=== PATIENT | male | born 1940 | race Caucasian/White ===

== ENCOUNTER → 2016-05-14 | Outpatient (CLI) | payer BC ==
[~2016-05-14] MED LIST: ASPI81TA28 PO; BUTACAP10 PO; CALC-393 PO; CHOL1000 PO; CINN500T PO; DICL-201 PO; FERROUS SULFATE PO; FOLI1TAB7 PO; HYDR25TA5 PO; LISI-461 PO; LISI-787 PO; LORA10CA10 PO; LSN/10125 PO; METF-384 PO; METH2.5T PO; MULTTAB58 PO; OXYC-57 PO; PRED-301 PO; SIMV10TA5 PO; VITAMIN B12 PO
== END | disposition home or self-care (01) ==
LOC: C.PATHSPEC 18:11
DX: K14.8 Other diseases of tongue (principal)

== ENCOUNTER → 2016-05-31 | Outpatient (CLI) | payer BC ==
[2016-05-31 13:30] LABS: COMPLETE YES; HEMATOCRIT 35.7 % (42-52); IG% 0.3 %; LYMPH % 6.8 %; LYMPH ABS # 0.77 K/uL (1.2-3.4); MEAN CORPUSCULAR HGB CONC 34.7 g/dl (32-36); MEAN PLATELET VOLUME 9.9 fL (7.4-10.4); MONO % 5.3 %; NEUT % 87.6 %; PLATELET COUNT 285 K/uL (130-400); RED BLOOD COUNT 3.88 M/uL (4.7-6.1); WHITE BLOOD COUNT 11.35 K/uL (4.8-10.8)
[2016-05-31 13:39] LABS: ALT/SGPT 38 U/L (12-78); AST/SGOT 21 U/L (15-37); BLOOD UREA NITROGEN 26 mg/dl (7-18); BUN/CREATININE RATIO 17.4 (10-20); CALCIUM 9.5 mg/dl (8.5-10.1); CARBON DIOXIDE 26 mmol/L (21-32); CHLORIDE 102 mmol/L (98-107); GLUCOSE 118 mg/dl (70-99); POTASSIUM 4.2 mmol/L (3.5-5.1); SODIUM 137 mmol/L (136-145)
[2016-05-31 13:44] LABS: CHOLESTEROL 99 mg/dl (0-200); CHOLESTEROL/HDL RATIO 1.2; HDL CHOLESTEROL 80 mg/dl; LDL CHOLESTEROL CALCULATED 9 mg/dl; TRIGLYCERIDES 52 mg/dl (0-150); VERY LOW DENSITY LIPOPROT CALC 10 mg/dl
[2016-05-31 13:56] LABS: ESTIMATED AVERAGE GLUCOSE 105 mg/dl; HA1C FLAG Normal (Normal)
[2016-05-31 18:32] LABS: RATIO 16.4 mcg/mg (0-30.0)
== END | disposition home or self-care (01) ==
LOC: C.LABMFLN 08:06
PROVIDERS: ATTEND Family Medicine
DX: E11.9 Type 2 diabetes mellitus without complications (principal); C61 Malignant neoplasm of prostate; M06.9 Rheumatoid arthritis, unspecified; D63.8 Anemia in other chronic diseases classified elsewhere

== ENCOUNTER → 2016-06-17 | Outpatient (CLI) | payer BC ==
[2016-06-17 13:46] LABS: BASO % 0.2 %; BASO ABS # 0.01 K/uL (0-0.2); COMPLETE YES; EOS % 1.1 %; HEMATOCRIT 34.4 % (42-52); IG% 0.2 %; LYMPH % 12.2 %; LYMPH ABS # 0.67 K/uL (1.2-3.4); MEAN CELL VOLUME 93.7 fL (80-100); MEAN CORPUSCULAR HEMOGLOBIN 31.6 pg (25-34); MEAN CORPUSCULAR HGB CONC 33.7 g/dl (32-36); MEAN PLATELET VOLUME 9.4 fL (7.4-10.4); MONO % 9.5 %; NEUT % 76.8 %; PLATELET COUNT 134 K/uL (130-400); RED BLOOD COUNT 3.67 M/uL (4.7-6.1); WHITE BLOOD COUNT 5.49 K/uL (4.8-10.8)
[2016-06-17 14:04] LABS: BLOOD UREA NITROGEN 17 mg/dl (7-18); BUN/CREATININE RATIO 14.1 (10-20); CALCIUM 9.5 mg/dl (8.5-10.1); CARBON DIOXIDE 25 mmol/L (21-32); CHLORIDE 100 mmol/L (98-107); GLUCOSE 115 mg/dl (70-99); POTASSIUM 4.2 mmol/L (3.5-5.1); SODIUM 136 mmol/L (136-145)
== END | disposition home or self-care (01) ==
LOC: C.LABMFLN 10:37
PROVIDERS: ATTEND Family Medicine
DX: I10 Essential (primary) hypertension (principal); D63.8 Anemia in other chronic diseases classified elsewhere

== ENCOUNTER → 2016-07-15 | Day surgery (SDC) | payer BC ==
[2016-07-12 13:10] VITALS: BMI 24.0
--- NOTE | 2016-07-12 13:36 | PAT Medication Instructions ---
Service Date Jul 12, 2016. Current Home Medication List Aspirin (Aspirin Ec), 81 MG PO QAM Fpmkmtqdeb-Yrysmbncfpouu-Jbvjl (Esgic 325/50/40MG), 1 CAP PO PRN Calcium Carbonate (Calcium), 1 TAB PO QPM Cholecalciferol (Vitamin D3), 2 TABS PO QPM Cinnamon (Cinnamon), 1 TAB PO QPM Folic Acid (Folvite), 1 MG PO QAM Lisinopril (Zestril), 10 MG PO QAM Loratadine (Loratadine), 10 MG PO PRN Metformin Hcl (Glucophage), 1,000 MG PO BID Methotrexate (Methotrexate), 20 MG PO WEEK Multiple Vitamin (Multivitamin), 1 TAB PO QAM Simvastatin (Zocor), 10 MG PO QPM [Vitamin B12], 1 TAB PO QPM Medication Instructions For Your Scheduled Surgery - Stopped as of today (07/12/16): Aspirin (Aspirin Ec), 81 MG PO QAM Cinnamon (Cinnamon), 1 TAB PO QPM - Instructions to be given by surgeon: Methotrexate (Methotrexate), 20 MG PO WEEK - Hold the following medications 48 hours prior to surgery: Metformin Hcl (Glucophage), 1,000 MG PO BID may take 07/13/16 AM but not after that - Hold the following medications the morning of surgery: Fvjnktoyxt-Pgkewuwsormtq-Ggigd (Esgic 325/50/40MG), 1 CAP PO PRN Folic Acid (Folvite), 1 MG PO QAM Lisinopril (Zestril), 10 MG PO QAM Loratadine (Loratadine), 10 MG PO PRN Multiple Vitamin (Multivitamin), 1 TAB PO QAM - Take the following medications as scheduled the night before surgery: Calcium Carbonate (Calcium), 1 TAB PO QPM Cholecalciferol (Vitamin D3), 2 TABS PO QPM Simvastatin (Zocor), 10 MG PO QPM [Vitamin B12], 1 TAB PO QPM Nothing to eat or drink after midnight If you have any questions please call us at [phone] or [phone] or [phone]
--- NOTE | 2016-07-12 14:35 | DIAGNOSTIC IMAGING REPORT ---
CHEST PREADMISSION(PA/LAT) CLINICAL HISTORY: PAT preoperative evaluation COMPARISON STUDY: 08/16/2013 FINDINGS: The bones soft tissues and hemidiaphragms are normal. The cardiomediastinal silhouette is normal. The lungs are clear. The pulmonary vasculature is normal. IMPRESSION: Negative chest. Electronically signed by: Nash Watters M.D. 07/12/2016 2:33 PM Dictated Date/Time: 07/12/2016 2:32 PM
[2016-07-12 14:49] LABS: URINE APPEARANCE CLEAR (CLEAR); URINE BILIRUBIN NEG (NEG); URINE COLOR YELLOW; URINE NITRITE NEG (NEG); URINE SPECIFIC GRAVITY 1.017 (1.000-1.030); UROBILINOGEN NEG (NEG)
[2016-07-12 14:58] LABS: MANUAL MICROSCOPIC REQUIRED? NO; REVIEW REQ? NO
[~2016-07-15] VITALS: Ht 180.3 cm; Wt 78.1 kg
[~2016-07-15] MED LIST changes: +ATROPINE SULFATE 0.1 MG/ML 5ML SYR IV PRN; +CEFAZOLIN 2000 MG/60 ML D5W IV SCH; +CEFAZOLIN SOD 1 GM VIAL ONE; +DEXAMETHASONE SOD INJ 4 MG/ML VIAL ONE; -DICL-201 PO; +FENTANYL CITRATE INJ 50 MCG/1 ML 2 ML VIAL ONE; -FERROUS SULFATE PO; -HYDR25TA5 PO; +HYDROmorphone INJ 1 MG/ML SYR IV PRN; +LACTATED RINGER'S 1000ML 1,000 ML IV SCH; +LIDOCAINE HCL 1% 20 ML VIAL ONE; +LIDOCAINE HCL 2% 2 ML VIAL (20MG/ML) ONE; -LSN/10125 PO; +MIDAZOLAM HCL 1 MG/ML 2ML VIAL ONE; +ONDANSETRON INJ 2 MG/ML 2 ML VIAL ONE; +OXYCODONE/ACETAMINOPHEN 5-325 TAB PO PRN; +PROPOFOL IV EMULSION 10 MG/ML 20 ML VIAL IV ONE
[2016-07-15 07:52] VITALS: BP 168/88; PULSE 99; TEMP 37.1; O2SAT 100; Ht 180.3 cm; Wt 78.1 kg
--- NOTE | 2016-07-15 08:12 | History & Physical Bridge Note ---
H&P Re-Evaluation Bridge Note: I have examined the patient, reviewed the History & Physical and in the interval since the performance of the History & Physical I have noted the following changes of clinical significance: No changes noted
--- NOTE | 2016-07-15 10:35 | [facility] Post Operative Brief Note ---
Immediate Operative Summary Operative Date Jul 15, 2016. 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 Eyad Carlos Derrick Operator Surgeon(s) None Estimated Blood Loss 10cc Specimens A: left testicle Drains none Anesthesia general Complication(s) None Disposition Recovery Room / PACU
--- NOTE | 2016-07-15 10:37 | Discharge Instructions ---
Discharge Instructions Date of Service Jul 15, 2016. Visit Reason for Visit: Testicular Discharge Discharge Diagnosis / Problem: left testes mass Discharge Goals Goal(s): Therapeutic intervention Activity Recommendations Activity Limitations: as noted below Lifting Limitations: no more than 10 pounds Exercise/Sports Limitations: until after follow-up appointment May Resume Sexual Activity: after follow-up appointment Shower/Bathe: tomorrow Anesthesia . Post Anesthesia Instructions: If you have had General Anesthesia or IV Sedation: * Do not drive today. * Resume driving when surgeon permits. * Do not make important decisions or sign legal documents today. * Call surgeon for: 1. Temperature elevations greater than 101 degrees F. 2. Uncontrollable pain. 3. Excessive bleeding. 4. Persistent nausea and vomiting. 5. Medication intolerance (nausea, vomiting or rash). * For nausea and vomiting use only clear liquids such as: tea, soda, bouillon until nausea subsides, then gradually increase diet as tolerated. * If you have any concerns or questions, call your surgeon's office. If physician is unavailable and it is an emergency, call 911 or go to the nearest emergency room. . Diet Recommendations Recommended Home Diet: resume previous diet Procedures Procedures Performed: Left Radical Orchiectomy Pending Studies Studies pending at discharge: no Medical Emergencies . Who to Call and When: Medical Emergencies: If at any time you feel your situation is an emergency, please call 911 immediately. . Non-Emergent Contact Non-Emergency issues call your: Urologist . . "Provider Documentation" section prepared by Eyad Carlos. [place] Drug Monitoring Program Search Results: patient reviewed within database
--- NOTE | 2016-07-15 11:09 | Anesthesiology Progress Note ---
Anesthesia Post Op Note Date & Time Jul 15, 2016 at 11:09 Vital Signs Pain Intensity: 0 Vital Signs Past 12 Hours Date Time Temp Pulse Resp B/P Pulse Ox O2 Delivery O2 Flow Rate FiO2 07/15/16 10:59 36.8 90 21 154/90 97 Room Air 07/15/16 10:49 93 14 07/15/16 10:49 93 14 97 07/15/16 10:45 158/93 07/15/16 10:44 95 15 07/15/16 10:44 94 15 100 07/15/16 10:41 168/100 07/15/16 10:39 97 17 07/15/16 10:39 98 17 100 07/15/16 10:35 165/88 07/15/16 10:34 97 18 155/96 100 07/15/16 10:34 36.0 97 15 155/96 100 Mask 10 07/15/16 10:34 100 18 07/15/16 07:52 37.1 99 20 168/88 100 Room Air Notes Mental Status: alert / awake / arousable, participated in evaluation Pt Amnestic to Procedure: Yes Nausea / Vomiting: adequately controlled Pain: adequately controlled Airway Patency, RR, SpO2: stable & adequate BP & HR: stable & adequate Hydration State: stable & adequate Anesthetic Complications: no major complications apparent
[2016-07-15 11:20] VITALS: BP 160/86; PULSE 93; TEMP 36.6; O2SAT 98
[2016-07-15 11:50] VITALS: BP 168/80; PULSE 96; O2SAT 99
[2016-07-15 12:20] VITALS: BP 161/84; PULSE 92; TEMP 36.6; O2SAT 99
[2016-07-15 13:28] LABS: AFP TUMOR MARKER SERUM 5.2 NG/ML (<6.1)
--- NOTE | 2016-07-15 15:30 | OPERATIVE REPORT ---
DATE OF OPERATION: 07/15/2016 PREOPERATIVE DIAGNOSIS: Left testicular mass. POSTOPERATIVE DIAGNOSIS: Same. PROCEDURE: Radical left orchiectomy. FINDINGS: The patient had a mass in the left testicle also a lot of scarring in the left inguinal region secondary to a prior hernia repair. SURGEON: Dr. Carlos. ANESTHESIA: General. DRAINS: None. COMPLICATIONS: None. SPECIMENS: Left testicle and spermatic cord. INDICATIONS: The patient is a 76-year-old white male who is being followed for prostate cancer. 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 The patient is being brought in now for radical orchiectomy. PROCEDURE: After the induction of an adequate general anesthetic and appropriate time-out, the patient's lower abdomen, genitalia, scrotum were prepped with Betadine and draped in a sterile fashion. Next, an incision was made in the left lower quadrant approximately 2 cm above the pubic symphysis, being carried down through skin and subcutaneous tissues down Scarp's fascia which was opened sharply and then using blunt dissection, the external oblique fascia was identified. This was very scarred in from his prior hernia repair. Very difficult to find the external ring, but it was eventually identified, the fascia was then opened, the cord was isolated and wrapped with a Leopold drain. The testicle was then pushed up from the scrotum up into the abdominal incision and the gubernaculum was transected using electrocautery. The cord was then isolated in several packets, transected and ligated with 0 silk and then 0 silk suture links as was the vas itself. After completing this and handing off as the specimen, the wound was irrigated with antibiotic irrigation. Any bleeding points were electrocoagulated. The wound was closed in the following fashion: The fascia was reapproximated with a running 2-0 Vicryl, subcutaneous layers were closed with a 3-0 Vicryl and the skin was closed with skin clips. The wound was then washed and dried and dry sterile dressing was then applied. All needle, sponge and instrument counts were correct at the end of the case. The patient tolerated the procedure well and went to the recovery room in stable condition. I attest to the content of the Intraoperative Record and any orders documented therein. Any exceptio ns are noted below.
== END | disposition home or self-care (01) ==
LOC: C.ACU 07:04
PROVIDERS: ATTEND Urology
DX: N50.9 Disorder of male genital organs, unspecified (principal); I71.4 Abdominal aortic aneurysm, without rupture; I10 Essential (primary) hypertension; E11.9 Type 2 diabetes mellitus without complications; L70.0 Acne vulgaris; M19.90 Unspecified osteoarthritis, unspecified site; I65.21 Occlusion and stenosis of right carotid artery; Z85.46 Personal history of malignant neoplasm of prostate; M06.9 Rheumatoid arthritis, unspecified; Z90.89 Acquired absence of other organs; Z82.3 Family history of stroke; Z80.3 Family history of malignant neoplasm of breast; Z83.3 Family history of diabetes mellitus; Z87.891 Personal history of nicotine dependence; Z91.048 Other nonmedicinal substance allergy status; Z88.8 Allergy status to other drugs, medicaments and biological substances; E78.00 Pure hypercholesterolemia, unspecified

== ENCOUNTER → 2016-08-21 | Outpatient (CLI) | payer BC ==
[~2016-08-21] MED LIST changes: -ATROPINE SULFATE 0.1 MG/ML 5ML SYR IV PRN; -BUTACAP10 PO; -CEFAZOLIN 2000 MG/60 ML D5W IV SCH; -CEFAZOLIN SOD 1 GM VIAL ONE; -DEXAMETHASONE SOD INJ 4 MG/ML VIAL ONE; -FENTANYL CITRATE INJ 50 MCG/1 ML 2 ML VIAL ONE; -HYDROmorphone INJ 1 MG/ML SYR IV PRN; -LACTATED RINGER'S 1000ML 1,000 ML IV SCH; -LIDOCAINE HCL 1% 20 ML VIAL ONE; -LIDOCAINE HCL 2% 2 ML VIAL (20MG/ML) ONE; -LISI-461 PO; -MIDAZOLAM HCL 1 MG/ML 2ML VIAL ONE; -ONDANSETRON INJ 2 MG/ML 2 ML VIAL ONE; -OXYCODONE/ACETAMINOPHEN 5-325 TAB PO PRN; -PROPOFOL IV EMULSION 10 MG/ML 20 ML VIAL IV ONE; -VITAMIN B12 PO
== END | disposition home or self-care (01) ==
LOC: C.LABMFLN 12:00
PROVIDERS: ATTEND Urology
DX: C61 Malignant neoplasm of prostate (principal)

== ENCOUNTER → 2016-10-17 | Outpatient (CLI) | payer BC ==
[2016-10-17 18:33] LABS: ALT/SGPT 58 U/L (12-78); AST/SGOT 49 U/L (15-37); BLOOD UREA NITROGEN 23 mg/dl (7-18); BUN/CREATININE RATIO 17.5 (10-20); CALCIUM 9.3 mg/dl (8.5-10.1); CARBON DIOXIDE 27 mmol/L (21-32); CHLORIDE 104 mmol/L (98-107); GLUCOSE 80 mg/dl (70-99); POTASSIUM 4.2 mmol/L (3.5-5.1); SODIUM 141 mmol/L (136-145)
[2016-10-17 18:38] LABS: ALB/GLOB RATIO 1.4 (0.9-2); ALKALINE PHOSPHATASE 90 U/L (45-117); CHOLESTEROL 119 mg/dl (0-200); CHOLESTEROL/HDL RATIO 1.3; HDL CHOLESTEROL 91 mg/dl; LDL CHOLESTEROL CALCULATED 13 mg/dl; PROSTATE SPECIFIC ANTIGEN 0.105 ng/ml (0.000-4.000); TRIGLYCERIDES 77 mg/dl (0-150); VERY LOW DENSITY LIPOPROT CALC 15 mg/dl
[2016-10-17 18:54] LABS: ESTIMATED AVERAGE GLUCOSE 108 mg/dl; HA1C FLAG Normal (Normal)
== END | disposition home or self-care (01) ==
LOC: C.LABMFLN 12:42
PROVIDERS: ATTEND Family Medicine
DX: M06.9 Rheumatoid arthritis, unspecified (principal); I10 Essential (primary) hypertension; E11.9 Type 2 diabetes mellitus without complications; R97.20 Elevated prostate specific antigen [PSA]

== ENCOUNTER → 2016-11-18 | Outpatient (CLI) | payer BC ==
[2016-11-18 17:54] LABS: BASO % 0.2 %; BASO ABS # 0.01 K/uL (0-0.2); COMPLETE YES; EOS % 8.1 %; HEMATOCRIT 28.4 % (42-52); LYMPH % 5.4 %; LYMPH ABS # 0.32 K/uL (1.2-3.4); MEAN CELL VOLUME 91.6 fL (80-100); MEAN CORPUSCULAR HEMOGLOBIN 31.9 pg (25-34); MEAN CORPUSCULAR HGB CONC 34.9 g/dl (32-36); MEAN PLATELET VOLUME 8.6 fL (7.4-10.4); MONO % 10.5 %; NEUT % 74.8 %; PLATELET COUNT 184 K/uL (130-400); WHITE BLOOD COUNT 5.93 K/uL (4.8-10.8)
[2016-11-18 18:34] LABS: BLOOD UREA NITROGEN 38 mg/dl (7-18); BUN/CREATININE RATIO 25.5 (10-20); CALCIUM 8.9 mg/dl (8.5-10.1); CARBON DIOXIDE 24 mmol/L (21-32); CHLORIDE 102 mmol/L (98-107); GLUCOSE 111 mg/dl (70-99); POTASSIUM 3.2 mmol/L (3.5-5.1); SODIUM 134 mmol/L (136-145)
== END | disposition home or self-care (01) ==
LOC: C.LABMFLN 15:08
PROVIDERS: ATTEND Family Medicine
DX: R19.7 Diarrhea, unspecified (principal); E86.0 Dehydration

== ENCOUNTER → 2016-11-25 | Outpatient (CLI) | payer BC ==
[2016-11-25 18:02] LABS: BLOOD UREA NITROGEN 25 mg/dl (7-18); BUN/CREATININE RATIO 20.5 (10-20); CALCIUM 8.9 mg/dl (8.5-10.1); CARBON DIOXIDE 26 mmol/L (21-32); CHLORIDE 103 mmol/L (98-107); GLUCOSE 126 mg/dl (70-99); POTASSIUM 3.5 mmol/L (3.5-5.1); SODIUM 135 mmol/L (136-145)
[2016-11-25 18:03] LABS: TOTAL IRON BINDING CAPACITY 258 mcg/dl (250-450)
[2016-11-25 18:14] LABS: HEMATOCRIT 27.3 % (42-52)
--- NOTE | 2016-12-04 12:05 | CODING QUERY MEDICAL NECESSITY ---
SUPPORTING DIAGNOSIS NEEDED A supporting diagnosis is required for the test/procedure performed on this patient in order for us to be reimbursed by the patient's insurance. Please provide a supporting diagnosis for the following test/procedure listed below next to the test name along with your signature. *If there is no additional diagnosis for this patient that would support the following test/procedure please document that below next to the test/procedure. Test(s)/Procedure(s) that require a supporting diagnosis: * VITAMIN B12 DIAGNOSIS: * FOLIC ACID DIAGNOSIS: Provider Signature: Date: Thank you Amarilys Rosenberg [employer] Information Management Once completed, please kindly fax back to [phone] For questions please call [phone]
== END | disposition home or self-care (01) ==
LOC: C.LABMFLN 13:07
PROVIDERS: ATTEND Family Medicine
DX: D64.9 Anemia, unspecified (principal); E87.6 Hypokalemia; E86.0 Dehydration

== ENCOUNTER → 2016-12-04 | Outpatient (CLI) | payer BC ==
[2016-12-04 17:51] LABS: URINE APPEARANCE CLEAR (CLEAR); URINE BILIRUBIN NEG (NEG); URINE COLOR DK YELLOW; URINE NITRITE NEG (NEG); URINE PH 6.5 (4.5-7.5); URINE SPECIFIC GRAVITY 1.021 (1.000-1.030); UROBILINOGEN NEG (NEG)
[2016-12-04 17:57] LABS: MANUAL MICROSCOPIC REQUIRED? NO; REVIEW REQ? NO
== END | disposition home or self-care (01) ==
LOC: C.LABMFLN 15:11
PROVIDERS: ATTEND Family Medicine
DX: R35.0 Frequency of micturition (principal)

== ENCOUNTER → 2016-12-16 | Outpatient (CLI) | payer BC ==
[2016-12-16 18:05] LABS: BLOOD UREA NITROGEN 14 mg/dl (7-18); BUN/CREATININE RATIO 12.6 (10-20); CALCIUM 8.4 mg/dl (8.5-10.1); CARBON DIOXIDE 28 mmol/L (21-32); CHLORIDE 107 mmol/L (98-107); GLUCOSE 133 mg/dl (70-99); POTASSIUM 3.6 mmol/L (3.5-5.1); SODIUM 141 mmol/L (136-145)
[2016-12-16 18:07] LABS: ALT/SGPT 62 U/L (12-78); AST/SGOT 35 U/L (15-37)
[2016-12-16 18:10] LABS: ALKALINE PHOSPHATASE 119 U/L (45-117)
[2016-12-16 18:25] LABS: BASO % 0.3 %; BASO ABS # 0.01 K/uL (0-0.2); EOS % 3.3 %; HEMATOCRIT 26.6 % (42-52); IG% 4.9 %; LYMPH % 9.5 %; LYMPH ABS # 0.37 K/uL (1.2-3.4); MEAN CELL VOLUME 98.9 fL (80-100); MEAN CORPUSCULAR HEMOGLOBIN 31.2 pg (25-34); MEAN CORPUSCULAR HGB CONC 31.6 g/dl (32-36); MONO % 8.4 %; NEUT % 73.6 %; PLATELET COUNT 135 K/uL (130-400); RED BLOOD COUNT 2.69 M/uL (4.7-6.1); WHITE BLOOD COUNT 3.91 K/uL (4.8-10.8)
[2016-12-16 19:39] LABS: ANISOCYTOSIS PRESENT; COMPLETE YES
== END | disposition home or self-care (01) ==
LOC: C.LABMFLN 12:25
PROVIDERS: ATTEND Internal Medicine
DX: Z79.899 Other long term (current) drug therapy (principal)

== ENCOUNTER → 2016-12-30 | Outpatient (CLI) | payer BC ==
[2016-12-30 18:14] LABS: HEMATOCRIT 29.3 % (42-52)
--- NOTE | 2017-01-06 16:06 | CODING QUERY NO DIAGNOSIS ---
: 1940 TREATMENT RENDERED WITHOUT A DIAGNOSIS To promote full compliance with coding requirements relating to patient care, physician participation is requested in all cases of commercial hvac technician uncertainty. Please assist us with providing a diagnosis/symptom for the test(s) below: The diagnosis included on your order D63.8 cannot be used as an only diagnosis as it is a manifestation code. Please provide the chronic disease associated with the D63.8 (anemia of chronic disease). The testing rendered was completed on 01/02/17 and included: HEMOGLOBIN & HEMATOCRIT Please provide the chronic disease associated with the (anemia of chronic disease D63.8) included on your order. D63.8 is considered a manifestation code and cannot be coded as only diagnosis. DIAGNOSIS: Provider Signature: Date: Thank you Charlotte Bowman [employer] Information [employer] Once completed, please kindly fax back to [phone] For questions please call [phone]
== END | disposition home or self-care (01) ==
LOC: C.LABMFLN 12:26
PROVIDERS: ATTEND Family Medicine
DX: D64.9 Anemia, unspecified (principal)

== ENCOUNTER → 2017-01-20 | Outpatient (CLI) | payer BC ==
[~2017-01-20] MED LIST changes: -OXYC-57 PO
[2017-01-20 13:56] LABS: BASO % 0.6 %; BASO ABS # 0.03 K/uL (0-0.2); COMPLETE YES; EOS % 1.7 %; HEMATOCRIT 32.9 % (42-52); IG% 0.8 %; LYMPH % 19.6 %; LYMPH ABS # 1.01 K/uL (1.2-3.4); MEAN CELL VOLUME 96.8 fL (80-100); MEAN CORPUSCULAR HEMOGLOBIN 32.4 pg (25-34); MEAN CORPUSCULAR HGB CONC 33.4 g/dl (32-36); MEAN PLATELET VOLUME 10.1 fL (7.4-10.4); MONO % 10.3 %; PLATELET COUNT 147 K/uL (130-400); WHITE BLOOD COUNT 5.16 K/uL (4.8-10.8)
[2017-01-21 14:58] LABS: ALBUMIN 3.7 G/DL (3.8-4.8); GAMMA GLOBULIN 0.8 G/DL (0.8-1.7); TOTAL PROTEIN 6.3 G/DL (6.2-8.3)
== END ==
LOC: C.LABMFLN 10:53
PROVIDERS: ATTEND Internal Medicine
DX: D72.810 Lymphocytopenia (principal); D64.9 Anemia, unspecified

== ENCOUNTER → 2017-02-17 | Outpatient (CLI) | payer BC ==
[2017-02-17 18:06] LABS: BASO % 0.2 %; BASO ABS # 0.01 K/uL (0-0.2); COMPLETE YES; EOS % 2.7 %; HEMATOCRIT 36.6 % (42-52); IG% 0.6 %; LYMPH % 19.3 %; LYMPH ABS # 1.22 K/uL (1.2-3.4); MEAN CELL VOLUME 95.1 fL (80-100); MEAN CORPUSCULAR HEMOGLOBIN 30.9 pg (25-34); MEAN CORPUSCULAR HGB CONC 32.5 g/dl (32-36); MEAN PLATELET VOLUME 9.4 fL (7.4-10.4); NEUT % 65.2 %; PLATELET COUNT 136 K/uL (130-400); RED BLOOD COUNT 3.85 M/uL (4.7-6.1); WHITE BLOOD COUNT 6.33 K/uL (4.8-10.8)
[2017-02-17 18:18] LABS: ALT/SGPT 31 U/L (12-78); AST/SGOT 19 U/L (15-37); BLOOD UREA NITROGEN 27 mg/dl (7-18); BUN/CREATININE RATIO 22.1 (10-20); CALCIUM 8.9 mg/dl (8.5-10.1); CARBON DIOXIDE 26 mmol/L (21-32); CHLORIDE 106 mmol/L (98-107); GLUCOSE 92 mg/dl (70-99); POTASSIUM 3.8 mmol/L (3.5-5.1); SODIUM 141 mmol/L (136-145)
[2017-02-17 18:24] LABS: ALB/GLOB RATIO 1.2 (0.9-2); ALKALINE PHOSPHATASE 107 U/L (45-117); CHOLESTEROL 162 mg/dl (0-200); CHOLESTEROL/HDL RATIO 1.3; HDL CHOLESTEROL 121 mg/dl; LDL CHOLESTEROL CALCULATED 24 mg/dl; TOTAL IRON BINDING CAPACITY 314 mcg/dl (250-450); TRIGLYCERIDES 85 mg/dl (0-150); VERY LOW DENSITY LIPOPROT CALC 17 mg/dl
[2017-02-18 05:32] LABS: ESTIMATED AVERAGE GLUCOSE 94 mg/dl; HA1C FLAG Normal (Normal)
== END | disposition home or self-care (01) ==
LOC: C.LABMFLN 11:13
PROVIDERS: ATTEND Family Medicine
DX: I10 Essential (primary) hypertension (principal); E11.9 Type 2 diabetes mellitus without complications; D63.8 Anemia in other chronic diseases classified elsewhere

== ENCOUNTER → 2017-04-08 | Outpatient (CLI) | payer BC ==
[~2017-04-08] MED LIST changes: -FOLI1TAB7 PO; +FOLI1TAB8 PO
== END | disposition home or self-care (01) ==
LOC: C.LABMFLN 13:00
PROVIDERS: ATTEND Urology
DX: C61 Malignant neoplasm of prostate (principal)

== ENCOUNTER → 2017-04-23 | Outpatient (CLI) | payer BC ==
[2017-04-23 12:24] LABS: BASO % 0.3 %; BASO ABS # 0.02 K/uL (0-0.2); EOS % 1.9 %; EOS ABS # 0.11 K/uL (0-0.5); HEMATOCRIT 35.4 % (42-52); HEMOGLOBIN 11.6 g/dL (14.0-18.0); IG# 0.01 K/uL (0.00-0.02); LYMPH % 8.4 %; MEAN CELL VOLUME 92.9 fL (80-100); MEAN CORPUSCULAR HEMOGLOBIN 30.4 pg (25-34); MEAN CORPUSCULAR HGB CONC 32.8 g/dl (32-36); MEAN PLATELET VOLUME 9.8 fL (7.4-10.4); MONO ABS # 0.59 K/uL (0.11-0.59); NEUT % 79.2 %; NEUT ABS # 4.69 K/uL (1.4-6.5); PLATELET COUNT 185 K/uL (130-400); RED CELL DISTRIBUTION WIDTH CV 15.4 % (11.5-14.5); RED CELL DISTRIBUTION WIDTH SD 51.8 fL (36.4-46.3); WHITE BLOOD COUNT 5.92 K/uL (4.8-10.8)
[2017-04-23 13:07] LABS: ALBUMIN 3.7 gm/dl (3.4-5.0); ALT/SGPT 35 U/L (12-78); BLOOD UREA NITROGEN 23 mg/dl (7-18); CALCIUM 9.6 mg/dl (8.5-10.1); CARBON DIOXIDE 25 mmol/L (21-32); CREATININE 1.21 mg/dl (0.60-1.40); GLUCOSE 112 mg/dl (70-99); POTASSIUM 4.1 mmol/L (3.5-5.1); SODIUM 137 mmol/L (136-145)
[2017-04-23 13:10] LABS: ALKALINE PHOSPHATASE 118 U/L (45-117); AST/SGOT 30 U/L (15-37); TOTAL PROTEIN 7.1 gm/dl (6.4-8.2)
== END | disposition home or self-care (01) ==
LOC: C.LABMFLN 09:48
PROVIDERS: ATTEND Family Medicine
DX: M06.9 Rheumatoid arthritis, unspecified (principal); M79.1 Myalgia

== ENCOUNTER → 2017-05-26 | Outpatient (CLI) | payer BC ==
[2017-05-26 17:58] LABS: BASO % 0.2 %; BASO ABS # 0.01 K/uL (0-0.2); EOS % 2.8 %; EOS ABS # 0.18 K/uL (0-0.5); HEMATOCRIT 32.7 % (42-52); HEMOGLOBIN 10.7 g/dL (14.0-18.0); IG# 0.06 K/uL (0.00-0.02); LYMPH % 16.4 %; LYMPH ABS # 1.04 K/uL (1.2-3.4); MEAN CELL VOLUME 97.9 fL (80-100); MEAN CORPUSCULAR HGB CONC 32.7 g/dl (32-36); MEAN PLATELET VOLUME 9.8 fL (7.4-10.4); MONO % 13.2 %; MONO ABS # 0.84 K/uL (0.11-0.59); NEUT % 66.5 %; NEUT ABS # 4.21 K/uL (1.4-6.5); PLATELET COUNT 154 K/uL (130-400); RED CELL DISTRIBUTION WIDTH CV 16.2 % (11.5-14.5); WHITE BLOOD COUNT 6.34 K/uL (4.8-10.8)
== END | disposition home or self-care (01) ==
LOC: C.LABMFLN 11:32
PROVIDERS: ATTEND Internal Medicine
DX: M05.79 Rheumatoid arthritis with rheumatoid factor of multiple sites without organ or systems involvement (principal); Z79.899 Other long term (current) drug therapy

== ENCOUNTER → 2017-07-01 | Outpatient (CLI) | payer BC ==
[2017-07-01 18:10] LABS: BASO % 0.2 %; BASO ABS # 0.01 K/uL (0-0.2); EOS % 8.1 %; HEMATOCRIT 34.5 % (42-52); HEMOGLOBIN 11.1 g/dL (14.0-18.0); IG# 0.03 K/uL (0.00-0.02); LYMPH % 13.6 %; LYMPH ABS # 0.67 K/uL (1.2-3.4); MEAN CORPUSCULAR HEMOGLOBIN 31.5 pg (25-34); MEAN CORPUSCULAR HGB CONC 32.2 g/dl (32-36); MEAN PLATELET VOLUME 9.9 fL (7.4-10.4); MONO % 9.5 %; MONO ABS # 0.47 K/uL (0.11-0.59); NEUT ABS # 3.36 K/uL (1.4-6.5); PLATELET COUNT 134 K/uL (130-400); RED CELL DISTRIBUTION WIDTH CV 15.7 % (11.5-14.5); RED CELL DISTRIBUTION WIDTH SD 55.2 fL (36.4-46.3); WHITE BLOOD COUNT 4.94 K/uL (4.8-10.8)
[2017-07-01 18:29] LABS: ALBUMIN 3.3 gm/dl (3.4-5.0); ALT/SGPT 87 U/L (12-78); AST/SGOT 57 U/L (15-37); BLOOD UREA NITROGEN 21 mg/dl (7-18); CALCIUM 9.5 mg/dl (8.5-10.1); CARBON DIOXIDE 26 mmol/L (21-32); CREATININE 1.32 mg/dl (0.60-1.40); GLUCOSE 124 mg/dl (70-99); SODIUM 139 mmol/L (136-145)
[2017-07-01 18:33] LABS: ALKALINE PHOSPHATASE 106 U/L (45-117); CHOLESTEROL 111 mg/dl (0-200); LDL CHOLESTEROL CALCULATED 27 mg/dl; TOTAL PROTEIN 6.5 gm/dl (6.4-8.2); TRANSFERRIN 253 mg/dl (200-360)
[2017-07-02 06:33] LABS: HEMOGLOBIN A1C 5.4 % (4.5-5.6)
== END | disposition home or self-care (01) ==
LOC: C.LABMFLN 11:02
PROVIDERS: ATTEND Family Medicine
DX: I10 Essential (primary) hypertension (principal); E11.9 Type 2 diabetes mellitus without complications

== ENCOUNTER 2023-05-26 10:59 | Observation (INO) ==
--- NOTE | 2023-04-29 09:20 | PAT Medication Instructions ---
Medication Instructions Date of Service April 29, 2023 Home Medications Medication Instructions Recorded linaclotide 145 mcg capsule 145 mcg PO DAILY PRN constipation 09/30/18 #90 caps nystatin-triamcinolone 100,000 1 appln topical BID #60 grams 09/30/18 unit/g-0.1 % topical cream mupirocin 2 % topical ointment 1 appln topical BID #30 grams 10/01/18 ipratropium bromide 21 mcg (0.03 See Rx Instructions .Route 03/26/21 %) nasal spray .COMPLEX #90 mL simvastatin 20 mg tablet 20 mg PO QPM #90 tabs 11/13/22 montelukast 10 mg tablet 10 mg PO QPM #90 tabs 01/14/23 ghwzoddtfo-ogrgunzppcjmn-vbzeosnq 1 tab PO Q6H PRN pain #30 tabs 01/31/23 50 mg-325 mg-40 mg tablet tramadol 50 mg tablet 50 mg PO Q6H PRN pain #50 tabs 01/31/23 tocilizumab 162 mg/0.9 mL 162 mg (0.9 mL) subcut Q7D #3.6 mL 02/05/23 subcutaneous pen injector (Actemra ACTPen) diltiazem HCl 120 mg capsule,24 120 mg PO QAM #90 caps 04/14/23 hr,extended release mirtazapine 30 mg tablet 30 mg PO HS insomnia mood #90 tabs 04/15/23 calcium carbonate 600 mg calcium (1,500 mg) tablet (Calcium) 600 mg PO QAM hydrocortisone 2.5 % topical cream 1 appln topical .COMPLEX linaclotide 145 mcg capsule 145 mcg PO DAILY PRN dnxfvovwvxis-odghuedd-jcpbhj tablet 1 tab PO QAM nystatin-triamcinolone 100,000 unit/g-0.1 % topical cream 1 appln topical BID mupirocin 2 % topical ointment 1 appln topical BID ipratropium bromide 21 mcg (0.03 %) nasal spray See Rx Instructions .Route .COMPLEX simvastatin 20 mg tablet 20 mg PO QPM montelukast 10 mg tablet 10 mg PO QPM gdfvatonxo-zunjrcugwwjcf-qxpppikq 50 mg-325 mg-40 mg tablet 1 tab PO Q6H PRN tramadol 50 mg tablet 50 mg PO Q6H PRN tocilizumab 162 mg/0.9 mL subcutaneous pen injector (Actemra ACTPen) 162 mg (0.9 mL) subcut Q7D diltiazem HCl 120 mg capsule,24 hr,extended release 120 mg PO QAM mirtazapine 30 mg tablet 30 mg PO HS cinnamon bark 500 mg capsule 500 mg PO QAM escitalopram oxalate 5 mg tablet 5 mg PO QAM fesoterodine 8 mg tablet,extended release 24 hr (Toviaz) 8 mg PO QPM folic acid 1 mg tablet 1 mg PO QAM lisinopril 20 mg tablet 20 mg PO QAM mirabegron 50 mg tablet,extended release 24 hr (Myrbetriq) 50 mg PO QPM multivitamin 1 tab PO QAM omeprazole 40 mg capsule,delayed release 40 mg PO QAM prednisone 5 mg tablet 5 mg PO QAM Continue as directed ipratropium bromide 21 mcg (0.03 %) nasal spray See Rx Instructions .Route .COMPLEX ASK your surgeon for instructions pfgvpiptii-rlcerbanrupnj-bziypfvh 50 mg-325 mg-40 mg tablet 1 tab PO Q6H PRN ASK your prescriber and surgeon tocilizumab 162 mg/0.9 mL subcutaneous pen injector (Actemra ACTPen) 162 mg (0.9 mL) subcut Q7D STOP taking 2 weeks before surgery (or as soon as possible if surgery is within 2 weeks) cinnamon bark 500 mg capsule 500 mg PO QAM STOP taking 24 hours before surgery hydrocortisone 2.5 % topical cream 1 appln topical .COMPLEX nystatin-triamcinolone 100,000 unit/g-0.1 % topical cream 1 appln topical BID mupirocin 2 % topical ointment 1 appln topical BID DO NOT take the morning of surgery calcium carbonate 600 mg calcium (1,500 mg) tablet (Calcium) 600 mg PO QAM linaclotide 145 mcg capsule 145 mcg PO DAILY PRN amwjecvjppow-lrdztaql-pmizrr tablet 1 tab PO QAM folic acid 1 mg tablet 1 mg PO QAM lisinopril 20 mg tablet 20 mg PO QAM multivitamin 1 tab PO QAM Take morning of surgery With a small sip of water, OTHERWISE NOTHING TO EAT OR DRINK AFTER MIDNIGHT: tramadol 50 mg tablet 50 mg PO Q6H PRN(if needed) diltiazem HCl 120 mg capsule,24 hr,extended release 120 mg PO QAM escitalopram oxalate 5 mg tablet 5 mg PO QAM omeprazole 40 mg capsule,delayed release 40 mg PO QAM prednisone 5 mg tablet 5 mg PO QAM Take evening before surgery simvastatin 20 mg tablet 20 mg PO QPM montelukast 10 mg tablet 10 mg PO QPM mirtazapine 30 mg tablet 30 mg PO HS fesoterodine 8 mg tablet,extended release 24 hr (Toviaz) 8 mg PO QPM mirabegron 50 mg tablet,extended release 24 hr (Myrbetriq) 50 mg PO QPM tramadol 50 mg tablet 50 mg PO Q6H PRN(if needed) Other Notes If you have any questions please call us at [phone] or [phone] or [phone] or [phone]
--- NOTE | 2023-05-02 10:48 | Anesthesiology Consultation ---
Date of Service May 02, 2023 Assessment & Plan (1) Encounter for pre-operative examination: - Check BSG AM DOS - Infectious disease screening: Per assessment on 05/02/23: No known infectious disease contacts or current infectious disease symptoms. No noted recent Covid positive test result. - Outpatient joint assessment: Pt currently scheduled for inpatient pathway. If surgeon requests review for outpatient joint pathway, patient is not recommended candidate for outpatient joint program from anesthesia standpoint. - Hyperkalemia: Elevated potassium at 5.3 on preop labs 05/02/23. Workload message sent to PCP. PCP responded with instructions for staff to provide to patient regarding hyperkalemia 05/04/23, "Please call patient. Potassium has been elevated on preop labs. However, multiple other potassium levels have been normal. Please make sure he is not taking any potassium supplements or salt substitutes. Drink plenty of water. Recheck BMP this week." Awaiting recheck BMP and surgeon-ordered PCP preop evaluation ([facility], appt 2/). Chart Review Chart Review: Patient seen in Pre Admission Testing Teaching & Discussion Pre-Anesthesia Teaching/Discussion Notes: Instructed NPO after midnight before surgery,except medications with 15 cc of water. Medication instructions provided according to the PAT guidelines. History Surgery Operation Date: 05/26/23 09:45 Proposed Procedures p Right Total Knee Arthroplasty(Right) - Luis Hernandez MD Height/Weight Height: 5 ft 11.5 in Weight: 100.8 kg Allergies Allergy/AdvReac Type Severity Reaction Status Date / Time adhesive Allergy Mild Redness Verified 04/29/23 09:59 lovastatin Allergy Unknown Unknown Verified 04/29/23 09:59 pseudoephedrine AdvReac Intermediate "[place] high" Verified 04/29/23 09:59 Medications Home Medications Medication Instructions Recorded Confirmed Last Taken calcium carbonate 600 mg calcium 600 mg PO QAM 09/25/18 04/28/23 Unknown (1,500 mg) tablet (Calcium) hydrocortisone 2.5 % topical cream 1 appln topical .COMPLEX 09/30/18 04/28/23 Unknown linaclotide 145 mcg capsule 145 mcg PO DAILY PRN constipation 09/30/18 04/28/23 Unknown #90 caps riqceiqklrdf-ctzurjvc-yadvxv tablet 1 tab PO QAM 09/30/18 04/28/23 Unknown nystatin-triamcinolone 100,000 1 appln topical BID #60 grams 09/30/18 04/28/23 Unknown unit/g-0.1 % topical cream mupirocin 2 % topical ointment 1 appln topical BID #30 grams 10/01/18 04/28/23 Unknown ipratropium bromide 21 mcg (0.03 See Rx Instructions .Route 03/26/21 04/28/23 Unknown %) nasal spray .COMPLEX #90 mL simvastatin 20 mg tablet 20 mg PO QPM #90 tabs 11/13/22 04/28/23 Unknown montelukast 10 mg tablet 10 mg PO QPM #90 tabs 01/14/23 04/28/23 Unknown baigkhljsq-euhnmtraxyyil-ahbxgtos 1 tab PO Q6H PRN pain #30 tabs 01/31/23 04/28/23 Unknown 50 mg-325 mg-40 mg tablet tramadol 50 mg tablet 50 mg PO Q6H PRN pain #50 tabs 01/31/23 04/28/23 Unknown tocilizumab 162 mg/0.9 mL 162 mg (0.9 mL) subcut Q7D #3.6 mL 02/05/23 04/28/23 Unknown subcutaneous pen injector (Actemra ACTPen) diltiazem HCl 120 mg capsule,24 120 mg PO QAM #90 caps 04/14/23 04/28/23 Unknown hr,extended release mirtazapine 30 mg tablet 30 mg PO HS insomnia mood #90 tabs 04/15/23 04/28/23 Unknown cinnamon bark 500 mg capsule 500 mg PO QAM 04/28/23 04/28/23 Unknown escitalopram oxalate 5 mg tablet 5 mg PO QAM 04/28/23 04/28/23 Unknown fesoterodine 8 mg tablet,extended 8 mg PO QPM 04/28/23 04/28/23 Unknown release 24 hr (Toviaz) folic acid 1 mg tablet 1 mg PO QAM 04/28/23 04/28/23 Unknown lisinopril 20 mg tablet 20 mg PO QAM 04/28/23 04/28/23 Unknown mirabegron 50 mg tablet,extended 50 mg PO QPM 04/28/23 04/28/23 Unknown release 24 hr (Myrbetriq) multivitamin 1 tab PO QAM 04/28/23 04/28/23 Unknown omeprazole 40 mg capsule,delayed 40 mg PO QAM 04/28/23 04/28/23 Unknown release prednisone 5 mg tablet 5 mg PO QAM 04/28/23 04/28/23 Unknown Past Medical History Medical History (Updated 05/04/23 @ 15:00 by Ramiro Hernandez MD) Abdominal aneurysm Aortoiliac ultrasound 06/2021: 3.7cm infrarenal AAA (stable) 2 year surviellance recommended by vascular (Dr. Pride) Actinic keratoses Anemia Chronic Carotid stenosis, right Under surveillance by vascular, imaging every 2 years Carotid duplex 06/2021: Known MARGARITA occlusion, 60-69% LICA stenosis ("possibly overestimated due to contralateral ICA occlusion), no change compared to 05/2019 per report Diabetes mellitus, type 2 Diet controlled H/O prostate cancer Dx 2006 S/p protatectomy Hearing deficit Hypercholesteremia Hyperkalemia Hypertension Osteoarthritis, knee Rheumatoid arthritis Spinal stenosis of lumbar region "Moderate" at L4-L5 Spondylolisthesis at L4-L5 level Exercise / Class Metabolic Activity III < 4 Walking/Shop/Light housework Past Family History Family History Father No problems noted. Mother No problems noted. Other No family history of adverse response to anesthesia Past Surgical History Surgical History H/O hernia repair H/O prostatectomy History of colonoscopy History of tonsillectomy and adenoidectomy History of tooth extraction Hx of vasectomy Past Anesthesia History No Hx of Anesthesia Complications and No Family Hx of Anesthesia Complications History of PONV No Hx of PONV and No Hx of Motion Sickness Social History Smoking Status: Former smoker Do You Dip or Chew Tobacco: No Smoking End Date: Quit 2006 Hx Alcohol Use: No Hx Substance Use: No substance use type: does not use Review of Systems Patient denies chest pain, shortness of breath, fever, chills, cough, wheezing, palpitations. Physical Exam Vital Signs VITALS BP 126/81 P 91 TEMP 98.1 SP02 95%RA RESP 20 PHYSICAL Decreased cervical extension range of motion. Full TMJ range of motion. TMD 3 finger breaths Mallampati Score 4 (small oral opening) Dentition: upper/lower dentures Lungs: coarse breath sounds Cardiac: regular rate and rhythm, no murmurs noted Spine: normal Carotid arteries: negative bruit Extremities: no LE edema Lab Results Anesthesia Preop Results Results Anesthesia Widget: WBC 4.46 K/ul (4.8-10.8) L 05/02/23 Hgb 12.6 g/dl (14.0-18.0) L 05/02/23 Hct 38.2 % (42.0-52.0) L 05/02/23 Plt 125 K/uL (130-400) L 05/02/23 Na 135 mmol/L (136-145) L 05/02/23 K 5.3 mmol/L (3.5-5.1) H 05/02/23 Cl 101 mmol/L (98-107) 05/02/23 CO2 27 mmol/L (21-32) 05/02/23 BUN 22 mg/dl (6-23) 05/02/23 Creat 1.42 mg/dl (0.6-1.4) H 05/02/23 Glucose Level 229 mg/dl (70-99(Fasting)) H 05/02/23 PT 11.2 Seconds (9.0-12.0) 05/02/23 PTT 26 Seconds (21-31) 05/02/23 INR 1.0 (0.9-1.1) 05/02/23 Urine Color Yellow 05/02/23 Urine Appearance Clear (Clear) 05/02/23 Urine pH 5.5 (4.5-7.5) 05/02/23 Urine Specific [place] 1.010 (1.000-1.030) 05/02/23 Urine Protein Negative (Negative) 05/02/23 Urine Glucose (UA) Negative (Negative) 05/02/23 Urine Ketones Negative (Negative) 05/02/23 Urine Blood Negative (Negative) 05/02/23 Urine Nitrite Negative (Negative) 05/02/23 Urine Bilirubin Negative (Negative) 05/02/23 Urine Urobilinogen Negative (Negative) 05/02/23 Urine Leukocyte Esterase Negative (Negative) 05/02/23 Blood Type O Positive 05/02/23 Antibody Screen NEGATIVE 05/02/23 Testing Laboratory Results *Surgeon's office made aware of elevated glucose/most recent A1C findings* HGBA1C 01/31/23: 6.9% Electrocardiogram Date: 05/02/23 SR with occasional PVCs at 95bpm. NS STA. Chest X-Ray Date: 05/02/23 FINDINGS: The patient is mildly rotated. Asymmetric right hilar prominence on the PA view is likely projectional. Pulmonary vascular congestion with mild chronic interstitial coarsening. No pneumothorax, pleural effusion or overt pulmonary edema. Degenerative changes of the shoulders and spine. IMPRESSION: Cardiomegaly without acute process. Asymmetric right hilar prominence, likely projectional. Cervical Spine X-ray Date: 05/02/23 FINDINGS: No fractures or subluxations are identified. Degenerative changes are noted in the cervical spine. The alignment is anatomic. Prevertebral soft tissues are within normal limits. IMPRESSION: Degenerative changes without evidence of acute abnormality. Other Testing Carotid duplex Date: 06/15/2021 Known occlusion MARGARITA. 60-69% LICA; possibly overestimated due to contralateral ICA occlusion. Normal, antegrade flow in the bilateral vertebral arteries. Normal flow in the bilateral subclavian arteries. Impression: Complex, calcified plaque in the bulb and left ICA. No change compared to 05/27/2019 per report.
--- NOTE | 2023-05-20 09:44 | History & Physical Report ---
Date of Service May 20, 2023 Assessment & Plan (1) Primary osteoarthritis of right knee: Plan: Treatment options discussed with the patient. He has failed conservative measures and would like to proceed with surgery. Risks, benefits and alternatives to surgery including but not limited to infection, DVT, pain, stiffness, need for revision surgery, damage to blood vessels, damage to nerves, PE, , were discussed with the patient and they wish to proceed. Plan on right total knee arthroplasty scheduled for 05/26/23 at [facility] with Dr. Hernandez. Plan on aspirin 81 mg twice daily for 1 mo post op for DVT prophylaxis. All questions answered. Patient will f/u post op. History of Present Illness Chief Complaint: Right knee pain Primary Care Provider: Ramiro Hernandez MD 82yo male with PMHx significant for carotid stenosis, DM2, prostate Ca, RA, AAA, HTN who presents with ongoing right knee pain. Pain is interfering with his daily activity. He has failed conservative measures and would like to proceed with surgical management. Patient denies headaches, sweats, fevers, chills, double vision, blurred vision, cough, sore throat, dysphagia, chest pain, sob, wheezing, n/v/d/c, numbness, tingling, fatigue, urinary symptoms, mood disorders. ROS positive for right knee pain and stiffness. Allergies Allergy/AdvReac Type Severity Reaction Status Date / Time adhesive Allergy Mild Redness Verified 05/09/23 12:47 lovastatin Allergy Unknown Unknown Verified 05/09/23 12:47 pseudoephedrine AdvReac Intermediate "[place] high" Verified 05/09/23 12:47 Home Medications Medication Instructions Recorded Confirmed Type calcium carbonate 600 mg calcium 600 mg PO QAM 09/25/18 05/09/23 History (1,500 mg) tablet (Calcium) hydrocortisone 2.5 % topical cream 1 appln topical .COMPLEX 09/30/18 05/09/23 History linaclotide 145 mcg capsule 145 mcg PO DAILY PRN constipation 09/30/18 05/09/23 Rx #90 caps zsxvnlapexwl-dciqrevp-yksebp tablet 1 tab PO QAM 09/30/18 05/09/23 History nystatin-triamcinolone 100,000 1 appln topical BID #60 grams 09/30/18 05/09/23 Rx unit/g-0.1 % topical cream mupirocin 2 % topical ointment 1 appln topical BID #30 grams 10/01/18 05/09/23 Rx ipratropium bromide 21 mcg (0.03 See Rx Instructions .Route 03/26/21 05/09/23 Rx %) nasal spray .COMPLEX #90 mL simvastatin 20 mg tablet 20 mg PO QPM #90 tabs 11/13/22 05/09/23 Rx montelukast 10 mg tablet 10 mg PO QPM #90 tabs 01/14/23 05/09/23 Rx jqvrscfsfv-llehwbdtcacdq-raorpiah 1 tab PO Q6H PRN pain #30 tabs 01/31/23 05/09/23 Rx 50 mg-325 mg-40 mg tablet tramadol 50 mg tablet 50 mg PO Q6H PRN pain #50 tabs 01/31/23 05/09/23 Rx tocilizumab 162 mg/0.9 mL 162 mg (0.9 mL) subcut Q7D #3.6 mL 02/05/23 05/09/23 Rx subcutaneous pen injector (Actemra ACTPen) diltiazem HCl 120 mg capsule,24 120 mg PO QAM #90 caps 04/14/23 05/09/23 Rx hr,extended release mirtazapine 30 mg tablet 30 mg PO HS insomnia mood #90 tabs 04/15/23 05/09/23 Rx cinnamon bark 500 mg capsule 500 mg PO QAM 04/28/23 05/09/23 History escitalopram oxalate 5 mg tablet 5 mg PO QAM 04/28/23 05/09/23 History fesoterodine 8 mg tablet,extended 8 mg PO QPM 04/28/23 05/09/23 History release 24 hr (Toviaz) folic acid 1 mg tablet 1 mg PO QAM 04/28/23 05/09/23 History lisinopril 20 mg tablet 20 mg PO QAM 04/28/23 05/09/23 History mirabegron 50 mg tablet,extended 50 mg PO QPM 04/28/23 05/09/23 History release 24 hr (Myrbetriq) multivitamin 1 tab PO QAM 04/28/23 05/09/23 History omeprazole 40 mg capsule,delayed 40 mg PO QAM 04/28/23 05/09/23 History release prednisone 5 mg tablet 5 mg PO QAM 04/28/23 05/09/23 History Past Med/Surg History Medical History Hyperkalemia Diabetes mellitus, type 2 Hearing deficit Carotid stenosis, right Abdominal aneurysm Osteoarthritis, knee Actinic keratoses Spondylolisthesis at L4-L5 level Spinal stenosis of lumbar region Rheumatoid arthritis H/O prostate cancer Hypercholesteremia Hypertension Anemia Surgical History History of colonoscopy Hx of vasectomy History of tooth extraction History of tonsillectomy and adenoidectomy H/O hernia repair H/O prostatectomy Family History Father No problems noted. Mother No problems noted. Other No family history of adverse response to anesthesia Social History Smoking Status: Former smoker Tobacco Type: Cigarettes Smoking End Date: Quit 2006; Second Hand Exposure: No; Do You Dip or Chew Tobacco: No; Hx Alcohol Use: No Hx Substance Use: No Preferred Language: Greek Communication Ability: Impaired Communication Ability Comment: [facility] Early Years Teacher Required: No Beliefs That Will Affect Care: Cheondoism Cheondoism Beliefs: Hinduism marital status: Current Living Situation: Family Current Living Situation Comment: with son/Ramiro current occupational status: retired Feels Safe at Home: Yes Safety Concerns: Feels Safe At This Time Seatbelt Use: always Assistive Devices: Denture - Upper, Denture - Lower, Glasses, Hearing Aid - Bilateral, Walker and Wheelchair Review of Systems All systems reviewed & are unremarkable except as noted in HPI & below Physical Exam Constitutional: well developed and well nourished; no acute distress Eyes: PERRL, conjunctivae normal, anicteric sclerae ENMT: external ear and nose normal, oropharynx normal Neck: trachea midline, no thyromegaly Respiratory: normal respiratory effort, lungs clear to auscultation Cardiovascular: RRR, no murmur, no edema Musculoskeletal: Right knee: Valgus alignment. Large effusion. Mild crepitation. Positive valgus stress, stable to varus stress. ROM 20-110 degrees. + Extensor lag. Skin: no rashes, warm and dry Neurologic: patellar DTR's 2+ bilat, sensation intact Psychiatric: A+Ox3, euthymic affect Results & Data Diagnostic Findings 4 views right knee including AP, PA flexion, lateral, patella x-rays reviewed and shows severe lateral compartment DJD with complete loss of joint space and a valgus aligned knee. Severe patellofemoral arthritis as well.
[~2023-05-26 10:59] MED LIST changes: -ASPI81TA28 PO; +BUPIVACAINE 0.5 % 5 MG/1 ML PF 10ML VIAL ONE; -CALC-393 PO; -CHOL1000 PO; -CINN500T PO; +EPINEPHrine INJ 1 MG/ML AMP ONE; -FOLI1TAB8 PO; -LISI-787 PO; -LORA10CA10 PO; -METF-384 PO; -METH2.5T PO; -MULTTAB58 PO; -PRED-301 PO; +ROPIVACAINE 0.5% 5 MG/ML 30 ML VIAL ONE; -SIMV10TA5 PO
--- NOTE | 2023-05-26 11:11 | History & Physical Bridge Note ---
Date of Service May 26, 2023 History & Physical Bridge Note I have examined the patient, reviewed the History & Physical and in the interval since the performance of the History & Physical I have noted the following changes of clinical significance: no changes noted
[2023-05-26] MEDS: LR 500ML BOLUS, THEN 15ML/HR IV SCH (12:05)
[2023-05-26] MEDS: METOCLOPRAMIDE HCL 10 MG TABLET PO SCH (12:06)
[2023-05-26] MEDS: ACETAMINOPHEN 500 MG TAB PO SCH ×2 (12:06→23:03)
[2023-05-26] MEDS: FAMOTIDINE 20 MG TAB PO SCH (12:06)
[2023-05-26] MEDS: GABAPENTIN 300 MG CAP PO SCH (12:06)
[2023-05-26] MEDS: CeleBREX 200 MG CAP PO SCH (12:06)
[2023-05-26] MEDS: dexAMETHasone**PF** 10 MG/ML VIAL IV SCH (12:07)
[2023-05-26] MEDS ORDERED: ATROPINE SULFATE 0.1 MG/ML 10ML SYR IV PRN (12:32)
[2023-05-26] MEDS ORDERED: ePHEDrine sulfate 50 MG/ML AMP IV PRN (12:32)
[2023-05-26] MEDS ORDERED: fentaNYL citrate PF 100 MCG/2 ML VIAL IV PRN (12:32)
[2023-05-26] MEDS ORDERED: PROMETHAZINE HCL 6.25 MG in SODIUM CHLORIDE 0.9% 50 ML IV PRN (12:32)
[2023-05-26] MEDS ORDERED: HYDROmorphone INJ 1 MG/ML SYRINGE IV PRN (12:32)
[2023-05-26] MEDS ORDERED: NALOXONE HCL 0.4 MG/1 ML VIAL/CARP IV PRN ×2 (12:32→19:54)
[2023-05-26] MEDS ORDERED: ONDANSETRON INJ 2 MG/ML 2 ML VIAL IV PRN ×2 (12:32→19:54)
[2023-05-26] MEDS ORDERED: FLUMAZENIL 0.1 MG/1 ML 10 ML VIAL IV PRN (12:32)
[2023-05-26] MEDS ORDERED: MIDAZOLAM HCL 1 MG/ML 2ML VIAL ONE (12:59)
[2023-05-26] MEDS ORDERED: fentaNYL citrate PF 100 MCG/2 ML VIAL ONE (13:00)
[2023-05-26] MEDS: TRANEXAMIC ACID 1,000 MG **IV Pre-op IV SCH (13:10)
[2023-05-26] MEDS: ceFAZolin 2000MG 2,000 MG/15 ML SYR IV SCH ×2 (13:35→23:01)
[2023-05-26] MEDS ORDERED: PROPOFOL IV EMULSION 10 MG/ML 20 ML VIAL IV ONE (14:07)
[2023-05-26] MEDS ORDERED: HYDROmorphone INJ 2 MG/ML SYR/VIAL ONE (14:08)
[2023-05-26] MEDS ORDERED: LABETALOL HCL IV 5 MG/ML 20ML IV ONE (14:12)
[2023-05-26] MEDS: ORTHO JOINT ANESTHETIC ONE (14:19)
[2023-05-26] MEDS ORDERED: PHENYLEPHRINE 100MCG/ML 10ML SYR IV ONE (14:39)
[2023-05-26] MEDS: ROPIV 0.5% 246mg, Ketorolac 30mg, EPINEPHrine 0.5mg in NSS INFIL SCH (15:16)
[2023-05-26] MEDS: TRANEXAMIC ACID 1,000 MG **IV Intra-op IV SCH (15:23)
[2023-05-26] MEDS ORDERED: PHENYLEPHRINE HCL 10 MG/ML VIAL ONE (15:27)
--- NOTE | 2023-05-26 15:46 | Operative Report ---
Post Operative Report Pre & Post Diagnosis Operation Date: 05/26/23 13:35 Pre-Op Diagnosis: Primary osteoarthritis of right knee,synovitis, flexion contracture Post-Op Diagnosis: Primary osteoarthritis of right knee, chronic synovitis, flexion contracture I identified the patient and participated in the time-out.: Yes Procedure Operation Date: 05/26/23 13:35 Actual Procedures p Right Total Knee Arthroplasty(Right), lateral release, electrocautery synovectomy- Luis Hernandez MD Surgeon Luis Hernandez MD Operational Risk Consultant Slade SUERO Estimated Blood Loss 10 Findings Consistent with Post-Op Diagnosis Specimens Bone cuts and synovium Drains 2 Hemovac Anesthesia Type General Regional Complications none Disposition Disposition: Recovery Room Indications 82-year-old male with progressive severe osteoarthritis in his right knee. Patient has a flexion contracture in his knee and walks with a walker. Radiographs demonstrate valgus knee otyy-ad-hvzk in the lateral compartment and patellofemoral joints with lateral alignment of the patella. Gapping of the medial compartment consistent with stretching of the MCL Description of Procedure Patient taken to the operating room the size under general and regional block anesthesia. Anesthesia attempted spinal block but was unsuccessful. Patient was placed supine on the operating table. A pneumatic tourniquet was placed about the right upper thigh. The right lower extremity was prepped and draped in sterile fashion. Knee exam demonstrated 25 to 30 degree flexion contracture with further flexion to 125 degrees. Positive Sheree exam 2+ medial collateral ligament laxity with MCL laxity with valgus stress. There was a large knee effusion. The leg was elevated exsanguinated with an Esmarch bandage and pneumatic tourniquet was raised to 325 millimeters of mercury. Skin incised sharply in longitudinal fashion. Subcutaneous flaps elevated. Incision was made through the medial retinaculum extending up in the mid third of the quadriceps tendon and down to the medial tibial tubercle. Intra-articular findings demonstrated tricompartmental osteoarthritis with ygtk-iq-cbcq and bone loss in the lateral compartment mainly flexion surface of the tibial plateau but also on femoral condyle. Has leif-wg-uiou in the patellofemoral joint. The synovium had a shiny white appearance to it consistent with chronic synovitis with chronically thickened synovial tissue. ACL was torn and there was notch stenosis. The [employer] persona total knee arthroplasty system was used. To expose the knee the infrapatellar fat pad was resected. The meniscal remnants and posterior cruciate ligament were resected. The anterior fat pad over the femur in the area of the location of the anterior flange of the femoral component was resected. The lateral synovial bands were released. An electrocautery synovectomy was performed in the suprapatellar pouch and in the gutters removing this chronically thickened pathological synovial tissue. Notch osteophytes were resected with curved osteotome. The femur was exposed. An intramedullary drill hole was made into the canal. A guide cooper was placed. Distal femoral cutting guide was adjusted to resect a 6 degree valgus cut with +2 additional millimeters of distal femur resected from the standard distal resection. The knee was extended and a subperiosteal peel lateral release was performed around the patella. Patella width was measured and width was reproduced using a freehand cut technique and a 35 symmetrical patella component. The 3 drill holes were made and the excess lateral facet was beveled off to prevent any impingement. Attention was taken back to the femur which was exposed with retractors and the femoral sizing guide was pinned in position. The drill holes were placed in 3 of external rotation to match the epicondylar axis. The femur sized for a 9 posterior stabilized component. The 4-in-1 cutting block was placed and then the anterior posterior and chamfer cuts are made. The tibia was then subluxed. The external tibial cutting guide was adjusted to make a perpendicular cut to the long axis of the tibia below the most deficient lateral bone loss side. Cut was adjusted for slope. A lamina interior block wirer was used and the flexion extension gaps were balanced. Lateral capsular releases including posterior lateral and IT band release off the tibia releases were required. All posterior osteophytes removed. All meniscal remnants were resected. The tibia exposed and the trial tibial component size G was externally rotated in line with the tibial tubercle and pinned in position. The drill and punch for stem was used. The femoral trial was inserted. Notch cutting devices were used and the collet was placed. Trial tibial inserts were placed and size 14 CPS gave balanced ligaments through flexion and extension. Patella tracking was assessed. The patella tracked centrally but had some lateral tilt so I did a limited lateral release leaving the synovium intact. The trial components were then removed and the orthomix anesthetic cocktail was injected per protocol. The knee was then copiously irrigated with pulsatile lavage saline solution. Final components were then cemented with Refobacin cement. Xperience irrigation placed over metal compoments prior to polyethylene insertion. Final components were [employer] persona 9 standard posterior stabilized femoral component, G right tibial stem with a 14 x 30 mm cemented stem with a 14 mm CPS tibial polyethylene and a 35 mm symmetrical cemented patella. After the cement cured further pulsatile lavage irrigation was then performed with Xperience and 2 Hemovac drains were brought out laterally. The quadriceps tendon and medial retinaculum were closed with figure of 8 #1 Vicryl sutures. The knee was taken through full range of motion and the repair was secure. Knee range of motion was 0 through 130 degrees. The subcutaneous tissues were closed with 2-0 Vicryl sutures. Skin was closed with tommy. Standard sterile dressing was applied. The patient tolerated the procedure well. Slade SUERO was my physician under water assistant who participated as tutoring assistant and was involved in all aspects of the procedure including patient positioning prepping and draping,leg positioning ,soft tissue retraction and instrument management and participated in the closing and will participate in postoperative care of the patient. The patient tolerated the procedure well. I attest to the content of the Intraoperative Record and any orders documented therein. Any exceptions are noted below.
--- NOTE | 2023-05-26 16:45 | XRay Report ---
RIGHT KNEE 2 VIEWS History: Right total knee arthroplasty. Degenerative arthritis. Postop. FINDINGS: The patient is status post a right total knee arthroplasty. The hardware is intact. No frac ture or dislocation. Skin tommy and surgical drains are in place. IMPRESSION: Right total knee arthroplasty. No evidence for hardware complication. ACT 112: Negative or not required by law. Electronically signed by: Jared Lord M.D. 05/26/2023 4:44 PM
[2023-05-26 18:10] LABS: Hematocrit (blood only) 33.3 % (42.0-52.0); Hemoglobin 10.8 g/dl (14.0-18.0)
--- NOTE | 2023-05-26 18:27 | Anesthesiology Progress Note ---
Date of Service May 26, 2023 Anesthesia Post Procedure Vital Signs Vital Signs: Temp Pulse Resp BP Pulse Ox O2 Del Method O2 Flow Rate 05/26/23 18:10 98 H 15 117/80 97 Nasal Cannula 3 05/26/23 18:00 96 H 20 104/75 96 Nasal Cannula 3 05/26/23 17:50 96 H 14 122/71 96 Nasal Cannula 3 05/26/23 17:40 94 H 12 117/73 94 Nasal Cannula 3 05/26/23 17:30 95 H 12 111/74 95 Nasal Cannula 3 05/26/23 17:20 93 H 18 112/67 95 Nasal Cannula 3 05/26/23 17:10 36.5 C 95 H 20 103/80 95 Nasal Cannula 3 05/26/23 17:00 93 H 12 121/71 94 Nasal Cannula 4 05/26/23 16:50 91 H 14 109/80 92 Nasal Cannula 4 05/26/23 16:40 93 H 14 110/79 94 Nasal Cannula 4 05/26/23 16:30 90 14 113/66 97 Oxymask 4 05/26/23 16:20 91 H 16 125/94 96 Oxymask 4 05/26/23 16:13 36 C L 91 H 16 150/94 H 94 Oxymask 6 05/26/23 11:44 Room Air 05/26/23 11:19 36.5 C 99 H 20 163/98 H 99 Room Air Transfer of Care Handoff Completed per policy Notes Mental Status: alert / awake / arousable and participated in evaluation Patient Amnestic to Procedure: Yes Nausea / Vomiting: adequately controlled Pain: adequately controlled Airway Patency, RR, SpO2: stable & adequate BP & HR: stable & adequate Hydration State: stable & adequate Anesthetic Complications: no major complications apparent and Pt Satisfied with anesthetic care
--- OUTSIDE RECORDS SUMMARY | 2023-05-26 18:39 | External Medical Summary | Summary of Care ---
Author Name Unknown Organization [facility] Address [address] [facility] [place] [address] Phone [phone] Care Team Providers Care Ruby On Rails Web Developer Name Role Phone Ramiro Hernandez MD Primary Care Provider [phone] Reason for Visit * Reason Comments eRx-Medication Refill Encounter Details Date Type Department Care Team (Late st Contact Info) Description 05/13/2023 Refill Urology Zack Pantoja [address] [place] [id number] Christopher Edwards MD [address] [place] [id number] Allergies Active Allergy Reactions Criticality Noted Date Comments Adhesive Tape Rash 01/31/2012 Lovastatin Unknown 01/31/2012 Pseudoephedrine Medium 04/27/2021 [place] high Terfenadine Unknown 03/18/2014 documented as of this encounter (statuses as of 05/13/2023) Medications Medication Sig Dispensed Refills Start Date End Date Status SENIOR MULTIVITAMIN PLUS PO TABS one tablet daily 0 Active CALCIUM 600 MG PO TABS one tablet daily 0 Active CINNAMON 500 MG PO CAPS one tablet daily 0 Active simvastatin (ZOCOR) 20 MG Tablet Take 1 Tablet by mouth every night at bedtime. 1 tab daily 1 5 Active Mirtazapine (REMERON) 30 MG Tablet 1 tab at bedtime 5 8 Active omeprazole (PRILOSEC) 40 MG CPDR Take 1 Cap by mouth daily. 30 Cap 0 8 Active Ipratropium [place] 0.03 % nasal spray Administer 1 [place] into nostril as needed. 0 Active Hydrocortisone 2.5 % Rectal Cream as needed. 0 Active traMADol (ULTRAM) 50 MG Tablet Take 1 Tablet by mouth. 1 tablet 4 times daily as needed 0 Active lisinopril (PRINIVIL) 20 MG Tablet Take 1 Tablet by mouth in the morning. 11 8 Active mupirocin calcium (BACTROBAN) 2 % ointment As needed 5 8 Active nystatin-triamcin olone (MYCOLOG) 916145-5.1 UNIT/GM-% cream As needed 2 8 Active Kvhggnesmx-MFFY-T affeine 50-325-40 MG per capsule As needed 1 9 Active folic acid 1 MG Tablet Take 1 Tablet by mouth in the morning. 0 0 Active montelukast (SINGULAIR) 10 MG Tablet Take 1 Tablet by mouth every evening. 0 0 Active linaCLOtide 145 MCG Oral Capsule Take 1 Capsule by mouth daily before breakfast. 0 Active Escitalopram Oxalate 5 MG Oral Tablet (Lexapro) 0 1 Active Actemra 162 MG/0.9ML Subcutaneous Solution Prefilled Syringe (Tocilizumab) INJECT 162 MG (1 SYRINGE) UNDER THE SKIN WEEKLY 3.6 mL 3 3 Active Additional Information Patient taking differently:[id number], Reported on 12/13/2022 Actemra ACTPen 162 MG/0.9ML Subcutaneous Solution Auto-injector (Tocilizumab) Inject 162 mg (1 pen) subcutaneously every 7 days 3.6 mL 3 3 Active Fesoterodine Fumarate ER 8 MG Oral Tablet Extended Release 24 Hour (Toviaz) TAKE 1 TABLET BY MOUTH IN THE MORNING 90 Tablet 3 4 Active Myrbetriq 50 MG Oral Tablet Extended Release 24 Hour TAKE 1 TABLET BY MOUTH IN THE MORNING 90 Tablet 3 4 Active Myrbetriq 50 MG Oral Tablet Extended Release 24 Hour Take 1 Tablet by mouth in the morning. 1 tab daily . 90 Tablet 3 3 05/13/19 24 Discontinued documented as of this encounter (statuses as of 05/13/2023) Active Problems Problem Noted Date Diagnosed Date AAA (abdominal aortic aneurysm) 07/24/2016 Overview: 3.8 cm Rheumatoid arthritis of [facility] without rheumatoid factor 10/02/2015 Generalized osteoarthritis 09/27/2014 HTN, goal below 140/90 12/30/2013 Hyperlipidemia 12/30/2013 Diabetes mellitus 12/30/2013 Symptomatic anemia 12/30/2013 documented as of this encounter (statuses as of 05/13/2023) Resolved Problems Problem Noted Date Diagnosed Date Resolved Date Pancytopenia 12/03/2017 10/15/2018 Long-term use of immunosuppressant medication 06/25/19 15 10/15/2018 Seronegative rheumatoid arthritis 12/30/2013 10/02/2015 Overview: RF-/CCP- Elevated inflammatory markers, joint swelling, and erosions on imaging 12/19 documented as of this encounter (statuses as of 05/13/2023) Immunizations Name Administration Dates Next Due COVID-19 mRNA, LNP-s, No Pre serve, 2-Dose Series (RenéSim) 03/27/2021,08/18/2020,07/21/2020 Pneumococcal Polysaccharide PPV23 (Pneumovax) 01/19/2014 Seasonal Influenza, Quadriva lent, No Preserve, IM 12/07/2015,01/26/2015 Seasonal Influenza, Split, I IV3, With Preserve, Inj 12/22/2013 TDAP (age 10 and older)(Boostrix) 09/24/2018 Zoster Vaccine Recombinant (Shingrix) 07/30/2018 ,07/30/2018 documented as of this encounter Social History Tobacco Use Types Packs/Day Years Used Date Smoking Tobacco: Former Cigarettes 33 Q uit: 01/29/2007 Smokeless Tobacco: Never Comments:quit January 2007 Alcohol Use Standard Drinks/Week Comments No 0 (1 standard drink = 0.6 oz pur e alcohol) Sex and Gender Information Value Date Recorded Sex Assigned at Not on file Gender Identity Not on file Sexual Orientation Not on file Job Start Date Occupation Industry Not on file Not on file Not on file documented as of this encounter Functional Status Functional Status Response Date of Assess ment Are you deaf or do you have serious difficulty h earing? No 12/03/2017 Are you blind or do you have serious difficulty seeing, even when wearing glasses? No 12/03/2017 Do you have serious difficul ty walking or climbing stairs? (5 years old or older) Yes 12/03/2017 Do you have difficulty dress ing or bathing? (5 years old or older) No 12/03/2017 Because of a physical, menta l, or emotional condition, do you have difficulty doing errands alone such as visiting a doctor s office or shopping? (15 years old or older) No 12/04/19 18 Cognitive Status Response Date of Assessm ent Because of a physical, menta l, or emotional condition, do you have serious difficulty concentrating, remembering, or making decisions? (5 years old or older) No 12/03/2017 documented as of this encounter Miscellaneous Notes * Telephone Encounter - Christopher Edwards MD - 05/13/2023 4:43 PM ESTSigned Prescriptions: Disp Refills Myrbetriq 50 MG Oral Tablet Extended Relea*90 Tab*3 Sig: TAKE 1 TABLET BY MOUTH IN THE MORNINGAuthorizing Provider: CHRISTOPHER EDWARDS * Telephone Encounter - Lorena France COA - 05/13/2023 12:36 PM ESTPending Prescriptions: Disp Refills Myrbetriq 50 MG Oral Tablet Extended Relea*90 Tab*3 Sig: TAKE 1TABLET BY MOUTH IN THE MORNING documented in this encounter Plan of Treatment Upcoming Encounters Date Type Department Care Team (Late st Contact Info) Description 08/15/2023 1:20 PM EDT Office Visit Podiatry, [facility] [address] [place] [address] Evi Nogueira, ESTELITA [address] [place] [id number] 11/07/2023 11:45 AM EDT Office Visit Urology Zack Pantoja [address] [place] [address] Christopher Edwards MD [address] [place] [address] Health Maintenance Due Date Last Done Comments Depression Screening 1952 Albumin/Creatinine Ratio 07/03/1959 Diabetic Eye Exam 07/03/1959 Diabetic Foot Exam 07/03/1959 Hepatitis B (1 of 3 - Risk 3-dose series) 2001 AAA Monitoring 12/04/2018 12/04/2017, 07/11/2016 HbA1c 07/26/2022 01/25/2022, 11/2020, 12/15/2019, Additional history exists COVID-19 Vaccine ( season) 2022 01/25/2022, 07/30/2021, 03/27/2021, Additional history exists Influenza Vaccine (FLU shot) (#1) 2022 12/22/2019, 01/19/2019, 12/07/2015, Additional history exists GFR 01/25/2023 01/25/2022, 0 12/2020, 04/14/2020, Additional history exists DTaP,Tdap,and Td Vaccines (2 - Td or Tdap) 09/24/2028 09/24/2018 Zoster Vaccines Completed 07/30/2018, 07/07, 07/23/2017 Pneumococcal Vaccine: 65+ Years Completed 07/26/2022, 01/19/2014, 01/11/2014 GARDASIL-HPV IMMUNIZATION SERIES Aged Out No longer eligible based on patient's age to complete this topic MENINGOCOCCAL (MENACTRA/MENVEO) Aged Out No longer eligible based on patient's age to complete this topic documented as of this encounter Medical Devices Not on filedocumented as of this encounter Advance Directives Latest Code Status on File Code Status Date Activated Date Inactivated Comments No Code 12/03/2017 3:54 PM 12/06/2017 5:33 PM This o rder reflects the patients wishes and were consensually agreed upon. Question Answer Comments Discussion of Advance Directives occurred with: Patient Does the patient have Health Care Power of Help Desk Representative? Yes, not currently available Code Status History Code Status Date Activated Date Inactivated Comments Full Code 12/03/2017 2:40 PM 12/03/2017 3:54 PM This order reflects the patients wishes and were consensually agreed upon. Care Teams Ruby On Rails Web Developer Relationship Specialty Start Date End Date Ramiro Hernandez MD [address] [facility] [place] [id number] PCP - General Family Medicine 01/14/14 documented as of this encounter
--- OUTSIDE RECORDS SUMMARY | 2023-05-26 18:39 | External Medical Summary | Summary of Care ---
Author Name Unknown Organization [facility] Address [address] [facility] [place] [address] Phone [phone] Care Team Providers Care Care Attendant Name Role Phone Ramiro Hernandez MD Primary Care Provider [phone] Reason for Visit * Reason Comments eRx-Medication Refill Encounter Details Date Type Department Care Team (Late st Contact Info) Description 05/13/2023 Refill Urology Zack Pantoja [address] [place] [address] [place] [address] Christopher Edwards MD [address] [place] [address] Allergies Active Allergy Reactions Criticality Noted Date Comments Adhesive Tape Rash 01/31/2012 Lovastatin Unknown 01/31/2012 Pseudoephedrine Medium 04/27/2021 [place] high Terfenadine Unknown 03/18/2014 documented as of [...] daily. 30 Cap 0 8 Active Ipratropium [place] 0.03 % nasal spray Administer 1 [place] into nostril as needed. 0 Active Hydrocortisone [...] needed 5 8 Active nystatin-triamcin olone (MYCOLOG) 025293-5.1 UNIT/GM-% cream As needed 2 8 Active Jvcrgrhakl-HYEC-K affeine 50-325-40 MG per capsule As needed [...] MG Oral Tablet (Lexapro) 0 1 Active Myrbetriq 50 MG Oral Tablet Extended Release 24 Hour Take 1 Tablet by mouth in the morning. 1 tab daily . 90 Tablet 3 3 Active Actemra 162 MG/0.9ML Subcutaneous Solution Prefilled Syringe (Tocilizumab) INJECT 162 MG (1 SYRINGE) UNDER THE SKIN WEEKLY 3.6 mL 3 3 Active Additional Information Patient taking differently:[id number], Reported on 12/13/2022 Actemra ACTPen 162 MG/0.9ML Subcutaneous Solution Auto-injector (Tocilizumab) Inject 162 mg (1 pen) subcutaneously every 7 days 3.6 mL 3 3 Active Fesoterodine Fumarate ER 8 MG Oral Tablet Extended Release 24 Hour (Toviaz) TAKE 1 TABLET BY MOUTH IN THE MORNING 90 Tablet 3 4 Active Fesoterodine Fumarate ER 8 MG Oral Tablet Extended Release 24 Hour (Toviaz) Take 1 Tablet by mouth in the morning. 90 Tablet 3 3 05/13/19 24 Discontinued documented as of this encounter (statuses as of 05/13/2023) Active Problems Problem Noted Date Diagnosed Date AAA (abdominal aortic aneurysm) 07/24/2016 Overview: 3.8 cm Rheumatoid arthritis of [facility] without rheumatoid factor 10/02/2015 Generalized osteoarthritis [...] mRNA, LNP-s, No Pre serve, 2-Dose Series ([employer]iva Dengi) 03/27/2021,08/18/2020,07/21/2020 Pneumococcal Polysaccharide PPV23 (Pneumovax) 01/19/2014 Seasonal [...] Encounter - Christopher Edwards MD - 05/13/2023 11:05 AM EST Signed Prescriptions: Disp Refills Fesoterodine Fumarate ER 8 MG Oral Tablet *90 Tab*3 Sig: TAKE 1 TABLET BY MOUTH IN THE MORNING Authorizing Provider: CHRISTOPHER EDWARDS * Telephone Encounter - Lorena France COA - 05/13/2023 7:25 AM ESTPending Prescriptions: Disp Refills Fesoterodine Fumarate ER 8 MG Oral Tablet *90 Tab*3 Sig: Take 1Tablet by mouth in the morning. documented in this encounter Plan of Treatment Upcoming Encounters Date Type Department Care Team (Late st Contact Info) Description 08/11/2023 2:30 PM EDT Office Visit Dermatology, [place] [address] [place] [address] June Garcia PA-C [address] [place] [address] 08/15/2023 1:20 PM EDT Office Visit Podiatry, [facility] [address] [facility] [place] [address] Evi Nogueira, ESTELITA [address] [place] [address] 11/07/2023 11:45 AM EDT Office Visit Urology [place] [address] [place] [address] [place] [address] Christopher Edwards MD [address] [place] [address] Health Maintenance Due Date Last Done Comments Depression Screening 1952 Albumin/Creatinine Ratio 07/03/1959 Diabetic Eye Exam 07/03/1959 Diabetic Foot Exam 07/03/1959 Hepatitis B (1 of 3 - Risk 3-dose series) 2001 AAA Monitoring 12/04/2018 12/04/2017, 07/11/2016 HbA1c 07/26/2022 01/25/2022, 010 11/2020, 12/15/2019, Additional history exists COVID-19 Vaccine (2022- season) 2022 01/25/2022, 07/30/2021, 03/27/2021, Additional history exists Influenza Vaccine (FLU shot) (#1) 2022 12/22/2019, 01/19/2019, 12/07/2015, Additional history exists GFR 01/25/2023 01/25/2022, 04/0 12/2020, 04/14/2020, Additional history exists DTaP,Tdap,and Td [...] the patient have Health Care Power of Chief Engineer Production? Yes, not currently available Code Status History Code Status Date Activated Date Inactivated Comments Full Code 12/03/2017 2:40 PM 12/03/2017 3:54 PM This order reflects the patients wishes and were consensually agreed upon. Care Teams Care Attendant Relationship Specialty Start Date End Date Ramiro Hernandez MD [address] [facility] [place] [address] PCP - General Family Medicine 01/14/14 documented as of this encounter
--- OUTSIDE RECORDS SUMMARY | 2023-05-26 18:39 | External Medical Summary | Summary of Care ---
Author Name Unknown Organization [facility] Address [address] [facility] [address] Phone [phone] Care Team Providers Care Senior Program Planner Name Role Phone Ramiro Hernandez MD Primary Care Provider [phone] Encounter Details Date Type Department Care Team ([facility] st Contact Info) Description 05/13/2023 Specialty Pharmacy [facility], [address] [address] Medication, [place] [facility] Refill, [address] [address] Allergies Active Allergy Reactions Criticality Noted Date Comments Adhesive Tape Rash 01/31/2012 Lovastatin Unknown 01/31/2012 Pseudoephedrine Medium 04/27/2021 [place] high Terfenadine Unknown 03/18/2014 documented as of [...] night at bedtime. 1 tab daily 1 03/21/2015 Active Mirtazapine (REMERON) 30 MG Tablet 1 tab at bedtime 5 04/23/2017 Active omeprazole (PRILOSEC) 40 MG CPDR Take 1 Cap by mouth daily. 30 Cap 0 12/07/2017 Active Ipratropium [place] 0.03 % nasal spray Administer 1 [place] into nostril as needed. 0 Active Hydrocortisone 2.5 % Rectal Cream as needed. 0 Active traMADol (ULTRAM) 50 MG Tablet Take 1 Tablet by mouth. 1 tablet 4 times daily as needed 0 Active lisinopril (PRINIVIL) 20 MG Tablet Take 1 Tablet by mouth in the morning. 11 02/19/2018 Active mupirocin calcium (BACTROBAN) 2 % ointment As needed 5 03/06/2018 Active nystatin-triamcino lone (MYCOLOG) 555163-7.1 UNIT/GM-% cream As needed 2 01/21/2018 Active Glbngmofbe-VBHJ-Te ffeine 50-325-40 MG per capsule As needed 1 07/30/2018 Active folic acid 1 MG Tablet Take 1 Tablet by mouth in the morning. 0 08/09/2019 Active montelukast (SINGULAIR) 10 MG Tablet Take 1 Tablet by mouth every evening. 0 08/15/2019 Active linaCLOtide 145 MCG Oral Capsule Take 1 Capsule by mouth daily before breakfast. 0 Active Escitalopram Oxalate 5 MG Oral Tablet (Lexapro) 0 01/19/2021 Active Myrbetriq 50 MG Oral Tablet Extended Release 24 Hour Take 1 Tablet by mouth in the morning. 1 tab daily . 90 Tablet 3 05/21/2022 Active Actemra 162 MG/0.9ML Subcutaneous Solution Prefilled Syringe (Tocilizumab) INJECT 162 MG (1 SYRINGE) UNDER THE SKIN WEEKLY 3.6 mL 3 07/31/2022 Active Additional Information Patient taking differently:GvycrzvbnkfbI5JFTQU, Reported on 12/13/2022 Actemra ACTPen 162 MG/0.9ML Subcutaneous Solution Auto-injector (Tocilizumab) Inject 162 mg (1 pen) subcutaneously every 7 days 3.6 mL 3 02/05/2023 Active Fesoterodine Fumarate ER 8 MG Oral Tablet Extended Release 24 Hour (Toviaz) TAKE 1 TABLET BY MOUTH IN THE MORNING 90 Tablet 3 05/13/2023 Active documented as of this encounter (statuses as of 05/13/2023) Active Problems Problem Noted Date Diagnosed Date AAA (abdominal aortic aneurysm) 07/24/2016 Overview: 3.8 cm Rheumatoid arthritis of mult iple sites without rheumatoid factor 10/02/2015 Generalized osteoarthritis [...] mRNA, LNP-s, No Pre serve, 2-Dose Series ([employer]) 03/27/2021,08/18/2020,07/21/2020 Pneumococcal Polysaccharide PPV23 (Pneumovax) 01/19/2014 Seasonal [...] No 12/03/2017 documented as of this encounter Progress Notes * Amarilys Choudhury CPhT - 05/13/2023 2:10 PM EST Prescribed medication: Medication: Actemra Shipment date: 05/15 Delivery method: Specialty Mail Location Medication Delivered too? [address] [place] [address] [place] [phone] Amarilys Choudhury CPhT [facility] 05/13/2023,2:10 PM documented in this encounter Plan of Treatment Upcoming Encounters Date Type Department Care Team (Late st Contact Info) Description 08/11/2023 2:30 PM EDT Office Visit Dermatology, [place]anto[place] [address] [place] [address] June Garcia PA-C [address] [place] [address] 08/15/2023 1:20 PM EDT Office Visit Podiatry, [address] [place] [address] Evi Nogueira DPM [address] [place] [address] 11/07/2023 11:45 AM EDT Office Visit Urology Zack Pantoja [address] [place] [address] Christopher Edwards MD [address] [place] [address] Health Maintenance Due Date Last Done Comments [...] 12/07/2015, Additional history exists GFR 01/25/2023 01/25/2022, 12/2020, 04/14/2020, Additional history exists DTaP,Tdap,and Td [...] the patient have Health Care Power of Casino Dealer? Yes, not currently available Code Status History Code Status Date Activated Date Inactivated Comments Full Code 12/03/2017 2:40 PM 12/03/2017 3:54 PM This order reflects the patients wishes and were consensually agreed upon. Care Teams Senior Program Planner Relationship Specialty Start Date End Date Ramiro Hernandez MD [address] [facility] [place] [address] PCP - General Family Medicine 01/14/14 documented as of this encounter
[2023-05-26] MEDS ORDERED: METOCLOPRAMIDE HCL INJ 5 MG/ML 2 ML VIAL IV PRN (19:54)
[2023-05-26] MEDS ORDERED: MAGNESIUM HYDROXIDE SUSP 30 ML UDC PO PRN (19:54)
[2023-05-26] MEDS ORDERED: LINACLOTIDE 145 MCG CAPSULE PO PRN (19:54)
[2023-05-26] MEDS ORDERED: bisacodyL 10 MG SUPP PR PRN (19:54)
[2023-05-26] MEDS ORDERED: HYDROmorphone INJ 0.5 MG/0.5 ML SYR IV PRN (19:54)
[2023-05-26] MEDS ORDERED: CARBOHYDRATES FOR HYPOGLYCEMIA PO PRN (20:31)
[2023-05-26] MEDS ORDERED: GLUCOSE 40% GEL 15 GM TUBE PO PRN (20:31)
[2023-05-26] MEDS ORDERED: GLUCOSE 10 TAB/TUBE PO PRN (20:31)
[2023-05-26] MEDS ORDERED: GLUCAGON FOR INJ 1 MG VIAL SQ PRN (20:31)
[2023-05-26] MEDS ORDERED: DEXTROSE 50% 50 ML SYRINGE IV PRN (20:31)
--- NOTE | 2023-05-26 20:33 | Hospitalist Consultation ---
Date of Consultation May 26, 2023 Assessment & Plan (1) Status post total right knee replacement: -Tolerated surgery well on 05/26. -Was able to stand slightly on his right leg today. -Continue following recommendations of Ortho. -Continue Ancef. -As needed pain meds ordered. (2) Rheumatoid arthritis: -Takes Actemra, but has been holding for the past 2 weeks due to increased risk of infection. -Should continue holding for 2 to 3 weeks after surgery and to follow-up with orthopedics about restarting. -Patient also is taking a low-dose prednisone. Will monitor for symptoms of adrenal insufficiency postoperatively. (3) Hypertension: -Continue home medications. (4) Type 2 diabetes mellitus: -Not on any medications currently. -SSI in place during admission. (5) Hypercholesteremia: -Continue home medications. Supervising Physician Co-Signing Physician Notes Attending addendum: I have physically seen this patient, have supervised the medical residents activities, and agree with the H&P unless as otherwise noted. Assessment and Plan: Status post right TKA- Seen postoperatively is medically stable Pain management per orthopedic surgery Rheumatoid arthritis- Holding Actemra, to be restarted at the discretion of surgery Continue low-dose prednisone, if signs of purulence patient stable placed on hydrocortisone IV Hypertension continue diltiazem CD100 20 mg every morning with hold parameters Remaining orders and notations as noted [facility] hospitalist service will follow along during hospital stay History of Present Illness Reason for Consultation: Postop management Attending Physician: Luis Hernandez MD History of Present Illness 82yo male with PMHx significant for carotid stenosis, DM2, prostate Ca, RA, AAA, HTN who status post Right Total Knee Arthroplasty done on 05/26/2023. Patient tolerated surgery nicely. Currently lying in bed and eating without any nausea or vomiting. Also states that his pain is well-controlled. Denies any chest pain, palpitations, shortness of breath, abdominal pain. States that he was able to get up with help previously and put some weight on his right leg. Allergies Allergy/AdvReac Type Severity Reaction Status Date / Time adhesive Allergy Mild Redness Verified 05/26/23 11:25 lovastatin Allergy Unknown Unknown Verified 05/26/23 11:25 pseudoephedrine AdvReac Intermediate "[place] high" Verified 05/26/23 11:25 Home Medications Medication Instructions Recorded Confirmed Type calcium carbonate 600 mg calcium 600 mg PO QAM 09/25/18 05/26/23 History (1,500 mg) tablet (Calcium) hydrocortisone 2.5 % topical cream 1 appln topical .COMPLEX 09/30/18 05/26/23 History linaclotide 145 mcg capsule 145 mcg PO DAILY PRN constipation 09/30/18 05/26/23 Rx #90 caps usdnqbdmbezq-lycssjnt-reioqr tablet 1 tab PO QAM 09/30/18 05/26/23 History nystatin-triamcinolone 100,000 1 appln topical BID #60 grams 09/30/18 05/26/23 Rx unit/g-0.1 % topical cream mupirocin 2 % topical ointment 1 appln topical BID #30 grams 10/01/18 05/26/23 Rx ipratropium bromide 21 mcg (0.03 See Rx Instructions .Route 03/26/21 05/26/23 Rx %) nasal spray .COMPLEX #90 mL simvastatin 20 mg tablet 20 mg PO QPM #90 tabs 11/13/22 05/26/23 Rx montelukast 10 mg tablet 10 mg PO QPM #90 tabs 01/14/23 05/26/23 Rx mifuapdpzx-npsoesbzqcxbj-afrmvjwj 1 tab PO Q6H PRN pain #30 tabs 01/31/23 05/26/23 Rx 50 mg-325 mg-40 mg tablet tramadol 50 mg tablet 50 mg PO Q6H PRN pain #50 tabs 01/31/23 05/26/23 Rx tocilizumab 162 mg/0.9 mL 162 mg (0.9 mL) subcut Q7D #3.6 mL 02/05/23 05/26/23 Rx subcutaneous pen injector (Actemra ACTPen) diltiazem HCl 120 mg capsule,24 120 mg PO QAM #90 caps 04/14/23 05/26/23 Rx hr,extended release mirtazapine 30 mg tablet 30 mg PO HS insomnia mood #90 tabs 04/15/23 05/26/23 Rx cinnamon bark 500 mg capsule 500 mg PO QAM 04/28/23 05/26/23 History escitalopram oxalate 5 mg tablet 5 mg PO QAM 04/28/23 05/26/23 History fesoterodine 8 mg tablet,extended 8 mg PO QPM 04/28/23 05/26/23 History release 24 hr (Toviaz) folic acid 1 mg tablet 1 mg PO QAM 04/28/23 05/26/23 History mirabegron 50 mg tablet,extended 50 mg PO QPM 04/28/23 05/26/23 History release 24 hr (Myrbetriq) multivitamin 1 tab PO QAM 04/28/23 05/26/23 History omeprazole 40 mg capsule,delayed 40 mg PO QAM 04/28/23 05/26/23 History release prednisone 5 mg tablet 5 mg PO QAM 04/28/23 05/26/23 History lisinopril 20 mg tablet 20 mg PO QAM #90 tabs 05/23/23 05/26/23 Rx acetaminophen 500 mg tablet 1,000 mg (2 x 500 mg) PO Q8 #60 05/27/23 Rx (Tylenol Extra Strength) tabs aspirin 81 mg tablet,delayed 81 mg PO BID #60 tabs 05/27/23 Rx release cefadroxil 500 mg capsule 500 mg PO BID #28 caps 05/27/23 Rx oxycodone 5 mg tablet 5 - 10 mg (1 - 2 x 5 mg) PO 05/27/23 Rx .Q4h-6h PRN pain #30 tabs Patient History Medical History Hyperkalemia Diabetes mellitus, type 2 Hearing deficit Carotid stenosis, right Abdominal aneurysm Osteoarthritis, knee Actinic keratoses Spondylolisthesis at L4-L5 level Spinal stenosis of lumbar region Rheumatoid arthritis H/O prostate cancer Hypercholesteremia Hypertension Anemia Surgical History History of colonoscopy Hx of vasectomy History of tooth extraction History of tonsillectomy and adenoidectomy H/O hernia repair H/O prostatectomy Family History Father No problems noted. Mother No problems noted. Other No family history of adverse response to anesthesia Social History Smoking Status: Former smoker Tobacco Type: Cigarettes Smoking End Date: Quit 2006; Second Hand Exposure: No; Do You Dip or Chew Tobacco: No; Hx Alcohol Use: No Hx Substance Use: No Preferred Language: Italian Communication Ability: Effective Communication Ability Comment: [facility] [employer] Supervisor Required: No Beliefs That Will Affect Care: Scientologist Scientologist Beliefs: Idalia marital status: Current Living Situation: Family Current Living Situation Comment: with son/Ramiro current occupational status: retired Feels Safe at Home: Yes Safety Concerns: Feels Safe At This Time Seatbelt Use: always Assistive Devices: Cane and Walker Review of Systems Review of Systems: All systems reviewed & are unremarkable except as noted in Subjective Physical Exam Physical Exam: Constitutional: well-appearing, no acute distress HEENT: NCAT, no conjunctival injection CV: regular rhythm, no murmur appreciated, extremities well-perfused, no LE edema Resp: CTABL, no wheezes/rales/rhonchi appreciated, no increased work of b reathing GI: soft, nondistended, nontender, BS normoactive MSK: Right leg wrapped, drain in place Skin: warm, dry, no rash appreciated Neuro: alert, oriented, no focal neurologic deficit appreciated Results & Data Results & Data Vital Signs (Past 12 Hours) Vital Signs Temp Pulse Resp BP Pulse Ox O2 Del Method O2 Flow Rate 05/26/23 19:10 95 H 12 114/72 94 Nasal Cannula 3 05/26/23 18:55 97 H 16 117/70 92 Nasal Cannula 3 05/26/23 18:40 95 H 15 121/81 97 Nasal Cannula 3 05/26/23 18:25 96 H 16 125/84 96 Nasal Cannula 3 05/26/23 18:10 98 H 15 117/80 97 Nasal Cannula 3 05/26/23 18:00 96 H 20 104/75 96 Nasal Cannula 3 05/26/23 17:50 96 H 14 122/71 96 Nasal Cannula 3 05/26/23 17:40 94 H 12 117/73 94 Nasal Cannula 3 05/26/23 17:30 95 H 12 111/74 95 Nasal Cannula 3 05/26/23 17:20 93 H 18 112/67 95 Nasal Cannula 3 05/26/23 17:10 36.5 C 95 H 20 103/80 95 Nasal Cannula 3 05/26/23 17:00 93 H 12 121/71 94 Nasal Cannula 4 05/26/23 16:50 91 H 14 109/80 92 Nasal Cannula 4 05/26/23 16:40 93 H 14 110/79 94 Nasal Cannula 4 05/26/23 16:30 90 14 113/66 97 Oxymask 4 05/26/23 16:20 91 H 16 125/94 96 Oxymask 4 05/26/23 16:13 36 C L 91 H 16 150/94 H 94 Oxymask 6 05/26/23 11:44 Room Air 05/26/23 11:19 36.5 C 99 H 20 163/98 H 99 Room Air
[2023-05-26] MEDS ORDERED: HYDROCORTISONE 2.5% CR 30 GM TUBE EXT PRN (21:00)
[2023-05-26] MEDS ORDERED: IPRATROPIUM BROMIDE NASAL SPRAY 0.06% 15ML NAE PRN (21:00)
[2023-05-26] MEDS: SIMVASTATIN 20 MG TAB PO SCH (23:02)
[2023-05-26] MEDS: SENNA 8.6 MG TAB PO SCH (23:03)
[2023-05-26] MEDS: ASPIRIN 81 MG ECTAB PO SCH (23:03)
[2023-05-26] MEDS: MONTELUKAST SODIUM 10 MG TABLET PO SCH (23:04)
[2023-05-26] MEDS: VIBEGRON 75 MG TAB PO SCH (23:04)
[2023-05-26] MEDS: DOCUSATE SODIUM 100 MG CAP PO SCH (23:04)
[2023-05-26] MEDS: MIRTAZAPINE TAB 15 MG TAB PO SCH (23:04)
[2023-05-26] MEDS: SODIUM CHLORIDE 0.9% 1,000 ML IV SCH (23:13)
[2023-05-26] MEDS: INSULIN ASPART PER UNIT CHARGE SC SCH (23:26)
[2023-05-27] MEDS: LR 60ML/HR IV SCH (03:36)
[2023-05-27] MEDS ORDERED: Nursing to Pharmacy Communication SCH (04:30)
--- NOTE | 2023-05-27 07:43 | Orthopedic Progress Note ---
Date of Service May 27, 2023 Assessment & Plan (1) Status post total right knee replacement: Plan: Postop day #1 right total knee arthroplasty -PT/OT -Pain management as written -DVT prophylaxis: SCDs, teds, aspirin 81 mg twice daily -A.m. labs are pending. Hemoglobin last night was 10.8 from 12.5 preop, 8 this am acute blood loss anemia due to surgical loss versus dilutional. Patient is asymptomatic. Mild increase in creatinine to 1.6 from 1.4 preop. -Discharge planning: Plan to discharge home with outpatient physical therapy when stable. Admission and Anticipated Discharge Date Admission Date: May 26, 2023 Subjective Patient is postop day 1 right total knee arthroplasty. He is doing well this morning. Pain is controlled. No other complaints. Denies chest pain, shortness of breath, nausea/vomiting/diarrhea, aches or dizziness. Review of Systems Review of Systems: All systems reviewed & are unremarkable except as noted in Subjective Physical Exam Physical Exam: Right knee: Dressings clean, dry, intact. Toes are mobile with good dorsiflexion. No calf tenderness. Able to do a straight leg raise. Distal neurovascular status and sensation is grossly intact. Hemovac on suction only 25 cc last shift. Results & Data Vital Signs (Past 12 Hours) Vital Signs Temp Pulse Resp BP Pulse Ox O2 Del Method O2 Flow Rate 05/27/23 07:31 36.3 C L 102 H 18 117/73 95 Room Air 05/27/23 05:30 95 Room Air 05/27/23 03:41 36.5 C 91 H 18 106/66 98 Nasal Cannula 2 05/26/23 23:50 36.4 C L 100 H 18 120/72 98 Nasal Cannula 2 05/26/23 21:55 36.6 C 95 H 18 121/79 99 Nasal Cannula 2 05/26/23 21:36 36.8 C 95 H 18 107/69 97 Nasal Cannula 2 05/26/23 20:20 36.6 C 102 H 20 134/78 97 Nasal Cannula 2 05/26/23 19:50 Nasal Cannula 2 05/26/23 19:50 36.7 C 109 H 20 146/70 H 96 Nasal Cannula 2
[2023-05-27 08:21] LABS: BUN Creatinine Ratio 19.1 (10-20); Calcium 7.9 mg/dl (8.6-10.3); Creatinine Clr Calc Pharmacy 42.5 ml/min; Est GFR (African American) 45.5 ml/min; Est GFR (Non-African American) 39.2 ml/min; Potassium 4.3 mmol/L (3.5-5.1)
[2023-05-27 08:25] LABS: Hematocrit (blood only) 23.9 % (42.0-52.0); Mean Corpuscular Hemoglobin 32.9 pg (25.0-34.0); Mean Corpuscular Hgb Conc 33.5 g/dL (32.0-36.0); Mean Corpuscular Volume 98.4 fL (80.0-100.0); Platelet Count 96 K/uL (130-400); Platelet Estimate Decreased (Normal); RDW Coefficient of Variation 13.3 % (11.5-14.5); RDW Standard Deviation 47.9 fL (36.4-46.3); Red Blood Count 2.43 M/uL (4.70-6.10); White Blood Count 9.03 K/ul (4.8-10.8)
[2023-05-27] MEDS: lisinopril 20 MG TAB PO SCH (08:27)
[2023-05-27] MEDS: CALCIUM CARBONATE 1250MG TAB PO SCH (08:27)
[2023-05-27] MEDS: MULTIVITAMIN TAB PO SCH (08:27)
[2023-05-27] MEDS: predniSONE 5 MG TAB PO SCH (08:27)
[2023-05-27] MEDS: ESCITALOPRAM OXALATE 10 MG TAB PO SCH (08:28)
[2023-05-27] MEDS: FOLIC ACID 1 MG TAB PO SCH (08:28)
[2023-05-27] MEDS: CEROVITE ADV FORMULA TAB PO SCH (08:29)
[2023-05-27] MEDS: PANTOprazole 40 MG TAB PO SCH (08:29)
[2023-05-27] MEDS: dilTIAZem HCL 120 MG CAPCR PO SCH (08:29)
[2023-05-27] MEDS: oxyCODONE HCL IR 5 MG TAB (IMMEDIATE RELEASE) PO PRN (08:55)
--- NOTE | 2023-05-27 08:55 | Hospitalist Progress Note ---
Date of Service May 27, 2023 Assessment & Plan (1) Status post total right knee replacement: (2) Rheumatoid arthritis: (3) Benign essential hypertension: (4) Type 2 diabetes mellitus: (5) Hypercholesteremia: Plan s/p Right Total Knee Arthroplasty(Right), lateral release, electrocautery synovectomy- Luis Hernandez MD Ancef per primary in perioperative period WBC wnl on repeat Hgb 10.8--> 8.0 - acute blood loss anemia from surgery as well as some dilutional aspect from IVF - EBL 10cc, hemovac output reported at 650cc Pain control/bowel regimen/PT/OT per primary service DVT proph: SCDs, adiel madden. A81mg BID Did have some lightheaded/fatigue this AM, borderline BP w/ patient on baseline steroids prednisone 5mg daily for his underlying RA and did attempt to hold his lisinopril but was already provided --> Prednisone 5mg additional PO provided for this morning and will have AM lisinopril placed on hold. Discussed monitoring BP this afternoon and if needed can provide additional steroids if needed Monitor hemovac output/CBC in AM, but can consider repeating h/h sooner if any symptoms given drop (was in the 12s p.rior to surgery, 10.8 last evening post op and was continued on IVF) . Rheumatoid arthritis: Takes Actemra, but has been holding for the past 2 weeks due to increased risk of infection. -Should continue holding for 2 to 3 weeks after surgery and to follow-up with orthopedics about restarting. Patient also is taking a low-dose prednisone. Ordered additional 5mg dose prednisone for total 10mg for today (got 10mg IV decadron w/ surgery). BP 117/73 and will monitor for need for additonal dosin g/prednisone vs hydrocortisone IV if needed Hypertension: -Continue diltiazem 120mg daily, lisinopril 20mg placed lisinopril on hold for this morning but was already given . Stress dose steroids as above and monitor but continue to hold lisinopril for AM Type 2 diabetes mellitus: -Not on any medications currently. -SSI in place during admission and BSGs acceptable and will montior Hypercholesteremia: Continue home medications. Continued inpatient stay. Hospitalist service will follow along in AM. Please call with any questions/concerns. Admission and Anticipated Discharge Date Admission Date: May 26, 2023 Supervising Physician Co-Signing Physician Notes The patient was not seen by me. The chart was reviewed. Case discussed with NIMO Yoder. Agree with assessment and plan Subjective Evaluated this morning, resting in bed. Feels like he's a little whiped out today from surgery and working with therapy this morning. Discussed borderline BP and extra dose of steroids -- RN has to administer NOW. He believes he will be staying another night and working with therapy to see how he's doing in the morning. Eating/drinking, doing well. Moved his bowels this morning. No fever/chills, chest pain, shortness of breath. Will discuss w/ ortho about keeping overnight. Will monitor BP and extra prednisone/hydrocortisone this evening if needed. Questions/concerns addressed at this time. Review of Systems Review of Systems: All systems reviewed & are unremarkable except as noted in HPI & below Physical Exam Physical Exam: Constitutional: 82yo obese male laying in bed, NAD, general pallor/fatigued appearing HEENT: head atraumatic, normocephalic, mmm, trachea midline, HARD OF HEARING, hearing aide intact Resp: even/unlabored, no w/c/r, slightly diminished in the bases, on room air CV: RRR, rates 90/low 100s, no significant m/r/g, trace LE edema, calves nontender GI: +BS, soft/NT, slight distension MSK/Neuro: dressing/kobi wrap to RLL c/d/i, hemovac w/ bloody drainage present, toes mobile, pulses palpable Psych: AOx3, cooperative with exam Results & Data Results & Data Vital Signs (Past 12 Hours) Vital Signs Temp Pulse Resp BP Pulse Ox O2 Del Method O2 Flow Rate 05/27/23 07:31 36.3 C L 102 H 18 117/73 95 Room Air 05/27/23 05:30 95 Room Air 05/27/23 03:41 36.5 C 91 H 18 106/66 98 Nasal Cannula 2 05/26/23 23:50 36.4 C L 100 H 18 120/72 98 Nasal Cannula 2 05/26/23 21:55 36.6 C 95 H 18 121/79 99 Nasal Cannula 2 05/26/23 21:36 36.8 C 95 H 18 107/69 97 Nasal Cannula 2 Laboratory Results 05/27/23 05/27/23 05/27/23 Range/Units 11:29 07:24 06:50 WBC 9.03 (4.8-10.8) K/ul RBC 2.43 L (4.70-6.10) M/uL Hgb 8.0 L (14.0-18.0) g/dl Hct 23.9 L (42.0-52.0) % MCV 98.4 (80.0-100.0) fL MCH 32.9 (25.0-34.0) pg MCHC 33.5 (32.0-36.0) g/dL RDW Std Deviation 47.9 H (36.4-46.3) fL RDW Coeff of Raudel 13.3 (11.5-14.5) % Plt Count 96 L (130-400) K/uL MPV 11.0 (9.4-12.4) fL Platelet Estimate Decreased L (Normal) Sodium 134 L (136-145) mmol/L Potassium 4.3 (3.5-5.1) mmol/L Chloride 103 (98-107) mmol/L Carbon Dioxide 24 (21-32) mmol/L Anion Gap 7 (3-11) BUN 31 H (6-23) mg/dl Creatinine 1.62 H (0.6-1.4) mg/dl Est Cr Clr Drug Dosing 42.5 ml/min Est GFR ( Amer) 45.5 ml/min Est GFR (Non-Af Amer) 39.2 ml/min BUN/Creatinine Ratio 19.1 (10-20) Glucose 166 H (70-99(Fasting)) mg/dl POC Glucose 196 H 166 H (70-99) mg/dl Calcium 7.9 L (8.6-10.3) mg/dl 05/26/23 05/26/23 05/26/23 Range/Units 20:02 17:48 16:18 WBC (4.8-10.8) K/ul RBC (4.70-6.10) M/uL Hgb 10.8 L (14.0-18.0) g/dl Hct 33.3 L (42.0-52.0) % MCV (80.0-100.0) fL MCH (25.0-34.0) pg MCHC (32.0-36.0) g/dL RDW Std Deviation (36.4-46.3) fL RDW Coeff of Raudel (11.5-14.5) % Plt Count (130-400) K/uL MPV (9.4-12.4) fL Platelet Estimate (Normal) Sodium (136-145) mmol/L Potassium (3.5-5.1) mmol/L Chloride (98-107) mmol/L Carbon Dioxide (21-32) mmol/L Anion Gap (3-11) BUN (6-23) mg/dl Creatinine (0.6-1.4) mg/dl Est Cr Clr Drug Dosing ml/min Est GFR ( Amer) ml/min Est GFR (Non-Af Amer) ml/min BUN/Creatinine Ratio (10-20) Glucose (70-99(Fasting)) mg/dl POC Glucose 288 H 219 H (70-99) mg/dl Calcium (8.6-10.3) mg/dl Diagnostic Findings Knee X-Ray 05/26/23 14:05 RIGHT KNEE 2 VIEWS History: Right total knee arthroplasty. Degenerative arthritis. Postop. FINDINGS: The patient is status post a right total knee arthroplasty. The hardware is intact. No fracture or dislocation. Skin tommy and surgical drains are in place. IMPRESSION: Right total knee arthroplasty. No evidence for hardware complication. ACT 112: Negative or not required by law. Electronically signed by: Jared Lord M.D. 05/26/2023 4:44 PM PG Care Time/CCT Total # of Minutes Spent Total Time Spent with Patient: Total time spent is greater than 50% in coordination of care (as documented) at patient's floor/unit and/or counseling patient: Coding Level of Care Code 74096 SUB INP/OBS CARE 3/50MIN Diagnoses Status post total right knee replacement Z96.651 Rheumatoid arthritis M06.9 Benign essential hypertension I10 Type 2 diabetes mellitus E11.9 Hypercholesteremia E78.00
[2023-05-27] MEDS ORDERED: NON-FORMULARY MEDICATION (Multivitamin tablet) PO SCH (09:00)
[2023-05-27] MEDS: predniSONE 5 MG TAB PO ONE (10:36)
--- NOTE | 2023-05-27 20:39 | Billing Data ---
Date of Service May 27, 2023 Coding Level of Care Code 67111 IN/OBS CONSULT LVL 3,45M
[2023-05-27] MEDS: OXYBUTYNIN CHLORIDE XL 5 MG TABCR PO SCH (21:58)
--- NOTE | 2023-05-28 07:06 | Orthopedic Progress Note ---
Date of Service May 28, 2023 Assessment & Plan (1) Status post total right knee replacement: Plan: Postop day #2 right total knee arthroplasty -PT/OT -Pain management as written -DVT prophylaxis: SCDs, teds, aspirin 81 mg twice daily -A.m. labs are pending. Hemoglobin yesterday was 8 from 12.5 preop, 8 this am acute blood loss anemia due to surgical loss versus dilutional. Patient is asymptomatic. Mild increase in creatinine to 1.6 from 1.4 preop. -Discharge planning: Plan to discharge home with home health when stable pending PT evals and if okay with medicine pending labs. Admission and Anticipated Discharge Date Admission Date: May 26, 2023 Subjective Patient resting in bed. Pain is controlled. No other complaints. Denies chest pain, sob, dizziness, DEWITT, n/v/d. Hoping for d/c home today. Review of Systems Review of Systems: All systems reviewed & are unremarkable except as noted in Subjective Physical Exam Physical Exam: Right knee: Dressings clean, dry, intact. Mild bloody drainage from hemovac dressing, incision is c/d/i. Toes are mobile with good dorsiflexion. No calf tenderness. Able to do a straight leg raise. Distal neurovascular status and sensation is grossly intact. Results & Data Vital Signs (Past 12 Hours) Vital Signs Temp Pulse Resp BP Pulse Ox O2 Del Method 05/27/23 21:00 Room Air 05/27/23 19:55 36.5 C 107 H 16 115/70 95 Room Air
[2023-05-28 08:06] LABS: Hematocrit (blood only) 23.9 % (42.0-52.0); Hemoglobin 7.7 g/dl (14.0-18.0); Mean Corpuscular Hemoglobin 32.1 pg (25.0-34.0); Mean Corpuscular Hgb Conc 32.2 g/dL (32.0-36.0); Mean Corpuscular Volume 99.6 fL (80.0-100.0); Mean Platelet Volume 10.2 fL (9.4-12.4); Platelet Count 88 K/uL (130-400); RDW Coefficient of Variation 13.7 % (11.5-14.5); White Blood Count 5.53 K/ul (4.8-10.8)
[2023-05-28 08:31] LABS: BUN Creatinine Ratio 21.7 (10-20); Calcium 8.4 mg/dl (8.6-10.3); Creatinine Clr Calc Pharmacy 43.8 ml/min; Est GFR (African American) 47.2 ml/min; Est GFR (Non-African American) 40.7 ml/min; Potassium 4.7 mmol/L (3.5-5.1)
--- NOTE | 2023-05-28 08:40 | Hospitalist Progress Note ---
Date of Service May 28, 2023 Assessment & Plan (1) Status post total right knee replacement: (2) Rheumatoid arthritis: (3) Benign essential hypertension: (4) Type 2 diabetes mellitus: (5) Hypercholesteremia: Plan s/p Right Total Knee Arthroplasty(Right), lateral release, electrocautery synovectomy- Luis Hernandez MD Ancef per primary in perioperative period WBC wnl on repeat Hgb 10.8--> 8.0 - acute blood loss anemia from surgery as well as some dilutional aspect from IVF - EBL 10cc, hemovac output reported at 650cc. some bleeding from hemovac dislodged overnight but asymptomatic 05/28 with hgb 7.7 (suspected due to blood from dislodged hemovac given nursing reported bedding was completely saturated overnight BP stable 145/84 and no CP/SOB/hypoxia and wanting to go home --> DIscussed w/ supervising provider and recs for PO iron BID w/ aggressive bowel regimen. Consideration for repeat labs this upcoming week with PCP Pain control/bowel regimen/PT/OT per primary service DVT proph: YOLISs, adiel madden. A81mg BID Rheumatoid arthritis: Takes Actemra, but has been holding for the past 2 weeks due to increased risk of infection. Should continue holding for 2 to 3 weeks after surgery and to follow-up with orthopedics about restarting. Patient also is taking a low-dose prednisone, 5mg daily -- given additional 5mg on 05/27 w/ borderline BP and continued usual 5mg daily thereafter. BP 145/84 Hypertension: Continued diltiazem 120mg daily, lisinopril 20mg placed lisinopril on hold 05/27 given borderline BP but was given, Cr slight elevation. Cr improved on repeat and can resume lisinopril tomorrow at dc given BP controlled in setting of pain/surgery Type 2 diabetes mellitus: -Not on any medications currently. -SSI in place during admission and BSGs acceptable and will montior Hypercholesteremia: Continue home medications. Planning for discharge per primary. Patient wanting to go home. TO see how he does w/ therapy this morning but asymptomatic from hgb and suspected drop from drain as discussed. PO iron at dc recommeded (confirmed on dc summary). Ok for dc from medicine standpoint. Patient to return if any issues. Hospitalist service will sign off at this time Please call with any questions/concerns. Admission and Anticipated Discharge Date Admission Date: May 26, 2023 Supervising Physician Co-Signing Physician Notes The patient was not seen by me. The chart was reviewed. Case discussed with NIMO Yoder. Agree with assessment and plan Subjective Eval this morning, had hemovac dislodged overnight, ok per primary to remove/continue dressing changes. Hgb 7.7 however output had slowed except for the bleeding from the site which is now controlled. He is sitting up in bed, appears well and reports feeling great. Pain controlled. He is wanting to go home. No CP/SOB/lightheadedness/dizziness. Planning to see how he does with therapy, can consider labs this upcoming week w/ PCP. Encouraged bowel regimen at [place]. Physical Exam 2 Physical Exam: Constitutional: 82yo obese male laying in bed, NAD, appears MUCH improved and wanting to go home HEENT: head atraumatic, normocephalic, mmm, trachea midline, HARD OF HEARING, hearing aide intact Resp: even/unlabored, no w/c/r, slightly diminished in the bases, on room air CV: RRR, rates 90/low 100s, no significant m/r/g, trace LE edema, calves nontender GI: +BS, +distension but NONTENDER MSK/Neuro: dressing/kobi wrap to RLL c/d/i, hemovac since removed overnight, toes mobile, pulses palpable strength equal b/l LE dorsiflexion/plantarflexion, compartments soft, calves nontender Psych: AOx3, cooperative with exam Results & Data Results & Data Vital Signs (Past 12 Hours) Vital Signs Temp Pulse Resp BP Pulse Ox O2 Del Method 05/28/23 07:43 36.7 C 101 H 20 145/84 H 95 Room Air 05/27/23 21:00 Room Air Laboratory Results 05/28/23 06:50 05/28/23 06:50 PG Care Time/CCT Total # of Minutes Spent Total Time Spent with Patient: Total time spent is greater than 50% in coordination of care (as documented) at patient's floor/unit and/or counseling patient: Coding Level of Care Code 91000 SUB INP/OBS CARE 3/50MIN Diagnoses Status post total right knee replacement Z96.651 Rheumatoid arthritis M06.9 Benign essential hypertension I10 Type 2 diabetes mellitus E11.9 Hypercholesteremia E78.00
--- NOTE | 2023-05-28 17:09 | Discharge Summary ---
Date of Service May 28, 2023 Admission HPI Per Admitting Provider 82yo male with PMHx significant for carotid stenosis, DM2, prostate Ca, RA, AAA, HTN who presents with ongoing right knee pain. Pain is interfering with his daily activity. He has failed conservative measures and would like to proceed with surgical management. Patient denies headaches, sweats, fevers, chills, double vision, blurred vision, cough, sore throat, dysphagia, chest pain, sob, wheezing, n/v/d/c, numbness, tingling, fatigue, urinary symptoms, mood disorders. ROS positive for right knee pain and stiffness. Admission Exam Per Admitting Provider Constitutional: well developed and well nourished; no acute distress Eyes: PERRL, conjunctivae normal, anicteric sclerae ENMT: external ear and nose normal, oropharynx normal Neck: trachea midline, no thyromegaly Respiratory: normal respiratory effort, lungs clear to auscultation Cardiovascular: RRR, no murmur, no edema Musculoskeletal: Right knee: Valgus alignment. Large effusion. Mild crepitation. Positive valgus stress, stable to varus stress. ROM 20-110 degrees. + Extensor lag. Skin: no rashes, warm and dry Neurologic: patellar DTR's 2+ bilat, sensation intact Psychiatric: A+Ox3, euthymic affect Principal Diagnosis Right knee osteoarthritis Discharge Exam Right knee: Dressings clean, dry, intact. Mild bloody drainage from hemovac dressing, incision is c/d/i. Toes are mobile with good dorsiflexion. No calf tenderness. Able to do a straight leg raise. Distal neurovascular status and sensation is grossly intact. Discharge Data Allergies Allergy/AdvReac Type Severity Reaction Status Date / Time adhesive Allergy Mild Redness Verified 05/26/23 11:25 lovastatin Allergy Unknown Unknown Verified 05/26/23 11:25 pseudoephedrine AdvReac Intermediate "[place]" Verified 05/26/23 11:25 Consultations 05/21/23 15:45 Consult Hospitalist Routine Procedures Performed Operation Date: 05/26/23 13:35 Actual Procedures p Right Total Knee Arthroplasty(Right) - Luis Hernandez MD Ordered Studies 05/26/23 05:00 US - OR guided needle placemen Routine Hospital Course (1) Status post total right knee replacement: Postop day #2 right total knee arthroplasty -PT/OT -Pain management as written -DVT prophylaxis: SCDs, teds, aspirin 81 mg twice daily -A.m. labs are pending. Hemoglobin yesterday was 8 from 12.5 preop, 8 this am acute blood loss anemia due to surgical loss versus dilutional. Patient is asymptomatic. Mild increase in creatinine to 1.6 from 1.4 preop. -Discharge planning: Plan to discharge home with home health when stable pending PT evals and if okay with medicine pending labs. Postop day #1 right total knee arthroplasty -PT/OT -Pain management as written -DVT prophylaxis: SCDs, teds, aspirin 81 mg twice daily -A.m. labs are pending. Hemoglobin last night was 10.8 from 12.5 preop, 8 this am acute blood loss anemia due to surgical loss versus dilutional. Patient is asymptomatic. Mild increase in creatinine to 1.6 from 1.4 preop. -Discharge planning: Plan to discharge home with outpatient physical therapy when stable. Lab Results 05/26/23 05/26/23 05/26/23 Range/Units 11:21 16:18 17:48 WBC (4.8-10.8) K/ul RBC (4.70-6.10) M/uL Hgb 10.8 L (14.0-18.0) g/dl Hct 33.3 L (42.0-52.0) % MCV (80.0-100.0) fL MCH (25.0-34.0) pg MCHC (32.0-36.0) g/dL RDW Std Deviation (36.4-46.3) fL RDW Coeff of Raudel (11.5-14.5) % Plt Count (130-400) K/uL MPV (9.4-12.4) fL Platelet Estimate (Normal) Sodium (136-145) mmol/L Potassium (3.5-5.1) mmol/L Chloride (98-107) mmol/L Carbon Dioxide (21-32) mmol/L Anion Gap (3-11) BUN (6-23) mg/dl Creatinine (0.6-1.4) mg/dl Est Cr Clr Drug Dosing ml/min Est GFR ( Amer) ml/min Est GFR (Non-Af Amer) ml/min BUN/Creatinine Ratio (10-20) Glucose (70-99(Fasting)) mg/dl POC Glucose 219 H 219 H (70-99) mg/dl Calcium (8.6-10.3) mg/dl Magnesium (1.7-2.4) mg/dl 05/26/23 05/27/23 05/27/23 Range/Units 20:02 06:50 07:24 WBC 9.03 (4.8-10.8) K/ul RBC 2.43 L (4.70-6.10) M/uL Hgb 8.0 L (14.0-18.0) g/dl Hct 23.9 L (42.0-52.0) % MCV 98.4 (80.0-100.0) fL MCH 32.9 (25.0-34.0) pg MCHC 33.5 (32.0-36.0) g/dL RDW Std Deviation 47.9 H (36.4-46.3) fL RDW Coeff of Raudel 13.3 (11.5-14.5) % Plt Count 96 L (130-400) K/uL MPV 11.0 (9.4-12.4) fL Platelet Estimate Decreased L (Normal) Sodium 134 L (136-145) mmol/L Potassium 4.3 (3.5-5.1) mmol/L Chloride 103 (98-107) mmol/L Carbon Dioxide 24 (21-32) mmol/L Anion Gap 7 (3-11) BUN 31 H (6-23) mg/dl Creatinine 1.62 H (0.6-1.4) mg/dl Est Cr Clr Drug Dosing 42.5 ml/min Est GFR ( Amer) 45.5 ml/min Est GFR (Non-Af Amer) 39.2 ml/min BUN/Creatinine Ratio 19.1 (10-20) Glucose 166 H (70-99(Fasting)) mg/dl POC Glucose 288 H 166 H (70-99) mg/dl Calcium 7.9 L (8.6-10.3) mg/dl Magnesium (1.7-2.4) mg/dl 05/27/23 05/27/23 05/27/23 Range/Units 11:29 16:21 20:25 WBC (4.8-10.8) K/ul RBC (4.70-6.10) M/uL Hgb (14.0-18.0) g/dl Hct (42.0-52.0) % MCV (80.0-100.0) fL MCH (25.0-34.0) pg MCHC (32.0-36.0) g/dL RDW Std Deviation (36.4-46.3) fL RDW Coeff of Raudel (11.5-14.5) % Plt Count (130-400) K/uL MPV (9.4-12.4) fL Platelet Estimate (Normal) Sodium (136-145) mmol/L Potassium (3.5-5.1) mmol/L Chloride (98-107) mmol/L Carbon Dioxide (21-32) mmol/L Anion Gap (3-11) BUN (6-23) mg/dl Creatinine (0.6-1.4) mg/dl Est Cr Clr Drug Dosing ml/min Est GFR ( Amer) ml/min Est GFR (Non-Af Amer) ml/min BUN/Creatinine Ratio (10-20) Glucose (70-99(Fasting)) mg/dl POC Glucose 196 H 198 H 160 H (70-99) mg/dl Calcium (8.6-10.3) mg/dl Magnesium (1.7-2.4) mg/dl 05/28/23 05/28/23 05/28/23 Range/Units 06:50 07:45 11:32 WBC 5.53 (4.8-10.8) K/ul RBC 2.40 L (4.70-6.10) M/uL Hgb 7.7 L (14.0-18.0) g/dl Hct 23.9 L (42.0-52.0) % MCV 99.6 (80.0-100.0) fL MCH 32.1 (25.0-34.0) pg MCHC 32.2 (32.0-36.0) g/dL RDW Std Deviation 50.0 H (36.4-46.3) fL RDW Coeff of Raudel 13.7 (11.5-14.5) % Plt Count 88 L (130-400) K/uL MPV 10.2 (9.4-12.4) fL Platelet Estimate (Normal) Sodium 134 L (136-145) mmol/L Potassium 4.7 (3.5-5.1) mmol/L Chloride 102 (98-107) mmol/L Carbon Dioxide 26 (21-32) mmol/L Anion Gap 6 (3-11) BUN 34 H (6-23) mg/dl Creatinine 1.57 H (0.6-1.4) mg/dl Est Cr Clr Drug Dosing 43.8 ml/min Est GFR ( Amer) 47.2 ml/min Est GFR (Non-Af Amer) 40.7 ml/min BUN/Creatinine Ratio 21.7 H (10-20) Glucose 159 H (70-99(Fasting)) mg/dl POC Glucose 175 H 197 H (70-99) mg/dl Calcium 8.4 L (8.6-10.3) mg/dl Magnesium 2.0 (1.7-2.4) mg/dl Total Time Total Time Spent Total Time Spent (In Minutes): 20 Discharge Plan Discharge Items Patient Disposition: Home - Home Health Services Reason For Visit: POST OP Discharge Diagnosis: Right knee osteoarthritis Activity: Per Instructions section Non-emergency contact: Surgeon Call non-emergency contact if: you have any medication questions, your pain is concerning for you, you have a fever, your temperature is above 101, your wound has increased redness and your wound has increased drainage Follow-up/Referrals: Ramiro Hernandez MD [Primary Care Provider] - Diet: Regular Addtl Attending Provider Instructions: ACTIVITY RECOMMENDATIONS: SELF CARE INSTRUCTIONS AFTER TOTAL KNEE REPLACEMENT A. You may need to continue a physical therapy program after discharge from the hospital. There are several options available to you. Your doctor will assist you in selecting the best one for you. 1. An out-patient facility 2 to 3 times a week for therapy or home therapy. 2. Continue working on all exercises taught to you in the hospital. Your goals should be to increase bending of your knee to 90 degrees and beyond and to fully straighten your knee. B. You may progress at your own pace from walking with a walker or crutches to a cane; then to no assistive devices. C. Make walking a part of your daily routine. Be up as much as comfortable with rest periods throughout the day. Rest with leg elevation is very important. Use the ice wrap frequently for the first 3-4 weeks. D. There are no restrictions on activities. You may ride in a car, shop, participate in staff weapons officer and all social activities. E. Wear the long elastic stockings (MUNIR hose) 20 hours a day for 2 weeks after surgery. They can be removed several times a day for laundering and for a bath. F. You may shower, no tub baths until cleared by your doctor. SPECIAL CARE INSTRUCTIONS: VERY IMPORTANT TO READ AND REVIEW A. There are a few signs you need to watch for after you are home. Call [facility] [place] [facility] if you notice any of the followin. Increased severe knee pain. Some pain is expected especially when you exercise. 2. Increased swelling in your leg or knee; pain or swelling of the calf muscle in either lower leg. 3. Any fluid drainage from the incision. 4. Shortness of breath or chest pain. B. Please call [facility] at if you have any concerns or questions about your operation or recovery. The doctor or his nurse will return your call promptly. C. You must take antibiotics before dental work, bladder, bowel or other surgery. Your doctor will provide you with a permanent care to carry describing this precaution. IMPORTANT: * REMEMBER TO TAKE ASPIRIN, 81 MG, TWICE DAILY FOR 4 WEEKS UNLESS OTHERWISE DIRECTED. THIS IS YOUR BLOOD THINNER. * HIGH RISK PATIENTS MAY BE PRESCRIBED A STRONGER BLOOD THINNER. THIS WILL BE PROVIDED AT DISCHARGE. * CALL IF INCREASED PAIN, REDNESS, DRAINAGE OR FEVER GREATER THAT 101. * WEAR MUNIR HOSE 20 HOURS PER DAY FOR 2 WEEKS. Corby wrap can be removed after 48 hours. He should perform daily dry dressing changes. You may shower after 72 hours. Incision can get indirectly wet in the shower, do not saturate or submerge. IF INCISION IS LEAKING THROUGH DRESSING, CALL THE OFFICE . FOLLOW UP VISIT: If appointment is not already scheduled: Please call [facility] to make a follow-up appointment for 2 weeks after your surgery at . Addtl Salesforce Consultant Provider Instructions: You should continue oral iron twice daily but STRONGLY encourage continued bowel regimen while on iron supplementation as this can cause constipation. Please note this can also cause stools to be darker in color. If any shortness of breath, chest pain, lightheadedness/dizziness, please return to the ER. Stand-Alone Forms: My [facility], Smoking Cessation Medications and DC Order Prescriptions: New aspirin 81 mg Tablet,Delayed Release (Dr/Ec) 81 mg PO BID Qty: 60 0RF acetaminophen [Tylenol Extra Strength] 500 mg Tablet 1,000 mg PO Q8 Qty: 60 0RF oxycodone 5 mg Tablet 5 - 10 mg PO .Q4h-6h MDD 6 PRN (Reason: pain) Qty: 30 0RF Rx Instructions: Ongoing therapy, Dr. Hernandez supervising cefadroxil 500 mg capsule 500 mg PO BID Qty: 28 0RF ferrous gluconate 225 mg (27 mg iron) tablet 225 mg PO BID Qty: 60 0RF sennosides [Senokot] 8.6 mg Tablet 17.2 mg PO HS Qty: 20 0RF docusate sodium 100 mg Capsule 100 mg PO BID Qty: 60 0RF Continued calcium carbonate [Calcium 600] 600 mg calcium (1,500 mg) tablet 600 mg PO QAM ipratropium bromide 21 mcg (0.03 %) spray,non-aerosol See Rx Instructions .ROUTE .COMPLEX Qty: 90 3RF Dose Instruction: 2 SPRAY INTO EACH NOSTRIL TWICE DAILY NEEDED FOR ALLERGY SYMPTOMS Rx Instructions: 2 SPRAY INTO EACH NOSTRIL TWICE DAILY NEEDED FOR ALLERGY SYMPTOMS simvastatin 20 mg tablet 20 mg PO QPM Qty: 90 3RF montelukast 10 mg tablet 10 mg PO QPM Qty: 90 3RF Actemra ACTPen 162 mg/0.9 mL pen injector 162 mg subcut Q7D Qty: 3.6 3RF Patient Comments: fridays diltiazem HCl 120 mg capsule,extended release 24 hr 120 mg PO QAM Qty: 90 3RF mirtazapine 30 mg tablet 30 mg PO HS Qty: 90 3RF lisinopril 20 mg tablet 20 mg PO QAM Qty: 90 3RF hydrocortisone 2.5 % cream 1 appln topical .COMPLEX Patient Comments: 1 applic topical apply 2-3 times daily as needed for hemorrhoidal irritation; Rx Instructions: 1 applic topical apply 2-3 times daily as needed for hemorrhoidal irritation; sjgnmbtysxdk-yhejmktu-rvzckl tablet 1 tab PO QAM linaclotide 145 mcg capsule 145 mcg PO DAILY PRN (Reason: constipation) Qty: 90 3RF nystatin-triamcinolone 100,000-0.1 unit/g-% cream 1 appln TOP BID Qty: 60 3RF mupirocin 2 % ointment 1 appln TOP BID Qty: 30 2RF Rx Instructions: pt does not need immediately. sdxpotvmkc-zdhzlaujzosqz-ibet 50-325-40 mg tablet 1 tab PO Q6H PRN (Reason: pain) Qty: 30 2RF multivitamin tablet 1 tab PO QAM prednisone 5 mg tablet 5 mg PO QAM omeprazole 40 mg capsule,delayed release(DR/EC) 40 mg PO QAM folic acid 1 mg tablet 1 mg PO QAM escitalopram oxalate 5 mg tablet 5 mg PO QAM cinnamon bark 500 mg capsule 500 mg PO QAM fesoterodine [Toviaz] 8 mg tablet extended release 24 hr 8 mg PO QPM Myrbetriq 50 mg tablet extended release 24 hr 50 mg PO QPM Discontinued tramadol 50 mg tablet 50 mg PO Q6H PRN (Reason: pain) Qty: 50 0RF Krames/Other Patient Handouts: DVT Post Op Prevention, Total Knee Replacement, Tips After Knee Surgery Admission Data Admit Date/Time: 05/26/23 14:05 Attending Provider: Luis Hernandez Admit Provider: Luis Hernandez Primary Care Provider: Ramiro Hernandez Other Providers: Virgilio Wakefield; Steven,Home Health Other Interventions: Discharge Summary Assessment (RN) Last Done: 05/28/23 12:17
== END 2023-05-28 15:52 | disposition home health service (06) ==
LOC: PACUINP 10:59 → ASU 10:59 → 3N 19:52
DX: Z88.8 Allergy status to other drugs, medicaments and biological substances; E78.5 Hyperlipidemia, unspecified; Z87.891 Personal history of nicotine dependence; D62 Acute posthemorrhagic anemia; E66.9 Obesity, unspecified; I25.10 Atherosclerotic heart disease of native coronary artery without angina pectoris; E11.51 Type 2 diabetes mellitus with diabetic peripheral angiopathy without gangrene; I10 Essential (primary) hypertension; Z68.29 Body mass index [BMI] 29.0-29.9, adult; I71.40 Abdominal aortic aneurysm, without rupture, unspecified; M06.9 Rheumatoid arthritis, unspecified; M48.061 Spinal stenosis, lumbar region without neurogenic claudication; E78.00 Pure hypercholesterolemia, unspecified; M17.11 Unilateral primary osteoarthritis, right knee; Z79.899 Other long term (current) drug therapy

== ENCOUNTER 2023-06-24 13:31 | Inpatient (IN) ==
[2023-06-24] MEDS ORDERED: ONDANSETRON INJ 2 MG/ML 2 ML VIAL IV PRN (13:42)
[2023-06-24] MEDS ORDERED: DEXTROSE 50% 50 ML SYRINGE IV PRN (13:48)
[2023-06-24] MEDS ORDERED: GLUCAGON FOR INJ 1 MG VIAL SQ PRN (13:48)
[2023-06-24] MEDS ORDERED: GLUCOSE 40% GEL 15 GM TUBE PO PRN (13:48)
[2023-06-24] MEDS ORDERED: CARBOHYDRATES FOR HYPOGLYCEMIA PO PRN (13:48)
[2023-06-24] MEDS ORDERED: GLUCOSE 10 TAB/TUBE PO PRN (13:48)
--- NOTE | 2023-06-24 14:22 | History & Physical Report ---
Date of Service June 24, 2023 Assessment & Plan (1) Wound dehiscence: Plan: Patient has developed a wound dehiscence about 1 mo post right total knee arthroplasty. Patient admitted to hospital, start IV antibiotics. Plan for wound exploration and washout. Risks, benefits and alternatives to surgery including but not limited to infection, DVT, pain, stiffness, need for revision surgery, damage to blood vessels, damage to nerves, PE, , were discussed with the patient and they wish to proceed. Plan for right knee wound irrigation and debridement, possible retinacular repair and poly exchange if extends to knee joint. Plan on surgery tomorrow, 06/25/[address] Hernandez. Preop labs have been ordered. NPO after midnight. (2) Status post total right knee replacement: Admission and Anticipated Discharge Date Admission Date: June 24, 2023 History of Present Illness Chief Complaint: Right knee wound dehiscence Primary Care Provider: Ramiro Hernandez MD 82yo male with PMHx significant for RA, prostate Ca, AAA, HTN, DM2, recent right total knee arthroplasty who presents with wound dehiscence. Patient underwent right total knee arthroplasty about 1 mo ago. Post operatively, his course was complicated by edema and fracture blistering lateral aspect of his leg. This was improving. Patient had his stable removed 18d post op without complication. He had a follow up appointment today. This morning he noticed some bleeding central portion of his incision standing from a seated position. He was evaluated in the office and found to have dehiscence of his wound. He was admitted to hospital for planned irrigation and debridement tomorrow. Patient denies headaches, sweats, fevers, chills, double vision, blurred vision, cough, sore throat, dysphagia, chest pain, sob, wheezing, n/v/d/c, numbness, tingling, fatigue, urinary symptoms, mood disorders. ROS positive for right knee pain and stiffness, diddiculty hearing. Allergies Allergy/AdvReac Type Severity Reaction Status Date / Time adhesive Allergy Mild Redness Verified 05/26/23 11:25 lovastatin Allergy Unknown Unknown Verified 05/26/23 11:25 pseudoephedrine AdvReac Intermediate "[place] high" Verified 05/26/23 11:25 Home Medications Medication Instructions Recorded Confirmed Type calcium carbonate 600 mg calcium 600 mg PO QAM 09/25/18 05/26/23 History (1,500 mg) tablet (Calcium) hydrocortisone 2.5 % topical cream 1 appln topical .COMPLEX 09/30/18 05/26/23 History linaclotide 145 mcg capsule 145 mcg PO DAILY PRN constipation 09/30/18 05/26/23 Rx #90 caps lffovnyywcan-vlqqsoke-ypbumw tablet 1 tab PO QAM 09/30/18 05/26/23 History nystatin-triamcinolone 100,000 1 appln topical BID #60 grams 09/30/18 05/26/23 Rx unit/g-0.1 % topical cream mupirocin 2 % topical ointment 1 appln topical BID #30 grams 10/01/18 05/26/23 Rx ipratropium bromide 21 mcg (0.03 See Rx Instructions .Route 03/26/21 05/26/23 Rx %) nasal spray .COMPLEX #90 mL simvastatin 20 mg tablet 20 mg PO QPM #90 tabs 11/13/22 05/26/23 Rx montelukast 10 mg tablet 10 mg PO QPM #90 tabs 01/14/23 05/26/23 Rx tbzpfeidph-fignrkdloixcc-uofcmibq 1 tab PO Q6H PRN pain #30 tabs 01/31/23 05/26/23 Rx 50 mg-325 mg-40 mg tablet diltiazem HCl 120 mg capsule,24 120 mg PO QAM #90 caps 04/14/23 05/26/23 Rx hr,extended release mirtazapine 30 mg tablet 30 mg PO HS insomnia mood #90 tabs 04/15/23 05/26/23 Rx cinnamon bark 500 mg capsule 500 mg PO QAM 04/28/23 05/26/23 History escitalopram oxalate 5 mg tablet 5 mg PO QAM 04/28/23 05/26/23 History fesoterodine 8 mg tablet,extended 8 mg PO QPM 04/28/23 05/26/23 History release 24 hr (Toviaz) folic acid 1 mg tablet 1 mg PO QAM 04/28/23 05/26/23 History mirabegron 50 mg tablet,extended 50 mg PO QPM 04/28/23 05/26/23 History release 24 hr (Myrbetriq) multivitamin 1 tab PO QAM 04/28/23 05/26/23 History omeprazole 40 mg capsule,delayed 40 mg PO QAM 04/28/23 05/26/23 History release prednisone 5 mg tablet 5 mg PO QAM 04/28/23 05/26/23 History lisinopril 20 mg tablet 20 mg PO QAM #90 tabs 05/23/23 05/26/23 Rx acetaminophen 500 mg tablet 1,000 mg (2 x 500 mg) PO Q8 #60 05/27/23 Rx (Tylenol Extra Strength) tabs aspirin 81 mg tablet,delayed 81 mg PO BID #60 tabs 05/27/23 Rx release cefadroxil 500 mg capsule 500 mg PO BID #28 caps 05/27/23 Rx oxycodone 5 mg tablet 5 - 10 mg (1 - 2 x 5 mg) PO 05/27/23 Rx .Q4h-6h PRN pain #30 tabs docusate sodium 100 mg capsule 100 mg PO BID #60 caps 05/28/23 Rx ferrous gluconate 225 mg (27 mg 225 mg PO BID #60 tabs 05/28/23 Rx iron) tablet sennosides 8.6 mg tablet (Senokot) 17.2 mg (2 x 8.6 mg) PO HS #20 tabs 05/28/23 Rx tocilizumab 162 mg/0.9 mL 162 mg (0.9 mL) subcut Q7D #3.6 mL 06/09/23 Rx subcutaneous pen injector (Actemra ACTPen) Past Med/Surg History Medical History Hyperkalemia Diabetes mellitus, type 2 Hearing deficit Carotid stenosis, right Abdominal aneurysm Osteoarthritis, knee Actinic keratoses Spondylolisthesis at L4-L5 level Spinal stenosis of lumbar region Rheumatoid arthritis H/O prostate cancer Hypercholesteremia Hypertension Anemia Surgical History History of colonoscopy Hx of vasectomy History of tooth extraction History of tonsillectomy and adenoidectomy H/O hernia repair H/O prostatectomy Family History Father No problems noted. Mother No problems noted. 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 Machine Operator Required: No Beliefs That Will Affect Care: Confucianism Confucianism Beliefs: [place] marital status: Current Living Situation: Family Current Living Situation Comment: with son/Ramiro current occupational status: retired Feels Safe at Home: Yes Seatbelt Use: always Assistive Devices: Cane and Walker Review of Systems All systems reviewed & are unremarkable except as noted in HPI & below Physical Exam Constitutional: well developed and well nourished; no acute distress Patient is hard of hearing Eyes: PERRL, conjunctivae normal, anicteric sclerae ENMT: external ear and nose normal, oropharynx normal Neck: trachea midline, no thyromegaly Respiratory: normal respiratory effort, lungs clear to auscultation Cardiovascular: RRR, no murmur, no edema Musculoskeletal: Right knee: Mid incision wound dehiscence. Moderate amount of swelling. ROM 0-90 degrees. Able to perform SLR with mild to moderate extensor lag. Stable to valgus and varus stress. Skin: no rashes, warm and dry Neurologic: patellar DTR's 2+ bilat, sensation intact Psychiatric: A+Ox3, euthymic affect Code Status & VTE Plan VTE Prophylaxis Plan VTE Prophylaxis will be ordered: Yes
--- NOTE | 2023-06-24 14:48 | History & Physical Report ---
Date of Service June 24, 2023 Assessment & Plan (1) Wound dehiscence: Plan: Assessment: 1. Right total knee arthroplasty wound dehiscence he is postop approximately 3 to 4 weeks. Orthopedics contacted us for direct admission and they will be consulted and plan for surgery tomorrow. Keep the patient n.p.o. after midnight. Ancef per orthopedics recommendations. 2. Diabetes mellitus type 2 yoc-apmoqdb-yhbnwoqgm. Sliding scales been ordered. 3. Rheumatoid arthritis with chronic prednisone use. 2 doses of stress dose steroids were ordered for him beginning tomorrow morning for surgery. 4. Profound hearing loss. 5. Remote history of prostate cancer. 6. Hypertension continue home medications when reconciled. 7. Hyperlipidemia continue home medications when ordered. 8. CKD stage II. 9. Anemia probably of chronic disease compounded by anemia of blood loss postoperative over the last 2 weeks labs are pending. 10. Osteoarthritis. Plan: As discussed above. Please refer to orders for further planning. Best to be called with the stat labs. We need to make further recommendations on medications pending laboratory studies specifically creatinine clearance we will do so upon results. Admission and Anticipated Discharge Date Admission Date: June 24, 2023 History of Present Illness Chief Complaint: Dehiscence of right total knee arthroplasty incision. Primary Care Provider: Ramiro Hernandez MD 82-year-old male had a right total knee arthroplasty on May 26 of this year had a wound dehiscence over the last 24 hours. Saw orthopedics in the office today. Orthopedics contacted as asked admit the patient for surgery tomorrow. The patient will be kept n.p.o. after midnight. Per orthopedics request no culture of the wound itself will be done as there does not appear to be any discharge per orthopedics and in addition per orthopedics will place the patient on Ancef for antibiotic choice. Patient denies any pain he states over the last 24 hours he noticed that the wound opened up and saw his Ortho surgeon today was directed to the ER. He denies any trauma to the region. Allergies Allergy/AdvReac Type Severity Reaction Status Date / Time adhesive Allergy Mild Redness Verified 05/26/23 11:25 lovastatin Allergy Unknown Unknown Verified 05/26/23 11:25 pseudoephedrine AdvReac Intermediate "[place] high" Verified 05/26/23 11:25 Home Medications Medication Instructions Recorded Confirmed Type calcium carbonate 600 mg calcium 600 mg PO QAM 09/25/18 05/26/23 History (1,500 mg) tablet (Calcium) hydrocortisone 2.5 % topical cream 1 appln topical .COMPLEX 09/30/18 05/26/23 History linaclotide 145 mcg capsule 145 mcg PO DAILY PRN constipation 09/30/18 05/26/23 Rx #90 caps zsyioowfdstz-blrbfhkf-uibxhy tablet 1 tab PO QAM 09/30/18 05/26/23 History nystatin-triamcinolone 100,000 1 appln topical BID #60 grams 09/30/18 05/26/23 Rx unit/g-0.1 % topical cream mupirocin 2 % topical ointment 1 appln topical BID #30 grams 10/01/18 05/26/23 Rx ipratropium bromide 21 mcg (0.03 See Rx Instructions .Route 03/26/21 05/26/23 Rx %) nasal spray .COMPLEX #90 mL simvastatin 20 mg tablet 20 mg PO QPM #90 tabs 11/13/22 05/26/23 Rx montelukast 10 mg tablet 10 mg PO QPM #90 tabs 01/14/23 05/26/23 Rx hjartsitbi-zrwqlnkdhaijz-otnkrtxv 1 tab PO Q6H PRN pain #30 tabs 01/31/23 05/26/23 Rx 50 mg-325 mg-40 mg tablet diltiazem HCl 120 mg capsule,24 120 mg PO QAM #90 caps 04/14/23 05/26/23 Rx hr,extended release mirtazapine 30 mg tablet 30 mg PO HS insomnia mood #90 tabs 04/15/23 05/26/23 Rx cinnamon bark 500 mg capsule 500 mg PO QAM 04/28/23 05/26/23 History escitalopram oxalate 5 mg tablet 5 mg PO QAM 04/28/23 05/26/23 History fesoterodine 8 mg tablet,extended 8 mg PO QPM 04/28/23 05/26/23 History release 24 hr (Toviaz) folic acid 1 mg tablet 1 mg PO QAM 04/28/23 05/26/23 History mirabegron 50 mg tablet,extended 50 mg PO QPM 04/28/23 05/26/23 History release 24 hr (Myrbetriq) multivitamin 1 tab PO QAM 04/28/23 05/26/23 History omeprazole 40 mg capsule,delayed 40 mg PO QAM 04/28/23 05/26/23 History release prednisone 5 mg tablet 5 mg PO QAM 04/28/23 05/26/23 History lisinopril 20 mg tablet 20 mg PO QAM #90 tabs 05/23/23 05/26/23 Rx acetaminophen 500 mg tablet 1,000 mg (2 x 500 mg) PO Q8 #60 05/27/23 Rx (Tylenol Extra Strength) tabs aspirin 81 mg tablet,delayed 81 mg PO BID #60 tabs 05/27/23 Rx release cefadroxil 500 mg capsule 500 mg PO BID #28 caps 05/27/23 Rx oxycodone 5 mg tablet 5 - 10 mg (1 - 2 x 5 mg) PO 05/27/23 Rx .Q4h-6h PRN pain #30 tabs docusate sodium 100 mg capsule 100 mg PO BID #60 caps 05/28/23 Rx ferrous gluconate 225 mg (27 mg 225 mg PO BID #60 tabs 05/28/23 Rx iron) tablet sennosides 8.6 mg tablet (Senokot) 17.2 mg (2 x 8.6 mg) PO HS #20 tabs 05/28/23 Rx tocilizumab 162 mg/0.9 mL 162 mg (0.9 mL) subcut Q7D #3.6 mL 06/09/23 Rx subcutaneous pen injector (Actemra ACTPen) Past Med/Surg History Medical History Hyperkalemia Diabetes mellitus, type 2 Hearing deficit Carotid stenosis, right Abdominal aneurysm Osteoarthritis, knee Actinic keratoses Spondylolisthesis at L4-L5 level Spinal stenosis of lumbar region Rheumatoid arthritis H/O prostate cancer Hypercholesteremia Hypertension Anemia Surgical History History of colonoscopy Hx of vasectomy History of tooth extraction History of tonsillectomy and adenoidectomy H/O hernia repair H/O prostatectomy Family History Father No problems noted. Mother No problems noted. Other No family history of adverse response to anesthesia Social History Smoking Status: Former smoker Tobacco Type: Cigarettes Second Hand Exposure: No; Do You Dip or Chew Tobacco: No; Hx Alcohol Use: No Hx Substance Use: No Preferred Language: Czech Communication Ability: Effective Communication Ability Comment: [facility] Resident Programs Assistant Required: No Beliefs That Will Affect Care: Sabianism Sabianism Beliefs: Rastafarian marital status: Current Living Situation: Family Current Living Situation Comment: with son/Ramiro current occupational status: retired Feels Safe at Home: Yes Seatbelt Use: always Assistive Devices: Cane and Walker Review of Systems Review of Systems: A 10 point review of system was obtained and unless otherwise stated here or in history of present illness are negative and noncontributory to chief complaint. Physical Exam Physical Exam: In General: In general is an 82-year-old male who is alert and oriented to person place and time. He is extraordinarily hard of hearing. He is accompanied by his son at the time of my examination. He interacts appropriately otherwise. HEENT: Normocephalic atraumatic pupils are equal round and reactive to light bilaterally. No scleral icterus no conjunctival injection external auditory canals are patent septum is in the midline nose is without discharge oral mucosa is pink and moist without lesion. NECK: Supple no rigidity no lymphadenopathy no thyromegaly no carotid bruits no JVD no masses. HEART: Regular rate and rhythm I do not appreciate any ectopy or rub. No murmur. LUNGS: Clear to auscultation bilaterally and anteriorly with no evidence of adventitious sounds/wheezes rales or rhonchi. ABDOMEN: Soft nontender, no rebound, no peritoneal signs, positive bowel sounds, no appreciable organomegaly. EXTREMITIES: Intact, no peripheral cyanosis, clubbing or edema. The patient was brought up straight from registration to the room he is still on his trousers with a large knee immobilizer in place. His right knee wound was not inspected. It was inspected just within the last hour to orthopedic surgeons office. NEUROLOGICAL: Other than his profound hearing loss, cranial nerves II through XII are grossly intact with no focal deficit elicited upon examination. No tremor. Code Status & VTE Plan Code Status Full code: I spoke with patient at bedside along with his son. VTE Prophylaxis Plan VTE Prophylaxis will be ordered: Yes PG Care Time/CCT Total # of Minutes Spent Total Time Spent with Patient: Total time spent is greater than 50% in coordination of care (as documented) at patient's floor/unit and/or counseling patient: Coding Level of Care Code 39683 INT INP/OBS CARE MIN Diagnoses Wound dehiscence T81.30XA
[2023-06-24] MEDS: LACTATED RINGER'S 1,000 ML IV SCH (14:49)
[2023-06-24] MEDS: Patient's HEIGHT &/or WEIGHT Needed SCH (15:00)
[2023-06-24 15:07] LABS: Basophils # (auto) 0.02 K/uL (0.00-0.20); Basophils % (auto) 0.3 %; Eosinophils # (auto) 0.02 K/uL (0.00-0.50); Eosinophils % (auto) 0.3 %; Hematocrit (blood only) 37.5 % (42.0-52.0); Hemoglobin 12.1 g/dl (14.0-18.0); Immature Granulocytes # (auto) 0.11 K/uL (0.01-0.20); Immature Granulocytes % (auto) 1.5 %; Lymphocytes # (auto) 0.43 K/uL (1.20-3.40); Lymphocytes % (auto) 5.9 %; Mean Corpuscular Hemoglobin 32.7 pg (25.0-34.0); Mean Corpuscular Hgb Conc 32.3 g/dL (32.0-36.0); Mean Corpuscular Volume 101.4 fL (80.0-100.0); Mean Platelet Volume 9.4 fL (9.4-12.4); Monocytes # (auto) 0.46 K/uL (0.11-0.59); Monocytes % (auto) 6.3 %; Neutrophils # (auto) 6.26 K/uL (1.40-6.50); Neutrophils % (auto) 85.7 %; Platelet Count 283 K/uL (130-400); RDW Standard Deviation 52.5 fL (36.4-46.3)
[2023-06-24] MEDS: ceFAZolin 2000MG 2,000 MG/15 ML SYR IV ONE (15:12)
[2023-06-24 15:23] LABS: Alanine Aminotransferase 24 U/L (7-52); Albumin Globulin Ratio 1.8 (0.9-2); Albumin Level 4.2 gm/dl (3.4-5.0); Alkaline Phosphatase 61 U/L (34-104); Anion Gap 9 (3-11); Aspartate Aminotransferase 31 U/L (13-39); BUN Creatinine Ratio 14.3 (10-20); Bilirubin,Total 0.5 mg/dl (0.2-1.0); Blood Urea Nitrogen 22 mg/dl (6-23); C Reactive Protein < 0.50 mg/dl (0-0.5); Calcium 9.2 mg/dl (8.6-10.3); Carbon Dioxide 22 mmol/L (21-32); Chloride 102 mmol/L (98-107); Creatinine Clr Calc Pharmacy 44.3 ml/min; Est GFR (African American) 48.3 ml/min; Est GFR (Non-African American) 41.7 ml/min; Globulin 2.3 gm/dl (2.5-4.0); Glucose 167 mg/dl (70-99(Fasting)); Potassium 4.8 mmol/L (3.5-5.1); Sodium 133 mmol/L (136-145); Total Protein 6.5 gm/dl (6.0-8.3)
[2023-06-24 15:42] LABS: Prothrombin Time 10.5 Seconds (9.0-12.0)
[2023-06-24] MEDS: HYDROCORTISONE SOD 100 MG in SYRINGE 0 ML IV SCH (16:20)
[2023-06-24] MEDS: INSULIN ASPART PER UNIT CHARGE SC SCH (17:04)
[2023-06-24] MEDS ORDERED: LINACLOTIDE 145 MCG CAPSULE PO PRN (21:39)
[2023-06-24] MEDS ORDERED: HYDROCORTISONE 2.5% CR 30 GM TUBE EXT PRN (21:45)
[2023-06-24] MEDS: DOCUSATE SODIUM 100 MG CAP PO SCH (22:25)
[2023-06-24] MEDS: oxyCODONE HCL IR 5 MG TAB (IMMEDIATE RELEASE) PO PRN (23:45)
[2023-06-25] MEDS ORDERED: Nursing to Pharmacy Communication SCH ×2 (00:45→19:00)
[2023-06-25] MEDS: ceFAZolin 2000MG 2,000 MG/15 ML SYR IV SCH ×2 (02:51→23:21)
[2023-06-25] MEDS: INSULIN ASPART PER UNIT CHARGE SC SCH ×2 (05:52→20:00)
[2023-06-25 06:05] LABS: Basophils # (auto) 0.02 K/uL (0.00-0.20); Basophils % (auto) 0.4 %; Eosinophils # (auto) 0.02 K/uL (0.00-0.50); Eosinophils % (auto) 0.4 %; Hematocrit (blood only) 31.4 % (42.0-52.0); Hemoglobin 10.1 g/dl (14.0-18.0); Immature Granulocytes # (auto) 0.08 K/uL (0.01-0.20); Immature Granulocytes % (auto) 1.5 %; Lymphocytes # (auto) 0.68 K/uL (1.20-3.40); Lymphocytes % (auto) 12.9 %; Mean Corpuscular Hemoglobin 32.8 pg (25.0-34.0); Mean Corpuscular Hgb Conc 32.2 g/dL (32.0-36.0); Mean Corpuscular Volume 101.9 fL (80.0-100.0); Mean Platelet Volume 9.3 fL (9.4-12.4); Monocytes # (auto) 0.32 K/uL (0.11-0.59); Monocytes % (auto) 6.1 %; Neutrophils # (auto) 4.16 K/uL (1.40-6.50); Neutrophils % (auto) 78.7 %; Platelet Count 172 K/uL (130-400); RDW Coefficient of Variation 13.7 % (11.5-14.5); RDW Standard Deviation 51.4 fL (36.4-46.3); Red Blood Count 3.08 M/uL (4.70-6.10); White Blood Count 5.28 K/ul (4.8-10.8)
[2023-06-25 06:28] LABS: Albumin Globulin Ratio 1.9 (0.9-2); Albumin Level 3.4 gm/dl (3.4-5.0); BUN Creatinine Ratio 15.3 (10-20); Bilirubin,Total 0.3 mg/dl (0.2-1.0); Calcium 8.1 mg/dl (8.6-10.3); Creatinine Clr Calc Pharmacy 49.8 ml/min; Est GFR (African American) 55.7 ml/min; Globulin 1.8 gm/dl (2.5-4.0); Magnesium 1.9 mg/dl (1.7-2.4); Potassium 4.3 mmol/L (3.5-5.1); Total Protein 5.2 gm/dl (6.0-8.3)
--- NOTE | 2023-06-25 07:04 | Anesthesiology Consultation ---
Date of Service June 25, 2023 Assessment & Plan (1) Encounter for pre-operative examination: Chart Review Chart Review: Acceptable Risk for Surgery and Patient NOT seen in Pre Admission Testing Consults Requested none History Surgery Operation Date: 06/25/23 13:30 Proposed Procedures p Right Knee Irrigation, Debridement, Wound Exploration, Wound Closure, Possible Other Repairs - Luis Hernandez MD Height/Weight Height: 5 ft 11 in Weight: 95.2 kg Allergies Allergy/AdvReac Type Severity Reaction Status Date / Time adhesive Allergy Mild Redness Verified 05/26/23 11:25 lovastatin Allergy Unknown Unknown Verified 05/26/23 11:25 pseudoephedrine AdvReac Intermediate "[place] high" Verified 05/26/23 11:25 Medications Home Medications Medication Instructions Recorded Confirmed Last Taken calcium carbonate 600 mg calcium 600 mg PO QAM 09/25/18 06/24/23 06/24/23 08:00 (1,500 mg) tablet (Calcium) hydrocortisone 2.5 % topical cream 1 appln topical .COMPLEX 09/30/18 06/24/23 Unknown linaclotide 145 mcg capsule 145 mcg PO DAILY PRN constipation 09/30/18 06/24/23 Unknown #90 caps jtvtkbitxpnf-glilrckm-abhhqy tablet 1 tab PO QAM 09/30/18 06/24/23 06/24/23 08:00 nystatin-triamcinolone 100,000 1 appln topical BID #60 grams 09/30/18 05/26/23 Unknown unit/g-0.1 % topical cream mupirocin 2 % topical ointment 1 appln topical BID #30 grams 10/01/18 05/26/23 Unknown ipratropium bromide 21 mcg (0.03 See Rx Instructions .Route 03/26/21 06/24/23 05/24/23 08:00 %) nasal spray .COMPLEX #90 mL simvastatin 20 mg tablet 20 mg PO QPM #90 tabs 11/13/22 06/24/23 06/23/23 21:00 montelukast 10 mg tablet 10 mg PO QPM #90 tabs 01/14/23 06/24/23 06/23/23 21:00 aqesojqmbr-tmjzfdkrfxgzl-ecnxuqfn 1 tab PO Q6H PRN pain #30 tabs 01/31/23 06/24/23 Unknown 50 mg-325 mg-40 mg tablet diltiazem HCl 120 mg capsule,24 120 mg PO QAM #90 caps 04/14/23 06/24/23 06/24/23 08:00 hr,extended release mirtazapine 30 mg tablet 30 mg PO HS insomnia mood #90 tabs 04/15/23 06/24/23 06/23/23 21:00 cinnamon bark 500 mg capsule 500 mg PO QAM 04/28/23 06/24/23 06/24/23 08:00 escitalopram oxalate 5 mg tablet 5 mg PO QAM 04/28/23 06/24/23 06/24/23 08:00 fesoterodine 8 mg tablet,extended 8 mg PO QPM 04/28/23 06/24/23 06/23/23 21:00 release 24 hr (Toviaz) folic acid 1 mg tablet 1 mg PO QAM 04/28/23 06/24/23 06/24/23 08:00 mirabegron 50 mg tablet,extended 50 mg PO QPM 04/28/23 06/24/23 06/23/23 21:00 release 24 hr (Myrbetriq) multivitamin 1 tab PO QAM 04/28/23 06/24/23 06/24/23 08:00 omeprazole 40 mg capsule,delayed 40 mg PO QAM 04/28/23 06/24/23 06/24/23 08:00 release prednisone 5 mg tablet 5 mg PO QAM 04/28/23 06/24/23 06/24/23 08:00 lisinopril 20 mg tablet 20 mg PO QAM #90 tabs 05/23/23 06/24/23 06/24/23 08:00 acetaminophen 500 mg tablet 1,000 mg (2 x 500 mg) PO Q8 #60 05/27/23 06/24/23 06/24/23 08:00 (Tylenol Extra Strength) tabs aspirin 81 mg tablet,delayed 81 mg PO BID #60 tabs 05/27/23 06/24/23 06/24/23 08:00 release cefadroxil 500 mg capsule 500 mg PO BID #28 caps 05/27/23 Unknown oxycodone 5 mg tablet 5 - 10 mg (1 - 2 x 5 mg) PO 05/27/23 06/24/23 06/23/23 21:00 .Q4h-6h PRN pain #30 tabs docusate sodium 100 mg capsule 100 mg PO BID #60 caps 05/28/23 06/24/23 06/24/23 08:00 ferrous gluconate 225 mg (27 mg 225 mg PO BID #60 tabs 05/28/23 06/24/23 06/24/23 08:00 iron) tablet sennosides 8.6 mg tablet (Senokot) 17.2 mg (2 x 8.6 mg) PO HS #20 tabs 05/28/23 06/24/23 Unknown tocilizumab 162 mg/0.9 mL 162 mg (0.9 mL) subcut Q7D #3.6 mL 06/09/23 06/24/23 06/17/23 08:00 subcutaneous pen injector (Actemra ACTPen) Active Medications Generic Name Dose Route Start Last Admin Trade Name Freq PRN Reason Stop Dose Admin Docusate Sodium 100 mg 06/24/23 21:45 06/24/23 22:25 Docusate Sodium 100 Mg Cap PO 07/24/23 21:44 Not Given BID IDALIA Cefazolin Sodium 2,000 mg in 15 mls @ 3.75 mls/min 06/25/23 03:00 06/25/23 02:51 Ancef 2000mg IV 07/02/23 02:59 3.75 mls/min Q12H IDALIA Administration Lactated Ringer's 1,000 mls @ 80 mls/hr 06/24/23 14:00 06/25/23 02:52 Lr IV 07/24/23 23:55 80 mls/hr .[id number] IDALIA Administration Insulin Aspart 0 units 06/25/23 06:00 06/25/23 05:52 Insulin Aspart Per Unit Charge SC 07/25/23 05:59 Not Given Q6 IDALIA Miscellaneous 1 each 06/25/23 00:00 06/24/23 22:30 Order Awaiting Action: Tocilizumab [Actemra Actpen] 162 Mg/0.9 Ml Pen Injector N/A 07/25/23 00:00 Not Given QS IDALIA Miscellaneous 1 each 06/25/23 00:00 06/24/23 22:30 Order Awaiting Action: Ipratropium [place] 21 Mcg (0.03 %) Nathalie,Non-Aerosol N/A 04/19/24 00:00 Not Given QS IADLIA Oxycodone HCl 5 - 10 mg 06/24/23 21:39 06/24/23 23:45 Oxycodone Hcl Ir 5 Mg Tab (Immediate Release) PO 07/08/23 21:38 10 mg Q4H PRN Administration pain Past Medical History Medical History Hyperkalemia Diabetes mellitus, type 2 Diet controlled Hearing deficit Carotid stenosis, right Under surveillance by vascular, imaging every 2 years Carotid duplex 06/2021: Known MARGARITA occlusion, 60-69% LICA stenosis ("possibly overestimated due to contralateral ICA occlusion), no change compared to 05/2019 per report Abdominal aneurysm Aortoiliac ultrasound 06/2021: 3.7cm infrarenal AAA (stable) 2 year surviellance recommended by vascular (Dr. Pride) Osteoarthritis, knee Actinic keratoses Spondylolisthesis at L4-L5 level Spinal stenosis of lumbar region "Moderate" at L4-L5 Rheumatoid arthritis H/O prostate cancer Dx 2006 S/p protatectomy Hypercholesteremia Hypertension Anemia Chronic Past Family History Family History Father No problems noted. Mother No problems noted. Other No family history of adverse response to anesthesia Past Surgical History Surgical History History of colonoscopy Hx of vasectomy History of tooth extraction History of tonsillectomy and adenoidectomy H/O hernia repair H/O prostatectomy Social History Smoking Status: Former smoker Do You Dip or Chew Tobacco: No Hx Alcohol Use: No Hx Substance Use: No substance use type: does not use Physical Exam Vital Signs Last Vital Signs Temp 98.2 F 06/24/23 21:03 Pulse 86 06/24/23 21:03 Resp 18 06/24/23 21:03 BP 136/77 06/24/23 21:03 Pulse Ox 97 06/24/23 21:03 O2 Del Method Room Air 06/24/23 21:03 Testing Laboratory Results 06/25/23 05:33 06/25/23 05:33 PT 11.0 Seconds (9.0-12.0) 06/25/23 05:33 INR 1.0 (0.9-1.1) 06/25/23 05:33 06/25/23 06/24/23 05:51 21:01 POC Glucose 138 H 158 H Electrocardiogram Date: 05/02/23 Findings: + NSR @ (with PVCs)
[2023-06-25] MEDS: ESCITALOPRAM OXALATE 10 MG TAB PO SCH (09:23)
[2023-06-25] MEDS: dilTIAZem HCL 120 MG CAPCR PO SCH (09:23)
[2023-06-25] MEDS: PANTOprazole 40 MG TAB PO SCH (09:23)
[2023-06-25] MEDS ORDERED: ONDANSETRON INJ 2 MG/ML 2 ML VIAL ONE (11:29)
[2023-06-25] MEDS ORDERED: fentaNYL citrate PF 100 MCG/2 ML VIAL ONE ×3 (11:29→16:23)
[2023-06-25] MEDS ORDERED: MIDAZOLAM HCL 1 MG/ML 2ML VIAL ONE (11:29)
[2023-06-25] MEDS ORDERED: LIDOCAINE 2% 2 ML VIAL/AMP(20MG/ML) INFIL ONE (11:29)
[2023-06-25] MEDS ORDERED: PROPOFOL IV EMULSION 10 MG/ML 20 ML VIAL IV ONE (11:29)
[2023-06-25] MEDS ORDERED: ATROPINE SULFATE 0.1 MG/ML 10ML SYR IV PRN (14:40)
[2023-06-25] MEDS ORDERED: ONDANSETRON INJ 2 MG/ML 2 ML VIAL IV PRN ×2 (14:40→18:35)
[2023-06-25] MEDS ORDERED: ePHEDrine sulfate 50 MG/ML AMP IV PRN (14:40)
--- NOTE | 2023-06-25 14:57 | History & Physical Bridge Note ---
Date of Service June 25, 2023 History & Physical Bridge Note I have examined the patient, reviewed the History & Physical and in the interval since the performance of the History & Physical I have noted the following changes of clinical significance: no changes noted. Patient had a acute wound dehiscence status post total knee arthroplasty with no previous signs of any infection with normal progress with postoperative course until he got off the toilet seat and his wound split open. The wound is open with the patella exposed. Wound was not explored to see if there was a retinacular tear as patient requires to go to the operating room today for wound exploration irrigation debridement and appropriate repairs and closure possible multiple layer repair and closure right knee if needed.
[2023-06-25] MEDS: ceFAZolin 330 MG/ML 1 GM VIAL ONE ×2 (15:00→16:39)
[2023-06-25] MEDS ORDERED: PHENYLEPHRINE 100MCG/ML 10ML SYR IV ONE (15:19)
[2023-06-25] MEDS ORDERED: PHENYLEPHRINE HCL 10 MG/ML VIAL ONE (15:19)
--- NOTE | 2023-06-25 17:56 | Hospitalist Progress Note ---
Date of Service June 25, 2023 Assessment & Plan (1) Wound dehiscence: Plan: - Acute wound dehiscence status-post right TKA on 05/26/[address] Hernandez with no prior signs of infection or complications - Wound split open on 06/24/2023 when patient got off toilet seat - per ortho note, wound was open with the patella exposed - Exploration irrigation & debridement with appropriate repairs and closure on 06/25/[address] Hernandez - Patient given Ancef perioperatively (2) Anemia: Plan: - Mildly anemic at baseline, most likely secondary to chronic disease - Acute blood loss anemia in the setting of recent operative procedures vs dilutional aspect from IVF (3) Type 2 diabetes mellitus: Plan: - Diabetes mellitus type 2 ysk-fcwqgwe-nyfjcfyxy - Sliding scales been ordered (4) Rheumatoid arthritis: Plan: - Chronic prednisone use - 2 doses of stress dose steroids were ordered preoperatively Plan CODE STATUS: Full code Admission and Anticipated Discharge Date Admission Date: June 24, 2023 Subjective Patient seen and evaluated at bedside in the PACU. He was oriented to self, but otherwise confused. He was reporting right knee pain, and was given pain medication in the PACU. Denies any other complaints at this time. Plan to transfer back to floor unit shortly. Physical Exam Physical Exam: General: No acute distress, nondiaphoretic, well-developed, well-nourished. Hard of hearing. Skin: Genealized pallor. The skin was without rashes, erythema, edema, or bruising. Cardiac: Regular rate and rhythm without murmurs gallops or rubs. Pulm: Clear to auscultation bilaterally without wheezes, rales or rhonchi. No retractions or accessory muscle use. Abdominal: Positive bowel sounds x 4. Soft, nontender, without masses or organomegaly. No guarding or rebound tenderness. Neuro: Alert and oriented to self only. No focal neurological deficits. Extremities: Right knee dressing in tact, dry. Adequate perfusion to right lower extremity. Results & Data Results & Data Vital Signs (Past 12 Hours) Vital Signs Temp Pulse Resp BP Pulse Ox O2 Del Method 06/25/23 08:00 Room Air 06/25/23 07:58 36.8 C 97 H 17 126/79 98 Room Air Laboratory Results Reviewed CBC Reviewed CMP PG Care Time/CCT Total # of Minutes Spent Total Time Spent with Patient: Total time spent is greater than 50% in coordination of care (as documented) at patient's floor/unit and/or counseling patient: Coding Level of Care Code 52102 SUB INP/OBS CARE MIN Diagnoses Wound dehiscence T81.30XA Anemia D64.9 Type 2 diabetes mellitus without complication, without long-term current use of insulin E11.9 Diabetes mellitus complication status: without complication Diabetes mellitus custodial insulin use: without custodial use Rheumatoid arthritis involving multiple sites, unspecified whether rheumatoid factor present M06.9 Rheumatoid arthritis location: multiple sites Rheumatoid factor presence: unspecified presence (3) Type 2 diabetes mellitus Diabetes mellitus complication status: without complication Diabetes mellitus custodial insulin use: without custodial use Qualified Code(s): E11.9 - Type 2 diabetes mellitus without complications (4) Rheumatoid arthritis Rheumatoid arthritis location: multiple sites Rheumatoid factor presence: unspecified presence Qualified Code(s): M06.9 - Rheumatoid arthritis, unspecified
[2023-06-25] MEDS: fentaNYL citrate PF 100 MCG/2 ML VIAL IV PRN (18:04)
--- NOTE | 2023-06-25 18:19 | Post Operative Brief Note ---
Immediate Post Op Note v1 Date of Surgery June 25, 2023 Pre & Post Diagnosis Operation Date: 06/25/23 13:30 Pre-Op Diagnosis: 1. Acute wound dehiscence 2. Status post total right knee replacement Post-Op Diagnosis: 1. Acute wound dehiscence 2. Status post total right knee replacement 3. Medial retinaculum and quadriceps tendon repair rupture and synovitis knee joint. I identified the patient and participated in the time-out.: Yes Procedure Operation Date: 06/25/23 13:30 Actual Procedures p Right Knee Wound Exploration, Quadriceps Tendon Repair, Medial Retinaculum Repair, Irrigation and Debridement with Polyethelene Exchange of right knee replacement (Right) - Luis Hernandez MD Surgeon Luis Hernandez MD Boss Dyer Slade SUERO Estimated Blood Loss 20 Findings Consistent with Post-Op Diagnosis Specimens Swab cultures x 3 Drains Lara Catheter (16f inserted at the end of procedure. 10cc in balloon. See worklist for additional details. ) and Elliot-Barbosa Drain (10f PVC drain) Anesthesia Type General Regional Complications none Disposition Disposition: Recovery Room Overlapping Procedure I was immediately available: during the entire case.
--- NOTE | 2023-06-25 18:29 | Anesthesiology Progress Note ---
Date of Service June 25, 2023 Anesthesia Post Procedure Vital Signs Vital Signs: Temp Pulse Pulse Resp BP Pulse Ox O2 Del Method 06/25/23 18:25 36.5 C 93 H 18 143/77 H 94 Nasal Cannula 06/25/23 18:15 98 H 22 145/79 H 94 Nasal Cannula 06/25/23 18:05 95 H 18 165/90 H 95 Oxymask 06/25/23 17:57 36.3 C L 106 H 20 176/93 H 94 Oxymask 06/25/23 08:00 Room Air 06/25/23 07:58 36.8 C 97 H 17 126/79 98 Room Air 06/24/23 21:03 36.8 C 86 18 136/77 97 Room Air 06/24/23 19:45 Room Air O2 Flow Rate 06/25/23 18:25 3 06/25/23 18:15 3 06/25/23 18:05 4 06/25/23 17:57 6 06/25/23 08:00 06/25/23 07:58 06/24/23 21:03 06/24/23 19:45 Pain Intensity Right Knee: Pain Intensity: 5 Transfer of Care Handoff Completed per policy Notes Mental Status: alert / awake / arousable and participated in evaluation Patient Amnestic to Procedure: Yes Nausea / Vomiting: adequately controlled Pain: adequately controlled Airway Patency, RR, SpO2: stable & adequate BP & HR: stable & adequate Hydration State: stable & adequate Anesthetic Complications: no major complications apparent and Pt Satisfied with anesthetic care
[2023-06-25] MEDS ORDERED: NALOXONE HCL 0.4 MG/1 ML VIAL/CARP IV PRN (18:35)
[2023-06-25] MEDS ORDERED: METOCLOPRAMIDE HCL INJ 5 MG/ML 2 ML VIAL IV PRN (18:35)
[2023-06-25] MEDS ORDERED: MAGNESIUM HYDROXIDE SUSP 30 ML UDC PO PRN (18:35)
[2023-06-25] MEDS ORDERED: bisacodyL 10 MG SUPP PR PRN (18:35)
[2023-06-25] MEDS: SODIUM CHLORIDE 0.9% 1,000 ML IV SCH (18:48)
--- NOTE | 2023-06-25 18:57 | Operative Report ---
Post Operative Report Pre & Post Diagnosis Operation Date: 06/25/23 13:30 Pre-Op Diagnosis: 1. Acute wound dehiscence 2. Status post total right knee replacement 3. Diabetes mellitus and rheumatoid arthritis on chronic steroids and immunosuppressive Post-Op Diagnosis: 1. Acute wound dehiscence with dehiscence of skin and rupture of medial retinaculum repair and rupture of quadriceps tendon repair. 2. Status post total right knee replacement 3. Diabetes mellitus and rheumatoid arthritis on chronic steroids and immunosuppressive I identified the patient and participated in the time-out.: Yes Procedure Operation Date: 06/25/23 13:30 Actual Procedures p Right Knee Wound Exploration, Quadriceps Tendon Repair, Medial Retinaculum Repair, Irrigation and Debridement with Polyethelene Exchange(Right) - Luis Hernandez MD Surgeon Luis Hernandez MD Preschool Aide Slade SUERO Estimated Blood Loss 20 Findings Consistent with Post-Op Diagnosis Specimens 3 swab cultures. Drains 2 Hemovac Anesthesia Type General Regional Complications none Disposition Disposition: Recovery Room Indications 82-year-old male who was in his usual health 1 month post total knee replacement doing well and he got out of the toilet seat and noticed bleeding in his knee and came for evaluation and was noted to have a dehiscence of the wound with the patella exposed. Patient was promptly admitted to the hospital placed on IV antibiotics and scheduled for surgery. Description of Procedure Patient taken to the operating room the size under general anesthetic and MAC tourniquet was placed by his right upper thigh and his right lower extremity was prepped draped sterile fashion. Patient had preop IV Ancef. Leg was elevated exsanguinated Esmarch bandage and pneumatic tourniquet was raised to 325 mmHg. The wound was around 5 cm central area of the incision which was completely dehisced. The suture knots were all intact and they had torn out from the subcutaneous tissues with exposure of the fascia. The wound was irrigated briefly and then digital palpation under the medial flap revealed mild retinacular defect so I extended the incision proximally and distally. The medial retinacular repair was disrupted the quadriceps tendon repair was disrupted. There was frayed edges of the disruption and the sutures were still intact but had torn transversely through the tendon tissue. The distalmost aspect of the repair below the joint line above the pes anserine tendons was still intact. The tendon tissue was friable and edematous type tissue. There was no pus noted just normal clear joint fluid. There was inflammatory changes throughout the knee joint. The tibial polyethylene was intact and normal patella polyethylene was intact and normal there is no implant loosening. I obtained some deep cultures within the joint and later another culture under the tibial polyethylene after that was removed using a curved osteotome to free up the polyethylene and then removed with a tenaculum. A thorough extensive debridement was then performed. I irrigated the knee joint out with 12 L total of antibiotic solution with Ancef in the bags. Pulsavac was used. Skin edges and subcutaneous tissues were debrided in the area of the dehiscence. The edges of the tendon that were frayed were debrided with sharp debridement with a scalpel with tenotomy scissors and a Versajet. Versajet was used debriding any inflamed synovium tissue and any areas of inflamed fat and areas of inflammation over the fascia. An inflamed synovium was removed and the posterior capsule in the gutters. After the Versajet was used and after further irrigation I did use the aqua mantis to coagulate bleeders meticulously. Trial polyethylene was pl aced and then irrigation with xperience over the metal of the tibia prior to placement of the tibial insert and the new 14 mm CPS size G tibial polyethylene was inserted into the tibia and there was stability through full range of motion. After further irrigation with xperience the 2 drains were brought out laterally connected to a Hemovac in the quadriceps tendon and medial retinaculum were repaired thoroughly using interrupted [id number] #1 Vicryl bacterial resistance suture and also some sutures placed medial and lateral in a wider fashion to get into better tissue to bridge the suture line to take tension off the repair at several areas. A complete repair was obtained and I was able to take knee 0 to 120 degrees range of motion multiple times without any tension on the repair. The subcutaneous tissues then closed after 2-0 Vicryl bacterial resistance suture and then the skin was closed with tommy and Xeroform dressings gauze sterile dressings were applied and Corby wrap from the foot to the thigh. Patient tolerated the procedure satisfactorily.. I attest to the content of the Intraoperative Record and any orders documented therein. Any exceptions are noted below.
--- NOTE | 2023-06-25 19:58 | XRay Report ---
XR knee RT 1 or 2V routine CLINICAL HISTORY: Surgical Post Op TECHNIQUE: 2 views of the right knee were obtained. Comparison: Comparison is made to right knee radiograph 05/26/2019 FINDINGS: Patient is status post total knee arthroplasty with expected postsurgical changes including soft tiss ue swelling and subcutaneous emphysema. No periarticular lucency or hardware fracture is seen. . IMPRESSION: No evidence of acute osseous injury. ACT 112: Negative or not required by law. Electronically signed by: Jigar Prater M.D. 06/25/2023 7:56 PM
[2023-06-25] MEDS: SIMVASTATIN 20 MG TAB PO SCH (20:04)
[2023-06-25] MEDS: OXYBUTYNIN CHLORIDE XL 5 MG TABCR PO SCH (20:04)
[2023-06-25] MEDS: MONTELUKAST SODIUM 10 MG TABLET PO SCH (20:04)
[2023-06-25] MEDS: VIBEGRON 75 MG TAB PO SCH (20:05)
[2023-06-25] MEDS: MIRTAZAPINE TAB 15 MG TAB PO SCH (20:05)
[2023-06-25] MEDS: SENNA 8.6 MG TAB PO SCH ×2 (20:05→20:09)
[2023-06-25] MEDS: ACETAMINOPHEN 325 MG TAB PO PRN (20:07)
[2023-06-25] MEDS: ASPIRIN 81 MG ECTAB PO SCH (20:08)
[2023-06-25] MEDS: DOCUSATE SODIUM 100 MG CAP PO SCH (20:09)
--- NOTE | 2023-06-26 07:19 | Orthopedic Progress Note ---
Date of Service June 26, 2023 Assessment & Plan (1) Wound dehiscence: Plan: Postop day #1 right knee I&D, poly exchange, medial retinacular and quad tendon repair, wound repair Patient placed in immobilizer postoperatively. He should be in immobilizer at all times including ambulation. May remove for range of motion exercises. Gentle range of motion with therapy, no aggressive motion. Continue IV antibiotics pending culture results, on Ancef. OR cultures currently pending. A.m. labs pending. Aspirin twice daily for 1 month postop for DVT prophylaxis. Continue inpatient stay pending culture results. Patient may require SNF/rehab placement. Await therapy eval's. Case management consult placed. (2) Status post total right knee replacement: Admission and Anticipated Discharge Date Admission Date: June 24, 2023 Subjective Patient is postop day 1 right knee. Pain is controlled. Feels well overall. No other complaints. Denies chest pain, shortness of breath, nausea/vomiting/diarrhea, headaches or dizziness. Review of Systems Review of Systems: All systems reviewed & are unremarkable except as noted in Subjective Physical Exam Physical Exam: Right knee: Dressing is clean, dry, and intact. Immobilizer in place. Toes are mobile with good dorsiflexion. No calf tenderness. Distal neurovascular status and sensation is grossly intact. Results & Data Vital Signs (Past 12 Hours) Vital Signs Temp Pulse Resp BP Pulse Ox O2 Del Method O2 Flow Rate 06/26/23 06:00 37.5 C 90 20 146/89 H 97 Nasal Cannula 2 06/26/23 02:00 36.5 C 95 H 18 134/79 98 Nasal Cannula 2 06/25/23 22:00 36.7 C 94 H 19 126/77 95 Nasal Cannula 2 06/25/23 20:52 36.5 C 97 H 18 117/71 98 Nasal Cannula 3 06/25/23 20:10 Nasal Cannula 2 06/25/23 19:45 36.4 C L 100 H 18 149/79 H 99 Nasal Cannula 3 06/25/23 19:16 36.6 C 92 H 18 160/81 H 97 Nasal Cannula 3
[2023-06-26 07:35] LABS: Hematocrit (blood only) 31.4 % (42.0-52.0); Hemoglobin 10.1 g/dl (14.0-18.0); Mean Corpuscular Hgb Conc 32.2 g/dL (32.0-36.0); Mean Corpuscular Volume 102.6 fL (80.0-100.0); Mean Platelet Volume 9.4 fL (9.4-12.4); Platelet Count 192 K/uL (130-400); RDW Coefficient of Variation 13.7 % (11.5-14.5); RDW Standard Deviation 51.9 fL (36.4-46.3); Red Blood Count 3.06 M/uL (4.70-6.10); White Blood Count 8.23 K/ul (4.8-10.8)
[2023-06-26] MEDS: MULTIVITAMIN TAB PO SCH (07:41)
[2023-06-26 08:03] LABS: BUN Creatinine Ratio 15.4 (10-20); Calcium 7.9 mg/dl (8.6-10.3); Creatinine Clr Calc Pharmacy 55.5 ml/min; Est GFR (African American) 63.4 ml/min; Est GFR (Non-African American) 54.7 ml/min; Potassium 4.8 mmol/L (3.5-5.1)
[2023-06-26] MEDS: HYDROmorphone INJ 0.5 MG/0.5 ML SYR IV PRN (14:54)
--- NOTE | 2023-06-26 22:20 | Hospitalist Progress Note ---
Date of Service June 26, 2023 Assessment & Plan (1) Wound dehiscence: Plan: - Acute wound dehiscence status-post right TKA on 05/26/[address] Hernandez with no prior signs of infection or complications - Wound split open on 06/24/2023 when patient got off toilet seat - per ortho note, wound was open with the patella exposed - Exploration irrigation & debridement with appropriate repairs and closure on 06/25/[address] Hernandez - Patient given Ancef perioperatively awaiting final cultures. (2) Anemia: Plan: - Mildly anemic at baseline, most likely secondary to chronic disease - Acute blood loss anemia in the setting of recent operative procedures vs dilutional aspect from IVF (3) Type 2 diabetes mellitus: Plan: - Diabetes mellitus type 2 [id number] - Sliding scales been ordered (4) Rheumatoid arthritis: Plan: - Chronic prednisone use - 2 doses of stress dose steroids were ordered preoperatively Plan CODE STATUS: Full code Admission and Anticipated Discharge Date Admission Date: June 24, 2023 Subjective 82 yo male reports no new symptoms. Review of Systems Review of Systems: All systems reviewed & are unremarkable except as noted in HPI & below Physical Exam Physical Exam: General: No acute distress, nondiaphoretic, well-developed, well-nourished. Hard of hearing. Skin: Genealized pallor. The skin was without rashes, erythema, edema, or bruising. Cardiac: Regular rate and rhythm without murmurs gallops or rubs. Pulm: Clear to auscultation bilaterally without wheezes, rales or rhonchi. No retractions or accessory muscle use. Abdominal: Positive bowel sounds x 4. Soft, nontender, without masses or organomegaly. No guarding or rebound tenderness. Neuro: Alert and oriented to self only. No focal neurological deficits. Extremities: Right knee dressing in tact, dry. Adequate perfusion to right lower extremity. Results & Data Results & Data Vital Signs (Past 12 Hours) Vital Signs Temp Pulse Resp BP Pulse Ox O2 Del Method 06/26/23 20:39 37.1 C 84 18 130/78 93 Room Air 06/26/23 15:47 83 20 118/75 94 Room Air 06/26/23 15:43 36.6 C 86 22 109/65 93 Room Air PG Care Time/CCT Total # of Minutes Spent Total Time Spent with Patient: Total time spent is greater than 50% in coordination of care (as documented) at patient's floor/unit and/or counseling patient: Coding Level of Care Code 28308 SUB INP/OBS CARE 235MIN Diagnoses Wound dehiscence T81.30XA Anemia D64.9 Type 2 diabetes mellitus without complication, without long-term current use of insulin E11.9 Diabetes mellitus complication status: without complication 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 use: without mcfp use Rheumatoid arthritis involving multiple sites, unspecified whether rheumatoid factor present M06.9 Rheumatoid arthritis location: multiple sites Rheumatoid factor presence: unspecified presence (3) Type 2 diabetes mellitus Diabetes mellitus complication status: without complication 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
[2023-06-27 07:03] LABS: Hematocrit (blood only) 30.7 % (42.0-52.0); Hemoglobin 9.7 g/dl (14.0-18.0); Mean Corpuscular Hemoglobin 32.6 pg (25.0-34.0); Mean Corpuscular Hgb Conc 31.6 g/dL (32.0-36.0); Mean Platelet Volume 9.3 fL (9.4-12.4); Platelet Count 177 K/uL (130-400); RDW Coefficient of Variation 13.6 % (11.5-14.5); RDW Standard Deviation 51.6 fL (36.4-46.3); Red Blood Count 2.98 M/uL (4.70-6.10); White Blood Count 7.37 K/ul (4.8-10.8)
[2023-06-27 07:30] LABS: Calcium 8.2 mg/dl (8.6-10.3); Creatinine Clr Calc Pharmacy 54.6 ml/min; Est GFR (African American) 62.2 ml/min; Est GFR (Non-African American) 53.7 ml/min; Potassium 4.3 mmol/L (3.5-5.1)
--- NOTE | 2023-06-27 07:48 | Orthopedic Progress Note ---
Date of Service June 27, 2023 Assessment & Plan (1) Wound dehiscence: Plan: Postop day #2 right knee I&D, poly exchange, medial retinacular and quad tendon repair, wound repair Patient placed in immobilizer postoperatively. He should be in immobilizer at all times including ambulation. May remove for range of motion exercises. Gentle range of motion with therapy, no aggressive motion. Continue IV antibiotics currently on Ancef. OR cultures growing gram-positive cocci. Will need 6 weeks IV antibiotics. ID consult placed. PICC line ordered. Consent obtained by Dr. Hernandez and placed on chart this morning. Hemoglobin at 9.7 from 10.1 yesterday and 12 preop. Acute blood loss anemia due to surgical loss versus dilutional. Patient is asymptomatic. White count is normal. Sed rate and CRP were normal on admission. Aspirin twice daily for 1 month postop for DVT prophylaxis. Continue inpatient stay pending culture results. Patient will likely require SNF placement. Case management consult placed to arrange placement and IV antibiotics, with antibiotic choice pending ID consult. (2) Status post total right knee replacement: Admission and Anticipated Discharge Date Admission Date: June 24, 2023 Subjective Patient is postop day 2 right knee I&D. Feeling well overall this morning. Pain is controlled. No other complaints. Denies chest pain, shortness of breath, nausea/vomiting/diarrhea, aches or dizziness. Review of Systems Review of Systems: All systems reviewed & are unremarkable except as noted in Subjective Physical Exam Physical Exam: Right knee: Dressing is clean, dry, and intact. Immobilizer in place. Toes are mobile with good dorsiflexion. No calf tenderness. Distal neurovascular status and sensation is grossly intact. Results & Data Vital Signs (Past 12 Hours) Vital Signs Temp Pulse Resp BP Pulse Ox O2 Del Method 06/27/23 07:32 36.8 C 92 H 16 148/91 H 94 Room Air 06/26/23 20:39 37.1 C 84 18 130/78 93 Room Air Laboratory Results Lab Results 06/24/23 06/24/23 06/24/23 Range/Units 14:21 16:22 21:01 WBC 7.30 (4.8-10.8) K/ul RBC 3.70 L (4.70-6.10) M/uL Hgb 12.1 L (14.0-18.0) g/dl Hct 37.5 L (42.0-52.0) % MCV 101.4 H (80.0-100.0) fL MCH 32.7 (25.0-34.0) pg MCHC 32.3 (32.0-36.0) g/dL RDW Std Deviation 52.5 H (36.4-46.3) fL RDW Coeff of Raudel 14.0 (11.5-14.5) % Plt Count 283 (130-400) K/uL MPV 9.4 (9.4-12.4) fL Immature Gran % (Auto) 1.5 % Neut % (Auto) 85.7 % Lymph % (Auto) 5.9 % Meagher % (Auto) 6.3 % Eos % (Auto) 0.3 % Baso % (Auto) 0.3 % Neut # (Auto) 6.26 (1.40-6.50) K/uL Lymph # (Auto) 0.43 L (1.20-3.40) K/uL Meagher # (Auto) 0.46 (0.11-0.59) K/uL Eos # (Auto) 0.02 (0.00-0.50) K/uL Baso # (Auto) 0.02 (0.00-0.20) K/uL Immature Gran # (Auto) 0.11 (0.01-0.20) K/uL ESR 5 (0-20) mm/hr PT 10.5 (9.0-12.0) Seconds INR 1.0 (0.9-1.1) Sodium 133 L (136-145) mmol/L Potassium 4.8 (3.5-5.1) mmol/L Chloride 102 (98-107) mmol/L Carbon Dioxide 22 (21-32) mmol/L Anion Gap 9 (3-11) BUN 22 (6-23) mg/dl Creatinine 1.54 H (0.6-1.4) mg/dl Est Cr Clr Drug Dosing 44.3 ml/min Est GFR ( Amer) 48.3 ml/min Est GFR (Non-Af Amer) 41.7 ml/min BUN/Creatinine Ratio 14.3 (10-20) Glucose 167 H (70-99(Fasting)) mg/dl POC Glucose 146 H 158 H (70-99) mg/dl Calcium 9.2 (8.6-10.3) mg/dl Magnesium (1.7-2.4) mg/dl Total Bilirubin 0.5 (0.2-1.0) mg/dl AST 31 (13-39) U/L ALT 24 (7-52) U/L Alkaline Phosphatase 61 (34-104) U/L C-Reactive Protein < 0.50 (0-0.5) mg/dl Total Protein 6.5 (6.0-8.3) gm/dl Albumin 4.2 (3.4-5.0) gm/dl Globulin 2.3 L (2.5-4.0) gm/dl Albumin/Globulin Ratio 1.8 (0.9-2) 06/25/23 06/25/23 06/25/23 Range/Units 05:33 05:51 11:52 WBC 5.28 (4.8-10.8) K/ul RBC 3.08 L (4.70-6.10) M/uL Hgb 10.1 L (14.0-18.0) g/dl Hct 31.4 L (42.0-52.0) % MCV 101.9 H (80.0-100.0) fL MCH 32.8 (25.0-34.0) pg MCHC 32.2 (32.0-36.0) g/dL RDW Std Deviation 51.4 H (36.4-46.3) fL RDW Coeff of Raudel 13.7 (11.5-14.5) % Plt Count 172 (130-400) K/uL MPV 9.3 L (9.4-12.4) fL Immature Gran % (Auto) 1.5 % Neut % (Auto) 78.7 % Lymph % (Auto) 12.9 % Meagher % (Auto) 6.1 % Eos % (Auto) 0.4 % Baso % (Auto) 0.4 % Neut # (Auto) 4.16 (1.40-6.50) K/uL Lymph # (Auto) 0.68 L (1.20-3.40) K/uL Meagher # (Auto) 0.32 (0.11-0.59) K/uL Eos # (Auto) 0.02 (0.00-0.50) K/uL Baso # (Auto) 0.02 (0.00-0.20) K/uL Immature Gran # (Auto) 0.08 (0.01-0.20) K/uL ESR (0-20) mm/hr PT 11.0 (9.0-12.0) Seconds INR 1.0 (0.9-1.1) Sodium 135 L (136-145) mmol/L Potassium 4.3 (3.5-5.1) mmol/L Chloride 103 (98-107) mmol/L Carbon Dioxide 26 (21-32) mmol/L Anion Gap 6 (3-11) BUN 21 (6-23) mg/dl Creatinine 1.37 (0.6-1.4) mg/dl Est Cr Clr Drug Dosing 49.8 ml/min Est GFR ( Amer) 55.7 ml/min Est GFR (Non-Af Amer) 48.0 ml/min BUN/Creatinine Ratio 15.3 (10-20) Glucose 135 H (70-99(Fasting)) mg/dl POC Glucose 138 H 123 H (70-99) mg/dl Calcium 8.1 L (8.6-10.3) mg/dl Magnesium 1.9 (1.7-2.4) mg/dl Total Bilirubin 0.3 (0.2-1.0) mg/dl AST 22 (13-39) U/L ALT 16 (7-52) U/L Alkaline Phosphatase 49 (34-104) U/L C-Reactive Protein (0-0.5) mg/dl Total Protein 5.2 L (6.0-8.3) gm/dl Albumin 3.4 (3.4-5.0) gm/dl Globulin 1.8 L (2.5-4.0) gm/dl Albumin/Globulin Ratio 1.9 (0.9-2) 06/25/23 06/25/23 06/25/23 Range/Units 14:03 18:00 18:47 WBC (4.8-10.8) K/ul RBC (4.70-6.10) M/uL Hgb (14.0-18.0) g/dl Hct (42.0-52.0) % MCV (80.0-100.0) fL MCH (25.0-34.0) pg MCHC (32.0-36.0) g/dL RDW Std Deviation (36.4-46.3) fL RDW Coeff of Raudel (11.5-14.5) % Plt Count (130-400) K/uL MPV (9.4-12.4) fL Immature Gran % (Auto) % Neut % (Auto) % Lymph % (Auto) % Meagher % (Auto) % Eos % (Auto) % Baso % (Auto) % Neut # (Auto) (1.40-6.50) K/uL Lymph # (Auto) (1.20-3.40) K/uL Meagher # (Auto) (0.11-0.59) K/uL Eos # (Auto) (0.00-0.50) K/uL Baso # (Auto) (0.00-0.20) K/uL Immature Gran # (Auto) (0.01-0.20) K/uL ESR (0-20) mm/hr PT (9.0-12.0) Seconds INR (0.9-1.1) Sodium (136-145) mmol/L Potassium (3.5-5.1) mmol/L Chloride (98-107) mmol/L Carbon Dioxide (21-32) mmol/L Anion Gap (3-11) BUN (6-23) mg/dl Creatinine (0.6-1.4) mg/dl Est Cr Clr Drug Dosing ml/min Est GFR ( Amer) ml/min Est GFR (Non-Af Amer) ml/min BUN/Creatinine Ratio (10-20) Glucose (70-99(Fasting)) mg/dl POC Glucose 113 H 151 H 191 H (70-99) mg/dl Calcium (8.6-10.3) mg/dl Magnesium (1.7-2.4) mg/dl Total Bilirubin (0.2-1.0) mg/dl AST (13-39) U/L ALT (7-52) U/L Alkaline Phosphatase (34-104) U/L C-Reactive Protein (0-0.5) mg/dl Total Protein (6.0-8.3) gm/dl Albumin (3.4-5.0) gm/dl Globulin (2.5-4.0) gm/dl Albumin/Globulin Ratio (0.9-2) 06/25/23 06/25/23 06/26/23 Range/Units 23:25 23:26 06:20 WBC 8.23 (4.8-10.8) K/ul RBC 3.06 L (4.70-6.10) M/uL Hgb 10.1 L (14.0-18.0) g/dl Hct 31.4 L (42.0-52.0) % MCV 102.6 H (80.0-100.0) fL MCH 33.0 (25.0-34.0) pg MCHC 32.2 (32.0-36.0) g/dL RDW Std Deviation 51.9 H (36.4-46.3) fL RDW Coeff of Raudel 13.7 (11.5-14.5) % Plt Count 192 (130-400) K/uL MPV 9.4 (9.4-12.4) fL Immature Gran % (Auto) % Neut % (Auto) % Lymph % (Auto) % Meagher % (Auto) % Eos % (Auto) % Baso % (Auto) % Neut # (Auto) (1.40-6.50) K/uL Lymph # (Auto) (1.20-3.40) K/uL Meagher # (Auto) (0.11-0.59) K/uL Eos # (Auto) (0.00-0.50) K/uL Baso # (Auto) (0.00-0.20) K/uL Immature Gran # (Auto) (0.01-0.20) K/uL ESR (0-20) mm/hr PT (9.0-12.0) Seconds INR (0.9-1.1) Sodium 136 (136-145) mmol/L Potassium 4.8 (3.5-5.1) mmol/L Chloride 104 (98-107) mmol/L Carbon Dioxide 27 (21-32) mmol/L Anion Gap 5 (3-11) BUN 19 (6-23) mg/dl Creatinine 1.23 (0.6-1.4) mg/dl Est Cr Clr Drug Dosing 55.5 ml/min Est GFR ( Amer) 63.4 ml/min Est GFR (Non-Af Amer) 54.7 ml/min BUN/Creatinine Ratio 15.4 (10-20) Glucose 196 H (70-99(Fasting)) mg/dl POC Glucose 249 H 236 H (70-99) mg/dl Calcium 7.9 L (8.6-10.3) mg/dl Magnesium (1.7-2.4) mg/dl Total Bilirubin (0.2-1.0) mg/dl AST (13-39) U/L ALT (7-52) U/L Alkaline Phosphatase (34-104) U/L C-Reactive Protein (0-0.5) mg/dl Total Protein (6.0-8.3) gm/dl Albumin (3.4-5.0) gm/dl Globulin (2.5-4.0) gm/dl Albumin/Globulin Ratio (0.9-2) 06/26/23 06/26/23 06/26/23 Range/Units 07:31 11:20 16:33 WBC (4.8-10.8) K/ul RBC (4.70-6.10) M/uL Hgb (14.0-18.0) g/dl Hct (42.0-52.0) % MCV (80.0-100.0) fL MCH (25.0-34.0) pg MCHC (32.0-36.0) g/dL RDW Std Deviation (36.4-46.3) fL RDW Coeff of Raudel (11.5-14.5) % Plt Count (130-400) K/uL MPV (9.4-12.4) fL Immature Gran % (Auto) % Neut % (Auto) % Lymph % (Auto) % Meagher % (Auto) % Eos % (Auto) % Baso % (Auto) % Neut # (Auto) (1.40-6.50) K/uL Lymph # (Auto) (1.20-3.40) K/uL Meagher # (Auto) (0.11-0.59) K/uL Eos # (Auto) (0.00-0.50) K/uL Baso # (Auto) (0.00-0.20) K/uL Immature Gran # (Auto) (0.01-0.20) K/uL ESR (0-20) mm/hr PT (9.0-12.0) Seconds INR (0.9-1.1) Sodium (136-145) mmol/L Potassium (3.5-5.1) mmol/L Chloride (98-107) mmol/L Carbon Dioxide (21-32) mmol/L Anion Gap (3-11) BUN (6-23) mg/dl Creatinine (0.6-1.4) mg/dl Est Cr Clr Drug Dosing ml/min Est GFR ( Amer) ml/min Est GFR (Non-Af Amer) ml/min BUN/Creatinine Ratio (10-20) Glucose (70-99(Fasting)) mg/dl POC Glucose 185 H 161 H 128 H (70-99) mg/dl Calcium (8.6-10.3) mg/dl Magnesium (1.7-2.4) mg/dl Total Bilirubin (0.2-1.0) mg/dl AST (13-39) U/L ALT (7-52) U/L Alkaline Phosphatase (34-104) U/L C-Reactive Protein (0-0.5) mg/dl Total Protein (6.0-8.3) gm/dl Albumin (3.4-5.0) gm/dl Globulin (2.5-4.0) gm/dl Albumin/Globulin Ratio (0.9-2) 06/26/23 06/27/23 06/27/23 Range/Units 20:42 06:26 07:40 WBC 7.37 (4.8-10.8) K/ul RBC 2.98 L (4.70-6.10) M/uL Hgb 9.7 L (14.0-18.0) g/dl Hct 30.7 L (42.0-52.0) % MCV 103.0 H (80.0-100.0) fL MCH 32.6 (25.0-34.0) pg MCHC 31.6 L (32.0-36.0) g/dL RDW Std Deviation 51.6 H (36.4-46.3) fL RDW Coeff of Raudel 13.6 (11.5-14.5) % Plt Count 177 (130-400) K/uL MPV 9.3 L (9.4-12.4) fL Immature Gran % (Auto) % Neut % (Auto) % Lymph % (Auto) % Meagher % (Auto) % Eos % (Auto) % Baso % (Auto) % Neut # (Auto) (1.40-6.50) K/uL Lymph # (Auto) (1.20-3.40) K/uL Meagher # (Auto) (0.11-0.59) K/uL Eos # (Auto) (0.00-0.50) K/uL Baso # (Auto) (0.00-0.20) K/uL Immature Gran # (Auto) (0.01-0.20) K/uL ESR (0-20) mm/hr PT (9.0-12.0) Seconds INR (0.9-1.1) Sodium 137 (136-145) mmol/L Potassium 4.3 (3.5-5.1) mmol/L Chloride 103 (98-107) mmol/L Carbon Dioxide 30 (21-32) mmol/L Anion Gap 4 (3-11) BUN 20 (6-23) mg/dl Creatinine 1.25 (0.6-1.4) mg/dl Est Cr Clr Drug Dosing 54.6 ml/min Est GFR ( Amer) 62.2 ml/min Est GFR (Non-Af Amer) 53.7 ml/min BUN/Creatinine Ratio 16.0 (10-20) Glucose 121 H (70-99(Fasting)) mg/dl POC Glucose 170 H 135 H (70-99) mg/dl Calcium 8.2 L (8.6-10.3) mg/dl Magnesium (1.7-2.4) mg/dl Total Bilirubin (0.2-1.0) mg/dl AST (13-39) U/L ALT (7-52) U/L Alkaline Phosphatase (34-104) U/L C-Reactive Protein (0-0.5) mg/dl Total Protein (6.0-8.3) gm/dl Albumin (3.4-5.0) gm/dl Globulin (2.5-4.0) gm/dl Albumin/Globulin Ratio (0.9-2) Diagnostic Findings Gram Stain Final 06/26/23-08 Gram Stain Result Many WBCs Seen No Organisms Seen Aero/Astrid Cult Preliminary 06/26/23-1404 Organism 1 Gram positive cocci Quantity Moderate
[2023-06-27] MEDS ORDERED: VANCOMYCIN CONSULT ACTIVE PRN (10:20)
--- NOTE | 2023-06-27 10:59 | Pharmacy Report ---
Pharmacy PK ABX Note - Date of Service June 27, 2023 - Assessment and Plan Assessment 82 year old M started on vancomycin due to knee cultures with Gm + cocci. Previously on ancef. Patient is s/p I&D of knee 06/24. ID consulted as patient likely needing extended duration of antibiotics. Plan Vancomycin * Loading dose: 2250 mg IV x 1 * Maintenance dose: 1500 mg IV every 24 hours * Regimen is predicted to achieve target AUC/NITO of 400-600 mg/L.hr * Will plan to obtain vancomycin level in next 48 hours or sooner if renal function changes Pharmacy will continue to follow and will adjust dose/frequency as necessary. Thank you. Pharmacy has transitioned to AUC monitoring for vancomycin. AUC/NITO is the preferred PK/PD target and is associated with decreased risk of nephrotoxicity compared to traditional trough targets.
--- NOTE | 2023-06-27 11:16 | Infectious Disease Consult ---
Date of Consultation June 27, 2023 Assessment & Plan (1) Prosthetic joint infection: (2) Status post total right knee replacement: (3) Rheumatoid arthritis: Plan 82yo M with h/o right TKA on 05/26/23, T2DM, rheumatoid arthritis (on prednisone 5mg daily), prostate cancer s/p prostatectomy, HTN, HLD, hard of hearing, CKD III who presented on 06/23 with wound dehiscence. He had TKA a month ago and postop course was c/b edema and fracture blistering of lateral aspect of his leg. This was improving and had his tommy removed on POD 18. On the morning of presentation, he noticed bleeding from the incision site. He was seen outpatient by ortho and noted to have wound dehiscence and admitted to the hospital for I+D. He noted right knee pain and stiffness. Otherwise denied headaches, sweats, fevers, chills, double vision, blurred vision, cough, sore throat, dysphagia, chest pain, sob, wheezing, n/v/d/c, numbness, tingling, fatigue, urinary symptoms, mood disorders. Here, he has been afebrile, vss. WBC wnl, Cr 1.54>1.25, LFT wnl, ESR 5, CRP < 0.5. BCX ngtd. XR right knee negative for acute osseous injury. Started on cefazolin on 06/23. S/p OR on 06/24 and underwent right knee wound exploration, quadriceps tendon repair, medial retinaculum repair, irrigation and debridement with polyethylene exchange (per op note, tendon tissue was edematous and friable, no pus noted, just clear joint fluid, inflammatory changes throughout the knee joint, deep cultures of joint obtained). OR cx with GPC. ID consulted 06/26 for assistance. Given GPC, I changed abx to vancomycin. He is also now growing GNR so Tracy ordered cefepime. He will need 6 weeks of IV abx followed by chronic suppression given PJI. Final regimen pending culture results. 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 If questions or concerns, contact Infectious Disease Call Center . Nella Zuniga MD [facility], Division of Infectious Diseases [facility]: [phone] Consultation Information Consultation was provided via telemedicine using two-way real-time interactive telecommunication between the patient and the telemedicine provider. For the duration of the visit, the provider was performing the assessment from a different facility than the patient. This includesuse of bluetooth stethoscope forauscultationperformed by the telepresenter that the telemedicine provider can hear if described in the physical exam. Supervisor Felling [employer] contact information: Please call [facility] Call Center [phone]. (Phone Number For Physician Use Only) After establishing a telemedicine visit, patient was: Patient was verified with two unique identifiers, Patient/authorized rep acknowledged consent and understanding and Gave permission to continue telehealth session Time Spent with Patient: Initial => 75 min History of Present Illness Reason for Consultation: infected total knee Attending Physician: Luis Hernandez MD History of Present Illness 82yo M with h/o right TKA on 05/26/23, T2DM, rheumatoid arthritis (on prednisone 5mg daily), prostate cancer s/p prostatectomy, HTN, HLD, hard of hearing, CKD III who presented on 06/23 with wound dehiscence. He had TKA a month ago and postop course was c/b edema and fracture blistering of lateral aspect of his leg. This was improving and had his tommy removed on POD 18. On the morning of presentation, he noticed bleeding from the incision site. He was seen outpatient by ortho and noted to have wound dehiscence and admitted to the hospital for I+D. He noted right knee pain and stiffness. Otherwise denied headaches, sweats, fevers, chills, double vision, blurred vision, cough, sore throat, dysphagia, chest pain, sob, wheezing, n/v/d/c, numbness, tingling, fatigue, urinary symptoms, mood disorders. Here, he has been afebrile, vss. WBC wnl, Cr 1.54>1.25, LFT wnl, ESR 5, CRP < 0.5. BCX ngtd. XR right knee negative for acute osseous injury. He was started on cefazolin on 06/23. S/p OR on 06/24 and underwent right knee wound exploration, quadriceps tendon repair, medial retinaculum repair, irrigation and debridement with polyethylene exchange (per op note, tendon tissue was edematous and friable, no pus noted, just clear joint fluid, inflammatory changes throughout the knee joint, deep cultures of joint obtained). OR cx with GPC. ID consulted 06/26 for assistance. On evaluation, patient says leg has been getting worse postop last month. No rashes, or fevers. Notes bloody drainage from surgical site. Says his PT noticed yellow spots on his knee. No abdominal pain, n/v/d, chest pain, SOB. Previously worked for [employer]. Allergies Allergy/AdvReac Type Severity Reaction Status Date / Time adhesive Allergy Mild Redness Verified 05/26/23 11:25 lovastatin Allergy Unknown Unknown Verified 05/26/23 11:25 pseudoephedrine AdvReac Intermediate "[place] high" Verified 05/26/23 11:25 Home Medications Medication Instructions Recorded Confirmed Type calcium carbonate 600 mg calcium 600 mg PO QAM 09/25/18 06/24/23 History (1,500 mg) tablet (Calcium) hydrocortisone 2.5 % topical cream 1 appln topical .COMPLEX 09/30/18 06/24/23 History linaclotide 145 mcg capsule 145 mcg PO DAILY PRN constipation 09/30/18 06/24/23 Rx #90 caps tyskhsheomfk-xbmapvbg-lvnsvk tablet 1 tab PO QAM 09/30/18 06/24/23 History nystatin-triamcinolone 100,000 1 appln topical BID #60 grams 09/30/18 05/26/23 Rx unit/g-0.1 % topical cream mupirocin 2 % topical ointment 1 appln topical BID #30 grams 10/01/18 05/26/23 Rx ipratropium bromide 21 mcg (0.03 See Rx Instructions .Route 03/26/21 06/24/23 Rx %) nasal spray .COMPLEX #90 mL simvastatin 20 mg tablet 20 mg PO QPM #90 tabs 11/13/22 06/24/23 Rx montelukast 10 mg tablet 10 mg PO QPM #90 tabs 01/14/23 06/24/23 Rx hodsyzmocz-pplodjedsyjbo-lnafhmhi 1 tab PO Q6H PRN pain #30 tabs 01/31/23 06/24/23 Rx 50 mg-325 mg-40 mg tablet diltiazem HCl 120 mg capsule,24 120 mg PO QAM #90 caps 04/14/23 06/24/23 Rx hr,extended release mirtazapine 30 mg tablet 30 mg PO HS insomnia mood #90 tabs 04/15/23 06/24/23 Rx cinnamon bark 500 mg capsule 500 mg PO QAM 04/28/23 06/24/23 History escitalopram oxalate 5 mg tablet 5 mg PO QAM 04/28/23 06/24/23 History fesoterodine 8 mg tablet,extended 8 mg PO QPM 04/28/23 06/24/23 History release 24 hr (Toviaz) folic acid 1 mg tablet 1 mg PO QAM 04/28/23 06/24/23 History mirabegron 50 mg tablet,extended 50 mg PO QPM 04/28/23 06/24/23 History release 24 hr (Myrbetriq) multivitamin 1 tab PO QAM 04/28/23 06/24/23 History omeprazole 40 mg capsule,delayed 40 mg PO QAM 04/28/23 06/24/23 History release prednisone 5 mg tablet 5 mg PO QAM 04/28/23 06/24/23 History lisinopril 20 mg tablet 20 mg PO QAM #90 tabs 05/23/23 06/24/23 Rx acetaminophen 500 mg tablet 1,000 mg (2 x 500 mg) PO Q8 #60 05/27/23 06/24/23 Rx (Tylenol Extra Strength) tabs aspirin 81 mg tablet,delayed 81 mg PO BID #60 tabs 05/27/23 06/24/23 Rx release cefadroxil 500 mg capsule 500 mg PO BID #28 caps 05/27/23 Rx oxycodone 5 mg tablet 5 - 10 mg (1 - 2 x 5 mg) PO 05/27/23 06/24/23 Rx .Q4h-6h PRN pain #30 tabs docusate sodium 100 mg capsule 100 mg PO BID #60 caps 05/28/23 06/24/23 Rx ferrous gluconate 225 mg (27 mg 225 mg PO BID #60 tabs 05/28/23 06/24/23 Rx iron) tablet sennosides 8.6 mg tablet (Senokot) 17.2 mg (2 x 8.6 mg) PO HS #20 tabs 05/28/23 06/24/23 Rx tocilizumab 162 mg/0.9 mL 162 mg (0.9 mL) subcut Q7D #3.6 mL 06/09/23 06/24/23 Rx subcutaneous pen injector (Actemra ACTPen) Patient History Medical History (Updated 06/27/23 @ 13:34 by Nella Zuniga MD) Anemia Chronic Hyperkalemia Diabetes mellitus, type 2 Diet controlled Hearing deficit Carotid stenosis, right Under surveillance by vascular, imaging every 2 years Carotid duplex 06/2021: Known MARGARITA occlusion, 60-69% LICA stenosis ("possibly overestimated due to contralateral ICA occlusion), no change compared to 05/2019 per report Abdominal aneurysm Aortoiliac ultrasound 06/2021: 3.7cm infrarenal AAA (stable) 2 year surviellance recommended by vascular (Dr. Pride) Osteoarthritis, knee Actinic keratoses Spondylolisthesis at L4-L5 level Spinal stenosis of lumbar region "Moderate" at L4-L5 Rheumatoid arthritis H/O prostate cancer Dx 2006 S/p protatectomy Hypercholesteremia Hypertension Surgical History History of colonoscopy Hx of vasectomy History of tooth extraction History of tonsillectomy and adenoidectomy H/O hernia repair H/O prostatectomy Family History Father No problems noted. Mother No problems noted. Other No family history of adverse response to anesthesia Social History Smoking Status: Former smoker Tobacco Type: Cigarettes Second Hand Exposure: No; Do You Dip or Chew Tobacco: No; Hx Alcohol Use: No Hx Substance Use: No Preferred Language: Romansh Communication Ability: Effective Communication Ability Comment: [facility] [employer] Required: No Beliefs That Will Affect Care: None marital status: Current Living Situation: Family Current Living Situation Comment: with son/Ramiro current occupational status: retired Feels Safe at Home: Yes Seatbelt Use: always Assistive Devices: Cane and Walker Review of System 10-point review of systems reviewed and are negative except for as above. Physical Exam Physical Exam: General: Awake, alert, no acute distress HEENT: NC/AT, EOMI, mmm Neck: supple Lungs: respirations non-labored Heart: nl peripheral perfusion Abdomen: soft, NT/ND Ext: right leg with postop dressing, drain with bloody drainage Skin: no rash Neuro: O x 3 Results & Data Vital Signs (Past 12 Hours) Vital Signs Temp Pulse Resp BP Pulse Ox O2 Del Method 06/27/23 07:32 36.8 C 92 H 16 148/91 H 94 Room Air Laboratory Results Labs reviewed Diagnostic Findings Imaging reviewed (3) Rheumatoid arthritis Rheumatoid arthritis location: multiple sites Rheumatoid factor presence: unspecified presence Qualified Code(s): M06.9 - Rheumatoid arthritis, unspecified
[2023-06-27] MEDS: VANCOMYCIN HCL 2,250 MG in SODIUM CHLORIDE 0.9% 500 ML IV ONE (11:22)
[2023-06-27] MEDS: CEFEPIME 2,000 MG in SYRINGE 0 ML IV SCH (14:36)
[2023-06-28 05:55] LABS: Hematocrit (blood only) 30.7 % (42.0-52.0); Hemoglobin 9.8 g/dl (14.0-18.0); Mean Corpuscular Hemoglobin 32.7 pg (25.0-34.0); Mean Corpuscular Hgb Conc 31.9 g/dL (32.0-36.0); Mean Corpuscular Volume 102.3 fL (80.0-100.0); Mean Platelet Volume 9.2 fL (9.4-12.4); Platelet Count 147 K/uL (130-400); RDW Coefficient of Variation 13.6 % (11.5-14.5); RDW Standard Deviation 51.3 fL (36.4-46.3); White Blood Count 7.53 K/ul (4.8-10.8)
[2023-06-28 06:04] LABS: BUN Creatinine Ratio 16.8 (10-20); Calcium 8.2 mg/dl (8.6-10.3); Creatinine Clr Calc Pharmacy 54.6 ml/min; Est GFR (African American) 62.2 ml/min; Est GFR (Non-African American) 53.7 ml/min; Potassium 4.4 mmol/L (3.5-5.1)
[2023-06-28] MEDS: VANCOMYCIN HCL 1,500 MG in SODIUM CHLORIDE 0.9% 500 ML IV SCH (08:46)
--- NOTE | 2023-06-28 11:48 | Orthopedic Progress Note ---
Date of Service June 28, 2023 Assessment & Plan (1) Wound dehiscence: Plan: Postop day #3 right knee I&D, poly exchange, medial retinacular and quad tendon repair, wound repair Dressing to be removed today. Hemovac will stay in place at least 1 more day. WBAT RLE with knee immobilizer in place. PT/OT--gentle short ROM of the right knee. Ambulate with immobilizer in place. Continue IV Vancomycin and Cefepime. Appreciate ID input. Awaiting final culture sensitivities for Enterococcus faecalis and Gram negative bacilli. D/C planning--patient will require a rehab stay. Awaiting placement at [facility]. Earliest date of discharge would probably be 06.30.23. (2) Status post total right knee replacement: Admission and Anticipated Discharge Date Admission Date: June 24, 2023 Subjective Patient states he is doing well. Pain is controlled in the right knee. Was up to try to walk with the knee immobilizer in place but feels weak and has difficulty walking, even with a two person assist. No new complaints. Physical Exam Constitutional: WD/WN, vitals as above no acute distress Musculoskeletal: Knee: + surgical incision (Right knee dressing C/D/I.) and + surgical drain present (100 cc over the last 14-16 hours.); no deformity, no skin erythema and no ecchymosis Neurologic: normal touch/pain/proprioception and moves all extremities (Right dorsiflexion/plantarflexion intact) Psychiatric: A+Ox3, euthymic affect Speech: normal rate/rhythm/volume of speech Results & Data Vital Signs (Past 12 Hours) Vital Signs Temp Pulse Resp BP Pulse Ox O2 Del Method 06/28/23 07:19 36.8 C 84 18 130/78 92 Room Air Laboratory Results Source: Knee,Right OV Order: Ordered: Aer/Astrid Cult/Sm Comments: Comment 1. Right knee joint fluid for culture #1 Procedure Result Verified Site Gram Stain Final 06/26/23-805 Gram Stain Result Few WBCs Seen No Organisms Seen Aero/Astrid Cult Preliminary 06/28/23-0857 Organism 1 Enterococcus faecalis Quantity Few Sens Sensitivities to Follow Organism 2 Gram negative bacilli Quantity Rare Sens Sensitivities to Follow Phoned results to [facility] (JOON [facility]UST[facility]) on 06/26/23 at 1402 by Oj Kahn and results were verbalized back. E faecalis RX M.I.C. --- --------- Ampicillin S <=2 Daptomycin S 1 Gent Synergy R >500 Penicillin S 2 Strep Synergy S <=1000 Vancomycin S 2 Enterococcus faecalis: Positive Combo 33 Streptomycin Synergy Screen S Gentamicin Synergy Screen R S = SENSITIVE I = INTERMEDIATE R = RESISTANT
[2023-06-29 07:30] LABS: Creatinine Clr Calc Pharmacy 64.4 ml/min; Est GFR (African American) 75.9 ml/min; Est GFR (Non-African American) 65.5 ml/min
--- NOTE | 2023-06-29 10:14 | Orthopedic Progress Note ---
Date of Service June 29, 2023 Assessment & Plan (1) Wound dehiscence: Plan: Postop day #4 right knee I&D, poly exchange, medial retinacular and quad tendon repair, wound repair Hemovac will be removed later today. WBAT RLE with knee immobilizer in place. PT/OT--gentle short ROM of the right knee. Ambulate with immobilizer in place. Continue IV Vancomycin and Cefepime. Appreciate ID input. Final culture sensitivities for Enterococcus faecalis and Enterobacter hormaechei are listed above. D/C planning--patient will require a rehab stay. Awaiting placement at [facility]. Earliest date of discharge would probably be 06.30.23. Once ID gives their final input on antibiotics and the patient is set up at a nursing facility, the patient may be discharged. IV antibiotics for 6 weeks then oral antibiotic suppression for at least 1 year. (2) Status post total right knee replacement: Admission and Anticipated Discharge Date Admission Date: June 24, 2023 Subjective The patient does not have any pain in his right knee. He states that he has some stiffness within the right knee but no pain. He continues to work with PT for ambulation but having difficulties ambulating. No new complaints today. Physical Exam Constitutional: WD/WN, vitals as above no acute distress Musculoskeletal: Knee: + surgical incision (Right knee dressing C/D/I.) and + surgical drain present (25 cc since last emptying a few hours ago.); no deformity, no skin erythema and no ecchymosis Neurologic: normal touch/pain/proprioception and moves all extremities (Right dorsiflexion/plantarflexion intact) Psychiatric: A+Ox3, euthymic affect Speech: normal rate/rhythm/volume of speech Results & Data Vital Signs (Past 12 Hours) Vital Signs Temp Pulse Resp BP Pulse Ox O2 Del Method 06/29/23 07:16 37.0 C 87 16 121/73 100 Room Air Laboratory Results Source: Knee,Right OV Order: Ordered: Aer/Astrid Cult/Sm Comments: Comment 1. Right knee joint fluid for culture #1 Procedure Result Verified Site Gram Stain Final 06/26/23-805 Gram Stain Result Few WBCs Seen No Organisms Seen Aero/Astrid Cult Preliminary 06/29/23-0840 Organism 1 Enterococcus faecalis Quantity Few Sens Sensitivities to Follow No Anaerobes Isolated No Anaerobes Isolated Organism 2 Enterobacter hormaechei Quantity Rare Sens Sensitivities to Follow Phoned results to [facility] ([facility]) on 06/26/23 at 1402 by Oj Kahn and results were verbalized back. E faecalis E ema RX [facility]. RX [facility]. --- --------- --- --------- Amox/Clav R >16/8 Ampicillin S <=2 R >16 Amp/Sul R >16/8 Cefazolin R >16 Cefepime S <=2 Ceftriaxone I 2 Ciprofloxacin S <=0.25 Daptomycin S 1 Ertapenem S <=0.5 Gentamicin S <=4 Gent Synergy R >500 Levofloxacin S <=0.5 Meropenem S <=1 Penicillin S 2 Strep Synergy S <=1000 Tobramycin S <=4 Trimeth/Sulfa S <=2/38 Pip/Tazo S <=16 Vancomycin S 2 Enterococcus faecalis: Positive Combo 33 Streptomycin Synergy Screen S Gentamicin Synergy Screen R S = SENSITIVE I = INTERMEDIATE R = RESISTANT
--- NOTE | 2023-06-30 08:33 | Orthopedic Progress Note ---
Date of Service June 30, 2023 Assessment & Plan (1) Wound dehiscence: Plan: Postop day #5 right knee I&D, poly exchange, medial retinacular and quad tendon repair, wound repair WBAT RLE with knee immobilizer in place. PT/OT--gentle short ROM of the right knee. Ambulate with immobilizer in place. Continue IV Vancomycin and Cefepime. Appreciate ID input. Final culture sensitivities for Enterococcus faecalis and Enterobacter hormaechei are listed above. D/C planning--patient will require a rehab stay. Awaiting placement at [facility]. Earliest date of discharge would probably be 06.30.23. Once ID gives their final input on antibiotics and the patient is set up at a nursing facility, the patient may be discharged. IV antibiotics for 6 weeks then oral antibiotic suppression for at least 1 year. (2) Status post total right knee replacement: Admission and Anticipated Discharge Date Admission Date: June 24, 2023 Subjective Patient states he is doing well. Continues without pain in the right knee. Only complaint is the heaviness of the knee immobilizer. Physical Exam Constitutional: WD/WN, vitals as above no acute distress Musculoskeletal: Knee: + surgical incision (Right knee dressing C/D/I.); no deformity, no skin erythema, no ecchymosis and no surgical drain present (Hemovac removed yesterday.) Neurologic: normal touch/pain/proprioception and moves all extremities (Right dorsiflexion/plantarflexion intact) Psychiatric: A+Ox3, euthymic affect Speech: normal rate/rhythm/volume of speech Results & Data Vital Signs (Past 12 Hours) Vital Signs Temp Pulse Resp BP Pulse Ox O2 Del Method 06/30/23 07:40 36.9 C 99 H 18 172/84 H 96 Room Air
[2023-06-30 08:34] LABS: Creatinine Clr Calc Pharmacy 59.3 ml/min; Est GFR (African American) 68.8 ml/min; Est GFR (Non-African American) 59.4 ml/min
--- NOTE | 2023-06-30 09:10 | Pharmacy Report ---
Pharmacy PK ABX Note - Date of Service June 30, 2023 - Assessment and Plan Assessment 06/29: Random vancomycin level this AM was ~13.6 mcg/ml - current vancomycin dosing associated with goal AUC/NITO, therefore will continue the same. Awaiting final culture results. 06/26: 82 year old M started on vancomycin due to knee cultures with Gm + cocci. Previously on ancef. Patient is s/p I&D of knee 06/24. ID consulted as patient likely needing extended duration of antibiotics. Plan Vancomycin * Continue vancomycin 1500 mg iv q 24 hours Pharmacy will continue to follow and will adjust dose/frequency as necessary. Thank you. Pharmacy has transitioned to AUC monitoring for vancomycin. AUC/NITO is the preferred PK/PD target and is associated with decreased risk of nephrotoxicity compared to traditional trough targets.
[2023-06-30] MEDS: CEFEPIME 2,000 MG in SYRINGE 0 ML IV SCH (09:40)
[2023-06-30] MEDS: VANCOMYCIN LEVEL ONE (09:42)
--- NOTE | 2023-06-30 14:47 | Infectious Disease Progress Nt ---
Date of Service June 30, 2023 Assessment & Plan (1) Prosthetic joint infection: (2) Status post total right knee replacement: (3) Rheumatoid arthritis: (4) Infection associated with internal right knee prosthesis: Plan Eyad Bullock is an 82yo M with h/o right TKA on 05/26/23, T2DM, rheumatoid arthritis (on prednisone 5mg daily), prostate cancer s/p prostatectomy, HTN, HLD, hard of hearing, CKD III who presented on 06/23 with wound dehiscence. He had TKA a month ago and postop course was c/b edema and fracture blistering of lateral aspect of his leg. This was improving and had his tommy removed on POD 18. On the morning of presentation, he noticed bleeding from the incision site. He was seen outpatient by ortho and noted to have wound dehiscence and admitted to the hospital for I+D. He noted right knee pain and stiffness. Otherwise denied headaches, sweats, fevers, chills, double vision, blurred vision, cough, sore throat, dysphagia, chest pain, sob, wheezing, n/v/d/c, numbness, tingling, fatigue, urinary symptoms, mood disorders. Here, he has been afebrile, vss. WBC wnl, Cr 1.54>1.25, LFT wnl, ESR 5, CRP < 0.5. BCX ngtd. XR right knee negative for acute osseous injury. Started on cefazolin on 06/23. S/p OR on 06/24 and underwent right knee wound exploration, quadriceps tendon repair, medial retinaculum repair, I&D with polyethylene exchange (per op note, tendon tissue was edematous and friable, no pus noted, just clear joint fluid, inflammatory changes throughout the knee joint, deep cultures of joint obtained). ID consulted 06/26 for suspected PJI. 06/24 OR Cx + Enterobacter hormaechei and E. faecalis. All three cultures sent from 06/24 OR have grown both Enterobacter hormaechei and E. faecalis (S-amp). With Enterobacter, concern for ampC (especially given I- ceftriaxone) and thus would favor cefepime over pip-tazo despite the in vitro susceptibilities, especially because will be using an extended course of abx. Would therefore favor a second IV antibiotic to cover the E. faecalis normally could use IV ampicillin but to avoid double beta-lactam (which can lead to increased adverse effects) can do IV daptomycin. (Of note, did discuss the possibility of dalbavancin with the ID pharmacist, which can sometimes be done as a 3-dose series for retained hardware; but since pt will be going to SNF and doing OPAT anyway would favor daptomycin). Therefore will recommend a 6-week course of daptomycin and cefepime. Patient has PJI and underwent just I&D with poly exchange, and thus would favor an intensive course of antibiotics. Given PJI, after completion of 6 weeks of IV abx would then start PO abx for chronic suppression for at least 3-6 months, but potentially >1 year, to be followed in ortho clinic and with local ID clinic if able. PO suppressive options for the E. faecalis include amoxicillin and linezolid; PO suppressive options for the Enterobacter including ciprofloxacin and Bactrim. 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 Multiple PO suppressive options including amoxicillin+ciprofloxacinsee above for other options. - Weekly lab monitoring while on IV antibiotics: CBC w/ diff, CMP, ESR, CRP, CK for daptomycin - Recommend referral to local outpatient ID follow-up if able - Recommend close follow-up with orthopedic surgery and PCP/SNF provider Plan discussed with hospitalist. Thank you for letting ID participate in the care of this patient. ID will sign off at this time. If questions, please contact the [facility] call center at [phone]. Dalila Scales MD, MHS Infectious Diseases [facility] Connect ID Connect direct line: [phone] Admission and Anticipated Discharge Date Admission Date: June 24, 2023 Subjective Subsequent visit was provided via telemedicine using two-way real-time interactive telecommunication between the patient and the telemedicine provider. For the duration of the visit, the provider was performing the assessment from a different facility than the patient. This includesuse of bluetooth stethoscope forauscultationperformed by the telepresenter that the telemedicine provider can hear if described in the physical exam. Hot Plate Press Operator contact information: Please call ID Connect Call Center . (Phone Number For Physician Use Only) After establishing a telemedicine visit, patient was: Patient was verified with two unique identifiers, Patient/authorized rep acknowledged consent and understanding and Gave permission to continue telehealth session Time Spent with Patient: Subsequent => 55 min - Afebrile, - OR Cx finalized with E. faecalis and Enterobacter hormachei, both organisms in all three cultures from 06/24 - Patient says he is feeling well. Still having some knee discomfort but overall minimal pain Physical Exam Physical Exam: Exam obtained with aid of in-person telepresenter. General: Well-appearing, no acute distress Resp: Respirations nonlabored. Abd: Soft, nontender, nondistended. Ext: RLE with dressing and brace in place. No surrounding erythema of surrounding thigh or slaughter. Skin: No rashes or lesions. Neuro: Alert & interactive. Grossly non-focal. Psych: Pleasant, appropriate. Results & Data Vital Signs (Past 12 Hours) Vital Signs Temp Pulse Resp BP Pulse Ox O2 Del Method 06/30/23 10:29 127/72 06/30/23 07:40 36.9 C 99 H 18 172/84 H 96 Room Air Diagnostic Findings Diagnostics: 06/24 OR report The wound was around 5 cm central area of the incision which was completely dehisced. The suture knots were all intact and they had torn out from the subcutaneous tissues with exposure of the fascia. The wound was irrigated briefly and then digital palpation under the medial flap revealed mild retinacular defect so I extended the incision proximally and distally. The medial retinacular repair was disrupted the quadriceps tendon repair was disrupted. There was frayed edges of the disruption and the sutures were still intact but had torn transversely through the tendon tissue. The distalmost aspect of the repair below the joint line above the pes anserine tendons was still intact. The tendon tissue was friable and edematous type tissue. There was no pus noted just normal clear joint fluid. There was inflammatory changes throughout the knee joint. The tibial polyethylene was intact and normal patella polyethylene was intact and normal there is no implant loosening. I obtained some deep cultures within the joint and later another culture under the tibial polyethylene after that was removed using a curved osteotome to free up the polyethylene and then removed with a tenaculum. A thorough extensive debridement was then performed. I irrigated the knee joint out with 12 L total of antibiotic solution with Ancef in the bags. Pulsavac was used. Skin edges and subcutaneous tissues were debrided in the area of the dehiscence. The edges of the tendon that were frayed were debrided with sharp debridement with a scalpel with tenotomy scissors and a Versajet. Versajet was used debriding any inflamed synovium tissue and any areas of inflamed fat and areas of inflammation over the fascia. An inflamed synovium was removed and the posterior capsule in the gutters. After the Versajet was used and after further irrigation I did use the aqua mantis to coagulate bleeders meticulously. Trial polyethylene was placed and then irrigation with xperience over the metal of the tibia prior to placement of the tibial insert and the new 14 mm CPS size G tibial polyethylene was inserted into the tibia and there was stability through full range of motion. After further irrigation with xperience the 2 drains were brought out laterally connected to a Hemovac in the quadriceps tendon and medial retinaculum were repaired thoroughly using interrupted [id number] #1 Vicryl bacterial resistance suture and also some sutures placed medial and lateral in a wider fashion to get into better tissue to bridge the suture line to take tension off the repair at several areas. A complete repair was obtained and I was able to take knee 0 to 120 degrees range of motion multiple times without any tension on the repair. The subcutaneous tissues then closed after 2-0 Vicryl bacterial resistance suture and then the skin was closed with tommy and Xeroform dressings gauze sterile dressings were applied and Corby wrap from the foot to the thigh. Patient tolerated the procedure satisfactorily.. Micro Summary: 06/23 BCX: NG 06/24 OR cx: R knee joint fluid culture #1: Enterococcus faecalis, Enterobacter hormaechei R knee joint fluid culture #2: Enterococcus faecalis, Enterobacter hormaechei R knee polyethylene implant interface: Enterococcus faecalis (S-amp, vanc), Enterobacter hormaechei (S-cipro/levo/Bactrim/cefepime/pip-tazo, I-ceftriaxone, R-Unasyn) Antibiotic Summary: Daptomycin (06/29 present) Cefepime (06/26 present) prior Vancomycin 06/26-06/29 Cefazolin 06/23-06/26 (1) Prosthetic joint infection Encounter type: initial encounter Qualified Code(s): T84.50XA - Infection and inflammatory reaction due to unspecified internal joint prosthesis, initial encounter (3) Rheumatoid arthritis Rheumatoid arthritis location: multiple sites Rheumatoid factor presence: unspecified presence Qualified Code(s): M06.9 - Rheumatoid arthritis, unspecified
--- NOTE | 2023-06-30 21:32 | Hospitalist Progress Note ---
Date of Service June 30, 2023 Assessment & Plan (1) Wound dehiscence: Plan: - Acute wound dehiscence status-post right TKA on 05/26/[address] Hernandez with no prior signs of infection or complications - Wound split open on 06/24/2023 when patient got off toilet seat - per ortho note, wound was open with the patella exposed - Exploration irrigation & debridement with appropriate repairs and closure on 06/25/[address] Hernandez - Patient given Ancef perioperatively Final cultures are available: plan for daptomycin and cefepime for 6 week course. Final day 08/06/23 (2) Anemia: Plan: - Mildly anemic at baseline, most likely secondary to chronic disease - Acute blood loss anemia in the setting of recent operative procedures vs dilutional aspect from IVF (3) Type 2 diabetes mellitus: Plan: - Diabetes mellitus type 2 [id number] - Sliding scales been ordered (4) Rheumatoid arthritis: Plan: - Chronic prednisone use - 2 doses of stress dose steroids were ordered preoperatively Plan CODE STATUS: Full code Admission and Anticipated Discharge Date Admission Date: June 24, 2023 Subjective Patient reports no new symptoms. Review of Systems Review of Systems: All systems reviewed & are unremarkable except as noted in HPI & below Physical Exam Physical Exam: General: No acute distress, nondiaphoretic, well-developed, well-nourished. Hard of hearing. Skin: Genealized pallor. The skin was without rashes, erythema, edema, or bruising. Cardiac: Regular rate and rhythm without murmurs gallops or rubs. Pulm: Clear to auscultation bilaterally without wheezes, rales or rhonchi. No retractions or accessory muscle use. Abdominal: Positive bowel sounds x 4. Soft, nontender, without masses or organomegaly. No guarding or rebound tenderness. Neuro: Alert and oriented to self only. No focal neurological deficits. Extremities: Right knee dressing in tact, dry. Adequate perfusion to right lower extremity. Results & Data Results & Data Vital Signs (Past 12 Hours) Vital Signs Temp Pulse Resp BP BP Pulse Ox O2 Del Method 06/30/23 19:08 36.7 C 90 18 116/54 L 95 Room Air 06/30/23 14:52 36.6 C 95 H 18 139/78 97 Room Air 06/30/23 10:29 127/72 PG Care Time/CCT Total # of Minutes Spent Total Time Spent with Patient: Total time spent is greater than 50% in coordination of care (as documented) at patient's floor/unit and/or counseling patient: Coding Level of Care Code 30473 SUB INP/OBS CARE 2/35MIN Diagnoses Wound dehiscence T81.30XA Anemia D64.9 Type 2 diabetes mellitus without complication, without long-term current use of insulin E11.9 Diabetes mellitus complication status: without complication Diabetes mellitus senior care insulin use: without intermediate card tender use Rheumatoid arthritis involving multiple sites, unspecified whether rheumatoid factor present M06.9 Rheumatoid arthritis location: multiple sites Rheumatoid factor presence: unspecified presence (3) Type 2 diabetes mellitus Diabetes mellitus complication status: without complication Diabetes mellitus intermediate card tender insulin use: without intermediate card tender use Qualified Code(s): E11.9 - Type 2 diabetes mellitus without complications (4) Rheumatoid arthritis Rheumatoid arthritis location: multiple sites Rheumatoid factor presence: unspecified presence Qualified Code(s): M06.9 - Rheumatoid arthritis, unspecified
[2023-07-01 06:18] LABS: Hematocrit (blood only) 28.2 % (42.0-52.0); Hemoglobin 9.4 g/dl (14.0-18.0); Mean Corpuscular Hemoglobin 33.6 pg (25.0-34.0); Mean Corpuscular Hgb Conc 33.3 g/dL (32.0-36.0); Mean Corpuscular Volume 100.7 fL (80.0-100.0); Mean Platelet Volume 9.7 fL (9.4-12.4); Platelet Count 144 K/uL (130-400); RDW Coefficient of Variation 14.1 % (11.5-14.5); RDW Standard Deviation 51.3 fL (36.4-46.3); White Blood Count 6.04 K/ul (4.8-10.8)
[2023-07-01 06:39] LABS: Calcium 8.2 mg/dl (8.6-10.3); Creatinine Clr Calc Pharmacy 56.9 ml/min; Est GFR (African American) 65.3 ml/min; Est GFR (Non-African American) 56.4 ml/min; Potassium 3.9 mmol/L (3.5-5.1)
[2023-07-01] MEDS: DAPTOmycin 675 MG in SYRINGE 0 ML IV SCH (08:20)
[2023-07-01] MEDS ORDERED: IPRATROPIUM BROMIDE NASAL SPRAY 0.06% 15ML NAE PRN (13:55)
--- NOTE | 2023-07-09 07:46 | Coding Query ---
CODING QUERY To promote full compliance with coding requirements relating to patient care, provider participation is requested in all cases of insurance verify rep uncertainty. Please assist us with the question(s) below: Coding Question(s): Patient status post TKA 05/26 admitted for TKA wound disruption. Infection Control Consult mentioned infected prosthetic joint. Cultures intraop isolated enterococcus. Please check below the phrase that addresses the prosthetic joint. Thanks for your help. Reji Jarvis [facility] Physician's Response(s): x____ Patient had an infected prosthetic joint, present on admission Patient did not have an infected prosthetic joint. Other: Please document: Principal Diagnosis: "that condition established after study, to be chiefly responsible for occasioning the admission of the patient to the hospital for care." Co-Existing Principal Diagnosis: "when two or more diagnoses equally meet the criteria for principal diagnosis as determined by the circumstances of admission, diagnostic work up, and/or therapy provided, and the Alphabetic Index, Tabular List, or another coding guideline does not provide sequencing direction, any one of the diagnoses may be sequenced first." "When the physician has documented what appears to be a current diagnosis in the body of the record, but has not included the diagnosis in the final diagnostic statement, the physician should be asked whether the diagnosis should be added." (Source Coding Clinic 2 QTR90. p3-4) TERESA
--- NOTE | 2023-07-09 10:09 | Discharge Summary ---
Date of Service July 09, 2023 Admission HPI Per Admitting Provider 82-year-old male had a right total knee arthroplasty on May 26 of this year had a wound dehiscence over the last 24 hours. Saw orthopedics in the office today. Orthopedics contacted as asked admit the patient for surgery tomorrow. The patient will be kept n.p.o. after midnight. Per orthopedics request no culture of the wound itself will be done as there does not appear to be any discharge per orthopedics and in addition per orthopedics will place the patient on Ancef for antibiotic choice. Patient denies any pain he states over the last 24 hours he noticed that the wound opened up and saw his Ortho surgeon today was directed to the ER. He denies any trauma to the region. Specialty Data Orthopedic Physical Exam Constitutional: well developed and well nourished; no acute distress Patient is hard of hearing Eyes: PERRL, conjunctivae normal, anicteric sclerae ENMT: external ear and nose normal, oropharynx normal Neck: trachea midline, no thyromegaly Respiratory: normal respiratory effort, lungs clear to auscultation Cardiovascular: RRR, no murmur, no edema Musculoskeletal: Right knee: Mid incision wound dehiscence. Moderate amount of swelling. ROM 0-90 degrees. Able to perform SLR with mild to moderate extensor lag. Stable to valgus and varus stress. Skin: no rashes, warm and dry Neurologic: patellar DTR's 2+ bilat, sensation intact Psychiatric: A+Ox3, euthymic affect Specialty Data [address], [place] [address] / Director: Vince Clarke M.D. Clinical Laboratory Report Name: ONEIL WINSTON Acct: [id number] Status: DIS IN : 1940 [facility] Date: 06/24/23 Age: 83 Sex: M Dis Date: 07/01/23 Loc: Medical/Surgical/Ortho [facility] Rm/Bed: E306-1 Spec: [id number] Collected: 06/25/23 Received: 06/25/23-[address]: Luis Hernandez M.D. Copy To: Avinash Norris, PhD, DO Source: Knee,Right OV Order: Ordered: Aer/Astrid Cult/Sm Comments: Comment 1. Right knee joint fluid for culture #1 Procedure Result Verified Site Gram Stain Final 06/26/23-805 Gram Stain Result Few WBCs Seen No Organisms Seen Aero/Astrid Cult Final 06/30/23-938 Organism 1 Enterococcus faecalis Quantity Few Sens Sensitivities to Follow No Anaerobes Isolated No Anaerobes Isolated Organism 2 Enterobacter hormaechei Quantity Rare Sens Sensitivities to Follow [facility] on 06/26/23 at 1402 by Oj Kahn and results were verbalized back. E faecalis E hormaech RX M.I.C. RX M.I.C. --- --------- --- --------- Amox/Clav R >16/8 Ampicillin S <=2 R >16 Amp/Sul R >16/8 Cefazolin R >16 Cefepime S <=2 Ceftriaxone I 2 Ciprofloxacin S <=0.25 Daptomycin S 1 Ertapenem S <=0.5 Gentamicin S <=4 Gent Synergy R >500 Levofloxacin S <=0.5 Meropenem S <=1 Penicillin S 2 Strep Synergy S <=1000 Tobramycin S <=4 Trimeth/Sulfa S <=2/38 Pip/Tazo S <=16 Vancomycin S 2 Enterococcus faecalis: Positive Combo 33 Streptomycin Synergy Screen S Gentamicin Synergy Screen R S = SENSITIVE I = INTERMEDIATE R = RESISTANT Name: ONEIL WINSTON : 1940 PAGE 1 Printed: 07/09/23 1010 Discharge Data Consultations 06/24/23 13:42 Consult Orthopedic Surgery Routine 06/27/23 07:22 Consult Infectious Diseases Routine Procedures Performed Operation Date: 06/25/23 13:30 Actual Procedures s Right Knee Wound Exploration, Medial Retinaculum Repair, Irrigation and Debridement with (Right) - Luis Hernandez MD s Quadriceps Tendon Repair(Right) - Luis Hernandez MD p Polyethelene Exchange(Right) - Luis Hernandez MD Hospital Course (1) Prosthetic joint infection: Patient was admitted to medical service initially by hospitalist placed on IV Ancef per my recommendations and proceed to the operating room the following day with an exploration of the wound dehiscence which revealed that there was a retinacular disruption entering the joint. There was inflammatory changes within the joint with some concern of possible infection so we did do multiple cultures which eventually grew out Enterobacter and Enterococcus species. Surgical procedure required irrigation debridement polyethylene exchange tibial component and medial retinacular and quadriceps tendon repair. Patient continued on Ancef and switched to vancomycin postoperative day 3 with gram- positive cocci on the Gram stain. Cefepime was subsequently added. Further consultation by infectious disease recommended changing IV antibiotics to daptomycin and cefepime upon which she was discharged. He was kept in a knee immobilizer throughout the admission he is allowed to have gentle range of motion with physical therapy only and otherwise been in knee immobilizer. He will have DVT prophylaxis upon discharge. Will follow-up as an outpatient 2 weeks postop. May leave tommy in 3 weeks due to being on chronic steroids poor soft tissue immune compromised state.
== END 2023-07-01 14:58 | DRG 467 ==
LOC: 3E 14:01

== ENCOUNTER 2023-08-10 11:56 | Inpatient (IN) ==
[2023-08-10] MEDS ORDERED: Patient's HEIGHT &/or WEIGHT Needed SCH ×2 (15:45)
[2023-08-10] MEDS: SODIUM CHLORIDE 0.9% 1,000 ML IV SCH (17:04)
[2023-08-10] MEDS: CEFEPIME 2,000 MG in SYRINGE 0 ML IV ONE (17:04)
[2023-08-10] MEDS ORDERED: PHARMACY GLYCEMIC MGMT CONSULT PRN (17:11)
[2023-08-10 17:36] LABS: Creatinine Clr Calc Pharmacy 42.4 ml/min; Est GFR (African American) 46.5 ml/min; Est GFR (Non-African American) 40.1 ml/min
[2023-08-10] MEDS: INSULIN ASPART PER UNIT CHARGE SC SCH (17:42)
[2023-08-10] MEDS: ASPIRIN 81 MG ECTAB PO SCH (20:14)
[2023-08-10] MEDS: VIBEGRON 75 MG TAB PO SCH (20:15)
[2023-08-10] MEDS: MONTELUKAST SODIUM 10 MG TABLET PO SCH (20:15)
[2023-08-10] MEDS: SIMVASTATIN 20 MG TAB PO SCH (20:15)
[2023-08-11] MEDS: CEFEPIME 2,000 MG in SYRINGE 0 ML IV SCH (04:39)
[2023-08-11 06:31] LABS: Creatinine Clr Calc Pharmacy 48.2 ml/min; Est GFR (African American) 54.3 ml/min; Est GFR (Non-African American) 46.9 ml/min
[2023-08-11] MEDS: INSULIN ASPART PER UNIT CHARGE SC SCH ×2 (06:36→20:58)
--- OUTSIDE RECORDS SUMMARY | 2023-08-11 07:45 | External Medical Summary ---
Author Name Unknown Address Unknown Organization K1F:[facility]ATORY [facility] - [address] [facility] [place] [id number] Laboratory Report Ordering Provider Test Date Status VAHID ROSALES 08/10/2023 05:22:12 Final Observation Date Value Abnormality Reference (Units ) Status Color of Urine by Auto 08/10/2023 05:22:12 Yellow Colorless, Light Yellow, Yellow, Dark Yellow Final Clarity, Urine 08/10/2023 05:22:12 Slightly Cloudy Abnormal Clear Final Glucose [Mass/volume] in Urine by Automated test strip 08/10/2023 05:22:12 Negative Negative (mg/dL) Final Bilirubin.total [Presence] in Urine by Automated test strip 08/10/2023 05:22:12 Negative Negative Final Ketones [Mass/volume] in Urine by Automated test strip 08/10/2023 05:22:12 Negative Negative (mg/dL) Final Specific gravity, Urine 08/10/2023 05:22:12 1.016 1.003-1.030 Final Hemoglobin [Presence] in Urine by Automated test strip 08/10/2023 05:22:12 Large Abnormal Negative Final pH, Urine 08/10/2023 05:22:12 6.0 5.0-7.5 (Units) Final Protein [Mass/volume] in Urine by Automated test strip 08/10/2023 05:22:12 30 Abnormal Negative (mg/dL) Final Urobilinogen [Mass/volume] in Urine by Automated test strip 08/10/2023 05:22:12 0.2 0.2, 1.0 (mg/dL) Final Nitrite [Presence] in Urine by Automated test strip 08/10/2023 05:22:12 Negative Negative Final Leukocyte esterase [Presence] in Urine by Automated test strip 08/10/2023 05:22:12 Negative Negative Final RBC, Urine 08/10/2023 05:22:12 3-5 Abnormal 0-2 (/HPF) Final WBC, Urine 08/10/2023 05:22:12 3-5 Abnormal 0-2 (/HPF) Final Bacteria [#/area] in Urine sediment by Microscopy high power field 08/10/2023 05:22:12 >200 Abnormal 0-25 (/HPF) Final Crystals.amorphous [#/area] in Urine sediment by Microscopy high power field 08/10/2023 05:22:12 Many Abnormal None (/HPF) Final Granular casts [#/area] in Urine sediment by Microscopy low power field 08/10/2023 05:22:12 5-9 Abnormal None (/LPF) Final CULTURE, URINE - [facility] 08/10/2023 05:22:12 Final Quantitative urine culture t o be performed Performing [facility] LABORATORY [facility] - [facility] [place]. [place] [id number]
--- OUTSIDE RECORDS SUMMARY | 2023-08-11 07:45 | External Medical Summary ---
Author Name Unknown Address Unknown Organization K01:[facility]AT[facility] [address] [place] [address] Laboratory Report Ordering Provider Test Date Status SHIRLEY VILCHSI 08/10/2023 05:22:12 Final Observation Date Value Abnormality Reference (Units ) Status Methicillin resistant Staphylococcus aureus (MRSA) DNA [Presence] in Nose by CATHERINE with probe detection 08/10/2023 05:22:12 Negative Negative Final No Methicillin resistant Sta phylococcus aureus detected by PCR (amplified probe). Performing Location LAB[facility]ATORY [facility] - [address] [place] [address]
--- OUTSIDE RECORDS SUMMARY | 2023-08-11 07:45 | External Medical Summary ---
Author Name Unknown Address Unknown Organization K1F:LABORATORY [facility] - [address] [place], [place] [address] [id number] Laboratory Report Ordering Provider Test Date Status VAHID ROSALES 08/09/2023 16:10:00 Preliminary Observation Date Value Abnormality Reference (Units) Status Bacteria identified in Specimen by Culture 08/09/2023 16:10:00 No growth to date Preliminary Test: Culture, Blood
Dori kaur Source: Blood, Venous
Specimen Type: Blood
Specimen Date: 08/09/2023 4:10 PM
Result Date: 08/09/2023 11:02 PM
Result Status: Preliminary result
Resulting Lab: LABORATORY [facility]
[address] [place] [address]
[place] [id number]

CULTURE

No growth to date

null Performing Location LABORATORY [facility] - [address] [place] [address] Ave. [place] [id number]
--- OUTSIDE RECORDS SUMMARY | 2023-08-11 07:45 | External Medical Summary ---
Author Name Unknown Address Unknown Organization K1F:LABORATORY [facility] - [address] [place], [place] [address]Gi[place] [address] Laboratory Report Ordering Provider Test Date Status VAHID ROSALES 08/09/2023 15:59:00 Preliminary Observation Date Value Abnormality Reference (Units) Status Bacteria identified in Specimen by Culture 08/09/2023 15:59:00 No growth to date Preliminary Test: Culture, Blood (Site 2 )
Specimen Source: Blood, Venous
Specimen Type: Blood
Specimen Date: 08/09/2023 3:59 PM
Result Date: 08/09/2023 11:02 PM
Result Status: Preliminary result
Resulting Lab: [facility]ORY [facility]
[address] [place] [address]
[place] [id number]

CULTURE

No growth to date

null Performing Location LABORATORY [facility] - [address] [place] [address] Ave. [place] [address]
--- OUTSIDE RECORDS SUMMARY | 2023-08-11 07:45 | External Medical Summary ---
Author Name Unknown Address Unknown Organization : Laboratory Report Ordering Provider Test Date Status BA DE LA ROSA 08/10/2023 11:40:48 Final Observation Date Value Abnormality Reference (Units ) Status Glucose Point of Care 08/10/2023 11:40:48 183 Above high normal 70-120 (mg/dL) Final Performing Location
--- OUTSIDE RECORDS SUMMARY | 2023-08-11 07:45 | External Medical Summary ---
Author Name Unknown Address Unknown Organization K1F:LABORATORY [facility] - [address] [place] [address] Laboratory Report Ordering Provider Test Date Status SHIRLEY VILCHIS 08/10/2023 05:30:00 Final Observation Date Value Abnormality Reference (Units ) Status WBC, Total 08/10/2023 05:30:00 7.09 4.00-10.80 (K/uL) Final RBC 08/10/2023 05:30:00 3.19 4.50-5.25 (M/uL) Final Hemoglobin 08/10/2023 05:30:00 10.2 Below low normal 14.0-16.8 (g/dL) Final HCT 08/10/2023 05:30:00 31.2 Below low normal 40.0-48.4 (%) Final MCV 08/10/2023 05:30:00 97.8 82.0-99.5 (fL) Final MCH 08/10/2023 05:30:00 32.0 27.0-34.0 (pg) Final MCHC 08/10/2023 05:30:00 32.7 32.0-36.0 (g/dL) Final RDW 08/10/2023 05:30:00 13.1 11.5-15.5 (%) Final Platelets 08/10/2023 05:30:00 170 140-400 (K/uL) Final MPV 08/10/2023 05:30:00 10.1 6.6-11.1 (fL) Final Nucleated erythrocytes/100 leukocytes [Ratio] in Blood by Automated count 08/10/2023 05:30:00 0 <=0 (/100 WBCs) Final Performing Location LABORATORY [facility] - [address] [place] [address]
--- OUTSIDE RECORDS SUMMARY | 2023-08-11 07:45 | External Medical Summary ---
Author Name Unknown Address Unknown Organization K01:LABORATORY [facility] - [address] [facility] [address] Laboratory Report Ordering Provider Test Date Status SHIRLEY VILCHIS 08/10/2023 05:30:00 Final Observation Date Value Abnormality Reference (Units ) Status HbA1C 08/10/2023 05:30:00 7.3 Above high normal 4. 0-5.6 (%) Final The use of HbA1c to monitor glycemic status is based on normal hemoglobin and HbA composition. This test should not be used in patients with abnormal hemoglobin that affects the half life of the red blood cell or the in vivo glycation rates. Glucose, estimated average 08/10/2023 05:30:00 163 Above high normal <126 (mg/dL) Abelino holly Performing Location LAB[facility] [address] [facility] [address] [facility] [address]
--- OUTSIDE RECORDS SUMMARY | 2023-08-11 07:45 | External Medical Summary ---
Author Name Unknown Address Unknown Organization : Laboratory Report Ordering Provider Test Date Status BA DE LA ROSA 08/10/2023 07:50:00 Final Observation Date Value Abnormality Reference (Units ) Status Glucose Point of Care 08/10/2023 07:50:00 165 Above high normal 70-120 (mg/dL) Final Performing Location
--- OUTSIDE RECORDS SUMMARY | 2023-08-11 07:45 | External Medical Summary ---
Author Name Unknown Address Unknown Organization K1F:LABORATORY [facility] - [place] [address] Laboratory Report Ordering Provider Test Date Status SHIRLEY VILCHIS 08/10/2023 05:30:00 Final Warfarin Therapy
INR: 2 .0-3.0 conventional anticoagulation
INR: 2.5- 3.5 high intensity anticoagulation Observation Date Value Abnormality Reference (Units ) Status PT 08/10/2023 05:30:00 14.1 11.6-15.2 (seconds) Final INR 08/10/2023 05:30:00 1.1 0.8-1.2 Final Performing Location LABORATORY [facility] - [address] [place] [address]
--- OUTSIDE RECORDS SUMMARY | 2023-08-11 07:45 | External Medical Summary ---
Author Name Unknown Address Unknown Organization : Laboratory Report Ordering Provider Test Date Status ROSANNE BABIN 08/09/2023 23:01:26 Final Observation Date Value Abnormality Reference (Units ) Status Glucose Point of Care 08/09/2023 23:01:26 154 Above high normal 70-120 (mg/dL) Final Performing Location
--- OUTSIDE RECORDS SUMMARY | 2023-08-11 07:46 | External Medical Summary ---
Author Name Unknown Address Unknown Organization K1F:LABOR[facility]ORY [facility] - [address] [facility] [place] [address] Laboratory Report Ordering Provider Test Date Status VAHID ROSALES 08/09/2023 14:54:42 Final Observation Date Value Abnormality Reference (Units ) Status SYNC LEUKOCYTES IN BLOOD BY AUTOMATED COUNT 08/09/2023 14:54:42 9.31 4.00-10.80 (K/uL) Final Segs 08/09/2023 14:54:42 82.0 Above high normal 40.0-75.0 (%) Final Lymphs % 08/09/2023 14:54:42 5.6 Below low normal 18.0-42.0 (%) Final Monos 08/09/2023 14:54:42 10.1 1.0-11.0 (%) Final Eosinophils 08/09/2023 14:54:42 0.9 0.0-6.0 (%) Final Basos 08/09/2023 14:54:42 0.5 0.0-2.0 (%) Final Immature Granulocyte, Percent 08/09/2023 14:54:42 0.9 0.0-2.0 (%) Final Absolute Segs 08/09/2023 14:54:42 7.64 1.80-7.70 (K/uL) Final Lymphs, absolute 08/09/2023 14:54:42 0.52 Below low normal 1.00-4.80 (K/ul) Final Monos, Abs 08/09/2023 14:54:42 0.94 0.00-1.10 (K/uL) Final Eos, Abs 08/09/2023 14:54:42 0.08 0.00-0.70 (K/uL) Final Basos, Abs 08/09/2023 14:54:42 0.05 0.00-0.20 (K/uL) Final Immature Granulocytes, Number 08/09/2023 14:54:42 0.08 0.00-0.20 (K/uL) Final Performing Location LABORATORY [facility] - [facility] [address]. [place] [address]
--- OUTSIDE RECORDS SUMMARY | 2023-08-11 07:46 | External Medical Summary ---
Author Name Unknown Address Unknown Organization K1F:LABORATORY [facility] - [address] [place] [address] Laboratory Report Ordering Provider Test Date Status JOSE OSBORNE 08/01/2023 04:20:00 Final Observation Date Value Abnormality Reference (Units ) Status WBC, Total 08/01/2023 04:20:00 6.37 4.00-10.80 (K/uL) Final RBC 08/01/2023 04:20:00 3.19 4.50-5.25 (M/uL) Final Hemoglobin 08/01/2023 04:20:00 10.2 Below low normal 14.0-16.8 (g/dL) Final HCT 08/01/2023 04:20:00 31.8 Below low normal 40.0-48.4 (%) Final MCV 08/01/2023 04:20:00 99.7 82.0-99.5 (fL) Final MCH 08/01/2023 04:20:00 32.0 27.0-34.0 (pg) Final MCHC 08/01/2023 04:20:00 32.1 32.0-36.0 (g/dL) Final RDW 08/01/2023 04:20:00 13.7 11.5-15.5 (%) Final Platelets 08/01/2023 04:20:00 108 Below low normal 140-400 (K/uL) Final MPV 08/01/2023 04:20:00 10.4 6.6-11.1 (fL) Final Nucleated erythrocytes/100 leukocytes [Ratio] in Blood by Automated count 08/01/2023 04:20:00 0 <=0 (/100 WBCs) Final Performing Location LABORATORY [facility] - [address] [place] [address]
--- OUTSIDE RECORDS SUMMARY | 2023-08-11 07:46 | External Medical Summary ---
Author Name Unknown Address Unknown Organization K01:LAB[facility]ATORY [facility] - [address] [address] Laboratory Report Ordering Provider Test Date Status JOSE OSBORNE 08/01/2023 04:20:00 Final Observation Date Value Abnormality Reference (Units ) Status Erythrocyte sedimentation rate by Photometric method 08/01/2023 04:20:00 6 <20 (mm/hour) Final Performing Location LABORATORY [facility] - [address] [place] [address]
--- OUTSIDE RECORDS SUMMARY | 2023-08-11 07:46 | External Medical Summary ---
Author Name Unknown Address Unknown Organization K1F:LABORATORY [facility] - [address] [place] [address] Laboratory Report Ordering Provider Test Date Status VAHID ROSALES 08/09/2023 14:54:42 Final Observation Date Value Abnormality Reference (Units ) Status Lactic Acid 08/09/2023 14:54:42 2.1 Above high normal 0.4-2.0 (mmol/L) Final Performing Location LABORATORY [facility] - [address] [place] [address]
--- OUTSIDE RECORDS SUMMARY | 2023-08-11 07:46 | External Medical Summary ---
Author Name Unknown Address Unknown Organization K1F:LABORATORY [facility] - [address] [facility]. [place] [address] Laboratory Report Ordering Provider Test Date Status VAHID ROSALES 08/09/2023 14:54:42 Final Observation Date Value Abnormality Reference (Units ) Status BUN 08/09/2023 14:54:42 27 Above high normal 6-20 (mg/dL) Final Creatinine 08/09/2023 14:54:42 1.8 Above high normal 0.6-1.2 (mg/dL) Final Glomerular filtration rate/1.73 sq M.predicted [Volume Rate/Area] in Serum, Plasma or Blood by Creatinine-based formula (CKD-EPI) 08/09/2023 14:54:42 38 Below low normal >=60 (mL/min) Final eGFR is calculated based on the CKD-EPI 2020 equation Sodium 08/09/2023 14:54:42 140 135-146 (m mol/L) Final Potassium 08/09/2023 14:54:42 4.0 3.5-5.1 (m mol/L) Final Cl 08/09/2023 14:54:42 100 98-107 (mm ol/L) Final CO2 08/09/2023 14:54:42 20 Below low normal 22- 32 (mmol/L) Final Anion gap 08/09/2023 14:54:42 20 Above high normal 7- 15 (mmol/L) Final Glucose 08/09/2023 14:54:42 198 Above high normal 70 -120 (mg/dL) Final Albumin 08/09/2023 14:54:42 4.0 3.8-5.0 (g /dL) Final AST (Aspartate aminotransferase) 08/09/2023 14:54:42 49 10-50 (U/L) Fin al Alk Phos 08/09/2023 14:54:42 111 35-130 (U/ L) Final Bilirubin, Total 08/09/2023 14:54:42 0.3 <=1 .2 (mg/dL) Final Calcium 08/09/2023 14:54:42 9.9 8.4-10.2 ( mg/dL) Final Protein 08/09/2023 14:54:42 7.0 6.0-8.3 (g /dL) Final ALT (Alanine aminotransferase) 08/09/2023 14:54:42 40 10-50 (U/L) Abelino holly [facility] Location LABORATORY [facility] - [address] [place], [place] [address] [address]
--- OUTSIDE RECORDS SUMMARY | 2023-08-11 07:46 | External Medical Summary ---
Author Name Unknown Address Unknown Organization K1F:LABORATORY [facility] - [address] [facility]. [place] [address] Laboratory Report Ordering Provider Test Date Status JOSE OSBORNE 08/01/2023 04:20:00 Final Observation Date Value Abnormality Reference (Units ) Status BUN 08/01/2023 04:20:00 24 Above high normal 6-20 (mg/dL) Final Creatinine 08/01/2023 04:20:00 1.2 0.6-1.2 (mg/dL) Final Glomerular filtration rate/1.73 sq M.predicted [Volume Rate/Area] in Serum, Plasma or Blood by Creatinine-based formula (CKD-EPI) 08/01/2023 04:20:00 62 >=60 (mL/min) Final eGFR is calculated based on the CKD-EPI 2020 equation Sodium 08/01/2023 04:20:00 137 135-146 (m mol/L) Final Potassium 08/01/2023 04:20:00 4.2 3.5-5.1 (m mol/L) Final Cl 08/01/2023 04:20:00 104 98-107 (mm ol/L) Final CO2 08/01/2023 04:20:00 22 22-32 (mmo l/L) Final Anion gap 08/01/2023 04:20:00 11 7-15 (mmol /L) Final Glucose 08/01/2023 04:20:00 146 Above high normal 70 -120 (mg/dL) Final Albumin 08/01/2023 04:20:00 3.7 Below low normal 3.8 -5.0 (g/dL) Final AST (Aspartate aminotransferase) 08/01/2023 04:20:00 25 10-50 (U/L) Fin al Alk Phos 08/01/2023 04:20:00 113 35-130 (U/ L) Final Bilirubin, Total 08/01/2023 04:20:00 0.2 <=1 .2 (mg/dL) Final Calcium 08/01/2023 04:20:00 9.3 8.4-10.2 ( mg/dL) Final Protein 08/01/2023 04:20:00 5.3 Below low normal 6.0 -8.3 (g/dL) Final ALT (Alanine aminotransferase) 08/01/2023 04:20:00 52 Above high normal 10-50 (U/L) Final Performing Location LABORATORY [facility] - [facility] [address]. [place] [address]
--- OUTSIDE RECORDS SUMMARY | 2023-08-11 07:46 | External Medical Summary ---
Author Name Unknown Address Unknown Organization K1F:LABORATORY [facility] - [address] [place] [address] Laboratory Report Ordering Provider Test Date Status JOSE OSBORNE 08/04/2023 04:18:00 Final Observation Date Value Abnormality Reference (Units ) Status CRP, low-sensitivity 08/04/2023 04:18:00 33 Above high normal <=5 (mg/L) Final Performing Location LABORATORY [facility] - [address] [place] [address]
--- OUTSIDE RECORDS SUMMARY | 2023-08-11 07:46 | External Medical Summary ---
Author Name Unknown Address Unknown Organization K1F:LABORATORY [facility] - [address] [facility]. [place] [address] Laboratory Report Ordering Provider Test Date Status JOSE OSBORNE 08/04/2023 04:18:00 Final Observation Date Value Abnormality Reference (Units ) Status BUN 08/04/2023 04:18:00 29 Above high normal 6-20 (mg/dL) Final Creatinine 08/04/2023 04:18:00 1.3 Above high normal 0.6-1.2 (mg/dL) Final Glomerular filtration rate/1.73 sq M.predicted [Volume Rate/Area] in Serum, Plasma or Blood by Creatinine-based formula (CKD-EPI) 08/04/2023 04:18:00 56 Below low normal >=60 (mL/min) Final eGFR is calculated based on the CKD-EPI 2020 equation Sodium 08/04/2023 04:18:00 140 135-146 (m mol/L) Final Potassium 08/04/2023 04:18:00 4.1 3.5-5.1 (m mol/L) Final Cl 08/04/2023 04:18:00 105 98-107 (mm ol/L) Final CO2 08/04/2023 04:18:00 24 22-32 (mmo l/L) Final Anion gap 08/04/2023 04:18:00 11 7-15 (mmol /L) Final Glucose 08/04/2023 04:18:00 197 Above high normal 70 -120 (mg/dL) Final Albumin 08/04/2023 04:18:00 3.7 Below low normal 3.8 -5.0 (g/dL) Final AST (Aspartate aminotransferase) 08/04/2023 04:18:00 19 10-50 (U/L) Fin al Alk Phos 08/04/2023 04:18:00 113 35-130 (U/ L) Final Bilirubin, Total 08/04/2023 04:18:00 0.2 <=1 .2 (mg/dL) Final Calcium 08/04/2023 04:18:00 9.4 8.4-10.2 ( mg/dL) Final Protein 08/04/2023 04:18:00 5.6 Below low normal 6.0 -8.3 (g/dL) Final ALT (Alanine aminotransferase) 08/04/2023 04:18:00 39 10-50 (U/L) Abelino holly Performing Location LABORATORY [facility] - [address] [place] [address]
--- OUTSIDE RECORDS SUMMARY | 2023-08-11 07:46 | External Medical Summary ---
Author Name Unknown Address Unknown Organization K1F:LABORATORY [facility] - [address] [place] [address] Laboratory Report Ordering Provider Test Date Status VAHID ROSALES 08/09/2023 14:55:18 Final SCREENING Observation Date Value Abnormality Reference (Units ) Status SARS Coronavirus 2 08/09/2023 14:55:18 Negative N egative Final 2019 Novel Coronavirus not d etected.

This express test was developed and its performance characteristics determined by [facility]. It has not been cleared or approved by the U.S. Food and Drug Administration (FDA). FDA does not require this test to go thru premarket FDA review. This test is used for clinical purposes. It should not be regarded as investigational or for research. This laboratory is certified under the Clinical Laboratory Improvement Amendments (CLIA) as qualified to perform high complexity clinical laboratory testing.

This test is a nucleic acid amplification test (NAAT), a reverse transcriptase polymerase chain reaction (RT-PCR) test, or a Centers for Disease Control-acceptable equivalent. The test is performed in a high complexity Clinical Laboratory Improvement Amendments-(CLIA) certified laboratory. The test is acceptable for SARS-CoV-2 diagnosis, surveillance, and travel within the [place] and to most countries. Please check with local testing authorities about requirements before travel.

The validation of bronchial specimens, tracheal aspirates, and sputum for this assay was developed and performance characteristics determined by [facility]. The validation of alternate specimen types has not been cleared or approved by the U.S. Food and Drug Administration (FDA). It has been determined that such clearance is not necessary. Performing Location LABORATORY [facility] - [address] [place] [address]
--- OUTSIDE RECORDS SUMMARY | 2023-08-11 07:46 | External Medical Summary ---
Author Name Unknown Address Unknown Organization K1F:LABORATORY [facility] - [address] [place] [address] Laboratory Report Ordering Provider Test Date Status JOSE OSBORNE 08/01/2023 04:20:00 Final Observation Date Value Abnormality Reference (Units ) Status CRP, low-sensitivity 08/01/2023 04:20:00 8 Above high normal <=5 (mg/L) Final Performing Location LABORATORY [facility] - [address] [place] [address]
--- OUTSIDE RECORDS SUMMARY | 2023-08-11 07:46 | External Medical Summary ---
Author Name Unknown Address Unknown Organization K01:LABORATORY [facility] - [address] [address] Laboratory Report Ordering Provider Test Date Status JOSE OSBORNE 08/04/2023 04:18:00 Final Observation Date Value Abnormality Reference (Units ) Status Erythrocyte sedimentation rate by Photometric method 08/04/2023 04:18:00 19 <20 (mm/hour) Final Performing Location LABORATORY [facility] - [address] [place] [address]
--- OUTSIDE RECORDS SUMMARY | 2023-08-11 07:46 | External Medical Summary ---
Author Name Unknown Address Unknown Organization K1F:LABORATORY [facility] - [address] [place] [address] Laboratory Report Ordering Provider Test Date Status VAHID ROSALES 08/09/2023 14:54:42 Final Observation Date Value Abnormality Reference (Units ) Status WBC, Total 08/09/2023 14:54:42 9.31 4.00-10.80 (K/uL) Final RBC 08/09/2023 14:54:42 3.76 4.50-5.25 (M/uL) Final Hemoglobin 08/09/2023 14:54:42 11.9 Below low normal 14.0-16.8 (g/dL) Final HCT 08/09/2023 14:54:42 36.1 Below low normal 40.0-48.4 (%) Final MCV 08/09/2023 14:54:42 96.0 82.0-99.5 (fL) Final MCH 08/09/2023 14:54:42 31.6 27.0-34.0 (pg) Final MCHC 08/09/2023 14:54:42 33.0 32.0-36.0 (g/dL) Final RDW 08/09/2023 14:54:42 13.2 11.5-15.5 (%) Final Platelets 08/09/2023 14:54:42 204 140-400 (K/uL) Final MPV 08/09/2023 14:54:42 9.7 6.6-11.1 (fL) Final Nucleated erythrocytes/100 leukocytes [Ratio] in Blood by Automated count 08/09/2023 14:54:42 0 <=0 (/100 WBCs) Final Performing Location LABORATORY [facility] - [address] [place] [address]
--- OUTSIDE RECORDS SUMMARY | 2023-08-11 07:46 | External Medical Summary ---
Author Name Unknown Address Unknown Organization K1F:LABORATORY [facility] - [address] [place] [address] Laboratory Report Ordering Provider Test Date Status JOSE OSBORNE 08/01/2023 04:20:00 Final Observation Date Value Abnormality Reference (Units ) Status CK 08/01/2023 04:20:00 49 39-308 (U/ L) Final Performing Location LABORATORY [facility] - [address] [place] [address]
--- OUTSIDE RECORDS SUMMARY | 2023-08-11 07:46 | External Medical Summary | Summary of Care ---
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 30 Cap 0 12/07/2017 Active Ipratropium [place] 0.03 % nasal spray Administer 1 [place] into nostril as needed. 0 Active Hydrocortisone [...] needed 5 03/06/2018 Active nystatin-triamcino lone (MYCOLOG) 342659-9.1 UNIT/GM-% cream As needed 2 01/21/2018 Active Wphfjrpual-RNHM-Qv ffeine 50-325-40 MG per capsule As needed [...] MG Oral Tablet (Lexapro) 0 01/19/2021 Active Actemra 162 MG/0.9ML Subcutaneous Solution Prefilled Syringe (Tocilizumab) INJECT 162 MG (1 SYRINGE) UNDER THE SKIN WEEKLY 3.6 mL 3 07/31/2022 Active Additional Information Patient taking differently:[id number], Reported on 12/13/2022 Actemra ACTPen 162 MG/0.9ML Subcutaneous Solution Auto-injector (Tocilizumab) Inject 162 mg (1 pen) subcutaneously every 7 days 3.6 mL 3 02/05/2023 Active Fesoterodine Fumarate ER 8 MG Oral Tablet Extended Release 24 Hour (Toviaz) TAKE 1 TABLET BY MOUTH IN THE MORNING 90 Tablet 3 05/13/2023 Active Myrbetriq 50 MG Oral Tablet Extended Release 24 Hour TAKE 1 TABLET BY MOUTH IN THE MORNING 90 Tablet 3 05/13/2023 Active Actemra ACTPen 162 MG/0.9ML Subcutaneous Solution Auto-injector (Tocilizumab) Inject 162 mg (1 pen) under the skin once a week. 3.6 mL 3 06/09/2023 Active documented as of this encounter (statuses as of 07/29/2023) Active Problems Problem Noted Date Diagnosed Date Complication of vascular device 07/09/2023 AAA (abdominal aortic aneurysm) 07/24/2016 Overview: 3.8 cm Rheumatoid arthritis of [facility] without rheumatoid factor 10/02/2015 Generalized osteoarthritis 09/27/2014 HTN, goal below 140/90 12/30/2013 Hyperlipidemia 12/30/2013 Diabetes mellitus 12/30/2013 Symptomatic anemia 12/30/2013 documented as of this encounter (statuses as of 07/29/2023) Resolved Problems Problem Noted Date Diagnosed Date Resolved Date Pancytopenia 12/03/2017 10/15/2018 Long-term use of immunosuppressant medication 06/25/19 15 10/15/2018 Seronegative rheumatoid arthritis 12/30/2013 10/02/2015 Overview: RF-/CCP- Elevated inflammatory markers, joint swelling, and erosions on imaging 12/19 documented as of this encounter (statuses as of 07/29/2023) Immunizations Name Administration Dates Next Due COVID-19 mRNA, LNP-s, No Pre serve, 2-Dose Series (Patient Home Monitoring) 03/27/2021,08/18/2020,07/21/2020 Pneumococcal Polysaccharide PPV23 (Pneumovax) 01/19/2014 Seasonal Influenza, Quadriva lent, No Preserve, IM 12/07/2015,01/26/2015 Seasonal Influenza, Split, I IV3, With Preserve, Inj 12/22/2013 TDAP (age 10 and older)(Boostrix) 09/24/2018 Zoster Vaccine Recombinant (Shingrix) 07/30/2018 ,07/30/2018 documented as of this encounter Social History Tobacco Use Types Packs/Day Years Used Date Smoking Tobacco: Former Cigarettes 33 1 - 01/29/2007 Smokeless Tobacco: Never Comments:quit January 2007 [...] No 12/03/2017 documented as of this encounter Plan of Treatment Upcoming Encounters Date Type Department Care Team (Late st Contact Info) Description 08/15/2023 1:20 PM EDT Office Visit Podiatry, [address] [place] [address] Evi Nogueira DPM [address] [place] [address] 11/07/2023 11:45 AM EDT Office Visit Urology Zack Pantoja [address] [place] [address] Christopher Edwards MD [address] [place] [address] 11/17/2023 1:50 PM EDT Office Visit Dermatology, Lise Rios [address] [place] [address] June Garcia PA-C [address] [place] [address] Scheduled Referrals Name Type Priority Associated Diagnoses Orde r Schedule INFECTIOUS DISEASE REFERRAL OP Referral Within 10 days (routine) 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) Ordered: 07/29/2023 Health Maintenance Due Date Last Done Comments Depression Screening 1952 Albumin/Creatinine Ratio 07/03/1959 Diabetic Eye Exam 07/03/1959 Diabetic Foot Exam 07/03/1959 AAA Monitoring 12/04/2018 12/04/2017, 07/11/2016 Influenza Vaccine (FLU shot) (Season Ended) 2023 12/22/2019, 01/19/2019, 12/07/2015, Additional history exists HbA1c 01/04/2024 07/04/2023, 01/06, 04/14/2020, Additional history exists GFR 07/24/2024 07/25/2023, 07/06, 07/11/2023, Additional history exists DTaP,Tdap,and Td Vaccines (2 - Td or Tdap) 09/24/2028 09/24/2018 Zoster Vaccines Completed 07/30/2018, 07/07, 07/23/2017 Pneumococcal Vaccine: 65+ Years Completed 07/26/2022, 01/19/2014, 01/11/2014 COVID-19 Vaccine Completed 01/31/2023, , 07/30/2021, Additional history exists GARDASIL-HPV IMMUNIZATION SERIES Aged Out No longer eligible based on patient's age to complete this topic Hepatitis B Aged Out No longer eligi ble based on patient's age to complete this topic MENINGOCOCCAL (MENACTRA/MENVEO) Aged Out No longer eligible based on patient's age to complete this topic documented as of this encounter Medical Devices Not on filedocumented as of this encounter Visit Diagnoses Diagnosis 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 Question Answer Comments Discussion of Advance Directives occurred with: Patient Does the patient have Health Care Power of Accounts Payable Professional? Yes, not currently available Code Status History Code Status Date Activated Date Inactivated Comments Full Code 12/03/2017 2:40 PM 12/03/2017 3:54 PM This order reflects the patients wishes and were consensually agreed upon. Care Teams Varnish Supervisor Relationship Specialty Start Date End Date Ramiro Hernandez MD [address] [place] [address] PCP - General Family Medicine 01/14/14 documented as of this encounter
--- OUTSIDE RECORDS SUMMARY | 2023-08-11 07:46 | External Medical Summary ---
Author Name Unknown Address Unknown Organization K1F:LAB[facility]ATORY [facility] - [address] [place] [address] Laboratory Report Ordering Provider Test Date Status VAHID ROSALES 08/09/2023 14:54:42 Final Observation Date Value Abnormality Reference (Units ) Status CRP, low-sensitivity 08/09/2023 14:54:42 126 Above high normal <=5 (mg/L) Final Performing Location LABORATORY [facility] - [address] [place] [address]
--- OUTSIDE RECORDS SUMMARY | 2023-08-11 07:46 | External Medical Summary ---
Author Name Unknown Address Unknown Organization K1F:LABORATORY [facility] - [address] [place] [address] Laboratory Report Ordering Provider Test Date Status JOSE OSBORNE 08/04/2023 04:18:00 Final Observation Date Value Abnormality Reference (Units ) Status WBC, Total 08/04/2023 04:18:00 7.41 4.00-10.80 (K/uL) Final RBC 08/04/2023 04:18:00 3.27 4.50-5.25 (M/uL) Final Hemoglobin 08/04/2023 04:18:00 10.6 Below low normal 14.0-16.8 (g/dL) Final HCT 08/04/2023 04:18:00 32.8 Below low normal 40.0-48.4 (%) Final MCV 08/04/2023 04:18:00 100.3 82.0-99.5 (fL) Final MCH 08/04/2023 04:18:00 32.4 27.0-34.0 (pg) Final MCHC 08/04/2023 04:18:00 32.3 32.0-36.0 (g/dL) Final RDW 08/04/2023 04:18:00 13.5 11.5-15.5 (%) Final Platelets 08/04/2023 04:18:00 147 140-400 (K/uL) Final MPV 08/04/2023 04:18:00 10.8 6.6-11.1 (fL) Final Nucleated erythrocytes/100 leukocytes [Ratio] in Blood by Automated count 08/04/2023 04:18:00 0 <=0 (/100 WBCs) Final Performing Location [facility]ATORY [facility] - [address] [place] [address]
--- OUTSIDE RECORDS SUMMARY | 2023-08-11 07:46 | External Medical Summary ---
Author Name Unknown Address Unknown Organization K1F:LABORATORY [facility] - [address] [place] [address] Laboratory Report Ordering Provider Test Date Status JOSE OSBORNE 08/04/2023 04:18:00 Final Observation Date Value Abnormality Reference (Units ) Status CK 08/04/2023 04:18:00 37 Below low normal 39- 308 (U/L) Final Performing Location [facility] - [address] [place] [address]
--- OUTSIDE RECORDS SUMMARY | 2023-08-11 07:46 | External Medical Summary ---
Author Name Unknown Address Unknown Organization K01:[facility] [place] [address] [place] [address] Laboratory Report Ordering Provider Test Date Status JOSE OSBORNE 07/25/2023 04:48:00 Final Observation Date Value Abnormality Reference (Units ) Status Erythrocyte sedimentation rate by Photometric method 07/25/2023 04:48:00 <1 <20 (mm/hour) Final Performing Location LABORATORY [facility] - [address] [place] [address]
--- OUTSIDE RECORDS SUMMARY | 2023-08-11 07:46 | External Medical Summary ---
Author Name Unknown Address Unknown Organization K1F:LABORATORY [facility] - [address] [place] [address] Laboratory Report Ordering Provider Test Date Status BOBBY,VAHID 08/09/2023 14:54:42 Final Less than 0.5 ng/mL: Low ris k for progression to sepsis. Review patients condition for localized infections.

0.5 to 2.0 ng/mL: Intermediate risk for progresion to sepsis. Review underlying conditions. Recommend repeat PCT after 6 hours has elapsed.

Greater than 2.0 ng/mL: high risk for progression to sepsis unless other causes are known. Observation Date Value Abnormality Reference (Units ) Status Procalcitonin [Mass/volume] in Serum or Plasma by Immunoassay 08/09/2023 14:54:42 0.61 Above high normal <0.10 (ng/mL) Final Performing Location LABORATORY [facility] - [address] [place] [address]
--- OUTSIDE RECORDS SUMMARY | 2023-08-11 07:46 | External Medical Summary ---
Author Name Unknown Address Unknown Organization K1F:LABORATORY [facility] - [address] [facility] [place] [address] Laboratory Report Ordering Provider Test Date Status JOSE OSBORNE 08/04/2023 04:18:00 Final Observation Date Value Abnormality Reference (Units ) Status SYNC LEUKOCYTES IN BLOOD BY AUTOMATED COUNT 08/04/2023 04:18:00 7.41 4.00-10.80 (K/uL) Final Segs 08/04/2023 04:18:00 72.4 40.0-75.0 (%) Final Lymphs % 08/04/2023 04:18:00 8.9 Below low normal 18.0-42.0 (%) Final Monos 08/04/2023 04:18:00 12.3 Above high normal 1.0-11.0 (%) Final Eosinophils 08/04/2023 04:18:00 4.7 0.0-6.0 (%) Final Basos 08/04/2023 04:18:00 0.9 0.0-2.0 (%) Final Immature Granulocyte, Percent 08/04/2023 04:18:00 0.8 0.0-2.0 (%) Final Absolute Segs 08/04/2023 04:18:00 5.36 1.80-7.70 (K/uL) Final Lymphs, absolute 08/04/2023 04:18:00 0.66 Below low normal 1.00-4.80 (K/ul) Final Monos, Abs 08/04/2023 04:18:00 0.91 0.00-1.10 (K/uL) Final Eos, Abs 08/04/2023 04:18:00 0.35 0.00-0.70 (K/uL) Final Basos, Abs 08/04/2023 04:18:00 0.07 0.00-0.20 (K/uL) Final Immature Granulocytes, Number 08/04/2023 04:18:00 0.06 0.00-0.20 (K/uL) Final Performing Location LABORATORY [facility] - [facility] [address] [place] [address]
[2023-08-11] MEDS: lisinopril 20 MG TAB PO SCH (07:53)
[2023-08-11] MEDS: dilTIAZem HCL 120 MG CAPCR PO SCH (07:53)
[2023-08-11] MEDS: predniSONE 5 MG TAB PO SCH (07:53)
[2023-08-11] MEDS: ESCITALOPRAM OXALATE 10 MG TAB PO SCH (07:54)
[2023-08-11] MEDS: DAPTOmycin 675 MG in SYRINGE 0 ML IV SCH (08:02)
--- NOTE | 2023-08-11 14:17 | XRay Report ---
XR knee RT 1 or 2V routine CLINICAL HISTORY: possible infection total knee,h/o ID poly exchange COMPARISON STUDY: Right knee 06/25/2023. FINDINGS: There is a right total knee arthroplasty. The hardware appears intact. No abnormal peripros tatic lucency. No fracture or dislocation within the right knee. Anterior soft tissue swelling. Moder ate knee effusion is suggested. Small foci of soft tissue gas at the anteromedial aspect of the knee. No bony destructive changes to suggest an osteomyelitis. IMPRESSION: 1. Anterior soft tissue swelling within the right knee with a moderate knee effusion. 2. Small foci of soft tissue gas within the anteromedial aspect of the knee. This could be due to rec ent intervention. A gas-forming organism is not excluded. Clinical correlation recommended. 3. Right total knee arthroplasty. The hardware appears intact. 4. This report was called/faxed to the referring physician following dictation. ACT 112: Negative or not required by law. Electronically signed by: Jared Lord M.D. 08/11/2023 2:16 PM
--- NOTE | 2023-08-11 17:38 | History & Physical Report ---
Date of Service August 11, 2023 Assessment & Plan (1) Infection associated with internal right knee prosthesis: Plan: 7 weeks post irrigation debridement and retention implant polyethylene exchange. Patient has been on cefepime and daptomycin. I suspect he has not cleared his infection and may need explantation of implant and placement of cement spacer. I aspirated his knee joint and got some blood-tinged slightly opaque fluid not trey pus but not clear fluid. I also aspirated his pes anserine bursa swelling in his knee with separate aspirate and this was blood consistent with extra- articular hematoma in that area likely from the fall couple days ago. He could possibly have infected hematoma which is extra-articular to joint as this is where the gas particles were noted on the x-ray. Await results of aspirate and continue IV antibiotics and possible surgery shortly after the studies assessed. Encounter type: subsequent encounter Qualified Code(s): T84.53XD - Infection and inflammatory reaction due to internal right knee prosthesis, subsequent encounter (2) Rheumatoid arthritis involving left knee: Plan: Rheumatoid arthritis left knee aggravated by fall not felt to be clinically infected may need aspirate of that knee as well. Rheumatoid factor presence: unspecified presence Qualified Code(s): M06.9 - Rheumatoid arthritis, unspecified (3) Leg abrasion, non-infected: (4) Hematoma of lower leg: Plan: Acute hematoma due to fall. May or may not be infected. To be determined. Admission and Anticipated Discharge Date Admission Date: August 10, 2023 History of Present Illness Chief Complaint: Right and left knee pain left slaughter injury Primary Care Provider: Ramiro Hernandez MD 83-year-old male status post irrigation debridement polyethylene exchange and retention of implant for postop infection wound dehiscence quadriceps tendon and medial retinacular disruption after a fall. Patient admits this to continue to have issues falling. Patient had a fall 3 days ago went to the emergency room in [place] and was transferred here due to elevated inflammatory parameters. Patient has been taking IV antibiotics for the infection however recently stopped the antibiotics. Patient has been taking the antibiotics since 06/25/2023 date of surgery. Allergies Allergy/AdvReac Type Severity Reaction Status Date / Time adhesive Allergy Mild Redness Verified 07/25/23 15:04 lovastatin Allergy Unknown Unknown Verified 07/25/23 15:04 pseudoephedrine AdvReac Intermediate "[place] high" Verified 07/25/23 15:04 Home Medications Medication Instructions Recorded Confirmed Type calcium carbonate (Calcium 600) 600 mg PO QAM 09/25/18 07/25/23 History hydrocortisone 2.5 % topical cream 1 appln topical .COMPLEX 09/30/18 07/25/23 History linaclotide 145 mcg capsule 145 mcg PO DAILY PRN constipation 09/30/18 07/25/23 Rx #90 caps rspmxqkrmwxp-puxmckav-bwlelq tablet 1 tab PO QAM 09/30/18 07/25/23 History nystatin-triamcinolone 100,000 1 appln topical BID #60 grams 09/30/18 07/25/23 Rx unit/g-0.1 % topical cream mupirocin 2 % topical ointment 1 appln topical BID #30 grams 10/01/18 07/25/23 Rx ipratropium bromide 21 mcg (0.03 See Rx Instructions .Route 03/26/21 07/25/23 Rx %) nasal spray .COMPLEX #90 mL simvastatin 20 mg tablet 20 mg PO QPM #90 tabs 11/13/22 07/25/23 Rx montelukast 10 mg tablet 10 mg PO QPM #90 tabs 01/14/23 07/25/23 Rx diltiazem HCl 120 mg capsule,24 120 mg PO QAM #90 caps 04/14/23 07/25/23 Rx hr,extended release mirtazapine 30 mg tablet 30 mg PO HS insomnia mood #90 tabs 04/15/23 07/25/23 Rx cinnamon bark 500 mg capsule 500 mg PO QAM 04/28/23 07/25/23 History escitalopram oxalate 5 mg tablet 5 mg PO QAM 04/28/23 07/25/23 History fesoterodine 8 mg tablet,extended 8 mg PO QPM 04/28/23 07/25/23 History release 24 hr (Toviaz) folic acid 1 mg tablet 1 mg PO QAM 04/28/23 07/25/23 History mirabegron 50 mg tablet,extended 50 mg PO QPM 04/28/23 07/25/23 History release 24 hr (Myrbetriq) multivitamin 1 tab PO QAM 04/28/23 07/25/23 History omeprazole 40 mg capsule,delayed 40 mg PO QAM 04/28/23 07/25/23 History release prednisone 5 mg tablet 5 mg PO QAM 04/28/23 07/25/23 History lisinopril 20 mg tablet 20 mg PO QAM #90 tabs 05/23/23 07/25/23 Rx acetaminophen 500 mg tablet 1,000 mg (2 x 500 mg) PO Q8 #60 05/27/23 07/25/23 Rx (Tylenol Extra Strength) tabs aspirin 81 mg tablet,delayed 81 mg PO BID #60 tabs 05/27/23 07/25/23 Rx release docusate sodium 100 mg capsule 100 mg PO BID #60 caps 05/28/23 07/25/23 Rx ferrous gluconate 225 mg (27 mg 225 mg PO BID #60 tabs 05/28/23 07/25/23 Rx iron) tablet sennosides 8.6 mg tablet (Senokot) 17.2 mg (2 x 8.6 mg) PO HS #20 tabs 05/28/23 07/25/23 Rx tocilizumab 162 mg/0.9 mL 162 mg (0.9 mL) subcut Q7D #3.6 mL 06/09/23 07/25/23 Rx subcutaneous pen injector (Actemra ACTPen) daptomycin 500 mg intravenous 675 mg IV DAILY 42 days #10 ea 06/30/23 07/25/23 Rx solution cefepime 2 gram solution for 2 g IV Q8H #42 ea 07/02/23 07/25/23 Rx injection prevagen PO 07/25/23 History Past Med/Surg History Medical History Anemia Chronic Hyperkalemia Diabetes mellitus, type 2 Diet controlled Hearing deficit Carotid stenosis, right Under surveillance by vascular, imaging every 2 years Carotid duplex 06/2021: Known MARGARITA occlusion, 60-69% LICA stenosis ("possibly overestimated due to contralateral ICA occlusion), no change compared to 05/2019 per report Abdominal aneurysm Aortoiliac ultrasound 06/2021: 3.7cm infrarenal AAA (stable) 2 year surviellance recommended by vascular (Dr. Pride) Osteoarthritis, knee Actinic keratoses Spondylolisthesis at L4-L5 level Spinal stenosis of lumbar region "Moderate" at L4-L5 Rheumatoid arthritis H/O prostate cancer Dx 2006 S/p protatectomy Hypercholesteremia Hypertension Surgical History (Updated 08/01/23 @ 00:09 by Carmen Duffy) History of colonoscopy Hx of vasectomy History of tooth extraction History of tonsillectomy and adenoidectomy H/O hernia repair H/O prostatectomy Family History Father No problems noted. Mother No problems noted. Other No family history of adverse response to anesthesia Social History Smoking Status: Former smoker Tobacco Type: Cigarettes Second Hand Exposure: No; Do You Dip or Chew Tobacco: No; Hx Alcohol Use: No Hx Substance Use: No Preferred Language: French Communication Ability: Effective Communication Ability Comment: [facility] Delivery Of Shopping News Required: No Beliefs That Will Affect Care: None marital status: Current Living Situation: Family Current Living Situation Comment: with son/Ramiro current occupational status: retired Other Information That Helps Us Care for You: No Feels Safe at Home: Yes Safety Concerns: Feels Safe At This Time Seatbelt Use: always Assistive Devices: Cane and Walker Review of Systems Patient does not quite feel himself but does not feel sick does not feel feverish. Not having any problems with his blood sugars. Left knee not overtly painful but more stiff since the injury. Has some slaughter pain where he scraped the slaughter. Physical Exam Constitutional: WD/WN, vitals as above Respiratory: normal respiratory effort; no respiratory distress Cardiovascular: Rate/Rhythm: regular rate and regular rhythm Musculoskeletal: Left knee has an effusion no increased warmth no erythema range of motion 0 to 100 degrees some stiffness after that. He can do a straight leg raise without extensor lag. The left slaughter has a long oval scrape where the skin was abraded appears to be superficial and this is dry without any drainage but some of the superficial skin is necrotic due to abrasion. Currently no signs of infection there. Right knee still has a few scabs over the incisional area has a knee effusion some moderate increased warmth mild erythema swollen area over the pes anserine bursa and has some extensor lag by least 15 degrees and mild pain with range of motion. Has more difficulty doing a straight leg raise on the right than the left. Swelling in the pes anserine bursa area appears to be fluctuant consistent with fluid collection. Distal circulation intact sensation decreased per baseline. Skin: no rashes, warm and dry Neurologic: normal touch/pain/proprioception Neuropathy decreased sensation lower extremities Psychiatric: A+Ox3, euthymic affect Results & Data Vital Signs (Past 12 Hours) Vital Signs Temp Pulse Resp BP Pulse Ox O2 Del Method 08/11/23 15:39 36.6 C 89 19 155/82 H 94 Room Air 08/11/23 07:50 Room Air 08/11/23 07:48 37.1 C 98 H 20 143/87 H 91 Room Air Laboratory Results C-reactive protein was 121, white blood cell count normal Diagnostic Findings X-rays demonstrate possible air pockets in the fluid in the medial knee area anterior medially could possibly be gas pockets due to infection. Knee implant well-fixed well aligned no acute fracture.
[2023-08-11] MEDS: ETHYL CHLORIDE AER PER SPRAY 100 ML CAN EXT ONE (17:53)
[2023-08-11] MEDS: BUPIVACAINE 0.25% PF 30 ML VIAL INFIL ONE (17:53)
[2023-08-11] MEDS: ACETAMINOPHEN 500 MG TAB PO SCH (17:58)
[2023-08-11 18:48] LABS: Appearance Synovial Fluid Cloudy; Color Synovial Fluid Red; Mononuclear WBC Synovial 5.3 %; Polynuclear WBC Synovial 94.7 %; RBC Synovial Fluid Auto 150000 /uL; Source Synovial Fluid Right Knee; WBC Synovial Fluid Auto 93780 /ul (0-200)
--- NOTE | 2023-08-11 21:14 | Hospitalist Consultation ---
Date of Consultation August 11, 2023 Assessment & Plan (1) Infection associated with internal right knee prosthesis: 83yo male presenting after a fall with redness, pain and swelling of right prosthetic knee. Patient is s/p right TKA on 05/26/23 with subsequent wound dehiscence and prosthetic joint infection s/p completion of IV Cefepime and Daptomycin (6 week course of antibiotics completed 08/06/23). He has had ongoing pain, swelling and gait instability. Joint aspiration performed in the ER today by Orthopedics is concerning for persistent prosthetic joint infection. Patient is afebrile, HD stable and non-toxic in appearance. Pain in the right knee is well controlled at present. -Patient admitted to Orthopedic Surgery service -Follow cultures sent from joint aspiration today 08/11/23 -To continue IV antibiotics - Daptomycin and Cefepime. Intraoperative cultures from the right knee POSITIVE for Enterococcus faecalis and Enterobacter homraechei and Enterococcus faecalis (Sn. Daptomycin). -CRP ordered -ID consultation ordered -Will order CK level. Will hold Simvastatin while patient is on Daptomycin -Tylenol and Oxycodone as needed for pain control (2) Rheumatoid arthritis: Chronic. Stable -Continue home dose of Prednisone 5mg po qAM -Consider stress dosing if patient undergoes surgery or becomes hypotensive (3) Benign essential hypertension: Blood pressure at goal. -Hold Lisinopril for now for possible surgical debridement -Continue Diltiazem -Continue to monitor BP (4) Type 2 diabetes mellitus: Last HgbA1C = 8.1 on 05/09/23. Diet controlled and patient uses Cinnamon Bark at home. Reports fairly well controlled blood sugars. -Pharmacy Glycemic management consultation placed -Goal blood sugars 110 - 140 (5) Hypercholesteremia: Chronic -Holding Simvastatin History of Present Illness Reason for Consultation: medical management Attending Physician: Vinay Chapin DO History of Present Illness Eyad Bullock is an 83yo male with history of DM, HTN, HLP, RA on Prednisone mg po daily and AAA on surveillance presenting with prosthetic joint infection. Patient was admitted to [facility] on 05/26/23 with ongoing right knee pain which failed conservative therapy. He had a right total knee arthroplasty performed by Dr. Hernandez on 05/26/23. Patient's surgery went well with no complications. He returned to the hospital on 06/24/23 with wound dehiscence. He returned to the OR on 06/25/23 for irrigation and debridement, poly exchange of right knee and medial retinaculum and quadriceps tendon repair. Intra-operative cultures were positive for Enterobacter hormaechei and Enterococcus faecalis. Patient was followed by the Infectious Disease team and managed with IV Vancomycin and Cefepime --> Daptomycin and Cefepime. Recommended 6 week course of IV antibiotics followed by chronic suppressive antibiotic therapy for at least 3-6 months. Patient was discharged to [facility] on 07/01/23. He continued his IV antibiotics unit 08/06/23. Reports he had ongoing discomfort in his right knee and decreased mobility. He was discharged home on 08/07/23 and has been having increasing difficulty with ambulation. He reports that his "legs don't behave". He has had several falls over the last couple of days. Denies head trauma or LOC. Patient fell on 08/09/23 and was seen in the ER at another hospital. He was given Vancomycin and Zosyn. Patient was seen by Orthopedic Surgery today. He had an aspiration performed on his right knee - removal of blood-tinged slightly opaque fluid from the knee. Aspiration of the pes anserine bursa with blood consistent with extra-articular hematoma. [place] 76403 WBC and 724135 RBCs. Patient with no additional complaints. He denies fever, chills, chest pain, cough or SOB. Denies nausea/vomiting, diarrhea or constipation. He denies any other injuries sustained from the prior falls. No additional complaints at this time. Seen in room 322. Patient afebrile, HD stable, NAD Allergies Allergy/AdvReac Type Severity Reaction Status Date / Time adhesive Allergy Mild Redness Verified 07/25/23 15:04 lovastatin Allergy Unknown Unknown Verified 07/25/23 15:04 pseudoephedrine AdvReac Intermediate "[place] high" Verified 07/25/23 15:04 Home Medications Medication Instructions Recorded Confirmed Type calcium carbonate (Calcium 600) 600 mg PO QAM 09/25/18 07/25/23 History hydrocortisone 2.5 % topical cream 1 appln topical .COMPLEX 09/30/18 07/25/23 History linaclotide 145 mcg capsule 145 mcg PO DAILY PRN constipation 09/30/18 07/25/23 Rx #90 caps taznxvqltokd-hczdqbce-estbpo tablet 1 tab PO QAM 09/30/18 07/25/23 History nystatin-triamcinolone 100,000 1 appln topical BID #60 grams 09/30/18 07/25/23 Rx unit/g-0.1 % topical cream mupirocin 2 % topical ointment 1 appln topical BID #30 grams 10/01/18 07/25/23 Rx ipratropium bromide 21 mcg (0.03 See Rx Instructions .Route 03/26/21 07/25/23 Rx %) nasal spray .COMPLEX #90 mL simvastatin 20 mg tablet 20 mg PO QPM #90 tabs 11/13/22 07/25/23 Rx montelukast 10 mg tablet 10 mg PO QPM #90 tabs 01/14/23 07/25/23 Rx diltiazem HCl 120 mg capsule,24 120 mg PO QAM #90 caps 04/14/23 07/25/23 Rx hr,extended release mirtazapine 30 mg tablet 30 mg PO HS insomnia mood #90 tabs 04/15/23 07/25/23 Rx cinnamon bark 500 mg capsule 500 mg PO QAM 04/28/23 07/25/23 History escitalopram oxalate 5 mg tablet 5 mg PO QAM 04/28/23 07/25/23 History fesoterodine 8 mg tablet,extended 8 mg PO QPM 04/28/23 07/25/23 History release 24 hr (Toviaz) folic acid 1 mg tablet 1 mg PO QAM 04/28/23 07/25/23 History mirabegron 50 mg tablet,extended 50 mg PO QPM 04/28/23 07/25/23 History release 24 hr (Myrbetriq) multivitamin 1 tab PO QAM 04/28/23 07/25/23 History omeprazole 40 mg capsule,delayed 40 mg PO QAM 04/28/23 07/25/23 History release prednisone 5 mg tablet 5 mg PO QAM 04/28/23 07/25/23 History lisinopril 20 mg tablet 20 mg PO QAM #90 tabs 05/23/23 07/25/23 Rx acetaminophen 500 mg tablet 1,000 mg (2 x 500 mg) PO Q8 #60 05/27/23 07/25/23 Rx (Tylenol Extra Strength) tabs aspirin 81 mg tablet,delayed 81 mg PO BID #60 tabs 05/27/23 07/25/23 Rx release docusate sodium 100 mg capsule 100 mg PO BID #60 caps 05/28/23 07/25/23 Rx ferrous gluconate 225 mg (27 mg 225 mg PO BID #60 tabs 05/28/23 07/25/23 Rx iron) tablet sennosides 8.6 mg tablet (Senokot) 17.2 mg (2 x 8.6 mg) PO HS #20 tabs 05/28/23 07/25/23 Rx tocilizumab 162 mg/0.9 mL 162 mg (0.9 mL) subcut Q7D #3.6 mL 06/09/23 07/25/23 Rx subcutaneous pen injector (Actemra ACTPen) daptomycin 500 mg intravenous 675 mg IV DAILY 42 days #10 ea 06/30/23 07/25/23 Rx solution cefepime 2 gram solution for 2 g IV Q8H #42 ea 07/02/23 07/25/23 Rx injection prevagen PO 07/25/23 History Patient History Medical History Anemia Chronic Hyperkalemia Diabetes mellitus, type 2 Diet controlled Hearing deficit Carotid stenosis, right Under surveillance by vascular, imaging every 2 years Carotid duplex 06/2021: Known MARGARITA occlusion, 60-69% LICA stenosis ("possibly overestimated due to contralateral ICA occlusion), no change compared to 2019 per report Abdominal aneurysm Aortoiliac ultrasound 06/2021: 3.7cm infrarenal AAA (stable) 2 year surviellance recommended by vascular (Dr. Pride) Osteoarthritis, knee Actinic keratoses Spondylolisthesis at L4-L5 level Spinal stenosis of lumbar region "Moderate" at L4-L5 Rheumatoid arthritis H/O prostate cancer Dx 2006 S/p protatectomy Hypercholesteremia Hypertension Surgical History History of colonoscopy Hx of vasectomy History of tooth extraction History of tonsillectomy and adenoidectomy H/O hernia repair H/O prostatectomy Family History Father No problems noted. Mother No problems noted. Other No family history of adverse response to anesthesia Social History Smoking Status: Former smoker Tobacco Type: Cigarettes Second Hand Exposure: No; Do You Dip or Chew Tobacco: No; Hx Alcohol Use: No Hx Substance Use: No Preferred Language: Armenian Communication Ability: Effective Communication Ability Comment: [facility] Health Education Specialist Required: No Beliefs That Will Affect Care: None marital status: Current Living Situation: Family Current Living Situation Comment: with son/Ramiro current occupational status: retired Other Information That Helps Us Care for You: No Feels Safe at Home: Yes Safety Concerns: Feels Safe At This Time Seatbelt Use: always Assistive Devices: Cane and Walker Review of Systems Review of Systems: All systems reviewed & are unremarkable except as noted in HPI & below Physical Exam Physical Exam: General: patient resting comfortably, NAD, non-toxic in appearance, AA&O x 4, very hard of hearing HEENT: NC/AT, PERRL, EOMI, anicteric sclera, conjunctiva without injection, external ear normal to inspection and nontender, nares patent, moist mucus membranes, dentition intact, no oropharyngeal lesions, neck supple, trachea midline, no LAD, no thyromegaly, no JVD Heart: +S1/S2, regular, no m/r/g Lungs: equal air entry bilaterally, no rales/rhonchi/wheezes Abd: +BS, soft, NT/ND, no masses/organomegaly/ascites Ext: warm, 2+ pulses in UE/LE bilaterally, no clubbing/cyanosis or edema, right knee with dressing in place, left slaughter with anterior abrasion, eschar, no active bleed or evidence of secondary infection Neuro: nonfocal, patient AA&O x 4, speech intact, no facial droop, moving all extremities on command with equal strength 5/5 Results & Data Results & Data Vital Signs (Past 12 Hours) Vital Signs Temp Pulse Resp BP Pulse Ox O2 Del Method 08/11/23 19:46 36.8 C 91 H 16 116/67 94 Room Air 08/11/23 15:39 36.6 C 89 19 155/82 H 94 Room Air Laboratory Results Laboratory Results Creatinine 1.39 mg/dl (0.6-1.4) 08/11/23 05:44 Est Cr Clr Drug Dosing 48.2 ml/min 08/11/23 05:44 Est GFR ( Amer) 54.3 ml/min 08/11/23 05:44 Est GFR (Non-Af Amer) 46.9 ml/min 08/11/23 05:44 POC Glucose 146 mg/dl (70-99) H 08/11/23 20:29 Fluid Comment 08/11/23 Unknown Synovial Source Right Knee 08/11/23 Unknown Synovial Color Red 08/11/23 Unknown Synovial Appearance Cloudy 08/11/23 Unknown Synovial WBC (Auto) 12365 /ul (0-200) H 08/11/23 Unknown Synovial RBC (Auto) 175448 /uL 08/11/23 Unknown Synovial Polynuclear % 94.7 % 08/11/23 Unknown Synovial Mononuclear % 5.3 % 08/11/23 Unknown Impressions Knee X-Ray 08/11/23 13:18 XR knee RT 1 or 2V routine CLINICAL HISTORY: possible infection total knee,h/o ID poly exchange COMPARISON STUDY: Right knee 06/25/2023. FINDINGS: There is a right total knee arthroplasty. The hardware appears intact. No abnormal periprostatic lucency. No fracture or dislocation within the right knee. Anterior soft tissue swelling. Moderate knee effusion is suggested. Small foci of soft tissue gas at the anteromedial aspect of the knee. No bony destr uctive changes to suggest an osteomyelitis. IMPRESSION: 1. Anterior soft tissue swelling within the right knee with a moderate knee effusion. 2. Small foci of soft tissue gas within the anteromedial aspect of the knee. This could be due to recent intervention. A gas-forming organism is not excluded. Clinical correlation recommended. 3. Right total knee arthroplasty. The hardware appears intact. 4. This report was called/faxed to the referring physician following dictation. ACT 112: Negative or not required by law. Electronically signed by: Jared Lord M.D. 08/11/2023 2:16 PM PG Care Time/CCT Total # of Minutes Spent Total Time Spent with Patient: Total time spent is greater than 50% in coordination of care (as documented) at patient's floor/unit and/or counseling patient: Coding Level of Care Code 74298 IN/OBS CONSULT LVL 4,60M Diagnoses Infection associated with internal right knee prosthesis, subsequent encounter T84.53XD Encounter type: subsequent encounter Rheumatoid arthritis involving multiple sites, unspecified whether rheumatoid factor present M06.9 Rheumatoid arthritis location: multiple sites Rheumatoid factor presence: unspecified presence Benign essential hypertension I10 Type 2 diabetes mellitus without complication, without long-term current use of insulin E11.9 Diabetes mellitus complication status: without complication Diabetes mellitus temperature inspector insulin use: without snf use Hypercholesteremia E78.00 (1) Infection associated with internal right knee prosthesis Encounter type: subsequent encounter Qualified Code(s): T84.53XD - Infection and inflammatory reaction due to internal right knee prosthesis, subsequent encounter (2) Rheumatoid arthritis Rheumatoid arthritis location: multiple sites Rheumatoid factor presence: unspecified presence Qualified Code(s): M06.9 - Rheumatoid arthritis, unspecified (4) Type 2 diabetes mellitus Diabetes mellitus complication status: without complication Diabetes mellitus temperature inspector insulin use: without snf use Qualified Code(s): E11.9 - Type 2 diabetes mellitus without complications
[2023-08-12] MEDS: INSULIN ASPART PER UNIT CHARGE SC SCH ×2 (05:57→21:42)
[2023-08-12 07:08] LABS: Basophils # (auto) 0.04 K/uL (0.00-0.20); Basophils % (auto) 0.8 %; Eosinophils # (auto) 0.13 K/uL (0.00-0.50); Eosinophils % (auto) 2.7 %; Hematocrit (blood only) 31.4 % (42.0-52.0); Hemoglobin 9.9 g/dl (14.0-18.0); Immature Granulocytes # (auto) 0.09 K/uL (0.01-0.20); Immature Granulocytes % (auto) 1.9 %; Lymphocytes # (auto) 0.47 K/uL (1.20-3.40); Lymphocytes % (auto) 9.9 %; Mean Corpuscular Hemoglobin 30.5 pg (25.0-34.0); Mean Corpuscular Hgb Conc 31.5 g/dL (32.0-36.0); Mean Corpuscular Volume 96.6 fL (80.0-100.0); Mean Platelet Volume 9.6 fL (9.4-12.4); Monocytes # (auto) 0.69 K/uL (0.11-0.59); Monocytes % (auto) 14.5 %; Neutrophils # (auto) 3.33 K/uL (1.40-6.50); Neutrophils % (auto) 70.2 %; Platelet Count 181 K/uL (130-400); RDW Coefficient of Variation 12.9 % (11.5-14.5); RDW Standard Deviation 45.6 fL (36.4-46.3); Red Blood Count 3.25 M/uL (4.70-6.10); White Blood Count 4.75 K/ul (4.8-10.8)
[2023-08-12 07:44] LABS: C Reactive Protein 7.97 mg/dl (0-0.5); Calcium 8.3 mg/dl (8.6-10.3); Creatinine Clr Calc Pharmacy 50.4 ml/min; Est GFR (African American) 57.3 ml/min; Est GFR (Non-African American) 49.4 ml/min; Potassium 3.7 mmol/L (3.5-5.1)
[2023-08-12] MEDS: PANTOprazole 40 MG TAB PO SCH (09:09)
--- NOTE | 2023-08-12 11:41 | Pharmacy Report ---
Pharmacy Glycemic Short Note 2 - Date of Service August 12, 2023 - Glycemic Short BSG Results (Last 24 hours): 08/11/23 08/11/23 08/11/23 11:43 17:19 20:29 Glucose POC Glucose 164 H 141 H 146 H 08/12/23 08/12/23 05:52 06:45 Glucose 145 H POC Glucose 135 H OUTPATIENT ANTIDIABETIC REGIMEN: * n/a * HbA1c: 8.1% (05/09/23) ASSESSMENT: * Mr Bullock is an 83yo M admitted with septic R knee, for which he is receiving dapto and cefepime. * Pt is ordered prednisone 5mg PO daily, which is continued from his outpt regimen. * BSGs have been stable on small doses of Novolog thus far. Will consider add ing small dose of Lantus tomorrow for slightly better control. PLAN FOR INPATIENT GLYCEMIC CONTROL: * Basal insulin * None at this time, will consider adding small daily dose tomorrow if fasting BSG above goal * Bolus insulin * NovoLog per scale ACHS or Q6hrs while NPO * Goal Range: Low 110 mg/dL - High 140 mg/dL * Correction Factor: 25 mg/dL/unit * Nutritional / Prandial insulin per carb ratio of 1 unit per 10 grams CHO consumed
--- NOTE | 2023-08-12 11:44 | Anesthesiology Consultation ---
Date of Service August 12, 2023 Assessment & Plan Chart Review Chart Review: Acceptable Risk for Surgery Consults Requested none History Surgery Operation Date: 08/12/23 07:00 Proposed Procedures p Right Explantation of Total Knee Arthroplasty and Insertion of Knee Spacer, Evacuation of Hemotoma Medial Knee - Luis Hernandez MD Height/Weight Height: 5 ft 11 in Weight: 95 kg Allergies Allergy/AdvReac Type Severity Reaction Status Date / Time adhesive Allergy Mild Redness Verified 07/25/23 15:04 lovastatin Allergy Unknown Unknown Verified 07/25/23 15:04 pseudoephedrine AdvReac Intermediate "[place] high" Verified 07/25/23 15:04 Medications Home Medications Medication Instructions Recorded Confirmed Last Taken calcium carbonate (Calcium 600) 600 mg PO QAM 09/25/18 07/25/23 06/24/23 08:00 hydrocortisone 2.5 % topical cream 1 appln topical .COMPLEX 09/30/18 07/25/23 Unknown linaclotide 145 mcg capsule 145 mcg PO DAILY PRN constipation 09/30/18 07/25/23 Unknown #90 caps osenlkcmknxb-nggihbva-qyedra tablet 1 tab PO QAM 09/30/18 07/25/23 06/24/23 08:00 nystatin-triamcinolone 100,000 1 appln topical BID #60 grams 09/30/18 07/25/23 Unknown unit/g-0.1 % topical cream mupirocin 2 % topical ointment 1 appln topical BID #30 grams 10/01/18 07/25/23 Unknown ipratropium bromide 21 mcg (0.03 See Rx Instructions .Route 03/26/21 07/25/23 05/24/23 08:00 %) nasal spray .COMPLEX #90 mL simvastatin 20 mg tablet 20 mg PO QPM #90 tabs 11/13/22 07/25/23 06/23/23 21:00 montelukast 10 mg tablet 10 mg PO QPM #90 tabs 01/14/23 07/25/23 06/23/23 21:00 diltiazem HCl 120 mg capsule,24 120 mg PO QAM #90 caps 04/14/23 07/25/23 06/24/23 08:00 hr,extended release mirtazapine 30 mg tablet 30 mg PO HS insomnia mood #90 tabs 04/15/23 07/25/2324 21:00 cinnamon bark 500 mg capsule 500 mg PO QAM 04/28/23 07/25/23 06/24/23 08:00 escitalopram oxalate 5 mg tablet 5 mg PO QAM 04/28/23 07/25/23 06/24/23 08:00 fesoterodine 8 mg tablet,extended 8 mg PO QPM 04/28/23 07/25/23 06/23/23 21:00 release 24 hr (Toviaz) folic acid 1 mg tablet 1 mg PO QAM 04/28/23 07/25/23 06/24/23 08:00 mirabegron 50 mg tablet,extended 50 mg PO QPM 04/28/23 07/25/23 06/23/23 21:00 release 24 hr (Myrbetriq) multivitamin 1 tab PO QAM 04/28/23 07/25/23 06/24/23 08:00 omeprazole 40 mg capsule,delayed 40 mg PO QAM 04/28/23 07/25/23 06/24/23 08:00 release prednisone 5 mg tablet 5 mg PO QAM 04/28/23 07/25/23 06/24/23 08:00 lisinopril 20 mg tablet 20 mg PO QAM #90 tabs 05/23/23 07/25/23 06/24/23 08:00 acetaminophen 500 mg tablet 1,000 mg (2 x 500 mg) PO Q8 #60 05/27/23 07/25/23 06/24/23 08:00 (Tylenol Extra Strength) tabs aspirin 81 mg tablet,delayed 81 mg PO BID #60 tabs 05/27/23 07/25/23 06/24/23 08:00 release docusate sodium 100 mg capsule 100 mg PO BID #60 caps 05/28/23 07/25/23 06/24/23 08:00 ferrous gluconate 225 mg (27 mg 225 mg PO BID #60 tabs 05/28/23 07/25/23 06/24/23 08:00 iron) tablet sennosides 8.6 mg tablet (Senokot) 17.2 mg (2 x 8.6 mg) PO HS #20 tabs 05/28/23 07/25/23 Unknown tocilizumab 162 mg/0.9 mL 162 mg (0.9 mL) subcut Q7D #3.6 mL 06/09/23 07/25/23 06/17/23 08:00 subcutaneous pen injector (Actemra ACTPen) daptomycin 500 mg intravenous 675 mg IV DAILY 42 days #10 ea 06/30/23 07/25/23 Unknown solution cefepime 2 gram solution for 2 g IV Q8H #42 ea 07/02/23 07/25/23 Unknown injection prevagen PO 07/25/23 Unknown Active Medications Generic Name Dose Route Start Last Admin Trade Name Johnq PRN Reason Stop Dose Admin Acetaminophen 1,000 mg 08/11/23 17:00 08/12/23 09:09 Acetaminophen 500 Mg Tab PO 09/10/23 16:59 1,000 mg Q8H IDALIA Administration Aspirin 81 mg 08/10/23 21:00 08/12/23 09:09 Aspirin 81 Mg Ectab PO 09/09/23 20:59 81 mg BID IDALIA Administration Diltiazem HCl 120 mg 08/11/23 09:00 08/12/23 09:10 Diltiazem Hcl 120 Mg Capcr PO 09/10/23 08:59 120 mg QAM IDALIA Administration Escitalopram Oxalate 5 mg 08/11/23 09:00 08/12/23 09:10 Escitalopram Oxalate 10 Mg Tab PO 09/10/23 08:59 5 mg QAM IDALIA Administration Cefepime HCl 2,000 mg/ Syringe 20 mls @ 5 mls/min 08/11/23 05:00 08/12/23 05:57 IV 09/22/23 04:59 5 mls/min Q12H IDALIA Administration Protocol Daptomycin 675 mg/ Syringe 13.5 mls @ 6.75 mls/min 08/11/23 09:00 08/12/23 09:15 IV 09/22/23 08:59 6.75 mls/min DAILY IDALIA Administration Protocol Insulin Aspart 0 units 08/12/23 06:00 08/12/23 05:57 Insulin Aspart Per Unit Charge SC 09/11/23 05:59 Not Given Q6 IDALIA Montelukast Sodium 10 mg 08/10/23 21:00 08/11/23 19:50 Montelukast Sodium 10 Mg Tablet PO 09/09/23 20:59 10 mg QPM IDALIA Administration Pantoprazole Sodium 40 mg 08/12/23 09:00 05/07/24 09:09 Pantoprazole 40 Mg Tab PO 09/11/23 08:59 40 mg DAILY IDALIA Administration Prednisone 5 mg 08/11/23 09:00 08/12/23 09:10 Prednisone 5 Mg Tab PO 09/10/23 08:59 5 mg QAM IDALIA Administration Vibegron 75 mg 08/10/23 21:00 08/11/23 19:50 Vibegron 75 Mg Tab PO 09/09/23 20:59 75 mg QPM IDALIA Administration NPO Date Last Intake of Fluids: 08/11/23 Time Last Intake of Fluids: 23:59 Date Last Intake of Solids: 08/11/23 Time Last Intake of Solids: 23:59 Past Medical History Medical History Anemia Chronic Hyperkalemia Diabetes mellitus, type 2 Diet controlled Hearing deficit Carotid stenosis, right Under surveillance by vascular, imaging every 2 years Carotid duplex 06/2021: Known MARGARITA occlusion, 60-69% LICA stenosis ("possibly overestimated due to contralateral ICA occlusion), no change compared to 05/2019 per report Abdominal aneurysm Aortoiliac ultrasound 06/2021: 3.7cm infrarenal AAA (stable) 2 year surviellance recommended by vascular (Dr. Pride) Osteoarthritis, knee Actinic keratoses Spondylolisthesis at L4-L5 level Spinal stenosis of lumbar region "Moderate" at L4-L5 Rheumatoid arthritis H/O prostate cancer Dx 2006 S/p protatectomy Hypercholesteremia Hypertension Past Family History Family History Father No problems noted. Mother No problems noted. Other No family history of adverse response to anesthesia Past Surgical History Surgical History History of colonoscopy Hx of vasectomy History of tooth extraction History of tonsillectomy and adenoidectomy H/O hernia repair H/O prostatectomy Social History Smoking Status: Former smoker Do You Dip or Chew Tobacco: No Hx Alcohol Use: No Hx Substance Use: No substance use type: does not use Physical Exam Vital Signs Last Vital Signs Temp 36.5 C 08/12/23 07:22 Pulse 86 05/07/24 07:22 Resp 12 08/12/23 07:22 BP 138/77 08/12/23 07:22 Pulse Ox 94 08/12/23 07:22 O2 Del Method Room Air 08/12/23 07:22 Testing Laboratory Results 08/12/23 06:45 08/12/23 06:45 08/11/23 Unknown Gram Stain - Final Knee,Right Aerobic and Anaerobic Culture - Preliminary No growth to date. 08/11/23 Unknown Gram Stain - Final Knee,Right Aerobic and Anaerobic Culture - Preliminary No growth to date. 08/12/23 05:52 POC Glucose 135 H
--- NOTE | 2023-08-12 12:11 | Infectious Disease Consult ---
Date of Consultation August 12, 2023 Assessment & Plan (1) Prosthetic joint infection: (2) Leg abrasion, non-infected: (3) Rheumatoid arthritis involving left knee: Plan This is an 83-year-old male with a past medical history of right TKA on 05/26/2023, rheumatoid arthritis (on prednisone 5 mg daily), DM2, prostate cancer status post prostatectomy, decreased hearing, CKD, recently admitted for right knee PJI. He underwent right knee wound exploration, quadricep tendon repair, medial retinaculum repair, I&D with poly ethylene exchange, retained hardware on 06/25/23. Intraoperative cultures grew E faecalis (amp sensitive) and Enterobacter hormaechei. He was evaluated by ID and was discharged on a 6-week course of daptomycin and cefepime ( 06/25/23 - 08/06/2023). This was to be followed by oral suppressive therapy with amoxicillin and Cipro or Bactrim. He completed IV antibiotics at [facility] on 08/06/23 as scheduled. Two days post discharge he fell multiple times at home 2/2 ongoing right knee swelling, pain and restricted range of motion He did not have time to start his oral suppressive therapy. He presented to the ER in [place] on 08/08 and was transferred to the [facility] ER for further evaluation. He denied fever, chills, sweats, nausea, vomiting. In the ED he is afebrile and hemodynamically stable. Labs noted for a WBC 4.75, BUN 20, creatinine 1.33, ESR 45,CRP 7.97 CPK 84. Right knee x-ray showed anterior soft tissue swelling within the right knee with moderate knee effusion, small foci of soft tissue gas within the anterior medial aspect of the knee, intact right total knee arthroplasty hardware.He was evaluated by orthopedics and underwent a right knee arthrocentesis with > 90 K WBC,(94.7% polynuclear) and 150 K RBC. He was started on daptomycin and cefepime. He is pending OR later today, 08/11 . ID consulted for evaluation of ongoing infection after DAIR. On my initial exam he complains of ongoing right knee pain and difficulty ambulating. Micro Right knee hematoma aspirate culture 08/11/2023: Many WBCs, no organisms, no growth to date Right knee joint culture 08/11/2023: Many WBCs seen, no organisms no growth to date Abx: Daptomycin 08/10- ongoing Cefepime 08/10- ongoing # Ongoing R PJI # Right knee PJI s/p I+D with polyethylene exchange and implant retention 06/25/23 - OR cx Enterococcus faecalis+ Enterobacter hormaechei. s/p 6wks Daptomycin/cefepime # H/O Right TKA in 05/2023 # RA on chronic steroids Recommendations Continue Cefepime 2 g IV q12 ( Cr cl ~50) Continue Daptomycin 8 mg/kg IV daily Added Flagyl 500 mg IV q 8 hours ( gas on imaging) Follow up Joint aspirate and ? hematoma aspirate culture (08/10) Follow pending OR procedure and intraoperative culture ( 08/11) Thank you for this consult. ID will continue to follow Sonido Moralez MD, MPH Infectious Disease [facility], [facility] Call [phone] with questions. Consultation Information Consultation was provided via telemedicine using two-way real-time interactive telecommunication between the patient and the telemedicine provider. For the duration of the visit, the provider was performing the assessment from a different facility than the patient. This includesuse of bluetooth stethoscope forauscultationperformed by the telepresenter that the telemedicine provider can hear if described in the physical exam. [employer] contact information: Please call [facility] [phone]. (Phone Number For Physician Use Only) After establishing a telemedicine visit, patient was: Patient was verified with two unique identifiers, Patient/authorized rep acknowledged consent and understanding and Gave permission to continue telehealth session Time Spent with Patient: Initial => 75 min History of Present Illness Reason for Consultation: Ongoing knee infection after DAIR Requesting Physician: Luis Hernandez MD Attending Physician: Vinay Chapin DO History of Present Illness This is an 83-year-old male with a past medical history of right TKA on 05/26/2023, rheumatoid arthritis (on prednisone 5 mg daily), DM2, prostate cancer status post prostatectomy, decreased hearing, CKD, recently admitted for right knee PJI. He underwent right knee wound exploration, quadricep tendon repair, medial retinaculum repair, I&D with poly ethylene exchange, retained hardware on 06/25/23. Intraoperative cultures grew E faecalis (amp sensitive) and Enterobacter hormaechei. He was evaluated by ID and was d ischarged on a 6-week course of daptomycin and cefepime ( 06/25/23 - 08/06/2023). This was to be followed by oral suppressive therapy with amoxicillin and Cipro or Bactrim. He completed IV antibiotics at [facility] on 08/06/23 as scheduled. Two days post discharge he fell multiple times at home 2/2 ongoing right knee swelling, pain and restricted range of motion He did not h ave time to start his oral suppressive therapy. He presented to the ER in [place] on 08/08 and was transferred to the [facility] ER for further evaluation. He denied fever, chills, sweats, nausea, vomiting. In the ED he is afebrile and hemodynamically stable. Labs noted for a WBC 4.75, BUN 20, creatinine 1.33, ESR 45,CRP 7.97 CPK 84. Right knee x-ray showed anterior soft tissue swelling within the right knee with moderate knee effusion, small foci of soft tissue gas within the anterior medial aspect of the knee, intact right total knee arthroplasty hardware.He was evaluated by orth opedics and underwent a right knee arthrocentesis with > 90 K WBC,(94.7% polynuclear) and 150 K RBC. He was started on daptomycin and cefepime. He is pending OR later today, 08/11 . ID consulted for evaluation of ongoing infection after DAIR. On my initial exam he complains of ongoing right knee pain and difficulty ambulating. Allergies Allergy/AdvReac Type Severity Reaction Status Date / Time adhesive Allergy Mild Redness Verified 07/25/23 15:04 lovastatin Allergy Unknown Unknown Verified 07/25/23 15:04 pseudoephedrine AdvReac Intermediate "[place] high" Verified 07/25/23 15:04 Home Medications Medication Instructions Recorded Confirmed Type calcium carbonate (Calcium 600) 600 mg PO QAM 09/25/18 07/25/23 History hydrocortisone 2.5 % topical cream 1 appln topical .COMPLEX 09/30/18 07/25/23 History linaclotide 145 mcg capsule 145 mcg PO DAILY PRN constipation 09/30/18 07/25/23 Rx #90 caps nymagseivrel-cfppeirq-nttgzh tablet 1 tab PO QAM 09/30/18 07/25/23 History nystatin-triamcinolone 100,000 1 appln topical BID #60 grams 09/30/18 07/25/23 Rx unit/g-0.1 % topical cream mupirocin 2 % topical ointment 1 appln topical BID #30 grams 10/01/18 07/25/23 Rx ipratropium bromide 21 mcg (0.03 See Rx Instructions .Route 03/26/21 07/25/23 Rx %) nasal spray .COMPLEX #90 mL simvastatin 20 mg tablet 20 mg PO QPM #90 tabs 11/13/22 07/25/23 Rx montelukast 10 mg tablet 10 mg PO QPM #90 tabs 01/14/23 07/25/23 Rx diltiazem HCl 120 mg capsule,24 120 mg PO QAM #90 caps 04/14/23 07/25/23 Rx hr,extended release mirtazapine 30 mg tablet 30 mg PO HS insomnia mood #90 tabs 04/15/23 07/25/23 Rx cinnamon bark 500 mg capsule 500 mg PO QAM 04/28/23 07/25/23 History escitalopram oxalate 5 mg tablet 5 mg PO QAM 04/28/23 07/25/23 History fesoterodine 8 mg tablet,extended 8 mg PO QPM 04/28/23 07/25/23 History release 24 hr (Toviaz) folic acid 1 mg tablet 1 mg PO QAM 04/28/23 07/25/23 History mirabegron 50 mg tablet,extended 50 mg PO QPM 04/28/23 07/25/23 History release 24 hr (Myrbetriq) multivitamin 1 tab PO QAM 04/28/23 07/25/23 History omeprazole 40 mg capsule,delayed 40 mg PO QAM 04/28/23 07/25/23 History release prednisone 5 mg tablet 5 mg PO QAM 04/28/23 07/25/23 History lisinopril 20 mg tablet 20 mg PO QAM #90 tabs 05/23/23 07/25/23 Rx acetaminophen 500 mg tablet 1,000 mg (2 x 500 mg) PO Q8 #60 05/27/23 07/25/23 Rx (Tylenol Extra Strength) tabs aspirin 81 mg tablet,delayed 81 mg PO BID #60 tabs 05/27/23 07/25/23 Rx release docusate sodium 100 mg capsule 100 mg PO BID #60 caps 05/28/23 07/25/23 Rx ferrous gluconate 225 mg (27 mg 225 mg PO BID #60 tabs 05/28/23 07/25/23 Rx iron) tablet sennosides 8.6 mg tablet (Senokot) 17.2 mg (2 x 8.6 mg) PO HS #20 tabs 05/28/23 07/25/23 Rx tocilizumab 162 mg/0.9 mL 162 mg (0.9 mL) subcut Q7D #3.6 mL 06/09/23 07/25/23 Rx subcutaneous pen injector (Actemra ACTPen) daptomycin 500 mg intravenous 675 mg IV DAILY 42 days #10 ea 06/30/23 07/25/23 Rx solution cefepime 2 gram solution for 2 g IV Q8H #42 ea 07/02/23 07/25/23 Rx injection prevagen PO 07/25/23 History Patient History Medical History Anemia Chronic Hyperkalemia Diabetes mellitus, type 2 Diet controlled Hearing deficit Carotid stenosis, right Under surveillance by vascular, imaging every 2 years Carotid duplex 06/2021: Known MARGARITA occlusion, 60-69% LICA stenosis ("possibly overestimated due to contralateral ICA occlusion), no change compared to 05/2019 per report Abdominal aneurysm Aortoiliac ultrasound 06/2021: 3.7cm infrarenal AAA (stable) 2 year surviellance recommended by vascular (Dr. Pride) Osteoarthritis, knee Actinic keratoses Spondylolisthesis at L4-L5 level Spinal stenosis of lumbar region "Moderate" at L4-L5 Rheumatoid arthritis H/O prostate cancer Dx 2006 S/p protatectomy Hypercholesteremia Hypertension Surgical History History of colonoscopy Hx of vasectomy History of tooth extraction History of tonsillectomy and adenoidectomy H/O hernia repair H/O prostatectomy Family History Father No problems noted. Mother No problems noted. Other No family history of adverse response to anesthesia Social History Smoking Status: Former smoker Tobacco Type: Cigarettes Second Hand Exposure: No; Do You Dip or Chew Tobacco: No; Hx Alcohol Use: No Hx Substance Use: No Preferred Language: Iranian Communication Ability: Effective Communication Ability Comment: [facility] Medical Affairs Director Required: No Beliefs That Will Affect Care: None marital status: Current Living Situation: Family Current Living Situation Comment: with son/Ramiro current occupational status: retired Other Information That Helps Us Care for You: No Feels Safe at Home: Yes Safety Concerns: Feels Safe At This Time Seatbelt Use: always Assistive Devices: Cane and Walker Review of System A 10 point ROS obtained. Pertinent positives as per HPI. Physical Exam Physical Exam: Gen- NAD HEENT-Anicteric sclera, hard of hearing Neck- Supple Lung- No increased work of breathing Abd- soft , not tender, not distended Ext- R LE dressed; Tenderness at knee. L anterior skin abraded skin.Not tender Neuro- Awake , alert, oriented times 3 Results & Data Vital Signs (Past 12 Hours) Vital Signs Temp Pulse Resp BP Pulse Ox O2 Del Method 08/12/23 07:22 36.5 C 86 12 138/77 94 Room Air Laboratory Results Laboratory Results - last 48 hr 08/10/23 08/10/23 08/10/23 16:39 16:55 21:02 WBC RBC Hgb Hct MCV MCH MCHC RDW Std Deviation RDW Coeff of Raudel Plt Count MPV Immature Gran % (Auto) Neut % (Auto) Lymph % (Auto) [place] % (Auto) Eos % (Auto) Baso % (Auto) Neut # (Auto) Lymph # (Auto) [place] # (Auto) Eos # (Auto) Baso # (Auto) Immature Gran # (Auto) ESR Sodium Potassium Chloride Carbon Dioxide Anion Gap BUN Creatinine 1.58 H Est Cr Clr Drug Dosing 42.4 Est GFR ( Amer) 46.5 Est GFR (Non-Af Amer) 40.1 BUN/Creatinine Ratio Glucose POC Glucose 119 H 181 H Calcium Total Creatine Kinase C-Reactive Protein Fluid Comment Synovial Source Synovial Color Synovial Appearance Synovial WBC (Auto) Synovial RBC (Auto) Synovial Polynuclear % Synovial Mononuclear % 08/11/23 08/11/23 08/11/23 05:44 06:28 11:43 WBC RBC Hgb Hct MCV MCH MCHC RDW Std Deviation RDW Coeff of Raudel Plt Count MPV Immature Gran % (Auto) Neut % (Auto) Lymph % (Auto) [place] % (Auto) Eos % (Auto) Baso % (Auto) Neut # (Auto) Lymph # (Auto) [place] # (Auto) Eos # (Auto) Baso # (Auto) Immature Gran # (Auto) ESR Sodium Potassium Chloride Carbon Dioxide Anion Gap BUN Creatinine 1.39 Est Cr Clr Drug Dosing 48.2 Est GFR ( Amer) 54.3 Est GFR (Non-Af Amer) 46.9 BUN/Creatinine Ratio Glucose POC Glucose 148 H 164 H Calcium Total Creatine Kinase C-Reactive Protein Fluid Comment Synovial Source Synovial Color Synovial Appearance Synovial WBC (Auto) Synovial RBC (Auto) Synovial Polynuclear % Synovial Mononuclear % 08/11/23 08/11/23 08/11/23 17:19 20:29 Unknown WBC RBC Hgb Hct MCV MCH MCHC RDW Std Deviation RDW Coeff of Raudel Plt Count MPV Immature Gran % (Auto) Neut % (Auto) Lymph % (Auto) [place] % (Auto) Eos % (Auto) Baso % (Auto) Neut # (Auto) Lymph # (Auto) [place] # (Auto) Eos # (Auto) Baso # (Auto) Immature Gran # (Auto) ESR Sodium Potassium Chloride Carbon Dioxide Anion Gap BUN Creatinine Est Cr Clr Drug Dosing Est GFR ( Amer) Est GFR (Non-Af Amer) BUN/Creatinine Ratio Glucose POC Glucose 141 H 146 H Calcium Total Creatine Kinase C-Reactive Protein Fluid Comment Synovial Source Right Knee Synovial Color Red Synovial Appearance Cloudy Synovial WBC (Auto) 87208 H Synovial RBC (Auto) 573402 Synovial Polynuclear % 94.7 Synovial Mononuclear % 5.3 08/12/23 08/12/23 08/12/23 05:52 06:45 11:46 WBC 4.75 L RBC 3.25 L Hgb 9.9 L Hct 31.4 L MCV 96.6 MCH 30.5 MCHC 31.5 L RDW Std Deviation 45.6 RDW Coeff of Raudel 12.9 Plt Count 181 MPV 9.6 Immature Gran % (Auto) 1.9 Neut % (Auto) 70.2 Lymph % (Auto) 9.9 [place] % (Auto) 14.5 Eos % (Auto) 2.7 Baso % (Auto) 0.8 Neut # (Auto) 3.33 Lymph # (Auto) 0.47 L [place] # (Auto) 0.69 H Eos # (Auto) 0.13 Baso # (Auto) 0.04 Immature Gran # (Auto) 0.09 ESR 45 H Sodium 138 Potassium 3.7 Chloride 105 Carbon Dioxide 24 Anion Gap 9 BUN 20 Creatinine 1.33 Est Cr Clr Drug Dosing 50.4 Est GFR ( Amer) 57.3 Est GFR (Non-Af Amer) 49.4 BUN/Creatinine Ratio 15.0 Glucose 145 H POC Glucose 135 H 146 H Calcium 8.3 L Total Creatine Kinase 84 C-Reactive Protein 7.97 H Fluid Comment Synovial Source Synovial Color Synovial Appearance Synovial WBC (Auto) Synovial RBC (Auto) Synovial Polynuclear % Synovial Mononuclear % Microbiology 08/11/23 Unknown Knee,Right Gram Stain - Final 08/11/23 Unknown Knee,Right Aerobic and Anaerobic Culture - Preliminary No growth to date. 08/11/23 Unknown Knee,Right Gram Stain - Final 08/11/23 Unknown Knee,Right Aerobic and Anaerobic Culture - Preliminary No growth to date. Diagnostic Findings Knee X-Ray 08/11/23 13:18 XR knee RT 1 or 2V routine CLINICAL HISTORY: possible infection total knee,h/o ID poly exchange COMPARISON STUDY: Right knee 06/25/2023. FINDINGS: There is a right total knee arthroplasty. The hardware appears intact. No abnormal periprostatic lucency. No fracture or dislocation within the right knee. Anterior soft tissue swelling. Moderate knee effusion is suggested. Small foci of soft tissue gas at the anteromedial aspect of the knee. No bony destructive changes to suggest an osteomyelitis. IMPRESSION: 1. Anterior soft tissue swelling within the right knee with a moderate knee effusion. 2. Small foci of soft tissue gas within the anteromedial aspect of the knee. This could be due to recent intervention. A gas-forming organism is not excluded. Clinical correlation recommended. 3. Right total knee arthroplasty. The hardware appears intact. 4. This report was called/faxed to the referring physician following dictation. ACT 112: Negative or not required by law. Electronically signed by: Jared Lord M.D. 08/11/2023 2:16 PM Medications Administered Home Medications Medication Instructions Recorded Confirmed Last Taken calcium carbonate (Calcium 600) 600 mg PO QAM 09/25/18 07/25/23 06/24/23 08:00 hydrocortisone 2.5 % topical cream 1 appln topical .COMPLEX 09/30/18 07/25/23 Unknown linaclotide 145 mcg capsule 145 mcg PO DAILY PRN constipation 09/30/18 07/25/23 Unknown #90 caps rkoqrakqplqf-ipkkjplp-mocumu tablet 1 tab PO QAM 09/30/18 07/25/23 06/24/23 08:00 nystatin-triamcinolone 100,000 1 appln topical BID #60 grams 09/30/18 07/25/23 Unknown unit/g-0.1 % topical cream mupirocin 2 % topical ointment 1 appln topical BID #30 grams 10/01/18 07/25/23 Unknown ipratropium bromide 21 mcg (0.03 See Rx Instructions .Route 03/26/21 07/25/23 05/24/23 08:00 %) nasal spray .COMPLEX #90 mL simvastatin 20 mg tablet 20 mg PO QPM #90 tabs 11/13/22 07/25/23 06/23/23 21:00 montelukast 10 mg tablet 10 mg PO QPM #90 tabs 01/14/23 07/25/23 06/23/23 21:00 diltiazem HCl 120 mg capsule,24 120 mg PO QAM #90 caps 04/14/23 07/25/23 06/24/23 08:00 hr,extended release mirtazapine 30 mg tablet 30 mg PO HS insomnia mood #90 tabs 04/15/23 07/25/23 06/23/23 21:00 cinnamon bark 500 mg capsule 500 mg PO QAM 04/28/23 07/25/23 06/24/23 08:00 escitalopram oxalate 5 mg tablet 5 mg PO QAM 04/28/23 07/25/23 06/24/23 08:00 fesoterodine 8 mg tablet,extended 8 mg PO QPM 04/28/23 07/25/23 06/23/23 21:00 release 24 hr (Toviaz) folic acid 1 mg tablet 1 mg PO QAM 04/28/23 07/25/23 06/24/23 08:00 mirabegron 50 mg tablet,extended 50 mg PO QPM 04/28/23 07/25/2306/22/24 21:00 release 24 hr (Myrbetriq) multivitamin 1 tab PO QAM 04/28/23 07/25/23 06/24/23 08:00 omeprazole 40 mg capsule,delayed 40 mg PO QAM 04/28/23 07/25/23 06/24/23 08:00 release prednisone 5 mg tablet 5 mg PO QAM 04/28/23 07/25/23 06/24/23 08:00 lisinopril 20 mg tablet 20 mg PO QAM #90 tabs 05/23/23 07/25/23 06/24/23 08:00 acetaminophen 500 mg tablet 1,000 mg (2 x 500 mg) PO Q8 #60 05/27/23 07/25/23 06/24/23 08:00 (Tylenol Extra Strength) tabs aspirin 81 mg tablet,delayed 81 mg PO BID #60 tabs 05/27/23 07/25/23 06/24/23 08:00 release docusate sodium 100 mg capsule 100 mg PO BID #60 caps 05/28/23 07/25/23 06/24/23 08:00 ferrous gluconate 225 mg (27 mg 225 mg PO BID #60 tabs 05/28/23 07/25/23 06/24/23 08:00 iron) tablet sennosides 8.6 mg tablet (Senokot) 17.2 mg (2 x 8.6 mg) PO HS #20 tabs 05/28/23 07/25/23 Unknown tocilizumab 162 mg/0.9 mL 162 mg (0.9 mL) subcut Q7D #3.6 mL 06/09/23 07/25/23 06/17/23 08:00 subcutaneous pen injector (Actemra ACTPen) daptomycin 500 mg intravenous 675 mg IV DAILY 42 days #10 ea 06/30/23 07/25/23 Unknown solution cefepime 2 gram solution for 2 g IV Q8H #42 ea 07/02/23 07/25/23 Unknown injection prevagen PO 07/25/23 Unknown Active Medications Generic Name Dose Route Start Last Admin Trade Name Freq PRN Reason Stop Dose Admin Acetaminophen 1,000 mg 08/11/23 17:00 08/12/23 09:09 Acetaminophen 500 Mg Tab PO 09/10/23 16:59 1,000 mg Q8H IDALIA Administration Aspirin 81 mg 08/10/23 21:00 08/12/23 09:09 Aspirin 81 Mg Ectab PO 09/09/23 20:59 81 mg BID IDALIA Administration Diltiazem HCl 120 mg 08/11/23 09:00 08/12/23 09:10 Diltiazem Hcl 120 Mg Capcr PO 09/10/23 08:59 120 mg QAM IDALIA Administration Escitalopram Oxalate 5 mg 08/11/23 09:00 08/12/23 09:10 Escitalopram Oxalate 10 Mg Tab PO 09/10/23 08:59 5 mg QAM IDALIA Administration Cefepime HCl 2,000 mg/ Syringe 20 mls @ 5 mls/min 08/11/23 05:00 08/12/23 05:57 IV 09/22/23 04:59 5 mls/min Q12H IDALIA Administration Protocol Daptomycin 675 mg/ Syringe 13.5 mls @ 6.75 mls/min 08/11/23 09:00 08/12/23 09:15 IV 09/22/23 08:59 6.75 mls/min DAILY IDALIA Administration Protocol Hydrocortisone Sodium 2 mls @ 4 mls/min 08/12/23 12:30 08/12/23 12:36 Succinate 100 mg/ Syringe IV 08/13/23 12:29 4 mls/min Q8 IDALIA Administration Lactated Ringer's 1,000 mls @ 15 mls/hr 08/12/23 12:45 08/12/23 12:41 Lr IV 09/11/23 12:44 15 mls/hr .Q24H IDALIA Administration Insulin Aspart 0 units 08/12/23 06:00 08/12/23 12:09 Insulin Aspart Per Unit Charge SC 09/11/23 05:59 Not Given Q6 IDALIA Montelukast Sodium 10 mg 08/10/23 21:00 08/11/23 19:50 Montelukast Sodium 10 Mg Tablet PO 09/09/23 20:59 10 mg QPM IDALIA Administration Pantoprazole Sodium 40 mg 08/12/23 09:00 08/12/23 09:09 Pantoprazole 40 Mg Tab PO 09/11/23 08:59 40 mg DAILY IDALIA Administration Prednisone 5 mg 08/11/23 09:00 08/12/23 09:10 Prednisone 5 Mg Tab PO 09/10/23 08:59 5 mg QAM IDALIA Administration Vibegron 75 mg 08/10/23 21:00 08/11/23 19:50 Vibegron 75 Mg Tab PO 09/09/23 20:59 75 mg QPM IDALIA Administration (1) Prosthetic joint infection Encounter type: initial encounter Qualified Code(s): T84.50XA - Infection and inflammatory reaction due to unspecified internal joint prosthesis, initial encounter (3) Rheumatoid arthritis involving left knee Rheumatoid factor presence: unspecified presence Qualified Code(s): M06.9 - Rheumatoid arthritis, unspecified
[2023-08-12] MEDS: HYDROCORTISONE SOD 100 MG in SYRINGE 0 ML IV SCH (12:36)
[2023-08-12] MEDS: LACTATED RINGER'S 1,000 ML IV SCH (12:41)
[2023-08-12] MEDS ORDERED: LIDOCAINE 2% 2 ML VIAL/AMP(20MG/ML) INFIL ONE (12:46)
[2023-08-12] MEDS ORDERED: fentaNYL citrate PF 100 MCG/2 ML VIAL ONE ×2 (12:46→15:03)
[2023-08-12] MEDS ORDERED: PROPOFOL IV EMULSION 10 MG/ML 20 ML VIAL IV ONE (12:46)
[2023-08-12] MEDS ORDERED: MIDAZOLAM HCL 1 MG/ML 2ML VIAL ONE (12:46)
[2023-08-12] MEDS ORDERED: ROCURONIUM BROMIDE 10 MG/ML 5 ML VIAL IV ONE (12:46)
[2023-08-12] MEDS ORDERED: HYDROmorphone INJ 2 MG/ML SYR/VIAL IV PRN (12:56)
[2023-08-12] MEDS ORDERED: ePHEDrine sulfate 50 MG/ML AMP IV PRN (12:56)
[2023-08-12] MEDS ORDERED: ATROPINE SULFATE 0.1 MG/ML 10ML SYR IV PRN (12:56)
[2023-08-12] MEDS ORDERED: ONDANSETRON INJ 2 MG/ML 2 ML VIAL IV PRN ×2 (12:56→18:10)
[2023-08-12] MEDS ORDERED: PROMETHAZINE HCL 6.25 MG in SODIUM CHLORIDE 0.9% 50 ML IV PRN (12:56)
--- NOTE | 2023-08-12 13:30 | History & Physical Bridge Note ---
Date of Service August 12, 2023 History & Physical Bridge Note I have examined the patient, reviewed the History & Physical and in the interval since the performance of the History & Physical I have noted the following changes of clinical significance: no changes noted. Knee aspirate consistent with infection of right total knee replacement.
[2023-08-12] MEDS ORDERED: SODIUM CHLORIDE 0.9% 250 ML IV PRN (13:51)
--- NOTE | 2023-08-12 15:04 | Hospitalist Progress Note ---
Date of Service August 12, 2023 Assessment & Plan (1) Infection associated with internal right knee prosthesis: Plan: 83yo male presenting after a fall with redness, pain and swelling of right prosthetic knee. Patient is s/p right TKA on 05/26/23 with subsequent wound deh iscence and prosthetic joint infection s/p completion of IV Cefepime and Daptomycin (6 week course of antibiotics completed 08/06/23). He has had ongoing pain, swelling and gait instability. Joint aspiration performed in the ER today by Orthopedics is concerning for persistent prosthetic joint infection. Patient is afebrile, HD stable and non-toxic in appearance. -Patient admitted to Orthopedic Surgery service -Follow cultures sent from joint aspiration 08/11/23 -Infectious disease on board -CRP and ESR elevated -CK level 84. Will hold Simvastatin while patient is on Daptomycin -Tylenol and Oxycodone as needed for pain control (2) Rheumatoid arthritis: Plan: Chronic. Stable -Continue home dose of Prednisone 5mg po qAM -Patient is undergoing surgery. Ordered a stress dose of steroid with 100 mg IV for 3 doses. (3) Benign essential hypertension: Plan: Blood pressure at goal. -Hold Lisinopril for now for possible surgical debridement -Continue Diltiazem -Continue to monitor BP (4) Type 2 diabetes mellitus: Plan: Last HgbA1C = 8.1 on 05/09/23. Diet controlled and patient uses Cinnamon Bark at home. Reports fairly well controlled blood sugars. -Pharmacy Glycemic management consultation placed -Goal blood sugars 110 - 140 (5) Hypercholesteremia: Plan: Chronic -Holding Simvastatin Admission and Anticipated Discharge Date Admission Date: August 10, 2023 Subjective Patient is hard of hearing. Denies any new complaints of chest pain or shortness of breath. Review of Systems Review of Systems: All systems reviewed & are unremarkable except as noted in Subjective Physical Exam Physical Exam: General: Awake, conversant Heart: S1, S2/regular rate and rhythm, no murmur rubs or gallops Lungs: Clear to auscultation bilaterally. Normal effort Abdomen: Soft/nontender/nondistended. No hepatosplenomegaly Extremities: No clubbing/cyanosis. Right knee dressing on Behavior: Appropriate, cooperative Results & Data Results & Data Vital Signs (Past 12 Hours) Vital Signs Temp Pulse Resp BP Pulse Ox O2 Del Method 08/12/23 12:30 37.0 C 85 16 131/89 96 Room Air 08/12/23 07:22 36.5 C 86 12 138/77 94 Room Air Laboratory Results Abnormal lab results 08/11/23 08/11/23 08/11/23 Range/Units 17:19 20:29 Unknown WBC (4.8-10.8) K/ul RBC (4.70-6.10) M/uL Hgb (14.0-18.0) g/dl Hct (42.0-52.0) % MCHC (32.0-36.0) g/dL Lymph # (Auto) (1.20-3.40) K/uL [place] # (Auto) (0.11-0.59) K/uL ESR (0-20) mm/hr Glucose (70-99(Fasting)) mg/dl POC Glucose 141 H 146 H (70-99) mg/dl Calcium (8.6-10.3) mg/dl C-Reactive Protein (0-0.5) mg/dl Synovial WBC (Auto) 72156 H (0-200) /ul Crossmatch 08/12/23 08/12/23 08/12/23 Range/Units 05:52 06:45 11:46 WBC 4.75 L (4.8-10.8) K/ul RBC 3.25 L (4.70-6.10) M/uL Hgb 9.9 L (14.0-18.0) g/dl Hct 31.4 L (42.0-52.0) % MCHC 31.5 L (32.0-36.0) g/dL Lymph # (Auto) 0.47 L (1.20-3.40) K/uL Stonewall # (Auto) 0.69 H (0.11-0.59) K/uL ESR 45 H (0-20) mm/hr Glucose 145 H (70-99(Fasting)) mg/dl POC Glucose 135 H 146 H (70-99) mg/dl Calcium 8.3 L (8.6-10.3) mg/dl C-Reactive Protein 7.97 H (0-0.5) mg/dl Synovial WBC (Auto) (0-200) /ul Crossmatch 08/12/23 Range/Units 14:09 WBC (4.8-10.8) K/ul RBC (4.70-6.10) M/uL Hgb (14.0-18.0) g/dl Hct (42.0-52.0) % MCHC (32.0-36.0) g/dL Lymph # (Auto) (1.20-3.40) K/uL [place] # (Auto) (0.11-0.59) K/uL ESR (0-20) mm/hr Glucose (70-99(Fasting)) mg/dl POC Glucose (70-99) mg/dl Calcium (8.6-10.3) mg/dl C-Reactive Protein (0-0.5) mg/dl Synovial WBC (Auto) (0-200) /ul Crossmatch See Detail PG Care Time/CCT Total # of Minutes Spent Total Time Spent with Patient: Total time spent is greater than 50% in coordination of care (as documented) at patient's floor/unit and/or counseling patient: Coding Level of Care Code 75925 SUB INP/OBS CARE MIN Diagnoses Infection associated with internal right knee prosthesis, subsequent encounter T84.53XD Encounter type: subsequent encounter Rheumatoid arthritis involving multiple sites, unspecified whether rheumatoid factor present M06.9 Rheumatoid arthritis location: multiple sites Rheumatoid factor presence: unspecified presence Benign essential hypertension I10 Type 2 diabetes mellitus without complication, without long-term current use of insulin E11.9 Diabetes mellitus intermediate insulin use: without intermediate use Diabetes mellitus complication status: without complication Hypercholesteremia E78.00 (1) Infection associated with internal right knee prosthesis Encounter type: subsequent encounter Qualified Code(s): T84.53XD - Infection and inflammatory reaction due to internal right knee prosthesis, subsequent encounter (2) Rheumatoid arthritis Rheumatoid arthritis location: multiple sites Rheumatoid factor presence: unspecified presence Qualified Code(s): M06.9 - Rheumatoid arthritis, unspecified (4) Type 2 diabetes mellitus 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
[2023-08-12] MEDS: TOBRAMYCIN SULFATE VIAL ONE (15:12)
[2023-08-12] MEDS: VANCOMYCIN HCL 1000MG/20ML VIAL ONE (15:12)
--- NOTE | 2023-08-12 16:19 | Post Operative Brief Note ---
Immediate Post Op Note v1 Date of Surgery August 12, 2023 Pre & Post Diagnosis Operation Date: 08/12/23 07:00 Pre-Op Diagnosis: Septic knee joint Post-Op Diagnosis: Septic knee joint I identified the patient and participated in the time-out.: Yes Procedure Operation Date: 08/12/23 07:00 Actual Procedures p Right Explantation of Total Knee Arthroplasty and Insertion of Knee Spacer, Evacuation of Hemotoma Medial Knee(Right) - Francesco Hernandez MD Surgeon francesco hernandez House Painter Helper jocelyn cali md , olga lidia aragon pac Estimated Blood Loss 25 Findings Consistent with Post-Op Diagnosis large hematoma comunicated with knee joint Drains Lara Catheter (Inserted prior to procedure start by Eddi Leon RN; 10cc in balloon; clear, yellow urine returned) and Elliot-Barbosa Drain (10f PVC Drain)
[2023-08-12] MEDS ORDERED: ONDANSETRON INJ 2 MG/ML 2 ML VIAL ONE (16:20)
[2023-08-12] MEDS ORDERED: SUGAMMADEX SODIUM 200 MG/2 ML VIAL IV ONE (16:20)
[2023-08-12] MEDS: fentaNYL citrate PF 100 MCG/2 ML VIAL IV PRN (17:05)
--- NOTE | 2023-08-12 17:15 | Post Operative Brief Note ---
Immediate Post Op Note v1 Date of Surgery August 12, 2023 Pre & Post Diagnosis Operation Date: 08/12/23 07:00 Pre-Op Diagnosis: Septic knee joint of total knee replacement, infected hematoma medial knee, status post DAIR procedure for postop wound dehiscence status post postoperative fall. Post-Op Diagnosis: Same I identified the patient and participated in the time-out.: Yes Procedure Operation Date: 08/12/23 07:00 Actual Procedures p Right Explantation of Total Knee Arthroplasty and Insertion of antibiotic cement knee Spacer, Evacuation of Hemotoma Medial Knee(Right), irrigation debridement skin subcutaneous tissue and knee joint and electrocautery synovectomy knee joint.- Luis Hernandez MD Surgeon Luis Hernandez MD, Ector Weber MD Chief Engineer'S Helper jocelyn weber md , olga lidia [facility] Estimated Blood Loss 15 Findings Consistent with Post-Op Diagnosis Specimens Multiple deep cultures including soft tissue Drains Lara Catheter (Inserted prior to procedure start by Eddi Leon RN; 10cc in balloon; clear, yellow urine returned) and Elliot-Barbosa Drain (10f PVC Drain) Anesthesia Type General Complications none Disposition Disposition: Recovery Room Overlapping Procedure I was immediately available: during the entire case.
--- NOTE | 2023-08-12 17:41 | Operative Report ---
Post Operative Report Pre & Post Diagnosis Operation Date: 08/12/23 07:00 Pre-Op Diagnosis: Right septic knee joint of total knee arthroplasty, medial knee infected hematoma, status post DAIR procedure for postop wound dehiscence after index surgery. Post-Op Diagnosis: Same, skin edge necrosis of incision. I identified the patient and participated in the time-out.: Yes Procedure Operation Date: 08/12/23 07:00 Actual Procedures p Right Explantation of Total Knee Arthroplasty and Insertion of static antibiotic cement knee Spacer, Evacuation of Hemotoma Medial Knee(Right), irrigation and debridement of skin and subcutaneous tissue and knee joint including electrocautery synovectomy and debridement with Versajet- Luis Hernandez MD Surgeon Luis Hernandez MD Cellophane Press Operator jocelyn weber md , yan rodríguez [facility] Estimated Blood Loss 15 Findings Consistent with Post-Op Diagnosis Specimens Deep cultures including soft tissue Drains 2 Hemovac and Lara catheter Anesthesia Type General Complications none Disposition Disposition: Recovery Room Indications 83-year-old male who had a postop wound dehiscence after his index procedure and had a debridement and retention of implant and PICC line and 6 weeks antibiotics and despite that had a recurrent fall which had him present to the ER few days later after the fall and his knee appeared to be infected and was transferred to [facility] after which I aspirated his knee joint and medial hematoma fluid collection over the pes bursa area which revealed fresh bloody hematoma collection medially however the knee joint had some cloudy blood-tinged fluid and cell count consistent with septic knee still despite antibiotics. Previous infection was Enterococcus faecalis sensitive to ampicillin and daptomycin and Enterobacter hormaechei sensitive to cefepime and gentamicin. Description of Procedure Patient was taken to the operating room placed spine on the operating table. Lara catheter was placed due to patient with history of incontinence. Right knee exam demonstrated healed incision with some skin edge necrosis at the distal centimeter of his incision and a few scabs on the incision. He had a fluid collection over the medial side of the lower aspect of the knee incision just above the pes anserine tendon area. He had a knee effusion and no active drainage. Range of motion 0 through 120 degrees. A pneumatic tourniquet placed about the right upper thigh the right lower extremity was prepped and draped in sterile fashion. The leg was elevated and then the tourniquet was raised to 300 mmHg. Previous scar was used for the incision. Incision was carried down through edematous tissue to the quadriceps mechanism and medial retinaculum whi ch was all intact. On the medial side of the knee there was a pocket of fluid over the upper aspect of the pes anserine tendon and medial retinacular repair site where the hematoma was evacuated by needle aspiration 1 day preop. There appeared to be a small communication with the knee joint about 5 mm. Sharp incision was made through the medial retinaculum and up into the quadriceps tendon in the mid third. The joint had signs of infection. There was chronic thickened scarred synovial tissue. Deep cultures were obtained including soft tissue and a swab from underneath the polyethylene which was removed with a hemostat. Polyethylene was normal and intact. All components were well-fixed. After all cultures were obtained and the knee was irrigated with pulsatile lavage saline solution and then electrocautery synovectomy was performed and the Versajet was used to further debride the knee joint including medial and lateral gutters and in the posterior joint space as well. All bleeders that were obvious were cauterized. Attention was first taken to removing the femoral component which was removed by using thin sawblade's and osteotomes and mallet and bone tamp. All cement was debrided off of the end of the femur.. Tibia was removed by using a larger thin sawblade and also the smaller thin sawblade's and then osteotomes to remove the cement from the metaphyseal area of the implant and then we used a OMAR extraction device attached to the tibial component to disimpact the tibia. This remove the main tibial component but the stem maintained within the intramedullary canal and this had to be removed by using a reciprocating saw and cement removal instruments to remove that all successfully. After all cement was removed the femoral canal and tibial canals were reamed to 18 mm on the tibia and 20 mm on the femur to thoroughly debride the canals . The patella component was sought off with the oscillating saw and the peg holes were drilled and curetted to remove the implant material. Thorough irrigation was performed with 9 L of saline solution. Pulsatile lavage was utilized. A static cement spacer was then formulated. A total of 5 g of vancomycin and 15 g of tobramycin were utilized for this cement and dowels were made with 2 mm K wires placed within them for the femoral and tibial canals and then a cement spacer placed between the tibia and the femur holding the leg out to length by keeping traction on the extremity while the cement pacer was formulated and molded between the femur and tibia creating a static spacer. After the cement hardened further irrigation was performed and 2 drains were brought out laterally connected to a Hemovac. The joint as well as the soft tissues were irrigated with xperience. We quadriceps tendon medial retinaculum were repaired with interrupted #1 Vicryl bacterial resistance suture. The subcutaneous tissue was repaired with 2-0 Vicryl bacterial resistance suture. Skin was closed with tommy and I did have to previously debride the necrotic skin at the edge of the distal incision along the distal 2 cm just at the edges with sharp dissection using a scalpel debriding the skin edge dermis and subcu taneous tissue in that area. And this area was repaired with 2-0 nylon vertical mattress sutures. Adaptic dressing sterile bandages were applied and a compressive wrap including a knee immobilizer. Tourniquet was let down at a 125 minutes and patient had good capillary refill to the extremity and tolerated procedure well. Dr. Weber was co-surgeon and the procedure and Yan SUERO was list of first job ideas. Dr. Weber participated in all aspects of explantation and fabrication of the antibiotic spacer and Yan Rodríguez assisted in retraction throughout the procedure the explantation and wound closure and postoperative care as well I attest to the content of the Intraoperative Record and any orders documented therein. Any exceptions are noted below.
[2023-08-12] MEDS ORDERED: METOCLOPRAMIDE HCL INJ 5 MG/ML 2 ML VIAL IV PRN (18:10)
[2023-08-12] MEDS ORDERED: MAGNESIUM HYDROXIDE SUSP 30 ML UDC PO PRN (18:10)
[2023-08-12] MEDS ORDERED: NALOXONE HCL 0.4 MG/1 ML VIAL/CARP IV PRN (18:10)
[2023-08-12] MEDS ORDERED: bisacodyL 10 MG SUPP PR PRN (18:10)
--- NOTE | 2023-08-12 18:45 | Anesthesiology Progress Note ---
Date of Service August 12, 2023 Anesthesia Post Procedure Vital Signs Vital Signs: Temp Pulse Pulse Resp BP BP Pulse Ox 08/12/23 18:38 36.3 C L 79 16 128/77 99 08/12/23 18:17 36.6 C 85 18 156/85 H 95 08/12/23 17:55 83 13 135/74 96 08/12/23 17:45 37.1 C 89 18 136/78 95 08/12/23 17:35 93 H 22 129/76 94 08/12/23 17:25 89 14 134/91 97 08/12/23 17:15 87 14 144/83 H 98 08/12/23 17:05 88 20 146/90 H 96 08/12/23 16:59 37.3 C 89 16 149/82 H 95 08/12/23 12:30 37.0 C 85 16 131/89 96 08/12/23 07:22 36.5 C 86 12 138/77 94 08/11/23 19:50 08/11/23 19:46 36.8 C 91 H 16 116/67 94 O2 Del Method O2 Flow Rate 08/12/23 18:38 Nasal Cannula 2 08/12/23 18:17 Nasal Cannula 2 08/12/23 17:55 Nasal Cannula 3 08/12/23 17:45 Nasal Cannula 3 08/12/23 17:35 Nasal Cannula 3 08/12/23 17:25 Nasal Cannula 5 08/12/23 17:15 Oxymask 9 08/12/23 17:05 Oxymask 9 08/12/23 16:59 Oxymask 9 08/12/23 12:30 Room Air 08/12/23 07:22 Room Air 08/11/23 19:50 Room Air 08/11/23 19:46 Room Air Pain Intensity Right Knee: Pain Intensity: 4 Transfer of Care Handoff Completed per policy Notes Mental Status: alert / awake / arousable and participated in evaluation Patient Amnestic to Procedure: Yes Nausea / Vomiting: adequately controlled Pain: adequately controlled Airway Patency, RR, SpO2: stable & adequate BP & HR: stable & adequate Hydration State: stable & adequate Anesthetic Complications: no major complications apparent and Pt Satisfied with anesthetic care
[2023-08-12] MEDS ORDERED: Nursing to Pharmacy Communication SCH (19:15)
[2023-08-12] MEDS: oxyCODONE HCL IR 5 MG TAB (IMMEDIATE RELEASE) PO PRN (21:26)
[2023-08-12] MEDS: SODIUM CHLORIDE 0.9% 1,000 ML IV SCH (21:27)
[2023-08-12] MEDS: SENNA 8.6 MG TAB PO SCH (21:28)
[2023-08-12] MEDS: DOCUSATE SODIUM 100 MG CAP PO SCH (21:28)
[2023-08-12] MEDS: MIRTAZAPINE TAB 15 MG TAB PO SCH (21:29)
[2023-08-12] MEDS: metroNIDAZOLE 500 MG/100 ML BAG IV SCH (22:29)
--- NOTE | 2023-08-13 06:02 | Communication Note ---
Date of Service: August 13, 2023 I received a message from nursing that Mr. Bullock is wearing a DNR wristband, however he is listed as a Full Code in the chart. I went to bedside and talked to Mr. Bullock- he confirmed that he desires to be DNR/DNI and does not want resuscitation if he were to stop breathing or if his heart were to stop beating. The patient stated that he has been DNR/DNI "for a while" and that this is not a new decision for him. I have updated his code status to reflect his wishes.
--- NOTE | 2023-08-13 07:28 | XRay Report ---
XR knee RT 1 or 2V routine CLINICAL HISTORY: s/p knee antibiotic cement spacer,ap and lat views TECHNIQUE: 2 views of the right knee were obtained. Comparison: Comparison is made to knee radiographs 08/11/2023 FINDINGS: Postsurgical changes of arthroplasty removal and antibiotic spacer noted. Expected subcutaneous emphy sema. IMPRESSION: Expected postsurgical changes of hardware removal and antibiotic spacer placement. ACT 112: Negative or not required by law. Electronically signed by: Jigar Prater M.D. 08/13/2023 7:25 AM
[2023-08-13 07:34] LABS: Hematocrit (blood only) 25.1 % (42.0-52.0); Hemoglobin 8.2 g/dl (14.0-18.0); Mean Corpuscular Hemoglobin 31.3 pg (25.0-34.0); Mean Corpuscular Hgb Conc 32.7 g/dL (32.0-36.0); Mean Corpuscular Volume 95.8 fL (80.0-100.0); Mean Platelet Volume 10.1 fL (9.4-12.4); Platelet Count 197 K/uL (130-400); RDW Coefficient of Variation 12.7 % (11.5-14.5); RDW Standard Deviation 44.6 fL (36.4-46.3); Red Blood Count 2.62 M/uL (4.70-6.10); White Blood Count 7.69 K/ul (4.8-10.8)
[2023-08-13 08:06] LABS: Creatinine Clr Calc Pharmacy 47.5 ml/min; Est GFR (African American) 53.4 ml/min; Est GFR (Non-African American) 46.1 ml/min; Potassium 4.2 mmol/L (3.5-5.1)
[2023-08-13] MEDS: MULTIVITAMIN TAB PO SCH (08:38)
--- NOTE | 2023-08-13 14:01 | Pharmacy Report ---
Pharmacy Glycemic Short Note 2 - Date of Service August 13, 2023 - Glycemic Short BSG Results (Last 24 hours): 08/12/23 08/12/23 08/12/23 17:02 18:45 21:13 Glucose POC Glucose 194 H 198 H 245 H 08/13/23 08/13/23 08/13/23 06:16 07:53 11:43 Glucose 153 H POC Glucose 158 H 189 H OUTPATIENT ANTIDIABETIC REGIMEN: * n/a * HbA1c: 8.1% (05/09/23) ASSESSMENT: 08/12: * BSGs did trend upward yesterday after diet ordered- tightened carb ratio this morning * Fasting 158 mg/dL, as this is above goal will add 5 units BID of lantus and monitor 08/11 * Mr Bullock is an 83yo M admitted with septic R knee, for which he is receiving dapto and cefepime. * Pt is ordered prednisone 5mg PO daily, which is continued from his outpt regimen. * BSGs have been stable on small doses of Novolog thus far. Will consider adding small dose of Lantus tomorrow for slightly better control. PLAN FOR INPATIENT GLYCEMIC CONTROL: * Basal insulin * 5 units sq BID * Bolus insulin * NovoLog per scale ACHS or Q6hrs while NPO * Goal Range: Low 110 mg/dL - High 140 mg/dL * Correction Factor: 25 mg/dL/unit * Nutritional / Prandial insulin per carb ratio of 1 unit per 8 grams CHO consumed
--- NOTE | 2023-08-13 14:02 | Orthopedic Progress Note ---
Date of Service August 13, 2023 Assessment & Plan (1) Infection associated with internal right knee prosthesis: Plan: After dressing change well order double upright hinged knee brace for extremity. Patient needs to stay on IV antibiotics 6 weeks at least and least a year of oral antibiotics. Waiting final cultures see if there is any antibiotic change. Appreciate any input from infectious disease. Patient can be weightbearing as tolerated right leg with brace on right leg and walker. Patient will not be able to bend right knee as keeps knee in full extension. Monitored drainage. Hemovac placed off of suction for 4 hours and then will place back on suction and observe. Anemia due to postop bleeding. If hemoglobin less than 7 will require transfusion or if become symptomatic. Patient will go back to same institution he was at before when he was getting IV antibiotics I presume. Social service can make appropriate arrangements. Admission and Anticipated Discharge Date Admission Date: August 10, 2023 Subjective Patient says his mental status better since infections been treated. Having pain in the right knee and left knee pain is resolved completely. Review of Systems Review of Systems: No fever or chills, does not feel ill, not lightheaded or dizzy. Physical Exam Physical Exam: Brace intact dressing dry and intact drainage from Hemovac gradually decreasing but did have a lot of drainage postop. No change in circulation right leg or left leg. Results & Data Vital Signs (Past 12 Hours) Vital Signs Temp Pulse Resp BP Pulse Ox O2 Del Method O2 Flow Rate 08/13/23 07:57 36.9 C 88 18 131/77 91 Room Air 08/13/23 03:20 36.8 C 89 18 121/63 95 Nasal Cannula 2 Laboratory Results Hemoglobin 8.2, BUN 24, creatinine 1.4 Diagnostic Findings X-rays right knee demonstrate good position with neutral alignment of the extremity. (1) Infection associated with internal right knee prosthesis Encounter type: subsequent encounter Qualified Code(s): T84.53XD - Infection and inflammatory reaction due to internal right knee prosthesis, subsequent encounter
--- NOTE | 2023-08-13 15:13 | Hospitalist Progress Note ---
Date of Service August 13, 2023 Assessment & Plan (1) Infection associated with internal right knee prosthesis: Plan: 83yo male presenting after a fall with redness, pain and swelling of right prosthetic knee. Patient is s/p right TKA on 05/26/23 with subsequent wound deh iscence and prosthetic joint infection s/p completion of IV Cefepime and Daptomycin (6 week course of antibiotics completed 08/06/23). He has had ongoing pain, swelling and gait instability. Joint aspiration performed in the ER today by Orthopedics is concerning for persistent prosthetic joint infection. Patient is afebrile, HD stable and non-toxic in appearance. -Patient admitted to Orthopedic Surgery service -Follow cultures sent from joint aspiration 08/11/23 and surgical wound cultures on 08/11 -Infectious disease on board -CRP and ESR elevated -CK level 84. Will hold Simvastatin while patient is on Daptomycin -Tylenol and Oxycodone as needed for pain control (2) Rheumatoid arthritis: Plan: Chronic. Stable -Continue home dose of Prednisone 5mg po qAM -Patient was given stress dose of steroids perioperatively. (3) Benign essential hypertension: Plan: Blood pressure at goal. -Hold Lisinopril as creatinine is slightly elevated today at 1.4. Recheck BMP tomorrow. Avoid nephrotoxins. -Continue Diltiazem -Continue to monitor BP (4) Type 2 diabetes mellitus: Plan: Last HgbA1C = 8.1 on 05/09/23. Diet controlled and patient uses Cinnamon Bark at home. Reports fairly well controlled blood sugars. -Pharmacy Glycemic management consultation placed -Goal blood sugars 110 - 140 (5) Hypercholesteremia: Plan: Chronic -Holding Simvastatin Admission and Anticipated Discharge Date Admission Date: August 10, 2023 Subjective Patient feels better overall. Denies chest pain or shortness of breath. No dizziness. Review of Systems Review of Systems: All systems reviewed & are unremarkable except as noted in Subjective Physical Exam Physical Exam: General: Awake, conversant Heart: S1, S2/regular rate and rhythm, no murmur rubs or gallops Lungs: Clear to auscultation bilaterally. Normal effort Abdomen: Soft/nontender/nondistended. No hepatosplenomegaly Extremities: No clubbing/cyanosis. Right knee dressing on Behavior: Appropriate, cooperative Results & Data Results & Data Vital Signs (Past 12 Hours) Vital Signs Temp Pulse Resp BP Pulse Ox O2 Del Method O2 Flow Rate 08/13/23 07:57 36.9 C 88 18 131/77 91 Room Air 08/13/23 03:20 36.8 C 89 18 121/63 95 Nasal Cannula 2 Laboratory Results Abnormal lab results 08/12/23 08/12/23 08/12/23 Range/Units 17:02 18:45 21:13 RBC (4.70-6.10) M/uL Hgb (14.0-18.0) g/dl Hct (42.0-52.0) % BUN (6-23) mg/dl Creatinine (0.6-1.4) mg/dl Glucose (70-99(Fasting)) mg/dl POC Glucose 194 H 198 H 245 H (70-99) mg/dl Calcium (8.6-10.3) mg/dl 08/13/23 08/13/23 08/13/23 Range/Units 06:16 07:53 11:43 RBC 2.62 L (4.70-6.10) M/uL Hgb 8.2 L (14.0-18.0) g/dl Hct 25.1 L (42.0-52.0) % BUN 24 H (6-23) mg/dl Creatinine 1.41 H (0.6-1.4) mg/dl Glucose 153 H (70-99(Fasting)) mg/dl POC Glucose 158 H 189 H (70-99) mg/dl Calcium 8.0 L (8.6-10.3) mg/dl PG Care Time/CCT Total # of Minutes Spent Total Time Spent with Patient: Total time spent is greater than 50% in coordination of care (as documented) at patient's floor/unit and/or counseling patient: Coding Level of Care Code 46084 SUB INP/OBS CARE 2/35MIN Diagnoses Infection associated with internal right knee prosthesis, subsequent encounter T84.53XD Encounter type: subsequent encounter Rheumatoid arthritis involving multiple sites, unspecified whether rheumatoid factor present M06.9 Rheumatoid arthritis location: multiple sites Rheumatoid factor presence: unspecified presence Benign essential hypertension I10 Type 2 diabetes mellitus without complication, without long-term current use of insulin E11.9 Diabetes mellitus furniture stainer insulin use: without fci use Diabetes mellitus complication status: without complication Hypercholesteremia E78.00 (1) Infection associated with internal right knee prosthesis Encounter type: subsequent encounter Qualified Code(s): T84.53XD - Infection and inflammatory reaction due to internal right knee prosthesis, subsequent encounter (2) Rheumatoid arthritis Rheumatoid arthritis location: multiple sites Rheumatoid factor presence: unspecified presence Qualified Code(s): M06.9 - Rheumatoid arthritis, unspecified (4) Type 2 diabetes mellitus Diabetes mellitus furniture stainer insulin use: without fci use Diabetes mellitus complication status: without complication Qualified Code(s): E11.9 - Type 2 diabetes mellitus without complications
--- NOTE | 2023-08-13 18:32 | Infectious Disease Progress Nt ---
Date of Service August 13, 2023 Assessment & Plan (1) Prosthetic joint infection: (2) Leg abrasion, non-infected: (3) Rheumatoid arthritis involving left knee: Plan This is an 83-year-old male with a past medical history of right TKA on 05/26/2023, rheumatoid arthritis (on prednisone 5 mg daily), DM2, prostate cancer status post prostatectomy, decreased hearing, CKD, recently admitted for right knee PJI. He underwent right knee wound exploration, quadricep tendon repair, medial retinaculum repair, I&D with poly ethylene exchange, retained hardware on 06/25/23. Intraoperative cultures grew E faecalis (amp sensitive) and Enterobacter hormaechei. He was evaluated by ID and was discharged on a 6-week course of daptomycin and cefepime ( 06/25/23 - 08/06/2023). This was to be followed by oral suppressive therapy with amoxicillin and Cipro or Bactrim. He completed IV antibiotics at [facility] on 08/06/23 as scheduled. Two days post discharge he fell multiple times at home /2 ongoing right knee swelling, pain and restricted range of motion He did not have time to start his oral suppressive therapy. He presented to the ER in [place] on 08/08 and was transferred to the [facility] ER for further evaluation. He denied fever, chills, sweats, nausea, vomiting. In the ED he is afebrile and hemodynamically stable. Labs noted for a WBC 4.75, BUN 20, creatinine 1.33, ESR 45,CRP 7.97 CPK 84. Right knee x-ray showed anterior soft tissue swelling within the right knee with moderate knee effusion, small foci of soft tissue gas within the anterior medial aspect of the knee, intact right total knee arthroplasty hardware.He was evaluated by orthopedics and underwent a right knee arthrocentesis with > 90 K WBC,(94.7% polynuclear) and 150 K RBC. He was started on daptomycin and cefepime. He is pending OR later today, 08/11 . ID consulted for evaluation of ongoing infection after DAIR. On my initial exam he complains of ongoing right knee pain and difficulty ambulating. Micro Right knee hematoma aspirate culture 08/11/2023: Many WBCs, no organisms, no growth to date Right knee joint culture 08/11/2023: Many WBCs seen, no organisms no growth to date right Knee OR cx 08/11 (ngtd) Abx: Daptomycin 08/10- ongoing Cefepime 08/10- ongoing # Ongoing R PJI - Per OR report 08/11 , The joint had signs of infection. There was chronic thickened scarred synovial tissue - Sp explantation of TKA and Insertion of static antibiotic cement knee Spacer, Evacuation of Hematoma Medial Knee , irrigation and debridement of skin and subcutaneous tissue and knee joint including electrocautery synovectomy and debridement 08/12/23 ( cx pending) # Right knee PJI s/p I+D with polyethylene exchange and implant retention 06/25/23 - OR cx Enterococcus faecalis+ Enterobacter hormaechei. s/p 6wks Daptomycin/cefepime # H/O Right TKA in 05/2023 # RA on chronic steroids Recommendations Continue Cefepime 2 g IV q12 ( Cr cl ~48) Continue Daptomycin 8 mg/kg IV daily Continue Flagyl 500 mg IV q 8 hours ( gas on imaging) Follow up Joint aspirate and ? hematoma aspirate culture (08/10) Follow pending OR procedure and intraoperative culture ( 08/11) Anticipate 6 weeks of pathogen targeted IV antibiotics followed by oral suppressive abx therapy Sonido Moralez MD, MPH Infectious Disease [facility], ID Division Call [phone] with questions. Admission and Anticipated Discharge Date Admission Date: August 10, 2023 Subjective This patient recommendation is based on a telemedicine consult request which was completed asynchronously through chart review and information provided by the primary physician. The patient was not seen or examined today. The evaluation is consultative in nature and all patient care and treatment decisions can either be accepted or rejected by the patient's primary hospital-based treating physician using their own independent medical judgment for their patient. Time Spent Reviewing Chart: 21 - 30 minutes s/p knee hardware removal OR cx pending Results & Data Vital Signs (Past 12 Hours) Vital Signs Temp Pulse Resp BP Pulse Ox O2 Del Method 08/13/23 16:17 36.4 C L 92 H 18 118/73 94 Room Air 08/13/23 07:57 36.9 C 88 18 131/77 91 Room Air Laboratory Results Short CBC 08/13/23 Range/Units 06:16 WBC 7.69 (4.8-10.8) K/ul Hgb 8.2 L (14.0-18.0) g/dl Hct 25.1 L (42.0-52.0) % Plt Count 197 (130-400) K/uL BMP 08/13/23 06:16 Sodium 137 Potassium 4.2 Chloride 105 Carbon Dioxide 24 BUN 24 H Creatinine 1.41 H Glucose 153 H Calcium 8.0 L Microbiology 08/12/23 14:53 Knee,Right Gram Stain - Final 08/12/23 14:53 Knee,Right Aerobic and Anaerobic Culture - Preliminary No growth to date. 08/12/23 15:03 Knee,Right Gram Stain - Final 08/12/23 15:03 Knee,Right Aerobic and Anaerobic Culture - Preliminary No growth to date. 08/12/23 14:33 Knee,Right Gram Stain - Final 08/12/23 14:33 Knee,Right Aerobic and Anaerobic Culture - Preliminary No growth to date. 08/11/23 Unknown Knee,Right Gram Stain - Final 08/11/23 Unknown Knee,Right Aerobic and Anaerobic Culture - Preliminary No growth to date. 08/11/23 Unknown Knee,Right Gram Stain - Final 08/11/23 Unknown Knee,Right Aerobic and Anaerobic Culture - Preliminary No growth to date. Diagnostic Findings Knee X-Ray 08/11/23 13:18 XR knee RT 1 or 2V routine CLINICAL HISTORY: possible infection total knee,h/o ID poly exchange COMPARISON STUDY: Right knee 06/25/2023. FINDINGS: There is a right total knee arthroplasty. The hardware appears intact. No abnormal periprostatic lucency. No fracture or dislocation within the right knee. Anterior soft tissue swelling. Moderate knee effusion is suggested. Small foci of soft tissue gas at the anteromedial aspect of the knee. No bony destructive changes to suggest an osteomyelitis. IMPRESSION: 1. Anterior soft tissue swelling within the right knee with a moderate knee effusion. 2. Small foci of soft tissue gas within the anteromedial aspect of the knee. This could be due to recent intervention. A gas-forming organism is not excluded. Clinical correlation recommended. 3. Right total knee arthroplasty. The hardware appears intact. 4. This report was called/faxed to the referring physician following dictation. ACT 112: Negative or not required by law. Electronically signed by: Jared Lord M.D. 08/11/2023 2:16 PM Knee X-Ray 08/12/23 19:33 XR knee RT 1 or 2V routine CLINICAL HISTORY: s/p knee antibiotic cement spacer,ap and lat views TECHNIQUE: 2 views of the right knee were obtained. Comparison: Comparison is made to knee radiographs 08/11/2023 FINDINGS: Postsurgical changes of arthroplasty removal and antibiotic spacer noted. Expected subcutaneous emphysema. IMPRESSION: Expected postsurgical changes of hardware removal and antibiotic spacer placement. ACT 112: Negative or not required by law. Electronically signed by: Jigar Prater M.D. 08/13/2023 7:25 AM Medications Administered Home Medications Medication Instructions Recorded Confirmed Last Taken calcium carbonate (Calcium 600) 600 mg PO QAM 09/25/18 07/25/23 06/24/23 08:00 hydrocortisone 2.5 % topical cream 1 appln topical .COMPLEX 09/30/18 07/25/23 Unknown linaclotide 145 mcg capsule 145 mcg PO DAILY PRN constipation 09/30/18 07/25/23 Unknown #90 caps kjvvoprnwpsr-meicikiz-hlhrfj tablet 1 tab PO QAM 09/30/18 07/25/23 06/24/23 08:00 nystatin-triamcinolone 100,000 1 appln topical BID #60 grams 09/30/18 07/25/23 Unknown unit/g-0.1 % topical cream mupirocin 2 % topical ointment 1 appln topical BID #30 grams 10/01/18 07/25/23 Unknown ipratropium bromide 21 mcg (0.03 See Rx Instructions .Route 03/26/21 07/25/23 05/24/23 08:00 %) nasal spray .COMPLEX #90 mL simvastatin 20 mg tablet 20 mg PO QPM #90 tabs 11/13/22 07/25/23 06/23/23 21:00 montelukast 10 mg tablet 10 mg PO QPM #90 tabs 01/14/23 07/25/23 06/23/23 21:00 diltiazem HCl 120 mg capsule,24 120 mg PO QAM #90 caps 04/14/23 07/25/23 06/24/23 08:00 hr,extended release mirtazapine 30 mg tablet 30 mg PO HS insomnia mood #90 tabs 04/15/23 07/25/23 06/23/23 21:00 cinnamon bark 500 mg capsule 500 mg PO QAM 04/28/23 07/25/23 06/24/23 08:00 escitalopram oxalate 5 mg tablet 5 mg PO QAM 04/28/23 07/25/23 06/24/23 08:00 fesoterodine 8 mg tablet,extended 8 mg PO QPM 04/28/23 07/25/23 06/23/23 21:00 release 24 hr (Toviaz) folic acid 1 mg tablet 1 mg PO QAM 04/28/23 07/25/23 06/24/23 08:00 mirabegron 50 mg tablet,extended 50 mg PO QPM 04/28/23 07/25/23 06/23/23 21:00 release 24 hr (Myrbetriq) multivitamin 1 tab PO QAM 04/28/23 07/25/23 06/24/23 08:00 omeprazole 40 mg capsule,delayed 40 mg PO QAM 04/28/23 07/25/23 06/24/23 08:00 release prednisone 5 mg tablet 5 mg PO QAM 04/28/23 07/25/23 06/24/23 08:00 lisinopril 20 mg tablet 20 mg PO QAM #90 tabs 05/23/23 07/25/23 06/24/23 08:00 acetaminophen 500 mg tablet 1,000 mg (2 x 500 mg) PO Q8 #60 05/27/23 07/25/23 06/24/23 08:00 (Tylenol Extra Strength) tabs aspirin 81 mg tablet,delayed 81 mg PO BID #60 tabs 05/27/23 07/25/23 06/24/23 08:00 release docusate sodium 100 mg capsule 100 mg PO BID #60 caps 05/28/23 07/25/23 06/24/23 08:00 ferrous gluconate 225 mg (27 mg 225 mg PO BID #60 tabs 05/28/23 07/25/23 0 06/24/23 08:00 iron) tablet sennosides 8.6 mg tablet (Senokot) 17.2 mg (2 x 8.6 mg) PO HS #20 tabs 05/28/23 07/25/23 Unknown tocilizumab 162 mg/0.9 mL 162 mg (0.9 mL) subcut Q7D #3.6 mL 06/09/23 07/25/23 06/17/23 08:00 subcutaneous pen injector (Actemra ACTPen) daptomycin 500 mg intravenous 675 mg IV DAILY 42 days #10 ea 06/30/23 07/25/23 Unknown solution cefepime 2 gram solution for 2 g IV Q8H #42 ea 07/02/23 07/25/23 Unknown injection prevagen PO 07/25/23 Unknown Active Medications Generic Name Dose Route Start Last Admin Trade Name Brice PRN Reason Stop Dose Admin Acetaminophen 1,000 mg 08/11/23 17:00 08/13/23 17:16 Acetaminophen 500 Mg Tab PO 09/10/23 16:59 1,000 mg Q8H IDALIA Administration Aspirin 81 mg 08/10/23 21:00 08/13/23 08:38 Aspirin 81 Mg Ectab PO 09/09/23 20:59 81 mg BID IDALIA Administration Diltiazem HCl 120 mg 08/11/23 09:00 08/13/23 08:38 Diltiazem Hcl 120 Mg Capcr PO 09/10/23 08:59 120 mg QAM IDALIA Administration Docusate Sodium 100 mg 08/12/23 21:00 08/13/23 08:37 Docusate Sodium 100 Mg Cap PO 09/11/23 20:59 100 mg BID IDALIA Administration Escitalopram Oxalate 5 mg 08/11/23 09:00 08/13/23 08:38 Escitalopram Oxalate 10 Mg Tab PO 09/10/23 08:59 5 mg QAM IDALIA Administration Cefepime HCl 2,000 mg/ Syringe 20 mls @ 5 mls/min 08/11/23 05:00 08/13/23 04:32 IV 09/22/23 04:59 5 mls/min Q12H IDALIA Administration Protocol Daptomycin 675 mg/ Syringe 13.5 mls @ 6.75 mls/min 08/11/23 09:00 08/13/23 09:00 IV 09/22/23 08:59 6.75 mls/min DAILY IDALIA Administration Protocol Metronidazole 500 mg in 100 mls @ 100 mls/hr 08/12/23 22:00 08/13/23 16:05 Flagyl IV 09/23/23 21:59 Infused Q8H IDALIA Infusion Protocol Insulin Aspart 0 units 08/12/23 19:20 08/13/23 17:16 Insulin Aspart Per Unit Charge SC 09/11/23 05:59 7 units ACHS IDALIA Administration Mirtazapine 30 mg 08/12/23 21:00 08/12/23 21:29 Mirtazapine Tab 15 Mg Tab PO 09/11/23 20:59 30 mg HS IDALIA Administration Montelukast Sodium 10 mg 08/10/23 21:00 08/12/23 21:28 Montelukast Sodium 10 Mg Tablet PO 09/09/23 20:59 10 mg QPM IDALIA Administration Multivitamins 1 tab 08/13/23 09:00 08/13/23 08:38 Multivitamin Tab PO 09/12/23 08:59 1 tab QAM IDALIA Administration Oxycodone HCl 5 mg 08/11/23 16:58 08/13/23 11:17 Oxycodone Hcl Ir 5 Mg Tab (Immediate Release) PO 08/25/23 16:57 5 mg Q4 PRN Administration Pain Pantoprazole Sodium 40 mg 08/12/23 09:00 08/13/23 08:38 Pantoprazole 40 Mg Tab PO 09/11/23 08:59 40 mg DAILY IDALIA Administration Prednisone 5 mg 08/11/23 09:00 08/13/23 10:15 Prednisone 5 Mg Tab PO 09/10/23 08:59 5 mg QAM IDALIA Administration Sennosides 17.2 mg 08/12/23 21:00 08/12/23 21:28 Senna 8.6 Mg Tab PO 09/11/23 20:59 17.2 mg HS IDALIA Administration Vibegron 75 mg 08/10/23 21:00 08/12/23 21:29 Vibegron 75 Mg Tab PO 09/09/23 20:59 75 mg QPM IDALIA Administration (1) Prosthetic joint infection Encounter type: initial encounter Qualified Code(s): T84.50XA - Infection and inflammatory reaction due to unspecified internal joint prosthesis, initial encounter (3) Rheumatoid arthritis involving left knee Rheumatoid factor presence: unspecified presence Qualified Code(s): M06.9 - Rheumatoid arthritis, unspecified
[2023-08-13] MEDS: LANTUS PER UNIT CHARGE SC SCH (20:11)
[2023-08-14 07:39] LABS: Basophils # (auto) 0.05 K/uL (0.00-0.20); Basophils % (auto) 0.7 %; Eosinophils # (auto) 0.09 K/uL (0.00-0.50); Eosinophils % (auto) 1.2 %; Hematocrit (blood only) 24.5 % (42.0-52.0); Hemoglobin 7.9 g/dl (14.0-18.0); Immature Granulocytes % (auto) 1.3 %; Lymphocytes # (auto) 0.66 K/uL (1.20-3.40); Lymphocytes % (auto) 8.6 %; Mean Corpuscular Hemoglobin 31.2 pg (25.0-34.0); Mean Corpuscular Hgb Conc 32.2 g/dL (32.0-36.0); Mean Corpuscular Volume 96.8 fL (80.0-100.0); Mean Platelet Volume 9.8 fL (9.4-12.4); Monocytes # (auto) 0.91 K/uL (0.11-0.59); Monocytes % (auto) 11.8 %; Neutrophils # (auto) 5.87 K/uL (1.40-6.50); Neutrophils % (auto) 76.4 %; Platelet Count 200 K/uL (130-400); RDW Coefficient of Variation 12.9 % (11.5-14.5); RDW Standard Deviation 46.1 fL (36.4-46.3); Red Blood Count 2.53 M/uL (4.70-6.10); White Blood Count 7.68 K/ul (4.8-10.8)
[2023-08-14 07:47] LABS: BUN Creatinine Ratio 16.9 (10-20); Creatinine Clr Calc Pharmacy 37.6 ml/min; Est GFR (African American) 40.3 ml/min; Est GFR (Non-African American) 34.8 ml/min; Potassium 3.6 mmol/L (3.5-5.1)
[2023-08-14 08:00] LABS: RBC Morphology Unremarkable
[2023-08-14 08:13] LABS: Estimated Average Glucose 148 mg/dl; Hemoglobin A1C 6.8 % (4.5-5.6)
--- NOTE | 2023-08-14 10:15 | Orthopedic Progress Note ---
Date of Service August 14, 2023 Assessment & Plan (1) Infection associated with internal right knee prosthesis: Plan: Postop day 2 status post explant right total knee arthroplasty with implantation of antibiotic static spacer, irrigation debridement right knee. PT OT protocols. Weightbearing as tolerated. With immobilizer on. Plans will be to order a hinged knee orthosis for the right knee once dressing change has been done. DVT prophylaxis-aspirin p.o. twice daily, SCDs, MUNIR hose. Pain management as written. Continue to follow cultures. Currently on cefepime and daptomycin. Infectious disease team is following. Patient will require 6 weeks of IV antibiotics. Will await infectious disease team's final recommendations. Plan for dressing change tomorrow with removal of Hemovac. DC planning- patient would likely require a residential facility. Admission and Anticipated Discharge Date Admission Date: August 10, 2023 Subjective Postop day 2 patient sitting up in bed awake and alert. Complaining of some pain in the right knee when he gets up to use the restroom. Currently pain is controlled. No other complaints right now. Denies shortness of breath, chest pain, lightheadedness. Infectious disease has talked to the patient. We discussed current plans and waiting on cultures etc. Physical Exam Physical Exam: Dressings are clean, dry, and intact. Calves are soft nontender. History of neuropathy of the lower extremities. Hemovac drainage was 50 cc from early AM. Results & Data Vital Signs (Past 12 Hours) Vital Signs Temp Pulse Resp BP Pulse Ox O2 Del Method 08/14/23 07:53 36.5 C 94 H 18 172/84 H 95 Room Air 08/13/23 22:36 37.1 C 91 H 18 128/60 93 Room Air (1) Infection associated with internal right knee prosthesis Encounter type: subsequent encounter Qualified Code(s): T84.53XD - Infection and inflammatory reaction due to internal right knee prosthesis, subsequent encounter
[2023-08-14] MEDS: POTASSIUM CHLORIDE 40 MEQ in SODIUM CHLORIDE 0.9% 1,000 ML IV SCH (11:35)
--- NOTE | 2023-08-14 15:12 | Pharmacy Report ---
Pharmacy Glycemic Short Note 2 - Date of Service August 14, 2023 - Glycemic Short BSG Results (Last 24 hours): 08/13/23 08/13/23 08/14/23 16:45 20:03 06:38 Glucose 103 H POC Glucose 128 H 137 H 08/14/23 08/14/23 07:50 11:35 Glucose POC Glucose 106 H 140 H OUTPATIENT ANTIDIABETIC REGIMEN: * n/a * HbA1c: 8.1% (05/09/23) ASSESSMENT: 08/13: * Eyad received 18 units of SQ insulin yesterday (5 units basal + 13 units bolus). * Fasting BSG decreased from 158 -> 106 mg/dL. Will continue BID Lantus but adjust the order to dose per scale to prevent hypoglycemia. * No other changes needed today 08/12: * BSGs did trend upward yesterday after diet ordered- tightened carb ratio this morning * Fasting 158 mg/dL, as this is above goal will add 5 units BID of lantus and monitor 08/11 * Mr Bullock is an 83yo M admitted with septic R knee, for which he is receiving dapto and cefepime. * Pt is ordered prednisone 5mg PO daily, which is continued from his outpt regimen. * BSGs have been stable on small doses of Novolog thus far. Will consider adding small dose of Lantus tomorrow for slightly better control. PLAN FOR INPATIENT GLYCEMIC CONTROL: * Basal insulin * Lanuts 0-5 units SQ BID (5 units if BSG is > 140 mg/dL) * Bolus insulin * NovoLog per scale ACHS or Q6hrs while NPO * Goal Range: Low 110 mg/dL - High 140 mg/dL * Correction Factor: 25 mg/dL/unit * Nutritional / Prandial insulin per carb ratio of 1 unit per 8 grams CHO consumed
--- NOTE | 2023-08-14 15:38 | Nuclear Medicine Report ---
NUCLEAR PULMONARY PERFUSION SCAN CLINICAL HISTORY: Lower extremity edema/infection. Recent surgery. Clinical concern for pulmonary emb olus. COMPARISON STUDY: Chest x-ray dated 05/02/2023. TECHNIQUE: Nuclear perfusions images of both lungs were obtained following the IV administration of 5 .4 mCi of technetium 99m MAA. Images were acquired in the anterior, posterior, and oblique projection s. Note that interpretation is suboptimal without current chest x-ray correlate FINDINGS: A chest x-ray performed 05/02/2023 shows cardiomegaly with bibasilar scarring/atelectasis. No current chest x-ray was available for review. Perfusion of both lungs is heterogeneous with no segmental perfusion defects identified. IMPRESSION: There are no perfusion defects identified to suggest pulmonary embolus. ACT 112: Negative or not required by law. Electronically signed by: Ramiro Gonzales M.D. 08/14/2023 3:37 PM
--- NOTE | 2023-08-14 16:50 | Hospitalist Progress Note ---
Date of Service August 14, 2023 Assessment & Plan (1) Infection associated with internal right knee prosthesis: Plan: 83yo male presenting after a fall with redness, pain and swelling of right prosthetic knee. Patient is s/p right TKA on 05/26/23 with subsequent wound deh iscence and prosthetic joint infection s/p completion of IV Cefepime and Daptomycin (6 week course of antibiotics completed 08/06/23). He has had ongoing pain, swelling and gait instability. Joint aspiration performed in the ER today by Orthopedics is concerning for persistent prosthetic joint infection. Patient is afebrile, HD stable and non-toxic in appearance. -Patient admitted to Orthopedic Surgery service. Underwent surgery on 08/11. Please review operative note. -Follow cultures sent from joint aspiration 08/11/23 and surgical wound cultures on 08/11 -Infectious disease on board -CRP and ESR elevated -CK level 84. Will hold Simvastatin while patient is on Daptomycin -Tylenol and Oxycodone as needed for pain control (2) Rheumatoid arthritis: Plan: Chronic. Stable -Continue home dose of Prednisone 5mg po qAM -Patient was given stress dose of steroids perioperatively. (3) Acute kidney injury: Plan: Creatinine trending up. 1.7 today Patient appears dehydrated. Patient has not been drinking enough fluids Ordered IV fluids Recheck labs in a.m. Avoid nephrotoxic medications Hold lisinopril (4) Benign essential hypertension: Plan: Blood pressure at goal. -Hold Lisinopril as creatinine is going up. Blood pressure controlled without it. -Continue Diltiazem -Continue to monitor BP (5) Type 2 diabetes mellitus: Plan: Last HgbA1C = 8.1 on 05/09/23. Diet controlled and patient uses Cinnamon Bark at home. Reports fairly well controlled blood sugars. Repeat A1c 6.8 -Pharmacy Glycemic management consultation placed -Goal blood sugars 110 - 140 (6) Hypercholesteremia: Plan: Chronic -Holding Simvastatin Plan Patient had complained of pleuritic chest pain. A VQ scan was done which was negative for PE thankfully. VTE prophylaxis: Eliquis 2.5 mg p.o. twice daily (cleared by orthopedics) discontinued aspirin twice daily CODE STATUS: DNR/DNI Admission and Anticipated Discharge Date Admission Date: August 10, 2023 Subjective Per nurse, patient has been not eating well. The patient tells me that he does not have an appetite. Noted that his kidney function is slightly worse today. I was told by the nurse that the patient had chest pain on taking deep breath in. A VQ scan was ordered which was negative for PE. Review of Systems Review of Systems: All systems reviewed & are unremarkable except as noted in Subjective Physical Exam Physical Exam: General: Awake, conversant. Very hard of hearing. Heart: S1, S2/regular rate and rhythm, no murmur rubs or gallops Lungs: Clear to auscultation bilaterally. Normal effort Abdomen: Soft/nontender/nondistended. No hepatosplenomegaly Extremities: No clubbing/cyanosis. Right knee dressing on Behavior: Appropriate, cooperative Results & Data Results & Data Vital Signs (Past 12 Hours) Vital Signs Temp Pulse Resp BP Pulse Ox O2 Del Method 08/14/23 16:12 37.3 C 89 18 132/85 94 Room Air 08/14/23 07:53 36.5 C 94 H 18 172/84 H 95 Room Air Laboratory Results Abnormal lab results 08/13/23 08/13/23 08/14/23 Range/Units 16:45 20:03 06:38 RBC 2.53 L (4.70-6.10) M/uL Hgb 7.9 L (14.0-18.0) g/dl Hct 24.5 L (42.0-52.0) % Lymph # (Auto) 0.66 L (1.20-3.40) K/uL [place] # (Auto) 0.91 H (0.11-0.59) K/uL BUN 30 H (6-23) mg/dl Creatinine 1.78 H D (0.6-1.4) mg/dl Glucose 103 H (70-99(Fasting)) mg/dl POC Glucose 128 H 137 H (70-99) mg/dl Hemoglobin A1c 6.8 H (4.5-5.6) % Calcium 8.0 L (8.6-10.3) mg/dl 08/14/23 08/14/23 08/14/23 Range/Units 07:50 11:35 16:19 RBC (4.70-6.10) M/uL Hgb (14.0-18.0) g/dl Hct (42.0-52.0) % Lymph # (Auto) (1.20-3.40) K/uL [place] # (Auto) (0.11-0.59) K/uL BUN (6-23) mg/dl Creatinine (0.6-1.4) mg/dl Glucose (70-99(Fasting)) mg/dl POC Glucose 106 H 140 H 173 H (70-99) mg/dl Hemoglobin A1c (4.5-5.6) % Calcium (8.6-10.3) mg/dl PG Care Time/CCT Total # of Minutes Spent Total Time Spent with Patient: Total time spent is greater than 50% in coordination of care (as documented) at patient's floor/unit and/or counseling patient: Coding Level of Care Code 42916 SUB INP/OBS CARE MIN Diagnoses Infection associated with internal right knee prosthesis, subsequent encounter T84.53XD Encounter type: subsequent encounter Rheumatoid arthritis involving multiple sites, unspecified whether rheumatoid factor present M06.9 Rheumatoid arthritis location: multiple sites Rheumatoid factor presence: unspecified presence Acute kidney injury N17.9 Benign essential hypertension I10 Type 2 diabetes mellitus without complication, without long-term current use of insulin E11.9 Diabetes mellitus complication status: without complication 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: without local intermodal truck driver use Hypercholesteremia E78.00 (1) Infection associated with internal right knee prosthesis Encounter type: subsequent encounter Qualified Code(s): T84.53XD - Infection and inflammatory reaction due to internal right knee prosthesis, subsequent encounter (2) Rheumatoid arthritis Rheumatoid arthritis location: multiple sites Rheumatoid factor presence: unspecified presence Qualified Code(s): M06.9 - Rheumatoid arthritis, unspecified (5) Type 2 diabetes mellitus Diabetes mellitus complication status: without complication 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
[2023-08-14] MEDS: APIXABAN 2.5 MG TAB PO SCH (19:40)
[2023-08-14] MEDS: LANTUS PER UNIT CHARGE SC SCH (20:53)
[2023-08-15 06:49] LABS: Basophils # (auto) 0.05 K/uL (0.00-0.20); Basophils % (auto) 0.4 %; Eosinophils # (auto) 0.07 K/uL (0.00-0.50); Eosinophils % (auto) 0.6 %; Hematocrit (blood only) 28.2 % (42.0-52.0); Hemoglobin 9.1 g/dl (14.0-18.0); Immature Granulocytes # (auto) 0.13 K/uL (0.01-0.20); Immature Granulocytes % (auto) 1.1 %; Lymphocytes # (auto) 0.99 K/uL (1.20-3.40); Mean Corpuscular Hemoglobin 31.3 pg (25.0-34.0); Mean Corpuscular Hgb Conc 32.3 g/dL (32.0-36.0); Mean Corpuscular Volume 96.9 fL (80.0-100.0); Mean Platelet Volume 9.7 fL (9.4-12.4); Monocytes # (auto) 1.24 K/uL (0.11-0.59); Monocytes % (auto) 10.1 %; Neutrophils # (auto) 9.85 K/uL (1.40-6.50); Neutrophils % (auto) 79.8 %; Platelet Count 230 K/uL (130-400); RDW Coefficient of Variation 13.3 % (11.5-14.5); Red Blood Count 2.91 M/uL (4.70-6.10); White Blood Count 12.33 K/ul (4.8-10.8)
--- NOTE | 2023-08-15 06:52 | Orthopedic Progress Note ---
Date of Service August 15, 2023 Assessment & Plan (1) Infection associated with internal right knee prosthesis: Plan: Postop day 3 status post explant right total knee arthroplasty with implantation of antibiotic static spacer, irrigation debridement right knee. PT OT protocols. Weightbearing as tolerated. With immobilizer on. Plans will be to order a hinged knee orthosis for the right knee once dressing change has been done. DVT prophylaxis-aspirin p.o. twice daily, SCDs, MUNIR hose. Pain management as written. Continue to follow cultures. Currently on cefepime and daptomycin. Infectious disease team is following. Patient will require 6 weeks of IV antibiotics. Will await infectious disease team's final recommendations. Plan for dressing change today with drain removal. Orthotics to place hinged knee brace later today. Pleuritic chest pain-VQ scan negative. Appreciate hospitalist service. Defer to them for any further workup. Acute blood loss anemia-hemoglobin 9.1 today DC planning- patient would likely require a fdc facility. Admission and Anticipated Discharge Date Admission Date: August 10, 2023 Subjective Postop day 3 patient resting comfortably. States he is having some mild discomfort in the right knee this morning. patient had developed pleuritic chest pain yesterday a nd appreciate hospitalist service seeing him. Patient underwent VQ scan showing no evidence of PE. Patient states that he still has the pleuritic chest pain this morning But feels that he is breathing okay. Latest O2 sat was 93 on room air. Patient has no other complaints this morning. Physical Exam Physical Exam: dressings are clean, dry, and intact. Calves are soft nontender. Toes are mobile. Hemovac drainage was 25 cc from the previous shift. Results & Data Vital Signs (Past 12 Hours) Vital Signs Temp Pulse Resp BP Pulse Ox O2 Del Method 08/14/23 22:54 37.2 C 96 H 16 117/67 93 Room Air (1) Infection associated with internal right knee prosthesis Encounter type: subsequent encounter Qualified Code(s): T84.53XD - Infection and inflammatory reaction due to internal right knee prosthesis, subsequent encounter
--- NOTE | 2023-08-15 13:33 | Infectious Disease Progress Nt ---
Date of Service August 15, 2023 Assessment & Plan (1) Prosthetic joint infection: (2) Leg abrasion, non-infected: (3) Rheumatoid arthritis involving left knee: Plan This is an 83-year-old male with a past medical history of right TKA on 05/26/2023, rheumatoid arthritis (on prednisone 5 mg daily), DM2, prostate cancer status post prostatectomy, decreased hearing, CKD, recently admitted for right knee PJI. He underwent right knee wound exploration, quadricep tendon repair, medial retinaculum repair, I&D with poly ethylene exchange, retained hardware on 06/25/23. Intraoperative cultures grew E faecalis (amp sensitive) and Enterobacter hormaechei. He was evaluated by ID and was discharged on a 6-week course of daptomycin and cefepime ( 06/25/23 - 08/06/2023). This was to be followed by oral suppressive therapy with amoxicillin and Cipro or Bactrim. He completed IV antibiotics at [facility] on 08/06/23 as scheduled. Two days post discharge he fell multiple times at home 2/2 ongoing right knee swelling, pain and restricted range of motion. He did not have time to start his oral suppressive therapy. He presented to the ER in [place] on 08/08 and was transferred to the [facility] ER for further evaluation. He denied fever, chills, sweats, nausea, vomiting. In the ED he is afebrile and hemodynamically stable. Labs noted for a WBC 4.75, BUN 20, creatinine 1.33, ESR 45,CRP 7.97 CPK 84. Right knee x-ray showed anterior soft tissue swelling within the right knee with moderate knee effusion, small foci of soft tissue gas within the anterior medial aspect of the knee, intact right total knee arthroplasty hardware.He was evaluated by orthopedics and underwent a right knee arthrocentesis with > 90 K WBC,(94.7% polynuclear) and 150 K RBC. He was started on daptomycin and cefepime. ID consulted for evaluation of ongoing infection after DAIR. He underwent explantation of hardware this admission On my initial exam he complained of ongoing right knee pain and difficulty ambulating. Micro Right knee hematoma aspirate culture 08/11/2023: Many WBCs, no organisms, no growth to date Right knee joint culture 08/11/2023: Many WBCs seen, no organisms no growth to date right Knee OR cx 08/11 (ngtd) Abx: Daptomycin 08/10- ongoing Cefepime 08/10- ongoing Flagyl 08/11- ongoing # Ongoing R PJI - Per OR report 08/11, The joint had signs of infection. There was chronic thickened scarred synovial tissue - Sp explantation of TKA and insertion of static antibiotic cement knee Spacer, Evacuation of Hematoma Medial Knee , irrigation and debridement of skin and subcutaneous tissue and knee joint including electrocautery synovectomy and debridement 08/12/23 ( cx NGTd) # Right knee PJI s/p I+D with polyethylene exchange and implant retention 06/25/23 - OR cx Enterococcus faecalis+ Enterobacter hormaechei. s/p 6wks Daptomycin/cefepime # H/O Right TKA in 05/2023 # RA on chronic steroids Recommendations Continue Cefepime 2 g IV q12 ( Cr cl ~38) Continue Daptomycin 8 mg/kg IV daily Continue Flagyl 500 mg IV q 8 hours ( gas on imaging) Follow up Joint aspirate and ? hematoma aspirate culture (08/10) Follow up intraoperative culture ( 08/11) Anticipate 6 weeks of pathogen targeted IV antibiotics followed by oral suppressive abx therapy ID will continue to follow. ID will not round over the weekend. Please call covering provider at [phone] Farnsworth will cover starting 08/17 Sonido Moralez MD, MPH Infectious Disease [facility], ID Division Admission and Anticipated Discharge Date Admission Date: August 10, 2023 Subjective This patient recommendation is based on a telemedicine consult request which was completed asynchronously through chart review and information provided by the primary physician. The patient was not seen or examined today. The evaluation is consultative in nature and all patient care and treatment decisions can either be accepted or rejected by the patient's primary hospital-based treating physician using their own independent medical judgment for their patient. Time Spent Reviewing Chart: 21 - 30 minutes OR cx NGTD. Afebrile WBc 12.33, cr Results & Data Vital Signs (Past 12 Hours) Vital Signs Temp Pulse Pulse Resp Pulse Ox O2 Del Method 08/15/23 08:46 36.7 C 97 H 18 95 Room Air 08/15/23 07:46 35.1 C L 97 H 17 90 Room Air Laboratory Results Short CBC 08/15/23 Range/Units 05:34 WBC 12.33 H (4.8-10.8) K/ul Hgb 9.1 L (14.0-18.0) g/dl Hct 28.2 L (42.0-52.0) % Plt Count 230 (130-400) K/uL Microbiology 08/12/23 14:53 Knee,Right Gram Stain - Final 08/12/23 14:53 Knee,Right Aerobic and Anaerobic Culture - Preliminary No growth to date. 08/12/23 14:33 Knee,Right Gram Stain - Final 08/12/23 14:33 Knee,Right Aerobic and Anaerobic Culture - Preliminary No growth to date. 08/11/23 Unknown Knee,Right Gram Stain - Final 08/11/23 Unknown Knee,Right Aerobic and Anaerobic Culture - Preliminary No growth to date. 08/11/23 Unknown Knee,Right Gram Stain - Final 08/11/23 Unknown Knee,Right Aerobic and Anaerobic Culture - Preliminary No growth to date. 08/12/23 15:03 Knee,Right Gram Stain - Final 08/12/23 15:03 Knee,Right Aerobic and Anaerobic Culture - Preliminary No growth to date. Diagnostic Findings Knee X-Ray 08/12/23 19:33 XR knee RT 1 or 2V routine CLINICAL HISTORY: s/p knee antibiotic cement spacer,ap and lat views TECHNIQUE: 2 views of the right knee were obtained. Comparison: Comparison is made to knee radiographs 08/11/2023 FINDINGS: Postsurgical changes of arthroplasty removal and antibiotic spacer noted. Expected subcutaneous emphysema. IMPRESSION: Expected postsurgical changes of hardware removal and antibiotic spacer placement. ACT 112: Negative or not required by law. Electronically signed by: Jigar Prater M.D. 08/13/2023 7:25 AM Pulmonary Perfusion Imaging 08/14/23 12:48 NUCLEAR PULMONARY PERFUSION SCAN CLINICAL HISTORY: Lower extremity edema/infection. Recent surgery. Clinical concern for pulmonary embolus. COMPARISON STUDY: Chest x-ray dated 05/02/2023. TECHNIQUE: Nuclear perfusions images of both lungs were obtained following the IV administration of 5.4 mCi of technetium 99m MAA. Images were acquired in the anterior, posterior, and oblique projections. Note that interpretation is suboptimal without current chest x-ray correlate FINDINGS: A chest x-ray performed 05/02/2023 shows cardiomegaly with bibasilar scarring/atelectasis. No current chest x-ray was available for review. Perfusion of both lungs is heterogeneous with no segmental perfusion defects identified. IMPRESSION: There are no perfusion defects identified to suggest pulmonary embolus. ACT 112: Negative or not required by law. Electronically signed by: Ramiro Gonzales M.D. 08/14/2023 3:37 PM Medications Administered Home Medications Medication Instructions Recorded Confirmed Last Taken calcium carbonate (Calcium 600) 600 mg PO QAM 09/25/18 07/25/23 06/24/23 08:00 hydrocortisone 2.5 % topical cream 1 appln topical .COMPLEX 09/30/18 07/25/23 Unknown linaclotide 145 mcg capsule 145 mcg PO DAILY PRN constipation 09/30/18 07/25/23 Unknown #90 caps bqsxvtugznkk-khselcuv-gzmxee tablet 1 tab PO QAM 09/30/18 07/25/23 06/24/23 08:00 nystatin-triamcinolone 100,000 1 appln topical BID #60 grams 09/30/18 07/25/23 Unknown unit/g-0.1 % topical cream mupirocin 2 % topical ointment 1 appln topical BID #30 grams 10/01/18 07/25/23 Unknown ipratropium bromide 21 mcg (0.03 See Rx Instructions .Route 03/26/21 07/25/23 05/24/23 08:00 %) nasal spray .COMPLEX #90 mL simvastatin 20 mg tablet 20 mg PO QPM #90 tabs 11/13/22 07/25/23 06/23/23 21:00 montelukast 10 mg tablet 10 mg PO QPM #90 tabs 01/14/23 07/25/23 06/23/23 21:00 diltiazem HCl 120 mg capsule,24 120 mg PO QAM #90 caps 04/14/23 07/25/23 06/24/23 08:00 hr,extended release mirtazapine 30 mg tablet 30 mg PO HS insomnia mood #90 tabs 04/15/23 07/25/23 06/23/23 21:00 cinnamon bark 500 mg capsule 500 mg PO QAM 04/28/23 07/25/23 06/24/23 08:00 escitalopram oxalate 5 mg tablet 5 mg PO QAM 04/28/23 07/25/23 06/24/23 08:00 fesoterodine 8 mg tablet,extended 8 mg PO QPM 04/28/23 07/25/23 06/23/23 21:00 release 24 hr (Toviaz) folic acid 1 mg tablet 1 mg PO QAM 04/28/23 07/25/23 06/24/23 08:00 mirabegron 50 mg tablet,extended 50 mg PO QPM 04/28/23 07/25/23 06/23/23 21:00 release 24 hr (Myrbetriq) multivitamin 1 tab PO QAM 04/28/23 07/25/23 06/24/23 08:00 omeprazole 40 mg capsule,delayed 40 mg PO QAM 04/28/23 07/25/23 06/24/23 08:00 release prednisone 5 mg tablet 5 mg PO QAM 04/28/23 07/25/23 06/24/23 08:00 lisinopril 20 mg tablet 20 mg PO QAM #90 tabs 05/23/23 07/25/23 06/24/23 08:00 acetaminophen 500 mg tablet 1,000 mg (2 x 500 mg) PO Q8 #60 05/27/23 07/25/23 06/24/23 08:00 (Tylenol Extra Strength) tabs aspirin 81 mg tablet,delayed 81 mg PO BID #60 tabs 05/27/23 07/25/23 06/24/23 08:00 release docusate sodium 100 mg capsule 100 mg PO BID #60 caps 05/28/23 07/25/23 06/24/23 08:00 ferrous gluconate 225 mg (27 mg 225 mg PO BID #60 tabs 05/28/23 07/25/23 06/24/23 08:00 iron) tablet sennosides 8.6 mg tablet (Senokot) 17.2 mg (2 x 8.6 mg) PO HS #20 tabs 05/28/23 07/25/23 Unknown tocilizumab 162 mg/0.9 mL 162 mg (0.9 mL) subcut Q7D #3.6 mL 06/09/23 07/25/23 06/17/23 08:00 subcutaneous pen injector (Actemra ACTPen) daptomycin 500 mg intravenous 675 mg IV DAILY 42 days #10 ea 06/30/23 07/25/23 Unknown solution cefepime 2 gram solution for 2 g IV Q8H #42 ea 07/02/23 07/25/23 Unknown injection prevagen PO 07/25/23 Unknown Active Medications Generic Name Dose Route Start Last Admin Trade Name Freq PRN Reason Stop Dose Admin Acetaminophen 1,000 mg 08/11/23 17:00 08/15/23 08:52 Acetaminophen 500 Mg Tab PO 09/10/23 16:59 1,000 mg Q8H IDALIA Administration Apixaban 2.5 mg 08/14/23 21:00 08/15/23 08:53 Apixaban 2.5 Mg Tab PO 09/13/23 20:59 2.5 mg BID IDALIA Administration Diltiazem HCl 120 mg 08/11/23 09:00 08/15/23 08:53 Diltiazem Hcl 120 Mg Capcr PO 09/10/23 08:59 120 mg QAM IDALIA Administration Docusate Sodium 100 mg 08/12/23 21:00 08/15/23 08:53 Docusate Sodium 100 Mg Cap PO 09/11/23 20:59 100 mg BID IDALIA Administration Escitalopram Oxalate 5 mg 08/11/23 09:00 08/15/23 08:53 Escitalopram Oxalate 10 Mg Tab PO 09/10/23 08:59 5 mg QAM IDALIA Administration Cefepime HCl 2,000 mg/ Syringe 20 mls @ 5 mls/min 08/11/23 05:00 08/15/23 06:04 IV 09/22/23 04:59 5 mls/min Q12H IDALIA Administration Protocol Daptomycin 675 mg/ Syringe 13.5 mls @ 6.75 mls/min 08/11/23 09:00 08/15/23 09:17 IV 09/22/23 08:59 6.75 mls/min DAILY IDALIA Administration Protocol Metronidazole 500 mg in 100 mls @ 100 mls/hr 08/12/23 22:00 08/15/23 08:43 Flagyl IV 09/23/23 21:59 Infused Q8H IDALIA Infusion Protocol Potassium Chloride 40 meq/ 1,020 mls @ 100 mls/hr 08/14/23 09:30 08/15/23 09:59 Sodium Chloride IV 09/13/23 09:29 100 mls/hr .[id number] IDALIA Administration Insulin Aspart 0 units 08/12/23 19:20 08/15/23 12:43 Insulin Aspart Per Unit Charge SC 09/11/23 05:59 4 units ACHS IDALIA Administration Insulin Glargine 0 units 08/14/23 21:00 08/15/23 09:20 Lantus Per Unit Charge SC 09/13/23 20:59 Not Given BID IDALIA Protocol Mirtazapine 30 mg 08/12/23 21:00 08/14/23 19:39 Mirtazapine Tab 15 Mg Tab PO 09/11/23 20:59 30 mg HS IDALIA Administration Montelukast Sodium 10 mg 08/10/23 21:00 08/14/23 19:40 Montelukast Sodium 10 Mg Tablet PO 09/09/23 20:59 10 mg QPM IDALIA Administration Multivitamins 1 tab 08/13/23 09:00 08/15/23 08:53 Multivitamin Tab PO 09/12/23 08:59 1 tab QAM IDALIA Administration Oxycodone HCl 5 mg 08/11/23 16:58 08/15/23 11:05 Oxycodone Hcl Ir 5 Mg Tab (Immediate Release) PO 08/25/23 16:57 5 mg Q4 PRN Administration Pain Pantoprazole Sodium 40 mg 08/12/23 09:00 08/15/23 08:54 Pantoprazole 40 Mg Tab PO 09/11/23 08:59 40 mg DAILY IDALIA Administration Prednisone 5 mg 08/11/23 09:00 08/15/23 08:54 Prednisone 5 Mg Tab PO 09/10/23 08:59 5 mg QAM IDALIA Administration Sennosides 17.2 mg 08/12/23 21:00 08/14/23 19:39 Senna 8.6 Mg Tab PO 09/11/23 20:59 17.2 mg HS IDALIA Administration Vibegron 75 mg 08/10/23 21:00 08/14/23 19:39 Vibegron 75 Mg Tab PO 09/09/23 20:59 75 mg QPM IDALIA Administration (1) Prosthetic joint infection Encounter type: initial encounter Qualified Code(s): T84.50XA - Infection and inflammatory reaction due to unspecified internal joint prosthesis, initial encounter (3) Rheumatoid arthritis involving left knee Rheumatoid factor presence: unspecified presence Qualified Code(s): M06.9 - Rheumatoid arthritis, unspecified
--- NOTE | 2023-08-15 15:24 | Pharmacy Report ---
Pharmacy Glycemic Short Note 2 - Date of Service August 15, 2023 - Glycemic Short BSG Results (Last 24 hours): 08/14/23 08/14/23 08/15/23 16:19 20:30 07:40 POC Glucose 173 H 151 H 110 H 08/15/23 11:51 POC Glucose 145 H OUTPATIENT ANTIDIABETIC REGIMEN: * n/a * HbA1c: 8.1% (05/09/23) ASSESSMENT: 08/14: * Eyad received 16 units of insulin yesterday (10 were basal) * BSGs well controlled continue current insulin regimen. 08/13: * Eyad received 18 units of SQ insulin yesterday (5 units basal + 13 units bolus). * Fasting BSG decreased from 158 -> 106 mg/dL. Will continue BID Lantus but adjust the order to dose per scale to prevent hypoglycemia. * No other changes needed today 08/12: * BSGs did trend upward yesterday after diet ordered- tightened carb ratio this morning * Fasting 158 mg/dL, as this is above goal will add 5 units BID of lantus and monitor 08/11 * Mr Bullock is an 83yo M admitted with septic R knee, for which he is receiving dapto and cefepime. * Pt is ordered prednisone 5mg PO daily, which is continued from his outpt regimen. * BSGs have been stable on small doses of Novolog thus far. Will consider adding small dose of Lantus tomorrow for slightly better control. PLAN FOR INPATIENT GLYCEMIC CONTROL: * Basal insulin * Lanuts 0-5 units SQ BID (5 units if BSG is > 140 mg/dL) * Bolus insulin * NovoLog per scale ACHS or Q6hrs while NPO * Goal Range: Low 110 mg/dL - High 140 mg/dL * Correction Factor: 25 mg/dL/unit * Nutritional / Prandial insulin per carb ratio of 1 unit per 8 grams CHO consumed
--- NOTE | 2023-08-15 19:10 | Hospitalist Progress Note ---
Date of Service August 15, 2023 Assessment & Plan (1) Infection associated with internal right knee prosthesis: Plan: 83yo male presenting after a fall with redness, pain and swelling of right prosthetic knee. Patient is s/p right TKA on 05/26/23 with subsequent wound de hiscence and prosthetic joint infection s/p completion of IV Cefepime and Daptomycin (6 week course of antibiotics completed 08/06/23). He has had ongoing pain, swelling and gait instability. Joint aspiration performed in the ER by Orthopedics is concerning for persistent prosthetic joint infection. Patient is afebrile, HD stable and non-toxic in appearance. -Patient admitted to Orthopedic Surgery service. Underwent surgery on 08/11. Please review operative note. -Follow cultures sent from joint aspiration 08/11/23 and surgical wound cultures on 08/11 -Infectious disease on board - continue with cefepime and daptomycin -CRP and ESR elevated -CK level 84. Will hold Simvastatin while patient is on Daptomycin -Tylenol and Oxycodone as needed for pain control (2) Rheumatoid arthritis: Plan: Chronic. Stable -Continue home dose of Prednisone 5mg po qAM -Patient was given stress dose of steroids perioperatively. (3) Acute kidney injury: Plan: Avoid nephrotoxic medications Hold lisinopril Recheck labs in a.m. (4) Benign essential hypertension: Plan: Blood pressure at goal. -Hold Lisinopril as creatinine was going up. Blood pressure controlled without it. -Continue Diltiazem -Continue to monitor BP (5) Type 2 diabetes mellitus: Plan: Last HgbA1C = 8.1 on 05/09/23. Diet controlled and patient uses Cinnamon Bark at home. Reports fairly well controlled blood sugars. Repeat A1c 6.8 -Pharmacy Glycemic management consultation placed -Goal blood sugars 110 - 140 (6) Hypercholesteremia: Plan: Chronic -Holding Simvastatin while on daptomycin Plan VTE prophylaxis: Eliquis 2.5 mg p.o. twice daily (cleared by orthopedics) discontinued aspirin twice daily CODE STATUS: DNR/DNI Admission and Anticipated Discharge Date Admission Date: August 10, 2023 Subjective Patient seen and evaluated bedside. He reports some right knee pain with movement, but denies any pain at rest. He does report that his pain is well- controlled with medication. Patient remains medically stable at this time. Physical Exam Physical Exam: General: No acute distress, nondiaphoretic, well-developed, well-nourished. Skin: Dressing on right knee clean, dry, intact. Soft, nontender Right calf. Good perfusion to right toes. Cardiac: Regular rate and rhythm without murmurs gallops or rubs. Pulm: Clear to auscultation bilaterally without wheezes, rales or rhonchi. No retractions or accessory muscle use. Abdominal: Positive bowel sounds x 4. Soft, nontender, without masses or organomegaly. No guarding or rebound tenderness. Neuro: A&O x3. No focal neurological deficits. Results & Data Results & Data Vital Signs (Past 12 Hours) Vital Signs Temp Pulse Pulse Resp BP Pulse Ox O2 Del Method 08/15/23 15:12 36.9 C 92 H 20 134/77 94 Room Air 08/15/23 08:46 36.7 C 97 H 18 95 Room Air 08/15/23 07:46 35.1 C L 97 H 17 90 Room Air Laboratory Results Reviewed CBC PG Care Time/CCT Total # of Minutes Spent Total Time Spent with Patient: Total time spent is greater than 50% in coordination of care (as documented) at patient's floor/unit and/or counseling patient: Coding Level of Care Code 53990 SUB INP/OBS CARE 235MIN Diagnoses Infection associated with internal right knee prosthesis, subsequent encounter T84.53XD Encounter type: subsequent encounter Rheumatoid arthritis involving multiple sites, unspecified whether rheumatoid factor present M06.9 Rheumatoid arthritis location: multiple sites Rheumatoid factor presence: unspecified presence Acute kidney injury N17.9 Benign essential hypertension I10 Type 2 diabetes mellitus without complication, without long-term current use of insulin E11.9 Diabetes mellitus assisted insulin use: without feltmaker use Diabetes mellitus complication status: without complication Hypercholesteremia E78.00 (1) Infection associated with internal right knee prosthesis Encounter type: subsequent encounter Qualified Code(s): T84.53XD - Infection and inflammatory reaction due to internal right knee prosthesis, subsequent encounter (2) Rheumatoid arthritis Rheumatoid arthritis location: multiple sites Rheumatoid factor presence: unspecified presence Qualified Code(s): M06.9 - Rheumatoid arthritis, unspecified (5) Type 2 diabetes mellitus Diabetes mellitus feltmaker insulin use: without assisted use Diabetes mellitus complication status: without complication Qualified Code(s): E11.9 - Type 2 diabetes mellitus without complications
[2023-08-16] MEDS ORDERED: Nursing to Pharmacy Communication SCH (00:15)
[2023-08-16 07:26] LABS: Basophils # (auto) 0.05 K/uL (0.00-0.20); Basophils % (auto) 0.5 %; Eosinophils # (auto) 0.05 K/uL (0.00-0.50); Eosinophils % (auto) 0.5 %; Hematocrit (blood only) 24.9 % (42.0-52.0); Hemoglobin 7.8 g/dl (14.0-18.0); Immature Granulocytes # (auto) 0.18 K/uL (0.01-0.20); Immature Granulocytes % (auto) 1.9 %; Lymphocytes % (auto) 6.3 %; Mean Corpuscular Hemoglobin 30.6 pg (25.0-34.0); Mean Corpuscular Hgb Conc 31.3 g/dL (32.0-36.0); Mean Corpuscular Volume 97.6 fL (80.0-100.0); Mean Platelet Volume 9.8 fL (9.4-12.4); Monocytes % (auto) 8.4 %; Neutrophils # (auto) 7.89 K/uL (1.40-6.50); Neutrophils % (auto) 82.4 %; Platelet Count 224 K/uL (130-400); RDW Coefficient of Variation 13.2 % (11.5-14.5); RDW Standard Deviation 47.4 fL (36.4-46.3); Red Blood Count 2.55 M/uL (4.70-6.10); White Blood Count 9.57 K/ul (4.8-10.8)
[2023-08-16 08:04] LABS: BUN Creatinine Ratio 16.6 (10-20); Calcium 8.2 mg/dl (8.6-10.3); Creatinine Clr Calc Pharmacy 42.7 ml/min; Est GFR (African American) 46.9 ml/min; Est GFR (Non-African American) 40.4 ml/min; Potassium 4.9 mmol/L (3.5-5.1)
[2023-08-16 08:08] LABS: RBC Morphology Unremarkable
--- NOTE | 2023-08-16 08:29 | Orthopedic Progress Note ---
Date of Service August 16, 2023 Assessment & Plan (1) Infection associated with internal right knee prosthesis: Plan: Postop day 4 status post explant right total knee arthroplasty with implantation of antibiotic static spacer, irrigation debridement right knee. PT OT protocols. Weightbearing as tolerated. With immobilizer on. patient in hinged brace. DVT prophylaxis- Sowmyaquis, SCDs, MUNIR madden. Pain management as written. Continue to follow cultures. Currently on cefepime and daptomycin. Infectious disease team is following. Patient will require 6 weeks of IV antibiotics. Will await infectious disease team's final recommendations. DC planning- patient would likely require a correction facility. Admission and Anticipated Discharge Date Admission Date: August 10, 2023 Subjective Postop day 4 patient resting comfortably. pain currently well controlled, no complaints. wearing his brace. Physical Exam Physical Exam: dressings are clean, dry, and intact. Calves are soft nontender. Toes are mobile. leg resting comfortably in brace. Results & Data Vital Signs (Past 12 Hours) Vital Signs Temp Pulse Resp BP Pulse Ox O2 Del Method 08/16/23 07:12 37.2 C 95 H 20 139/71 92 Room Air Laboratory Results Laboratory Results WBC 9.57 K/ul (4.8-10.8) 08/16/23 06:41 RBC 2.55 M/uL (4.70-6.10) L 08/16/23 06:41 Hgb 7.8 g/dl (14.0-18.0) L 08/16/23 06:41 Hct 24.9 % (42.0-52.0) L 08/16/23 06:41 MCV 97.6 fL (80.0-100.0) 08/16/23 06:41 MCH 30.6 pg (25.0-34.0) 08/16/23 06:41 MCHC 31.3 g/dL (32.0-36.0) L 08/16/23 06:41 RDW Std Deviation 47.4 fL (36.4-46.3) H 08/16/23 06:41 RDW Coeff of Raudel 13.2 % (11.5-14.5) 08/16/23 06:41 Plt Count 224 K/uL (130-400) 08/16/23 06:41 MPV 9.8 fL (9.4-12.4) 08/16/23 06:41 Immature Gran % (Auto) 1.9 % 08/16/23 06:41 Neut % (Auto) 82.4 % 08/16/23 06:41 Lymph % (Auto) 6.3 % 08/16/23 06:41 Butts % (Auto) 8.4 % 08/16/23 06:41 Eos % (Auto) 0.5 % 08/16/23 06:41 Baso % (Auto) 0.5 % 08/16/23 06:41 Neut # (Auto) 7.89 K/uL (1.40-6.50) H 08/16/23 06:41 Lymph # (Auto) 0.60 K/uL (1.20-3.40) L 08/16/23 06:41 Butts # (Auto) 0.80 K/uL (0.11-0.59) H 08/16/23 06:41 Eos # (Auto) 0.05 K/uL (0.00-0.50) 08/16/23 06:41 Baso # (Auto) 0.05 K/uL (0.00-0.20) 08/16/23 06:41 Immature Gran # (Auto) 0.18 K/uL (0.01-0.20) 08/16/23 06:41 RBC Morphology Unremarkable 08/16/23 06:41 ESR 45 mm/hr (0-20) H 08/12/23 06:45 Sodium 138 mmol/L (136-145) 08/16/23 06:41 Potassium 4.9 mmol/L (3.5-5.1) 08/16/23 06:41 Chloride 109 mmol/L (98-107) H 08/16/23 06:41 Carbon Dioxide 20 mmol/L (21-32) L 08/16/23 06:41 Anion Gap 9 (3-11) 08/16/23 06:41 BUN 26 mg/dl (6-23) H 08/16/23 06:41 Creatinine 1.57 mg/dl (0.6-1.4) H 08/16/23 06:41 Est Cr Clr Drug Dosing 42.7 ml/min 08/16/23 06:41 Est GFR ( Amer) 46.9 ml/min 08/16/23 06:41 Est GFR (Non-Af Amer) 40.4 ml/min 08/16/23 06:41 BUN/Creatinine Ratio 16.6 (10-20) 08/16/23 06:41 Glucose 110 mg/dl (70-99(Fasting)) H 08/16/23 06:41 POC Glucose 111 mg/dl (70-99) H 08/16/23 07:38 Estimat Average Glucose 148 mg/dl 08/14/23 06:38 Hemoglobin A1c 6.8 % (4.5-5.6) H 08/14/23 06:38 Calcium 8.2 mg/dl (8.6-10.3) L 08/16/23 06:41 Total Creatine Kinase 84 U/L (30-223) 08/12/23 06:45 C-Reactive Protein 7.97 mg/dl (0-0.5) H 08/12/23 06:45 Fluid Comment 08/11/23 Unknown Synovial Source Right Knee 08/11/23 Unknown Synovial Color Red 08/11/23 Unknown Synovial Appearance Cloudy 08/11/23 Unknown Synovial WBC (Auto) 46518 /ul (0-200) H 08/11/23 Unknown Synovial RBC (Auto) 412801 /uL 08/11/23 Unknown Synovial Polynuclear % 94.7 % 08/11/23 Unknown Synovial Mononuclear % 5.3 % 08/11/23 Unknown Blood Type O Positive 08/12/23 14:09 Antibody Screen NEGATIVE 08/12/23 14:09 Crossmatch See Detail 08/12/23 14:09 Impressions Knee X-Ray 08/12/23 19:33 XR knee RT 1 or 2V routine CLINICAL HISTORY: s/p knee antibiotic cement spacer,ap and lat views TECHNIQUE: 2 views of the right knee were obtained. Comparison: Comparison is made to knee radiographs 08/11/2023 FINDINGS: Postsurgical changes of arthroplasty removal and antibiotic spacer noted. Expected subcutaneous emphysema. IMPRESSION: Expected postsurgical changes of hardware removal and antibiotic spacer placement. ACT 112: Negative or not required by law. Electronically signed by: Jigar Prater M.D. 08/13/2023 7:25 AM Pulmonary Perfusion Imaging 08/14/23 12:48 NUCLEAR PULMONARY PERFUSION SCAN CLINICAL HISTORY: Lower extremity edema/infection. Recent surgery. Clinical concern for pulmonary embolus. COMPARISON STUDY: Chest x-ray dated 05/02/2023. TECHNIQUE: Nuclear perfusions images of both lungs were obtained following the IV administration of 5.4 mCi of technetium 99m MAA. Images were acquired in the anterior, posterior, and oblique projections. Note that interpretation is s uboptimal without current chest x-ray correlate FINDINGS: A chest x-ray performed 05/02/2023 shows cardiomegaly with bibasilar scarring/atelectasis. No current chest x-ray was available for review. Perfusion of both lungs is heterogeneous with no segmental perfusion defects identified. IMPRESSION: There are no perfusion defects identified to suggest pulmonary embolus. ACT 112: Negative or not required by law. Electronically signed by: Ramiro Gonzales M.D. 08/14/2023 3:37 PM Diagnostic Findings Microbiology 08/12/23 14:53 Knee,Right Gram Stain - Final 08/12/23 14:53 Knee,Right Aerobic and Anaerobic Culture - Preliminary No growth to date. 08/11/23 Unknown Knee,Right Gram Stain - Final 08/11/23 Unknown Knee,Right Aerobic and Anaerobic Culture - Final No growth 08/11/23 Unknown Knee,Right Gram Stain - Final 08/11/23 Unknown Knee,Right Aerobic and Anaerobic Culture - Final No growth 08/12/23 14:33 Knee,Right Gram Stain - Final 08/12/23 14:33 Knee,Right Aerobic and Anaerobic Culture - Preliminary No growth to date. 08/12/23 15:03 Knee,Right Gram Stain - Final 08/12/23 15:03 Knee,Right Aerobic and Anaerobic Culture - Preliminary No growth to date. (1) Infection associated with internal right knee prosthesis Encounter type: subsequent encounter Qualified Code(s): T84.53XD - Infection and inflammatory reaction due to internal right knee prosthesis, subsequent encounter
--- NOTE | 2023-08-16 11:05 | Hospitalist Progress Note ---
Date of Service August 16, 2023 Assessment & Plan (1) Infection associated with internal right knee prosthesis: Plan: - Presented after a fall with redness, pain and swelling of right prosthetic knee. Patient afebrile, HD stable and non-toxic in appearance on admssion. - Patient is s/p right TKA on 05/26/23 with subsequent wound dehiscence and prosthetic joint infection s/p completion of IV Cefepime and Daptomycin (6 week course of antibiotics completed 08/06/23). -- He has had ongoing pain, swelling and gait instability. -- Joint aspiration performed in the ER by Orthopedics is concerning for persistent prosthetic joint infection. - Underwent explant right total knee arthroplasty with implantation of antibiotic static spacer, irrigation debridement right knee on 08/12/23. -- Follow cultures sent from joint aspiration 08/11/23 and surgical wound cultures on 08/11. - Infectious disease consulted for antibiotic regimen - continue with cefepime and daptomycin. -- Will hold Simvastatin while patient is on Daptomycin. - Anemic, most likely anemia of chronic disease. No signs of active blood loss. Anemia appears to be chronic since 2017. Continue Protonix. - Please refer to primary team for pain management, activity level, med reconciliation, and discharge planning. (2) Rheumatoid arthritis: Plan: Chronic. Stable. Patient was given stress dose of steroids perioperatively. - Continue home dose of Prednisone 5mg po qAM. (3) Acute kidney injury: Plan: Avoid nephrotoxic medications Hold lisinopril Recheck labs in a.m. (4) Benign essential hypertension: Plan: Blood pressure at goal. - Hold Lisinopril as creatinine was going up. Blood pressure controlled without it. - Continue Diltiazem - Continue to monitor BP (5) Type 2 diabetes mellitus: Plan: - HgbA1C = 6.8 on 08/14/23. Diet controlled and patient uses Cinnamon Bark at home. Reports fairly well controlled blood sugars. - Pharmacy Glycemic management consultation placed. - Goal blood sugars 110 - 140. (6) Hypercholesteremia: Plan: Chronic -Holding Simvastatin while on daptomycin Plan Reviewed CBC history to investigate anemia - most likely anemia of chronic disease. VTE prophylaxis: Eliquis 2.5 mg p.o. twice daily (cleared by orthopedics), discontinued aspirin twice daily CODE STATUS: DNR/DNI Admission and Anticipated Discharge Date Admission Date: August 10, 2023 Subjective Patient seen and evaluated at bedside. He reports that he tried working with PT today, but it was quite painful that he could not do too much. Otherwise, he denies any pain at rest. Hemovac was removed today. Now in hinged brace. He denies any blood in his urine or stool. Denies nausea, vomiting, lightheadedness, shortness of breath, or chest pain. Physical Exam Physical Exam: General: No acute distress, nondiaphoretic, well-developed, well-nourished. Skin: Hinge brace on right leg. Dressing on right knee clean, dry, intact. Soft, nontender Right calf. Good perfusion to right toes. Cardiac: Regular rate and rhythm without murmurs gallops or rubs. Pulm: Clear to auscultation bilaterally without wheezes, rales or rhonchi. No retractions or accessory muscle use. Abdominal: Positive bowel sounds x 4. Soft, nontender, without masses or organomegaly. No guarding or rebound tenderness. Neuro: A&O x3. No focal neurological deficits. Results & Data Results & Data Vital Signs (Past 12 Hours) Vital Signs Temp Pulse Resp BP Pulse Ox O2 Del Method 08/16/23 07:12 37.2 C 95 H 20 139/71 92 Room Air Laboratory Results Reviewed CBC Reviewed BMP Reviewed cultures PG Care Time/CCT Total # of Minutes Spent Total Time Spent with Patient: Total time spent is greater than 50% in coordination of care (as documented) at patient's floor/unit and/or counseling patient: Coding Level of Care Code 22514 SUB INP/OBS CARE 2/35MIN Diagnoses Infection associated with internal right knee prosthesis, subsequent encounter T84.53XD Encounter type: subsequent encounter Rheumatoid arthritis involving multiple sites, unspecified whether rheumatoid factor present M06.9 Rheumatoid arthritis location: multiple sites Rheumatoid factor presence: unspecified presence Acute kidney injury N17.9 Benign essential hypertension I10 Type 2 diabetes mellitus without complication, without long-term current use of insulin E11.9 Diabetes mellitus complication status: without complication Diabetes mellitus chcf insulin use: without exterminator helper use Hypercholesteremia E78.00 (1) Infection associated with internal right knee prosthesis Encounter type: subsequent encounter Qualified Code(s): T84.53XD - Infection and inflammatory reaction due to internal right knee prosthesis, subsequent encounter (2) Rheumatoid arthritis Rheumatoid arthritis location: multiple sites Rheumatoid factor presence: unspecified presence Qualified Code(s): M06.9 - Rheumatoid arthritis, unspecified (5) Type 2 diabetes mellitus Diabetes mellitus complication status: without complication Diabetes mellitus chcf insulin use: without exterminator helper use Qualified Code(s): E11.9 - Type 2 diabetes mellitus without complications
--- NOTE | 2023-08-17 05:38 | Orthopedic Progress Note ---
Date of Service August 17, 2023 Assessment & Plan (1) Infection associated with internal right knee prosthesis: Plan: Postop day 5 status post explant right total knee arthroplasty with implantation of antibiotic static spacer, irrigation debridement right knee. PT OT protocols. Weightbearing as tolerated. With immobilizer on. patient in hinged brace. DVT prophylaxis- Eliquis, SCDs, MUNIR hose. Pain management as written. Continue to follow cultures. Currently on cefepime and daptomycin. Infectious disease team is following. Patient will require 6 weeks of IV antibiotics. Will await infectious disease team's final recommendations. DC planning- patient would likely require a long term facility. Admission and Anticipated Discharge Date Admission Date: August 10, 2023 Subjective Postop day 5 patient resting comfortably. pain currently well controlled, no complaints. wearing his brace. Review of Systems Review of Systems: No fever or chills, does not feel ill, not lightheaded or dizzy. Physical Exam Physical Exam: Vital Signs Temp Pulse Resp BP Pulse Ox O2 Del Method 08/16/23 20:37 Room Air 08/16/23 20:29 37.4 C 97 H 22 134/78 93 Room Air 08/16/23 15:37 36.7 C 76 20 126/74 93 Room Air 08/16/23 07:12 37.2 C 95 H 20 139/71 92 Room Air Intake and Output 08/16/23 08/16/23 08/17/23 14:59 22:59 06:59 Intake Total 60 / 1580 1520 / 1580 Output Total 1000 / 2800 700 / 2800 1100 / 2800 Balance -940 / -1220 820 / -1220 -1100 / -1220 Intake: IV 1220 / 1220 Potassium Chlo ride 40 meq In 1020 / 1020 Sodium Chlorid e 0.9% 1,000 ml @ 100 mls/hr IV .[id number] [facility] Rx# :[id number] metroNIDAZOLE 500 mg In 100 ml 200 / 200 @ 100 mls/hr I V Q8H [facility] Rx#: [id number] Oral 60 / 360 300 / 360 Output: Urine Amount (Ca theter) 1000 / 2800 700 / 2800 1100 / 2800 Lara/Indwelli ng 1000 / 2800 700 / 2800 1100 / 2800 Musculoskeletal: Right Knee: dressings are clean, dry, and intact. Calves are soft nontender. Toes are mobile. leg resting comfortably in brace. Results & Data Vital Signs (Past 12 Hours) Vital Signs Temp Pulse Resp BP Pulse Ox O2 Del Method 08/16/23 20:37 Room Air 08/16/23 20:29 37.4 C 97 H 22 134/78 93 Room Air (1) Infection associated with internal right knee prosthesis Encounter type: subsequent encounter Qualified Code(s): T84.53XD - Infection and inflammatory reaction due to internal right knee prosthesis, subsequent encounter
[2023-08-17 05:59] LABS: Hematocrit (blood only) 26.7 % (42.0-52.0); Hemoglobin 8.6 g/dl (14.0-18.0); Mean Corpuscular Hgb Conc 32.2 g/dL (32.0-36.0); Mean Corpuscular Volume 96.4 fL (80.0-100.0); Mean Platelet Volume 9.5 fL (9.4-12.4); Platelet Count 265 K/uL (130-400); RDW Coefficient of Variation 13.3 % (11.5-14.5); RDW Standard Deviation 47.6 fL (36.4-46.3); Red Blood Count 2.77 M/uL (4.70-6.10); White Blood Count 8.86 K/ul (4.8-10.8)
[2023-08-17 06:18] LABS: BUN Creatinine Ratio 15.5 (10-20); Calcium 8.5 mg/dl (8.6-10.3); Creatinine Clr Calc Pharmacy 41.6 ml/min; Est GFR (African American) 45.5 ml/min; Est GFR (Non-African American) 39.2 ml/min; Potassium 5.3 mmol/L (3.5-5.1)
--- NOTE | 2023-08-17 10:36 | Hospitalist Progress Note ---
Date of Service August 17, 2023 Assessment & Plan (1) Infection associated with internal right knee prosthesis: Plan: - Presented after a fall with redness, pain and swelling of right prosthetic knee. Patient afebrile, HD stable and non-toxic in appearance on admssion. - Patient is s/p right TKA on 05/26/23 with subsequent wound dehiscence and prosthetic joint infection s/p completion of IV Cefepime and Daptomycin (6 week course of antibiotics completed 08/06/23). -- He has had ongoing pain, swelling and gait instability. -- Joint aspiration performed in the ER by Orthopedics is concerning for persistent prosthetic joint infection. - Underwent explant right total knee arthroplasty with implantation of antibiotic static spacer, irrigation debridement right knee on 08/12/23. -- Follow cultures sent from joint aspiration 08/11/23 and surgical wound cultures on 08/11. -- Cultures preliminarily negative. - Infectious disease consulted for antibiotic regimen - continue with cefepime, daptomycin, and metronidazole. -- Will hold Simvastatin while patient is on Daptomycin. - Anemic, most likely anemia of chronic disease. No signs of active blood loss. Anemia appears to be chronic since 2017. Continue Protonix. - Please refer to primary team for pain management, activity level, med reconciliation, and discharge planning. (2) Rheumatoid arthritis: Plan: Chronic. Stable. Patient was given stress dose of steroids perioperatively. - Continue home dose of Prednisone 5mg po qAM. (3) Acute kidney injury: Plan: Avoid nephrotoxic medications Hold lisinopril for now. -- If BP remains controlled without Lisinopril, consider discontinuing it on discharge. -- If BP starts to become consistently elevated, restart lisinopril on discharge. (4) Benign essential hypertension: Plan: Blood pressure at goal. - Hold Lisinopril as creatinine was going up. Blood pressure controlled without it. - Continue Diltiazem - Continue to monitor BP (5) Type 2 diabetes mellitus: Plan: - HgbA1C = 6.8 on 08/14/23. Diet controlled and patient uses Cinnamon Bark at home. Reports fairly well controlled blood sugars. - Pharmacy Glycemic management consultation placed. - Goal blood sugars 110 - 140. (6) Hypercholesteremia: Plan: Chronic -Holding Simvastatin while on daptomycin Plan Monitored BP Discussed activity level and prognosis with PT. VTE prophylaxis: Eliquis 2.5 mg p.o. twice daily (cleared by orthopedics), discontinued aspirin twice daily CODE STATUS: DNR/DNI Admission and Anticipated Discharge Date Admission Date: August 10, 2023 Subjective Patient seen and evaluated at bedside. He reports that he has no pain at rest, but significant pain when trying to stand. He did refuse to work with PT this morning. He denies shortness of breath, chest pain, lightheadedness, dizziness, abdominal pain, nausea, vomiting, diarrhea, constipation, or urinary symptoms. Patient is stable for discharge from a medical perspective. Physical Exam Physical Exam: General: No acute distress, nondiaphoretic, well-developed, well-nourished. Skin: Hinge brace on right leg. Dressing on right knee clean, dry, intact. Soft, nontender Right calf. Good perfusion to right toes. Abrasion on left slaughter in dressing, clean, dry, intact. Cardiac: Regular rate and rhythm without murmurs gallops or rubs. Pulm: Clear to auscultation bilaterally without wheezes, rales or rhonchi. No retractions or accessory muscle use. Abdominal: Positive bowel sounds x 4. Soft, nontender, without masses or organomegaly. No guarding or rebound tenderness. Neuro: A&O x3. No focal neurological deficits. Results & Data Results & Data Vital Signs (Past 12 Hours) Vital Signs Temp Pulse Resp BP Pulse Ox O2 Del Method 08/17/23 07:45 Room Air 08/17/23 07:39 37.2 C 97 H 20 158/80 H 94 Room Air Laboratory Results Reviewed CBC Reviewed BMP Reviewed right knee cultures PG Care Time/CCT Total # of Minutes Spent Total Time Spent with Patient: Total time spent is greater than 50% in coordination of care (as documented) at patient's floor/unit and/or counseling patient: Coding Level of Care Code 56141 SUB INP/OBS CARE 2/35MIN Diagnoses Infection associated with internal right knee prosthesis, subsequent encounter T84.53XD Encounter type: subsequent encounter Rheumatoid arthritis involving multiple sites, unspecified whether rheumatoid factor present M06.9 Rheumatoid arthritis location: multiple sites Rheumatoid factor presence: unspecified presence Acute kidney injury N17.9 Benign essential hypertension I10 Type 2 diabetes mellitus without complication, without long-term current use of insulin E11.9 Diabetes mellitus complication status: without complication Diabetes mellitus care home insulin use: without computer terminal operator use Hypercholesteremia E78.00 (1) Infection associated with internal right knee prosthesis Encounter type: subsequent encounter Qualified Code(s): T84.53XD - Infection and inflammatory reaction due to internal right knee prosthesis, subsequent encounter (2) Rheumatoid arthritis Rheumatoid arthritis location: multiple sites Rheumatoid factor presence: unspecified presence Qualified Code(s): M06.9 - Rheumatoid arthritis, unspecified (5) Type 2 diabetes mellitus Diabetes mellitus complication status: without complication Diabetes mellitus care home insulin use: without computer terminal operator use Qualified Code(s): E11.9 - Type 2 diabetes mellitus without complications
[2023-08-18 05:54] LABS: Hematocrit (blood only) 26.7 % (42.0-52.0); Hemoglobin 8.5 g/dl (14.0-18.0); Mean Corpuscular Hemoglobin 30.5 pg (25.0-34.0); Mean Corpuscular Hgb Conc 31.8 g/dL (32.0-36.0); Mean Corpuscular Volume 95.7 fL (80.0-100.0); Mean Platelet Volume 9.3 fL (9.4-12.4); Platelet Count 267 K/uL (130-400); RDW Coefficient of Variation 13.2 % (11.5-14.5); RDW Standard Deviation 46.6 fL (36.4-46.3); Red Blood Count 2.79 M/uL (4.70-6.10); White Blood Count 7.26 K/ul (4.8-10.8)
[2023-08-18 06:10] LABS: BUN Creatinine Ratio 15.5 (10-20); Calcium 8.6 mg/dl (8.6-10.3); Creatinine Clr Calc Pharmacy 43.2 ml/min; Est GFR (African American) 47.6 ml/min; Est GFR (Non-African American) 41.1 ml/min; Potassium 4.5 mmol/L (3.5-5.1)
--- NOTE | 2023-08-18 07:19 | Orthopedic Progress Note ---
Date of Service August 18, 2023 Assessment & Plan (1) Infection associated with internal right knee prosthesis: Plan: Postop day 6 status post explant right total knee arthroplasty with implantation of antibiotic static spacer, irrigation debridement right knee. PT OT protocols. Weightbearing as tolerated. With immobilizer on. patient in hinged brace. DVT prophylaxis- Eliquis, SCDs, MUNIR hose. Pain management as written. Continue to follow cultures. Currently on cefepime, metronidazole and daptomycin. Infectious disease team is following. Patient will require 6 weeks of IV antibiotics. Will await infectious disease team's final recommendations. Infectious disease consulted for antibiotic regimen - continue with cefepime, daptomycin, and metronidazole DC planning- patient would likely require a senior living facility. will await ID final recommendations and poss transfer once approved by insurance Admission and Anticipated Discharge Date Admission Date: August 10, 2023 Subjective Postop day 6 patient resting comfortably. pain currently well controlled, no complaints. wearing his brace. Review of Systems Review of Systems: No fever or chills, does not feel ill, not lightheaded or dizzy. Physical Exam Physical Exam: Vital Signs Temp 37.2 C 08/17/23 22:37 Pulse 97 H 08/17/23 22:37 Resp 18 08/17/23 22:37 BP 123/78 08/17/23 22:37 Pulse Ox 94 08/17/23 22:37 O2 Del Method Room Air 08/17/23 22:37 O2 Flow Rate 2 08/13/23 03:20 Intake & Output 08/17/23 08/18/23 08/18/23 18:59 06:59 18:59 Intake Total 915 / 1515 600 / 1515 Output Total 800 / 3450 2650 / 3450 Balance 115 / -1935 -2049 / Intake: IV 675 / 775 100 / 775 Potassium Chlo ride 40 meq In 475 / 475 Sodium Chlorid e 0.9% 1,000 ml @ 100 mls/hr IV .[id number] [facility] Rx# :[id number] metroNIDAZOLE 500 mg In 100 ml 200 / 300 100 / 300 @ 100 mls/hr I V Q8H [facility] Rx#: [id number] Oral 240 / 740 500 / 740 Output: Urine Amount (Ca theter) 800 / 3450 2650 / 3450 Lara/Indwelli ng 800 / 3450 2650 / 3450 Musculoskeletal: Right Knee: dressings are clean, dry, and intact. Calves are soft nontender. Toes are mobile. leg resting comfortably in brace. Results & Data Vital Signs (Past 12 Hours) Vital Signs Temp Pulse Resp BP Pulse Ox O2 Del Method 08/17/23 22:37 37.2 C 97 H 18 123/78 94 Room Air 08/17/23 20:15 Room Air Laboratory Results 08/12/23 14:53 Gram Stain - Final Knee,Right Aerobic and Anaerobic Culture - Final No growth 08/12/23 15:03 Gram Stain - Final Knee,Right Aerobic and Anaerobic Culture - Final No growth 08/12/23 14:33 Gram Stain - Final Knee,Right Aerobic and Anaerobic Culture - Final No growth 08/11/23 Unknown Gram Stain - Final Knee,Right Aerobic and Anaerobic Culture - Final No growth 08/11/23 Unknown Gram Stain - Final Knee,Right Aerobic and Anaerobic Culture - Final No growth (1) Infection associated with internal right knee prosthesis Encounter type: subsequent encounter Qualified Code(s): T84.53XD - Infection and inflammatory reaction due to internal right knee prosthesis, subsequent encounter
--- NOTE | 2023-08-18 10:01 | Pharmacy Report ---
Pharmacy Glycemic Sign Off Nt - Date of Service August 18, 2023 - Assessment & Plan ASSESSMENT: * Pharmacy consulted for glycemic management. * Stressors stable - on prednisone 5 mg daily. * BSG's have been reasonable on about 5 units Lantus daily plus stable Novolog regimen. * Pharmacy will sign-off glycemic management at this time - Evi Reina aware. PLAN FOR INPATIENT GLYCEMIC CONTROL: No changes needed to current regimen. * Continue basal insulin with Lantus 0-5 units SQ HS based on BSG * Continue NovoLog per scale ACHS/Q6hrs while NPO * Goal range = 110 140 mg/dl * CF = 25 mg/dl/unit * CR = 1 unit for ever 8 g CHO consumed * Pharmacy is signing off of glycemic consult and will no longer be making adjustments to inpatient regimen. Please feel free to re-consult if needed. Thank you.
--- NOTE | 2023-08-18 10:40 | Hospitalist Progress Note ---
Date of Service August 18, 2023 Assessment & Plan (1) Infection associated with internal right knee prosthesis: Plan: - Presented after a fall with redness, pain and swelling of right prosthetic knee. Patient afebrile, HD stable and non-toxic in appearance on admssion. - Patient is s/p right TKA on 05/26/23 with subsequent wound dehiscence and prosthetic joint infection s/p completion of IV Cefepime and Daptomycin (6 week course of antibiotics completed 08/06/23). -- He has had ongoing pain, swelling and gait instability. -- Joint aspiration performed in the ER by Orthopedics is concerning for persistent prosthetic joint infection. - Underwent explant right total knee arthroplasty with implantation of antibiotic static spacer, irrigation debridement right knee on 08/12/23. -- Follow cultures sent from joint aspiration 08/11/23 and surgical wound cultures on 08/11. -- Cultures preliminarily negative. - Infectious disease consulted for antibiotic regimen - continue with cefepime, daptomycin, and metronidazole. -- Will hold Simvastatin while patient is on Daptomycin. - Anemic, most likely anemia of chronic disease. No signs of active blood loss. Anemia appears to be chronic since 2017. Continue Protonix. - Please refer to primary team for pain management, activity level, med reconciliation, and discharge planning. Patient is medically stable. Hospital medicine will sign off at this time. Please contact with any questions or concerns. (2) Rheumatoid arthritis: Plan: Chronic. Stable. Patient was given stress dose of steroids perioperatively. - Continue home dose of Prednisone 5mg po qAM. (3) Acute kidney injury: Plan: Avoid nephrotoxic medications Hold lisinopril for now. If BP remains controlled without Lisinopril, consider discontinuing it on discharge. (4) Benign essential hypertension: Plan: Blood pressure at goal. - Hold Lisinopril as creatinine was going up. Blood pressure controlled without it. - Continue Diltiazem - Continue to monitor BP (5) Type 2 diabetes mellitus: Plan: - HgbA1C = 6.8 on 08/14/23. Diet controlled and patient uses Cinnamon Bark at home. Reports fairly well controlled blood sugars. - Continue basal insulin with Lantus 0-5 units SQ HS based on BSG - NovoLog per scale ACHS/every 6 hours while NPO - Goal blood sugars 110 - 140 - CF equals 25 mg/DL/unit - CR equals 1 unit for every 8g CHO consumed (6) Hypercholesteremia: Plan: Chronic -Holding Simvastatin while on daptomycin (7) Prosthetic joint infection: Plan Monitored BP Continue to follow ID recommendations for antibiotic therapy Patient is medically stable. Hospital medicine will sign off at this time. Please contact with any questions or concerns. VTE prophylaxis: Eliquis 2.5 mg p.o. twice daily (cleared by orthopedics), discontinued aspirin twice daily CODE STATUS: DNR/DNI Admission and Anticipated Discharge Date Admission Date: August 10, 2023 Subjective Patient seen and evaluated at bedside chair. He reports that he worked with PT this morning and it went better than previously. He states that his pain is under control even when working with PT. He has no complaints at this time. Patient is medically stable for discharge from a medical perspective. Continue following ID's recommendations for antibiotic regimen. Hospital medicine will sign off at this time. Physical Exam Physical Exam: General: No acute distress, nondiaphoretic, well-developed, well-nourished. Skin: Hinge brace on right leg. Dressing on right knee clean, dry, intact. Soft, nontender Right calf. Good perfusion to right toes. Abrasion on left slaughter in dressing, clean, dry, intact. Cardiac: Regular rate and rhythm without murmurs gallops or rubs. Pulm: Clear to auscultation bilaterally without wheezes, rales or rhonchi. No retractions or accessory muscle use. Abdominal: Positive bowel sounds x 4. Soft, nontender, without masses or organomegaly. No guarding or rebound tenderness. Neuro: A&O x3. No focal neurological deficits. Results & Data Results & Data Vital Signs (Past 12 Hours) Vital Signs Temp Pulse Pulse Resp BP BP Pulse Ox 08/18/23 07:48 36.9 C 97 H 22 148/73 H 94 08/17/23 22:37 37.2 C 97 H 18 123/78 94 O2 Del Method 08/18/23 07:48 Room Air 08/17/23 22:37 Room Air Laboratory Results Reviewed CBC Reviewed BMP PG Care Time/CCT Total # of Minutes Spent Total Time Spent with Patient: Total time spent is greater than 50% in coordination of care (as documented) at patient's floor/unit and/or counseling patient: Coding Level of Care Code 77026 SUB INP/OBS CARE MIN Diagnoses Infection associated with internal right knee prosthesis, subsequent encounter T84.53XD Encounter type: subsequent encounter Rheumatoid arthritis involving multiple sites, unspecified whether rheumatoid factor present M06.9 Rheumatoid arthritis location: multiple sites Rheumatoid factor presence: unspecified presence Acute kidney injury N17.9 Benign essential hypertension I10 Type 2 diabetes mellitus without complication, without long-term current use of insulin E11.9 Diabetes mellitus complication status: without complication Diabetes mellitus terminal system operator insulin use: without skilled nursing use Hypercholesteremia E78.00 Infection of prosthetic joint, initial encounter T84.50XA Encounter type: initial encounter (1) Infection associated with internal right knee prosthesis Encounter type: subsequent encounter Qualified Code(s): T84.53XD - Infection and inflammatory reaction due to internal right knee prosthesis, subsequent encounter (2) Rheumatoid arthritis Rheumatoid arthritis location: multiple sites Rheumatoid factor presence: unspecified presence Qualified Code(s): M06.9 - Rheumatoid arthritis, unspecified (5) Type 2 diabetes mellitus Diabetes mellitus complication status: without complication Diabetes mellitus terminal system operator insulin use: without terminal system operator use Qualified Code(s): E11.9 - Type 2 diabetes mellitus without complications (7) Prosthetic joint infection Encounter type: initial encounter Qualified Code(s): T84.50XA - Infection and inflammatory reaction due to unspecified internal joint prosthesis, initial encounter
--- NOTE | 2023-08-18 12:00 | Infectious Disease Progress Nt ---
Date of Service August 18, 2023 Assessment & Plan (1) Prosthetic joint infection: (2) Leg abrasion, non-infected: (3) Rheumatoid arthritis involving left knee: Plan This is an 83-year-old male with a past medical history of right TKA on 05/26/2023, rheumatoid arthritis (on prednisone 5 mg daily), DM2, prostate cancer status post prostatectomy, decreased hearing, CKD, recently admitted for right knee PJI. He underwent right knee wound exploration, quadricep tendon repair, medial retinaculum repair, I&D with poly ethylene exchange, retained hardware on 06/25/23. Intraoperative cultures grew E faecalis (amp sensitive) and Enterobacter hormaechei. He was evaluated by ID and was discharged on a 6-week course of daptomycin and cefepime ( 06/25/23 - 08/06/2023). This was to be followed by oral suppressive therapy with amoxicillin and Cipro or Bactrim. He completed IV antibiotics at [facility] on 08/06/23 as scheduled. Two days post discharge he fell multiple times at home 2/2 ongoing right knee swelling, pain and restricted range of motion. He did not have time to start his oral suppressive therapy. He presented to the ER in [place] on 08/08 and was transferred to the [facility] ER for further evaluation. He denied fever, chills, sweats, nausea, vomiting. In the ED he is afebrile and hemodynamically stable. Labs noted for a WBC 4.75, BUN 20, creatinine 1.33, ESR 45,CRP 7.97 CPK 84. Right knee x-ray showed anterior soft tissue swelling within the right knee with moderate knee effusion, small foci of soft tissue gas within the anterior medial aspect of the knee, intact right total knee arthroplasty hardware.He was evaluated by orthopedics and underwent a right knee arthrocentesis with > 90 K WBC,(94.7% polynuclear) and 150 K RBC. He was started on daptomycin and cefepime. ID consulted for evaluation of ongoing infection after DAIR. He underwent explantation of hardware this admission On my initial exam he complained of ongoing right knee pain and difficulty ambulating. Discussion:No grwoth from OR - but still infected knee now explanted - infection etiher d/t lingering infection and failure d/t hardware remaining vs untreated infection, will therefore treat wtih dapto, cefepime x 6 weeks and flagyl x 4 weeks Micro Right knee hematoma aspirate culture 08/11/2023: Many WBCs, no organisms, no growth to date Right knee joint culture 08/11/2023: Many WBCs seen, no organisms no growth to date right Knee OR cx 08/11 (ngtd) Abx: Daptomycin 08/10- ongoing Cefepime 08/10- ongoing Flagyl 08/11- ongoing # Ongoing R PJI - Per OR report 08/11, The joint had signs of infection. There was chronic thickened scarred synovial tissue - Sp explantation of TKA and insertion of static antibiotic cement knee Spacer, Evacuation of Hematoma Medial Knee , irrigation and debridement of skin and subcutaneous tissue and knee joint including electrocautery synovectomy and debridement 08/12/23 ( cx NGTd) # Right knee PJI s/p I+D with polyethylene exchange and implant retention 06/25/23 - OR cx Enterococcus faecalis+ Enterobacter hormaechei. s/p 6wks Daptomycin/cefepime # H/O Right TKA in 05/2023 # RA on chronic steroids Recommendations Continue Cefepime 2 g IV q12 ( Cr cl ~38) thorugh 09/22/23 Continue Daptomycin 8 mg/kg IV daily through 09/22/23 Change Flagyl 500 mg po q 8 hours and treat for 4 weeks through 09/08/23 Plan for weekly CBC with diff, CMP, CPK levels please send these to primary care physician Our ID service will not be responsible for labs post discharge Will sign off, please call with questions - Aleida Farnsworth MD Infectious Disease [facility], ID Division Admission and Anticipated Discharge Date Admission Date: August 10, 2023 Subjective This patient recommendation is based on a telemedicine consult request which was completed asynchronously through chart review and information provided by the primary physician. The patient was not seen or examined today. The evaluation is consultative in nature and all patient care and treatment decisions can either be accepted or rejected by the patient's primary hospital-based treating physician using their own independent medical judgment for their patient. Time Spent Reviewing Chart: 31+ minutes Results & Data Vital Signs (Past 12 Hours) Vital Signs Temp Pulse Resp BP Pulse Ox O2 Del Method 08/18/23 07:48 36.9 C 97 H 22 148/73 H 94 Room Air Laboratory Results Laboratory Results - last 48 hr 08/16/23 08/16/23 08/16/23 16:30 16:39 20:20 WBC RBC Hgb Hct MCV MCH MCHC RDW Std Deviation RDW Coeff of Raudel Plt Count MPV Sodium Potassium Chloride Carbon Dioxide Anion Gap BUN Creatinine Est Cr Clr Drug Dosing Est GFR ( Amer) Est GFR (Non-Af Amer) BUN/Creatinine Ratio Glucose POC Glucose 137 H 171 H Calcium Total Creatine Kinase 43 08/17/23 08/17/23 08/17/23 05:36 07:42 11:31 WBC 8.86 RBC 2.77 L Hgb 8.6 L Hct 26.7 L MCV 96.4 MCH 31.0 MCHC 32.2 RDW Std Deviation 47.6 H RDW Coeff of Raudel 13.3 Plt Count 265 MPV 9.5 Sodium 138 Potassium 5.3 H Chloride 109 H Carbon Dioxide 20 L Anion Gap 9 BUN 25 H Creatinine 1.61 H Est Cr Clr Drug Dosing 41.6 Est GFR ( Amer) 45.5 Est GFR (Non-Af Amer) 39.2 BUN/Creatinine Ratio 15.5 Glucose 96 POC Glucose 113 H 154 H Calcium 8.5 L Total Creatine Kinase 08/17/23 08/17/23 08/18/23 16:25 21:03 05:25 WBC 7.26 RBC 2.79 L Hgb 8.5 L Hct 26.7 L MCV 95.7 MCH 30.5 MCHC 31.8 L RDW Std Deviation 46.6 H RDW Coeff of Raudel 13.2 Plt Count 267 MPV 9.3 L Sodium 138 Potassium 4.5 Chloride 106 Carbon Dioxide 23 Anion Gap 9 BUN 24 H Creatinine 1.55 H Est Cr Clr Drug Dosing 43.2 Est GFR ( Amer) 47.6 Est GFR (Non-Af Amer) 41.1 BUN/Creatinine Ratio 15.5 Glucose 109 H POC Glucose 121 H 144 H Calcium 8.6 Total Creatine Kinase 08/18/23 08/18/23 07:36 11:36 WBC RBC Hgb Hct MCV MCH MCHC RDW Std Deviation RDW Coeff of Raudel Plt Count MPV Sodium Potassium Chloride Carbon Dioxide Anion Gap BUN Creatinine Est Cr Clr Drug Dosing Est GFR ( Amer) Est GFR (Non-Af Amer) BUN/Creatinine Ratio Glucose POC Glucose 103 H 147 H Calcium Total Creatine Kinase (1) Prosthetic joint infection Encounter type: initial encounter Qualified Code(s): T84.50XA - Infection and inflammatory reaction due to unspecified internal joint prosthesis, initial encounter (3) Rheumatoid arthritis involving left knee Rheumatoid factor presence: unspecified presence Qualified Code(s): M06.9 - Rheumatoid arthritis, unspecified
[2023-08-18] MEDS: LANTUS PER UNIT CHARGE SC SCH (21:00)
--- NOTE | 2023-08-19 07:22 | Orthopedic Progress Note ---
Date of Service August 19, 2023 Assessment & Plan (1) Infection associated with internal right knee prosthesis: Plan: Postop day 7 status post explant right total knee arthroplasty with implantation of antibiotic static spacer, irrigation debridement right knee. PT OT protocols. Weightbearing as tolerated. With immobilizer on. patient in hinged brace. DVT prophylaxis- Yoly, SCDs, MUNIR madden. Pain management as written. Continue to follow cultures. Currently on cefepime, metronidazole and daptomycin. Infectious disease team is following. Patient will require 6 weeks of IV antibiotics. ID recommendations given. Infectious disease consulted for antibiotic regimen - continue with cefepime, daptomycin, and metronidazole DC planning- patient would likely require a [place] [facility]. Plan for discharge to [facility] for further care today. Admission and Anticipated Discharge Date Admission Date: August 10, 2023 Subjective Postop day 7 patient sitting up awake and alert. No new complaints. Patient had his PICC line placed yesterday. Arrangements have been made through case management for transfer of the patient to [facility] for further IV antibiotics and care. Physical Exam Physical Exam: Dressings changed this morning. Incision is well-approximated. No erythema. Swelling is decreased. Calves are soft and nontender. toes are mobile. New dressing applied. Results & Data Vital Signs (Past 12 Hours) Vital Signs Temp Pulse Resp BP Pulse Ox O2 Del Method 08/18/23 21:07 37.0 C 92 H 18 126/65 95 Room Air 08/18/23 20:25 Room Air Laboratory Results 08/18/23 08/18/23 08/18/23 Range/Units 21:03 16:28 11:36 POC Glucose 89 133 H 147 H (70-99) mg/dl 08/18/23 Range/Units 07:36 POC Glucose 103 H (70-99) mg/dl (1) Infection associated with internal right knee prosthesis Encounter type: subsequent encounter Qualified Code(s): T84.53XD - Infection and inflammatory reaction due to internal right knee prosthesis, subsequent encounter
--- NOTE | 2023-08-21 16:33 | Discharge Summary ---
Date of Service August 21, 2023 Admission HPI Per Admitting Provider 83-year-old male status post irrigation debridement polyethylene exchange and retention of implant for postop infection wound dehiscence quadriceps tendon and medial retinacular disruption after a fall. Patient admits this to continue to have issues falling. Patient had a fall 3 days ago went to the emergency room in [place] and was transferred here due to elevated inflammatory parameters. Patient has been taking IV antibiotics for the infection however recently stopped the antibiotics. Patient has been taking the antibiotics since 06/25/2023 date of surgery. Admission Exam Per Admitting Provider Assessment & Plan (1) Prosthetic joint infection: (2) Leg abrasion, non-infected: (3) Rheumatoid arthritis involving left knee: Plan This is an 83-year-old male with a past medical history of right TKA on 05/26/2023, rheumatoid arthritis (on prednisone 5 mg daily), DM2, prostate cancer status post prostatectomy, decreased hearing, CKD, recently admitted for right knee PJI. He underwent right knee wound exploration, quadricep tendon repair, medial retinaculum repair, I&D with poly ethylene exchange, retained hardware on 06/25/23. Intraoperative cultures grew E faecalis (amp sensitive) and Enterobacter hormaechei. He was evaluated by ID and was discharged on a 6-week course of daptomycin and cefepime ( 06/25/23 - 08/06/2023). This was to be followed by oral suppressive therapy with amoxicillin and Cipro or Bactrim. He completed IV antibiotics at [facility] on 08/06/23 as scheduled. Two days post discharge he fell multiple times at home 2/2 ongoing right knee swelling, pain and restricted range of motion. He did not have time to start his oral suppressive therapy. He presented to the ER in [place] on 08/08 and was transferred to the [facility] ER for further evaluation. He denied fever, chills, sweats, nausea, vomiting. In the ED he is afebrile and hemodynamically stable. Labs noted for a WBC 4.75, BUN 20, creatinine 1.33, ESR 45,CRP 7.97 CPK 84. Right knee x-ray showed anterior soft tissue swelling within the right knee with moderate knee effusion, small foci of soft tissue gas within the anterior medial aspect of the knee, intact right total knee arthroplasty hardware.He was evaluated by orthopedics and underwent a right knee arthrocentesis with > 90 K WBC,(94.7% polynuclear) and 150 K RBC. He was started on daptomycin and cefepime. ID consulted for evaluation of ongoing infection after DAIR. He underwent e xplantation of hardware this admission Patient: ONEIL WINSTON Admit Date: 08/10/23 MR#: [id number] Att Phy: Vinay Chapin DO Acct ID: [id number] Sun Phy: Ramiro Hernandez MD Date: 1940 Fam Phy: Age: 83 Location: 3E Sex: M Room/Bed: 221 cc: ~ *NOTICE TO RECEIVING GREEN PARTY/AGENCY This information is strictly Confidential and protected under [place] law. [place] law prohibits you from making any further disclosure of this information unless further disclosure is expressly permitted by the written consent of the person to whom it pertains or is authorized by law. A general authorization for the release of medical or other information is not sufficient for this purpose. Hospital accepts no responsibility if the information is made available to any other person, INCLUDING THE PATIENT. Date of Service August 11, 2023 Assessment & Plan (1) Infection associated with internal right knee prosthesis: Plan: 7 weeks post irrigation debridement and retention implant polyethylene exchange. Patient has been on cefepime and daptomycin. I suspect he has not cleared his infection and may need explantation of implant and placement of cement spacer. I aspirated his knee joint and got some blood-tinged slightly opaque fluid not trey pus but not clear fluid. I also aspirated his pes anserine bursa swelling in his knee with separate aspirate and this was blood consistent with extra- articular hematoma in that area likely from the fall couple days ago. He could possibly have infected hematoma which is extra-articular to joint as this is where the gas particles were noted on the x-ray. Await results of aspirate and continue IV antibiotics and possible surgery shortly after the studies assessed. Encounter type: subsequent encounter Qualified Code(s): T84.53XD - Infection and inflammatory reaction due to internal right knee prosthesis, subsequent encounter (2) Rheumatoid arthritis involving left knee: Plan: Rheumatoid arthritis left knee aggravated by fall not felt to be clinically infected may need aspirate of that knee as well. Rheumatoid factor presence: unspecified presence Qualified Code(s): M06.9 - Rheumatoid arthritis, unspecified (3) Leg abrasion, non-infected: (4) Hematoma of lower leg: Plan: Acute hematoma due to fall. May or may not be infected. To be determined. Admission and Anticipated Discharge Date Admission Date: August 10, 2023 History of Present Illness Chief Complaint: Right and left knee pain left slaughter injury Primary Care Provider: Ramiro Hernandez MD 83-year-old male status post irrigation debridement polyethylene exchange and retention of implant for postop infection wound dehiscence quadriceps tendon and medial retinacular disruption after a fall. Patient admits this to continue to have issues falling. Patient had a fall 3 days ago went to the emergency room in [place] and was transferred here due to elevated inflammatory parameters. Patient has been taking IV antibiotics for the infection however recently stopped the antibiotics. Patient has been taking the antibiotics since 06/25/2023 date of surgery. Allergies Allergy/AdvReac Type Severity Reaction Status Date / Time adhesive Allergy Mild Redness Verified 07/25/23 15:04 lovastatin Allergy Unknown Unknown Verified 07/25/23 15:04 pseudoephedrine AdvReac Intermediate "Moodus high" Verified 07/25/23 15:04 Home Medications Medication Instructions Recorded Confirmed Type calcium carbonate (Calcium 600) 600 mg PO QAM 09/25/18 07/25/23 History hydrocortisone 2.5 % topical cream 1 appln topical .COMPLEX 09/30/18 07/25/23 History linaclotide 145 mcg capsule 145 mcg PO DAILY PRN constipation 09/30/18 07/25/23 Rx #90 caps qwcoqbywgisb-mouliolc-lmtqou tablet 1 tab PO QAM 09/30/18 07/25/23 History nystatin-triamcinolone 100,000 1 appln topical BID #60 grams 09/30/18 07/25/23 Rx unit/g-0.1 % topical cream mupirocin 2 % topical ointment 1 appln topical BID #30 grams 10/01/18 07/25/23 Rx ipratropium bromide 21 mcg (0.03 See Rx Instructions .Route 03/26/21 07/25/23 Rx %) nasal spray .COMPLEX #90 mL simvastatin 20 mg tablet 20 mg PO QPM #90 tabs 11/13/22 07/25/23 Rx montelukast 10 mg tablet 10 mg PO QPM #90 tabs 01/14/23 07/25/23 Rx diltiazem HCl 120 mg capsule,24 120 mg PO QAM #90 caps 04/14/23 07/25/23 Rx hr,extended release mirtazapine 30 mg tablet 30 mg PO HS insomnia mood #90 tabs 04/15/23 07/25/23 Rx cinnamon bark 500 mg capsule 500 mg PO QAM 04/28/23 07/25/23 History escitalopram oxalate 5 mg tablet 5 mg PO QAM 04/28/23 07/25/23 History fesoterodine 8 mg tablet,extended 8 mg PO QPM 04/28/23 07/25/23 History release 24 hr (Toviaz) folic acid 1 mg tablet 1 mg PO QAM 04/28/23 07/25/23 History mirabegron 50 mg tablet,extended 50 mg PO QPM 04/28/23 07/25/23 History release 24 hr (Myrbetriq) multivitamin 1 tab PO QAM 04/28/23 07/25/23 History omeprazole 40 mg capsule,delayed 40 mg PO QAM 04/28/23 07/25/23 History release prednisone 5 mg tablet 5 mg PO QAM 04/28/23 07/25/23 History lisinopril 20 mg tablet 20 mg PO QAM #90 tabs 05/23/23 07/25/23 Rx acetaminophen 500 mg tablet 1,000 mg (2 x 500 mg) PO Q8 #60 05/27/23 07/25/23 Rx (Tylenol Extra Strength) tabs aspirin 81 mg tablet,delayed 81 mg PO BID #60 tabs 05/27/23 07/25/23 Rx release docusate sodium 100 mg capsule 100 mg PO BID #60 caps 05/28/23 07/25/23 Rx ferrous gluconate 225 mg (27 mg 225 mg PO BID #60 tabs 05/28/23 07/25/23 Rx iron) tablet sennosides 8.6 mg tablet (Senokot) 17.2 mg (2 x 8.6 mg) PO HS #20 tabs 05/28/23 07/25/23 Rx tocilizumab 162 mg/0.9 mL 162 mg (0.9 mL) subcut Q7D #3.6 mL 06/09/23 07/25/23 Rx subcutaneous pen injector (Actemra ACTPen) daptomycin 500 mg intravenous 675 mg IV DAILY 42 days #10 ea 06/30/23 07/25/23 Rx solution cefepime 2 gram solution for 2 g IV Q8H #42 ea 07/02/23 07/25/23 Rx injection prevagen PO 07/25/23 History Past Med/Surg History Medical History Anemia ChronicHyperkalemia Diabetes mellitus, type 2 Diet controlledHearing deficit Carotid stenosis, right Under surveillance by vascular, imaging every 2 years Carotid duplex 06/2021: Known MARGARITA occlusion, 60-69% LICA stenosis ("possibly overestimated due to contralateral ICA occlusion), no change compared to 05/2019 per reportAbdominal aneurysm Aortoiliac ultrasound 06/2021: 3.7cm infrarenal AAA (stable) 2 year surviellance recommended by vascular (Dr. Pride)Osteoarthritis, knee Actinic keratoses Spondylolisthesis at L4-L5 level Spinal stenosis of lumbar region "Moderate" at L4-P1Nujypoborz arthritis H/O prostate cancer Dx 2006 S/p protatectomyHypercholesteremia Hypertension Surgical History (Updated 08/01/23 @ 00:09 by Carmen Duffy) History of colonoscopy Hx of vasectomy History of tooth extraction History of tonsillectomy and adenoidectomy H/O hernia repair H/O prostatectomy Family History Father No problems noted. Mother No problems noted. Other No family history of adverse response to anesthesia Social History Smoking Status: Former smoker Tobacco Type: Cigarettes Second Hand Exposure: No; Do You Dip or Chew Tobacco: No; Hx Alcohol Use: No Hx Substance Use: No Preferred Language: Georgian Communication Ability: Effective Communication Ability Comment: [facility] Body Former Required: No Beliefs That Will Affect Care: None marital status: Current Living Situation: Family Current Living Situation Comment: with son/Ramiro current occupational status: retired Other Information That Helps Us Care for You: No Feels Safe at Home: Yes Safety Concerns: Feels Safe At This Time Seatbelt Use: always Assistive Devices: Cane and Walker Review of Systems Patient does not quite feel himself but does not feel sick does not feel feverish. Not having any problems with his blood sugars. Left knee not overtly painful but more stiff since the injury. Has some slaughter pain where he scraped the slaughter. Physical Exam Constitutional: WD/WN, vitals as above Respiratory: normal respiratory effort; no respiratory distress Cardiovascular: Rate/Rhythm: regular rate and regular rhythm Musculoskeletal: Left knee has an effusion no increased warmth no erythema range of motion 0 to 100 degrees some stiffness after that. He can do a straight leg raise without extensor lag. The left slaughter has a long oval scrape where the skin was abraded appears to be superficial and this is dry without any drainage but some of the superficial skin is necrotic due to abrasion. Currently no signs of infection there. Right knee still has a few scabs over the incisional area has a knee effusion some moderate increased warmth mild erythema swollen area over the pes anserine bursa and has some extensor lag by least 15 degrees and mild pain with range of motion. Has more difficulty doing a straight leg raise on the right than the left. Swelling in the pes anserine bursa area appears to be fluctuant consistent with fluid collection. Distal circulation intact sensation decreased per baseline. Skin: no rashes, warm and dry Neurologic: normal touch/pain/proprioception Neuropathy decreased sensation lower extremities Psychiatric: A+Ox3, euthymic affect Results & Data Vital Signs (Past 12 Hours) Vital Signs Temp Pulse Resp BP Pulse Ox O2 Del Method 08/11/23 15:39 36.6 C 89 19 155/82 H 94 Room Air 08/11/23 07:50 Room Air 08/11/23 07:48 37.1 C 98 H 20 143/87 H 91 Room Air Laboratory Results C-reactive protein was 121, white blood cell count normal Diagnostic Findings X-rays demonstrate possible air pockets in the fluid in the medial knee area anterior medially could possibly be gas pockets due to infection. Knee implant well-fixed well aligned no acute fracture. Signed By: <Electronically signed by Luis Hernandez MD> 08/11/23 1738 Created: 08/11/23 2116 The status of this report is Signed. Draft = Not yet reviewed or approved by Medical Physician. Signed = Reviewed and approved by Medical Physician. Principal Diagnosis Infected right knee replacement Discharge Data Allergies Allergy/AdvReac Type Severity Reaction Status Date / Time adhesive Allergy Mild Redness Verified 07/25/23 15:04 lovastatin Allergy Unknown Unknown Verified 07/25/23 15:04 pseudoephedrine AdvReac Intermediate "Moodus high" Verified 07/25/23 15:04 Consultations 08/11/23 19:22 Consult Hospitalist Routine 08/11/23 19:24 Consult Infectious Diseases Routine Procedures Performed Operation Date: 08/12/23 07:00 Actual Procedures p Explantation of Right Total Knee Arthroplasty and Insertion of Knee Antibiotic Spacer, Evacuation of Hemotoma Medial Knee; (Right) - Luis Hernandez MD s Irrigation and Debridement - Luis Hernandez MD Hospital Course (1) Infection associated with internal right knee prosthesis: status post explant right total knee arthroplasty with implantation of antibiotic static spacer, irrigation debridement right knee. Patient had a 7- day hospital course. He was treated for postoperative anemia due to blood loss from the surgical procedure. He never had a septic appearance to him despite having infected knee replacement and hematoma. Surgical procedure required due to ongoing infection of the knee replacement despite having debridement and retention of implant status post a postoperative dehiscence. Bacteria cultures that were positive for Enterococcus faecalis sensitive to ampicillin and daptomycin and Enterobacter hormaechei sensitive to Cipro,ertapenem, gentamicin and levofloxacin. PT OT protocols. Weightbearing as tolerated. With immobilizer on. patient in hinged brace. Static antibiotic knee spacer which will keep his knee in full extension. DVT prophylaxis- Yoly, SCDs, MUNIR madden. Pain management as written. Continue to follow cultures. Currently on cefepime, metronidazole and daptomycin. Infectious disease team is following. Patient will require 6 weeks of IV antibiotics. ID recommendations given. Infectious disease consulted for antibiotic regimen - continue with cefepime, daptomycin, and metronidazole DC planning- patient would likely require a senior care facility. Plan [facility] discharge to [facility] . Total Time Total Time Spent Total Time Spent (In Minutes): 25 min Discharge Plan Discharge Items Patient Disposition: Transfer Senior Care Fac Reason For Visit: septic knee joint Discharge Diagnosis: Septic knee joint Activity: Per Instructions section Weightbearing: Right weightbearing Weightbearing Comment: weightbearing as tolerated with brace on at all times. No range of motion Non-emergency contact: Surgeon Call non-emergency contact if: you have any medication questions, your pain is not controlled, your temperature is above 101.5, your wound has increased redness and your wound has increased drainage Follow-up/Referrals: Ramiro Hernandez MD [Primary Care Provider] - Luis Hernandez MD [Surgeon] - ( Follow-up with Dr. Hernandez in 1 week for your first postoperative visit) Diet: Carb Consistent or DM2 Addtl Attending Provider Instructions: Patient will be on IV antibiotics for 6 weeks. Recommendations will per infectious disease team as listed below. Continue Cefepime 2 g IV q12 ( Cr cl ~38) thorugh 09/22/23 Continue Daptomycin 8 mg/kg IV daily through 09/22/23 Change Flagyl 500 mg po q 8 hours and treat for 4 weeks through 09/08/23 weekly CBC with diff, CMP, CPK. Send results to Dr. Hernandez and to patients PCP (David fax. [phone]) daily dressing changes to the right knee if patient having drainage. If the wound is dry and clean, dressing changes every other day. Dressing change/ wound care to left slaughter as needed. Continue to use hinged knee brace at all times. Can be removed for dressing changes. No range of motion of the right knee at this time. weightbearing as tolerated on the right knee with assistance and use of a walker. PT/OT protocols. Weightbearing as tolerated right lower extremity. Gait training/ADLs. Picc line care. Follow up with Dr. Hernandez in 1 week for wound check and staple removal. Stand-Alone Forms: My [facility] Skilled Items Patient informed of condition?: Yes DNR: Yes Discharge Level of Care: Skilled Communicable Disease: Yes Discharge Prognosis: Stable Lines: PICC Urinary Catheter: No Medications and DC Order Prescriptions: New Eliquis 2.5 mg Tablet 2.5 mg PO BID 28 Days Qty: 56 0RF docusate sodium 100 mg Capsule 100 mg PO BID 14 Days Qty: 28 0RF oxycodone 5 mg Tablet 5 mg PO Q4 PRN (Reason: pain) 5 Days Qty: 30 0RF Continued calcium carbonate [Calcium 600] 600 mg calcium (1,500 mg) tablet 600 mg PO QAM ipratropium bromide 21 mcg (0.03 %) spray,non-aerosol See Rx Instructions .ROUTE .COMPLEX Qty: 90 3RF Dose Instruction: 2 SPRAY INTO EACH NOSTRIL TWICE DAILY NEEDED FOR ALLERGY SYMPTOMS Rx Instructions: 2 SPRAY INTO EACH NOSTRIL TWICE DAILY NEEDED FOR ALLERGY SYMPTOMS simvastatin 20 mg tablet 20 mg PO QPM Qty: 90 3RF montelukast 10 mg tablet 10 mg PO QPM Qty: 90 3RF diltiazem HCl 120 mg capsule,extended release 24 hr 120 mg PO QAM Qty: 90 3RF mirtazapine 30 mg tablet 30 mg PO HS Qty: 90 3RF lisinopril 20 mg tablet 20 mg PO QAM Qty: 90 3RF Actemra ACTPen 162 mg/0.9 mL pen injector 162 mg subcut Q7D Qty: 3.6 3RF Hold Instructions: Resume on 07/11/23. Hold for at least 2 weeks postop secondary to postoperative infection. Patient Comments: friday mornings hydrocortisone 2.5 % cream 1 appln topical .COMPLEX Patient Comments: 1 applic topical apply 2-3 times daily as needed for hemorrhoidal irritation; Rx Instructions: 1 applic topical apply 2-3 times daily as needed for hemorrhoidal irritation; tfqkywledfps-zizelrtp-cgdzrs tablet 1 tab PO QAM linaclotide 145 mcg capsule 145 mcg PO DAILY PRN (Reason: constipation) Qty: 90 3RF nystatin-triamcinolone 100,000-0.1 unit/g-% cream 1 appln TOP BID Qty: 60 3RF Patient Comments: i dont take mupirocin 2 % ointment 1 appln TOP BID Qty: 30 2RF Rx Instructions: pt does not need immediately. prevagen PO multivitamin tablet 1 tab PO QAM prednisone 5 mg tablet 5 mg PO QAM omeprazole 40 mg capsule,delayed release(DR/EC) 40 mg PO QAM folic acid 1 mg tablet 1 mg PO QAM escitalopram oxalate 5 mg tablet 5 mg PO QAM cinnamon bark 500 mg capsule 500 mg PO QAM fesoterodine [Toviaz] 8 mg tablet extended release 24 hr 8 mg PO QPM mirabegron [Myrbetriq] 50 mg tablet extended release 24 hr 50 mg PO QPM aspirin 81 mg Tablet,Delayed Release (Dr/Ec) 81 mg PO BID Qty: 60 0RF acetaminophen [Tylenol Extra Strength] 500 mg Tablet 1,000 mg PO Q8 Qty: 60 0RF ferrous gluconate 225 mg (27 mg iron) tablet 225 mg PO BID Qty: 60 0RF sennosides [Senokot] 8.6 mg Tablet 17.2 mg PO HS Qty: 20 0RF docusate sodium 100 mg Capsule 100 mg PO BID Qty: 60 0RF cefepime 2 gram recon soln 2 g IV Q8H Qty: 42 0RF Discharge Orders: Discharge Order (Routine); Ordered 08/19/23 Ordered By: Yan Meeks/Other Patient Handouts: Nutrition for Wound Healing, High Blood Sugar (Hyperglycemia), Managing Type 2 Diabetes Admission Data Admit Date/Time: 08/10/23 15:21 Attending Provider: Luis Hernandez Admit Provider: Luis Hernandez Primary Care Provider: Ramiro Hernandez Other Providers: Nella Zuniga Other Interventions: Discharge Summary Assessment (RN) Last Done: 08/19/23 12:03
== END 2023-08-19 13:53 | DRG 464 ==
LOC: SUATTDRO 15:21 → 3E 15:21